=== PATIENT | female | born 1960 | race Caucasian/White ===

== ENCOUNTER → 2016-12-13 | Outpatient (CLI) | payer MEDICAID ==
--- NOTE | 2016-12-17 09:52 | MM ---
Reason for exam: screening (asymptomatic). Last mammogram was performed 3 years and 6 months ago. History: Family history of breast cancer in sister at age 50 and breast cancer in mother. Took hormonal contraceptives for 4 years beginning at age 18. Physical Findings: A clinical breast exam by your physician is recommended on an annual basis and results should be correlated with mammographic findings. MG 3D Screening Mammo W/Cad Bilateral CC and MLO view(s) were taken. Prior study comparison: June 02, 2013, bilateral digital screening mammo w/CAD. October 09, 2011, bilateral digital screening mammo w/CAD. The breast tissue is heterogeneously dense. This may lower the sensitivity of mammography. Finding: There are typically benign round calcifications. There is no discrete abnormality. No significant changes in finding since June 02, 2013 and October 09, 2011. ASSESSMENT: Benign, BI-RAD 2 RECOMMENDATION: Routine screening mammogram of both breasts in 1 year.
== END | disposition home or self-care (01) ==
LOC: RADMAMWWP 11:55
PROVIDERS: ATTEND Obstetrics & Gynecology
DX: Z12.31 Encounter for screening mammogram for malignant neoplasm of breast (principal); Z80.3 Family history of malignant neoplasm of breast
CPT/HCPCS: 77063; G0202

== ENCOUNTER → 2016-12-17 | Outpatient (CLI) | payer MEDICAID ==
[2016-12-17 10:02] LABS: Basophils % (A) 1 %; CH 29.4; CHCM 32.6; Eosinophils # (A) 0.3 k/uL (0-0.7); Eosinophils % (A) 5 %; HCT 43.3 % (34.0-46.0); HDW 2.78; HGB 13.7 gm/dL (11.4-16.0); Luc % (Auto) 1; Lymphocytes # (A) 1.4 k/uL (1.0-4.8); Lymphocytes % (A) 21 %; MCH 28.6 pg (25.0-35.0); MCHC 31.6 g/dL (31.0-37.0); MCV 90.5 fL (80.0-100.0); Mean Platelet Volume 8.3; Monocytes # (A) 0.5 k/uL (0-1.0); Monocytes % (A) 7 %; Neutrophils # (A) 4.6 k/uL (1.3-7.7); Neutrophils % (A) 66 %; RBC 4.78 m/uL (3.80-5.40); RDW 14.3 % (11.5-15.5)
[2016-12-17 10:46] LABS: ALT 51 U/L (9-52); AST 30 U/L (14-36); Alkaline Phosphatase 63 U/L (38-126); Anion Gap 12 mmol/L; Blood Urea Nitrogen 19 mg/dL (7-17); Carbon Dioxide 26 mmol/L (22-30); Chloride 106 mmol/L (98-107); Glucose 102 mg/dL (74-99); Non-African American GFR(MDRD) >60 (>60 ml/min/1.73 sqM); Sodium 144 mmol/L (137-145); Total Bilirubin 0.5 mg/dL (0.2-1.3); Total Protein 6.9 g/dL (6.3-8.2)
[2016-12-17 11:36] LABS: Vitamin B12 506 pg/mL (239-931)
[2016-12-17 16:24] LABS: Appearance,CSF Clear
[2016-12-17 16:36] LABS: Glucose,CSF 56 mg/dL (40-70)
[2016-12-18 14:18] LABS: Immunoglobulin G 608 mg/dL (700 - 1600)
[2016-12-20 17:52] LABS: Lyme Specimen Source Not Provided
== END | disposition home or self-care (01) ==
LOC: LABWHC1 09:19
PROVIDERS: ATTEND Psychiatry & Neurology Neurology
DX: R90.82 White matter disease, unspecified (principal); R41.3 Other amnesia
CPT/HCPCS: 36415; 80053; 82040; 82042; 82306; 82607; 82784; 82945; 83916; 84157; 84439; 84443; 84481; 85025; 87476; 88108; 89050

== ENCOUNTER → 2017-03-11 | Outpatient (CLI) | payer MEDICAID ==
--- NOTE | 2017-03-11 11:47 | XR ---
EXAMINATION TYPE: XR chest 2V DATE OF EXAM: 03/11/2017 11:43 AM COMPARISON: 10/02/2016 TECHNIQUE: PA and lateral views submitted. HISTORY: Cough FINDINGS: The lungs are clear and there is no pneumothorax, pleural effusion, or focal pneumonia. No overt fa ilure. LAP-BAND noted. Degenerative change of the spine seen. IMPRESSION: 1. No acute process.
== END | disposition home or self-care (01) ==
LOC: RADXRMAIN 11:28
PROVIDERS: ATTEND Family Medicine
DX: J20.9 Acute bronchitis, unspecified (principal)
CPT/HCPCS: 36415; 71020; 80048; 85025

== ENCOUNTER → 2017-03-11 | Outpatient (CLI) | payer MEDICAID ==
[2017-03-11 12:22] LABS: Basophils % (A) 1 %; CH 28.7; CHCM 32.1; Eosinophils # (A) 0.3 k/uL (0-0.7); Eosinophils % (A) 5 %; HCT 44.7 % (34.0-46.0); HDW 2.76; HGB 14.1 gm/dL (11.4-16.0); Luc # (Auto) 0.18; Luc % (Auto) 2; Lymphocytes % (A) 39 %; MCH 28.4 pg (25.0-35.0); MCHC 31.7 g/dL (31.0-37.0); MCV 89.7 fL (80.0-100.0); Mean Platelet Volume 6.6; Monocytes # (A) 0.4 k/uL (0-1.0); Monocytes % (A) 5 %; Neutrophils # (A) 3.8 k/uL (1.3-7.7); Neutrophils % (A) 49 %; RBC 4.98 m/uL (3.80-5.40); RDW 15.5 % (11.5-15.5); WBC 7.7 k/uL (3.8-10.6); WBC (Perox) 7.91
[2017-03-11 12:35] LABS: Anion Gap 13 mmol/L; Blood Urea Nitrogen 18 mg/dL (7-17); Calcium 10.5 mg/dL (8.4-10.2); Carbon Dioxide 26 mmol/L (22-30); Chloride 103 mmol/L (98-107); Glucose 101 mg/dL (74-99); Non-African American GFR(MDRD) >60 (>60 ml/min/1.73 sqM); Potassium 4.1 mmol/L (3.5-5.1); Sodium 142 mmol/L (137-145)
== END | disposition home or self-care (01) ==
LOC: LABWHC1 11:48
PROVIDERS: ATTEND Family Medicine
DX: I10 Essential (primary) hypertension (principal)
CPT/HCPCS: 36415; 80048; 85025

== ENCOUNTER 2017-05-17 15:24 | Emergency (ER) | payer MEDICAID, OTHER ==
[2017-05-17 15:30] VITALS: BP 177/84; PULSE 84; RESP 20; TEMP 98
[2017-05-17] MEDS ORDERED: RX INFO: IV CONTRAST WAS GIVEN 1 EACH MISC MISCELLANE PRN ×2 (16:09→17:43)
[2017-05-17] MEDS ORDERED: IOHEXOL 350 MG/ML 25 ML BOTTLE (ORAL USE) PO PRN ×2 (16:09→17:43)
[2017-05-17] MEDS ORDERED: SODIUM CHLORIDE 0.9% 1,000 ML IV ONE (16:10)
--- NOTE | 2017-05-17 16:12 | ED ---
Fall HPI <Eduardo Saavedra - Last Filed: 05/17/17 17:43> - General Source: patient, RN notes reviewed, old records reviewed Mode of arrival: ambulatory <Gardenia Davis - Last Filed: 05/18/17 13:34> - General Chief Complaint: Fall Stated Complaint: IHS. Back Injury Time Seen by Provider: 05/17/17 15:58 - History of Present Illness Initial Comments: This is a 56-year-old female presenting to the emergency Department chief complaint of falling and hitting her left side on a bed rail about work today. 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 Patient reports that she twisted her right knee and the same process. She states that she mainly landed on her left side. She does have history of lap band. Patient is concerned that there is something disruptive with the lap band. She states that she's had a gassy feeling and feeling that she is swelling in her abdomen. Patient states it hurts to take a deep breath. Patient states that her pain is currently 9 out of 10. She denies any chest pain. She states the pain is mainly over the left lower rib and upper quadrant area. (Gardenia Davis) - Related Data Home Medications Medication Instructions Recorded Confirmed amLODIPine BESYLATE [Norvasc] 5 mg PO HS 08/09/15 05/17/17 Cholecalciferol [Vitamin D3] 1,000 unit PO DAILY 05/17/17 05/17/17 [place]-3 Fatty Acids/Fish Oil [Fish 1 cap PO DAILY 05/17/17 05/17/17 Oil 1,000 mg Softgel] Vitamin E 1,000 unit PO DAILY 05/17/17 05/17/17 traMADol HCl [Ultram] 50 mg PO HS PRN 05/17/17 05/17/17 Previous Rx's Medication Instructions Recorded Cyclobenzaprine [Flexeril] 10 mg PO TID #15 tab 05/17/17 traMADol HCl [Ultram] 50 mg PO Q6H PRN #15 tab 05/17/17 Allergies Allergy/AdvReac Type Severity Reaction Status Date / Time No Known Allergies Allergy Verified 05/17/17 16:49 Review of Systems ROS Other: All systems not noted in ROS Statement are negative. <Eduardo Saavedra - Last Filed: 05/17/17 17:43> ROS Other: All systems not noted in ROS Statement are negative. <RyanGardenia - Last Filed: 05/18/17 13:34> ROS Statement: Those systems with pertinent positive or pertinent negative responses have been documented in the HPI. Past Medical History Past Medical History: Hypertension, Mitral Valve Prolapse (MVP), Osteoarthritis (OA), Sleep Apnea/CPAP/BIPAP Additional Past Medical History / Comment(s): "AAA, 4 cm", occ stress incont, using cpap occ. History of Any Multi-Drug Resistant Organisms: None Reported Past Surgical History: Adenoidectomy, Bariatric Surgery, Orthopedic Surgery, Tonsillectomy Additional Past Surgical History / Comment(s): lap band, rt eye sx-had a blocked blood vessel, sinus sx, L knee replacement, 10-02-16 rt knee replacment Past Anesthesia/Blood Transfusion Reactions: No Reported Reaction Past Psychological History: No Psychological Hx Reported Smoking Status: Never smoker Past Alcohol Use History: Rare Past Drug Use History: None Reported - Past Family History Sister(s) Family Medical History: Cancer Additional Family Medical History / Comment(s): BREAST CANCER, HX OF BRACHIAL BLOOD CLOTS WITH FILTERS INSERTED. Mother Family Medical History: Cancer Additional Family Medical History / Comment(s): BREAST CANCER. Father Family Medical History: Congestive Heart Failure (CHF) <Alexa Davisily - Last Filed: 05/18/17 13:34> General Exam <SaavedraEduardo - Last Filed: 05/17/17 17:43> Limitations: no limitations General appearance: alert, in no apparent distress Head exam: Present: atraumatic, normocephalic, normal inspection Eye exam: Present: normal appearance, PERRL, EOMI. Absent: scleral icterus, conjunctival injection, periorbital swelling ENT exam: Present: normal exam, mucous membranes moist Neck exam: Present: normal inspection. Absent: tenderness, meningismus, lymphadenopathy Respiratory exam: Present: normal lung sounds bilaterally, chest wall tenderness (Patient has left-sided lower chest wall tenderness. Patient reports pain with deep inspiration.), other. Absent: respiratory distress, wheezes, rales, rhonchi, stridor Cardiovascular Exam: Present: regular rate, normal rhythm, normal heart sounds. Absent: systolic murmur, diastolic murmur, rubs, gallop, clicks GI/Abdominal exam: Present: soft, tenderness (Left upper quadrant tenderness.), normal bowel sounds. Absent: distended, guarding, rebound, rigid Extremities exam: Present: normal inspection, full ROM, normal capillary refill. Absent: tenderness, pedal edema, joint swelling, calf tenderness Back exam: Present: normal inspection Neurological exam: Present: alert, oriented X3, CN II-XII intact Psychiatric exam: Present: normal affect, normal mood Skin exam: Present: warm, dry, intact, normal color. Absent: rash <Gardenia Davis - Last Filed: 05/18/17 13:34> - General Exam Comments Initial Comments: 56-year-old female. Patient is on appear to be in any acute distress. ( Gardenia Davis) Course <Eduardo Saavedra - Last Filed: 05/17/17 17:43> <Gardenia Davis - Last Filed: 05/18/17 13:34> Vital Signs 05/17/17 15:28 Temperature 98 F Pulse Rate 84 Respiratory 20 Rate Blood Pressure 177/84 O2 Sat by Pulse 98 Oximetry - Reevaluation(s) Reevaluation #1: 05/17/17 17:43 Patient reevaluated by myself, Dr. Saavedra. Patient resting comfortably in bed. Patient plays of discomfort of the left upper abdomen and left back. There is minimal tenderness to palpation. No chest discomfort. Discussed with patient regarding possible central line however patient does not feel this is necessary. Patient states she has chronic difficulty with IV placement and even now has chronic difficulty with central line placement. Patient states she has had multiple central lines previously and does not want another one. Patient is felt to have low suspicion for acute abdominal injury based on exam. Computed tomography scan will be done without IV contrast. (Eduardo Saavedra) 05/17/17 17:18 Patient was reevaluated after multiple IV attempts at this time. She was informed that her chest x-ray is normal and that her urine does show stigmata red blood cells. This will be the fourth attempt of trying to start an IV on the patient started to get a computed tomography scan. He states that she usually has had have central lines in order to have fluid started. (Gardenia Davis) Medical Decision Making - Lab Data Result diagrams: 05/17/17 16:55 <Eduardo Saavedra - Last Filed: 05/17/17 17:43> - Lab Data Result diagrams: 05/17/17 16:55 - Radiology Data Radiology results: report reviewed <Gardenia Davis - Last Filed: 05/18/17 13:34> - Medical Decision Making This is a 56-year-old female presenting to the emergency Department chief complaint of falling and hitting her left side on a bed rail about work today. 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 Patient reports that she twisted her right knee and the same process. She states that she mainly landed on her left side. She does have history of lap band. Patient is concerned that there is something disruptive with the lap band. She states that she's had a gassy feeling and feeling that she is swelling in her abdomen. Patient is tender in LUQ and left flank. Urinalysis shows 90 RBC. CXR and rib xray are negative. Multiple attempts completed to obtain IV access for CT abdomen and pelvis, however patient has difficulty. She ususlaly needs a central line. She wants to forgo using contrast, discussed with DR. Saavedra. CT abdomen pelvis with bariatric protocol was completed. CT is negative for any acute process, spleen and kidneys appear intact. Discussed she needs to follow up with PCP in regards to hematuria, however no lacerations noted. Discussed taking muscle relaxer and pain medication for the pain. Patient agrees to treatment plan and will comply. (Gardenia Davis) - Lab Data Lab Results 05/17/17 05/17/17 Range/Units 16:14 16:55 Sodium 144 (137-145) mmol/L Potassium 4.2 (3.5-5.1) mmol/L Chloride 105 (98-107) mmol/L Carbon Dioxide 25 (22-30) mmol/L Anion Gap 14 mmol/L BUN 27 H (7-17) mg/dL Creatinine 0.70 (0.52-1.04) mg/dL Est GFR (MDRD) Af Amer >60 (>60 ml/min/1.73 sqM) Est GFR (MDRD) Non-Af >60 (>60 ml/min/1.73 sqM) Glucose 83 (74-99) mg/dL Calcium 10.0 (8.4-10.2) mg/dL Urine Color Yellow Urine Appearance Cloudy H (Clear) Urine pH 5.5 (5.0-8.0) Ur Specific [place] 1.029 (1.001-1.035) Urine Protein Trace H (Negative) Urine Glucose (UA) Negative (Negative) Urine Ketones Trace H (Negative) Urine Blood Negative (Negative) Urine Nitrite Negative (Negative) Urine Bilirubin Negative (Negative) Urine Urobilinogen 2.0 (<2.0) mg/dL Ur Leukocyte Esterase Trace H (Negative) Urine RBC 90 H (0-5) /hpf Urine WBC 6 H (0-5) /hpf Ur Squamous Epith Cells 3 (0-4) /hpf Urine Bacteria Rare H (None) /hpf Urine Mucus Rare H (None) /hpf - Radiology Data CXR negative for rib fracture or acute process. Pt CT abdoment and pelvis shows proper placement of lap band, and no other significant abnormalities. (Gardenia Davis) Disposition <Eduardo Saavedra - Last Filed: 05/17/17 17:43> Time of Disposition: 18:58 <Gardenia Davis - Last Filed: 05/18/17 13:34> Clinical Impression: Fall, Contusion, flank Disposition: HOME SELF-CARE Condition: Good Instructions: Abdominal Pain (ED), Flank Pain (ED) Additional Instructions: Patient advised to follow-up with her primary care provider on Saturday. Return if there is any worsening. Patient advised to take the medication as prescribed. Rest and apply heat and ice to the area. Return to the emergency department if any alarming signs or symptoms occur. Prescriptions: Cyclobenzaprine [Flexeril] 10 mg PO TID #15 tab traMADol HCl [Ultram] 50 mg PO Q6H PRN #15 tab PRN Reason: Pain Referrals: Omer Katz DO [Primary Care Provider] - 1-2 days
--- NOTE | 2017-05-17 16:29 | XR ---
EXAMINATION TYPE: XR ribs LT w pa chest xray DATE OF EXAM: 05/17/2017 COMPARISON: Chest x-ray 03/11/2017 HISTORY: Left-sided chest pain from fall TECHNIQUE: 2 views left RIBS supplemented with a frontal chest. FINDINGS: Lap band is present. No pneumothorax is evident. Left ribs appear intact. No displaced rib fractures are identified. Heart size is normal. Pulmonary vasculature is normal. The lungs are clear. Chest is stable from 03/11 IMPRESSION: 1. Normal left ribs
[2017-05-17 16:33] LABS: Mucus,Urine Rare /hpf; Particle Count 6930; RBC,Urine 90 /hpf (0-5); Squamous Epithelial Cell,Urine 3 /hpf (0-4); WBC,Urine 6 /hpf (0-5)
[2017-05-17 16:52] LABS: Appearance,Urine Cloudy (Clear); Bacteria,Urine Rare /hpf; Bilirubin,Urine Negative (Negative); Glucose,Urine (UA) Negative (Negative); Ketones,Urine Trace (Negative); Leukocyte Esterase,Urine Trace (Negative); Nitrite,Urine Negative (Negative); PH, Urine 5.5 (5.0-8.0); Protein,Urine Trace (Negative); Specific Gravity,Urine 1.029 (1.001-1.035); UA Billing (MACRO vs. MICRO) MICRO
[2017-05-17 17:18] LABS: Anion Gap 14 mmol/L; Blood Urea Nitrogen 27 mg/dL (7-17); Carbon Dioxide 25 mmol/L (22-30); Chloride 105 mmol/L (98-107); Glucose 83 mg/dL (74-99); Non-African American GFR(MDRD) >60 (>60 ml/min/1.73 sqM); Potassium 4.2 mmol/L (3.5-5.1); Sodium 144 mmol/L (137-145)
--- NOTE | 2017-05-17 18:12 | CT ---
EXAMINATION TYPE: CT abdomen pelvis wo con DATE OF EXAM: 05/17/2017 COMPARISON: NONE HISTORY: ABDOMINAL BLOATING AND BACK PAIN. CT DLP: 1045.3 mGycm Automated exposure control for dose reduction was used. TECHNIQUE: Helical acquisition of images was performed from the lung bases through the pelvis. FINDINGS: There is mild linear density at the right lung base consistent with atelectasis. There is a sleeve at the gastroesophageal junction from bariatric surgery. Liver shows no focal defect. Bile ducts are no t dilated. Spleen appears normal. There is no pancreatic mass. Gallbladder appears normal. There is no adrenal mass. Kidneys have normal size and contour. There is no hydronephrosis. There is no retroperitoneal adenopathy. There is mild atheromatous change in the abdominal aorta. There is no ascites. Bladder distends smoothly. I see no pelvic mass. Appendix appears normal. I see no intestina l wall thickening. There are no dilated loops. Bony structures appear normal. There is a small right inguinal hernia that contains omental fat.: IMPRESSION: ATHEROSCLEROTIC VASCULAR DISEASE. NO SIGN OF ACUTE ABDOMEN AND PELVIS. SMALL RIGHT INGUINAL HERNIA CO NTAINS FAT. BARIATRIC SURGERY NOTED. NORMAL APPENDIX. MILD ATELECTASIS AT THE RIGHT LUNG BASE.
[2017-05-17] MEDS ORDERED: ORPHENADRINE 30 MG/ML 2 ML VIAL IM STA (18:16)
== END 2017-05-17 19:13 | disposition home or self-care (01) ==
LOC: EC 15:24
DX: S30.1XXA Contusion of abdominal wall, initial encounter (principal); S89.91XA Unspecified injury of right lower leg, initial encounter; R07.81 Pleurodynia; I10 Essential (primary) hypertension; Z79.899 Other long term (current) drug therapy; Z98.84 Bariatric surgery status; W01.190A Fall on same level from slipping, tripping and stumbling with subsequent striking against furniture, initial encounter; Y92.69 Other specified industrial and construction area as the place of occurrence of the external cause; Y99.0 Civilian activity done for income or pay
CPT/HCPCS: 36415; 80048; 81001; 71101; 74176; 99284; 96372; J2360

== ENCOUNTER → 2017-05-25 | Outpatient (CLI) | payer MEDICAID ==
[2017-05-25 10:01] LABS: Appearance,Urine Clear (Clear); Bilirubin,Urine Negative (Negative); Glucose,Urine (UA) Negative (Negative); Ketones,Urine Negative (Negative); Leukocyte Esterase,Urine Negative (Negative); Nitrite,Urine Negative (Negative); PH, Urine 6.5 (5.0-8.0); Protein,Urine Negative (Negative); Specific Gravity,Urine 1.021 (1.001-1.035); UA Billing (MACRO vs. MICRO) CHEM; Urobilinogen,Urine <2.0 mg/dL (<2.0)
== END | disposition home or self-care (01) ==
LOC: LABWHC1 09:19
PROVIDERS: ATTEND Family Medicine
DX: R31.21 Asymptomatic microscopic hematuria (principal); R89.9 Unspecified abnormal finding in specimens from other organs, systems and tissues
CPT/HCPCS: 36415; 81003; 82310; 87086

== ENCOUNTER → 2017-07-06 | Outpatient (CLI) | payer MEDICAID ==
[2017-07-06 09:33] LABS: Appearance,Urine Clear (Clear); Bilirubin,Urine Negative (Negative); Glucose,Urine (UA) Negative (Negative); Ketones,Urine Negative (Negative); Leukocyte Esterase,Urine Negative (Negative); Nitrite,Urine Negative (Negative); Protein,Urine Negative (Negative); Specific Gravity,Urine 1.016 (1.001-1.035); UA Billing (MACRO vs. MICRO) CHEM; Urobilinogen,Urine <2.0 mg/dL (<2.0)
[2017-07-06 09:35] LABS: Basophils % (A) 1 %; CHCM 32.5; Eosinophils # (A) 0.3 k/uL (0-0.7); Eosinophils % (A) 5 %; HCT 44.5 % (34.0-46.0); HDW 2.72; Luc # (Auto) 0.17; Luc % (Auto) 3; Lymphocytes # (A) 1.6 k/uL (1.0-4.8); Lymphocytes % (A) 24 %; MCH 29.1 pg (25.0-35.0); MCHC 31.4 g/dL (31.0-37.0); MCV 92.8 fL (80.0-100.0); Mean Platelet Volume 7.6; Monocytes # (A) 0.5 k/uL (0-1.0); Monocytes % (A) 7 %; Neutrophils % (A) 61 %; RBC 4.79 m/uL (3.80-5.40); RDW 15.5 % (11.5-15.5); WBC 6.5 k/uL (3.8-10.6); WBC (Perox) 6.87
[2017-07-06 09:47] LABS: ALT 52 U/L (9-52); AST 30 U/L (14-36); Alkaline Phosphatase 75 U/L (38-126); Anion Gap 10 mmol/L; Blood Urea Nitrogen 20 mg/dL (7-17); Calcium 9.6 mg/dL (8.4-10.2); Carbon Dioxide 23 mmol/L (22-30); Chloride 108 mmol/L (98-107); Cholesterol 179 mg/dL (<200); Glucose 103 mg/dL (74-99); HDL Cholesterol 56 mg/dL (40-60); Non-African American GFR(MDRD) >60 (>60 ml/min/1.73 sqM); Potassium 4.3 mmol/L (3.5-5.1); Sodium 141 mmol/L (137-145); Total Bilirubin 0.5 mg/dL (0.2-1.3); Total Protein 6.6 g/dL (6.3-8.2)
[2017-07-06 14:16] LABS: Hemoglobin A1C 5.9 % (4.2-6.1)
== END | disposition home or self-care (01) ==
LOC: LABWHC1 08:40
PROVIDERS: ATTEND Family Medicine
DX: I47.2 Ventricular tachycardia (principal); E78.5 Hyperlipidemia, unspecified; I10 Essential (primary) hypertension; R73.9 Hyperglycemia, unspecified; R31.21 Asymptomatic microscopic hematuria
CPT/HCPCS: 36415; 80053; 80061; 81003; 83036; 83735; 84443; 85025; 87086

== ENCOUNTER → 2018-01-18 | Outpatient (CLI) | payer MEDICAID ==
[2018-01-18 07:36] LABS: Basophils % (A) 1 %; Eosinophils # (A) 0.3 k/uL (0-0.7); Eosinophils % (A) 5 %; HGB 14.2 gm/dL (11.4-16.0); Lymphocytes # (A) 1.4 k/uL (1.0-4.8); Lymphocytes % (A) 23 %; MCH 29.3 pg (25.0-35.0); MCHC 32.2 g/dL (31.0-37.0); Mean Platelet Volume 6.9; Monocytes # (A) 0.4 k/uL (0-1.0); Monocytes % (A) 6 %; Neutrophils # (A) 3.6 k/uL (1.3-7.7); Neutrophils % (A) 62 %; Platelet Count 262 k/uL (150-450); RBC 4.83 m/uL (3.80-5.40); RDW 14.5 % (11.5-15.5); WBC 5.8 k/uL (3.8-10.6)
[2018-01-18 08:01] LABS: ALT 43 U/L (9-52); AST 30 U/L (14-36); Albumin 4.2 g/dL (3.5-5.0); Alkaline Phosphatase 78 U/L (38-126); Anion Gap 10 mmol/L; Blood Urea Nitrogen 18 mg/dL (7-17); Calcium 9.6 mg/dL (8.4-10.2); Carbon Dioxide 29 mmol/L (22-30); Chloride 105 mmol/L (98-107); Cholesterol 174 mg/dL (<200); Glucose 111 mg/dL (74-99); HDL Cholesterol 55 mg/dL (40-60); LDL Cholesterol,Calculated 96 mg/dL (0-99); Sodium 144 mmol/L (137-145); Total Bilirubin 0.3 mg/dL (0.2-1.3); Total Protein 6.5 g/dL (6.3-8.2); Triglycerides 113 mg/dL (<150)
[2018-01-18 08:18] LABS: T4, Free (Free Thyroxine) 1.22 ng/dL (0.78-2.19)
[2018-01-18 13:34] LABS: Hemoglobin A1C 5.6 % (4.0-6.0)
== END | disposition home or self-care (01) ==
LOC: LABWHC1 07:11
PROVIDERS: ATTEND Internal Medicine Cardiovascular Disease
DX: E66.9 Obesity, unspecified (principal); I10 Essential (primary) hypertension; E78.5 Hyperlipidemia, unspecified
CPT/HCPCS: 36415; 80053; 80061; 83036; 84439; 84443; 85025

== ENCOUNTER → 2018-04-01 | Outpatient (CLI) | payer MEDICAID ==
--- NOTE | 2018-04-01 13:06 | CT ---
EXAMINATION TYPE: CT abdomen pelvis w con DATE OF EXAM: 04/01/2018 COMPARISON: 10/18/2017 HISTORY: 57-year-old female Lung nodules, Rt flank pain, Rt groin pain. AAA follow up TECHNIQUE: Contiguous axial scanning of the abdomen and pelvis following administration of 100 ml Iso ramy 300 IV contrast. Delayed images through the kidneys and coronal/sagittal reconstructions perform ed. CT DLP: 2071.8 (Chest, abd and pelvis) mGycm Automated exposure control for dose reduction was used. FINDINGS: Chest reported separately. There is a small hiatal hernia. Lap band device remains in place. The liver is enlarged measuring 22.3 cm. No biliary ductal dilatation seen. Gallbladder, adrenal glands, kidneys, spleen, and pancreas appear within normal limits. No dilated small bowel, free fluid, or free air. No mesenteric or retroperitoneal lymphadenopathy. Normal appendix. Oral contrast has progressed to the mid transverse colon. There is moderate stool bu rden. Scattered left-sided colonic diverticulosis without pericolonic inflammatory change. Scattered mild atherosclerotic calcifications within the abdominal aorta without aneurysm. Celiac axis, SMA, and perez bilateral renal arteries as well as the EARNESTINE remain patent. There is m ild atherosclerotic calcification at the origin of the left renal artery. Bladder is urine distended. Uterus is visualized. Ovaries not clearly delineated. No abnormal fluid c ollection in the pelvis or pelvic lymphadenopathy seen. Subcutaneous varices are noted along the lower abdomen and inguinal regions. Bones: Degenerative changes at the hips. Facet arthropathy lower lumbar spine. No osseous destructive process. IMPRESSION: 1. CHEST REPORTED SEPARATELY. 2. NO EVIDENCE FOR AAA. 3. MODERATE STOOL BURDEN WITH OCCASIONAL LEFT-SIDED COLONIC DIVERTICULOSIS. NO EVIDENCE FOR ACUTE DIV ERTICULITIS. 4. HEPATOMEGALY (22.3 CM). 5. SMALL HIATAL HERNIA.
== END | disposition home or self-care (01) ==
LOC: RADCTMAIN 09:31
PROVIDERS: ATTEND Surgery
DX: K44.9 Diaphragmatic hernia without obstruction or gangrene (principal); R16.0 Hepatomegaly, not elsewhere classified; K57.30 Diverticulosis of large intestine without perforation or abscess without bleeding
CPT/HCPCS: 74177; Q9967

== ENCOUNTER → 2018-04-01 | Outpatient (CLI) | payer MEDICAID ==
--- NOTE | 2018-04-01 13:27 | CT ---
EXAMINATION TYPE: CT chest w con DATE OF EXAM: 04/01/2018 COMPARISON: 08/02/2016 and 04/01/2018 HISTORY: 57 year-old female multiple lung nodules, Lung nodules, Rt flank pain, Rt groin pain, AAA TECHNIQUE: Contiguous axial scanning of the chest after the administration of 100 mL of Isovue 300. Coronal/sagittal reconstructions performed. CT DLP: 2071.8 (chest, abd pelvis)mGycm. Automatic exposure control utilized for a dose reduction. FINDINGS: Heart normal size without pericardial effusion. Relatively stable borderline aneurysm of the ascending aorta at 3.9 cm, previously measured at 4.0 cm . Conventional arch vessel branching anatomy. Scattered nonenlarged mediastinal lymph nodes measuring up to 7 mm. No thoracic lymphadenopathy by CT size criteria. Small calcified granuloma anterior left apex. Tiny subtle 4 mm nodular density peripheral right upper lobe axial image 23 is less defined and has an appearance now similar to 2016. No other suspicious p ulmonary nodule or mass. Prominent dependent atelectasis and additional strandy basilar atelectasis i s noted. No consolidation or pleural effusion. Small hiatal hernia. Abdomen otherwise reported separately. IMPRESSION: 1. Relatively stable borderline aneurysm ascending aorta at 3.9 cm, previously measured at 4.0 cm. 2. A 4 mm right upper lobe pulmonary nodule is unchanged. No new or enlarging pulmonary nodules seen.
== END | disposition home or self-care (01) ==
LOC: RADCTMAIN 09:35
PROVIDERS: ATTEND Surgery
DX: R91.1 Solitary pulmonary nodule (principal); I71.2 Thoracic aortic aneurysm, without rupture
CPT/HCPCS: 71260

== ENCOUNTER → 2018-08-13 | Outpatient (CLI) | payer MEDICAID ==
--- NOTE | 2018-08-15 14:04 | MM ---
Reason for exam: screening (asymptomatic). Last mammogram was performed 1 year and 8 months ago. History: Family history of breast cancer in sister at age 50 and breast cancer in mother. Took hormonal contraceptives for 4 years beginning at age 18. Physical Findings: A clinical breast exam by your physician is recommended on an annual basis and results should be correlated with mammographic findings. MG 3D Screening Mammo W/Cad Bilateral CC and MLO view(s) were taken. Prior study comparison: December 13, 2016, bilateral MG 3d screening mammo w/cad. June 02, 2013, bilateral digital screening mammo w/CAD. Finding: There is a typically benign equal density (isodense), partially obscured oval mass located 6 cm from the nipple in the lower inner quadrant, middle position of the right breast. Enlarged from prior. ASSESSMENT: Incomplete: need additional imaging evaluation, BI-RAD 0 RECOMMENDATION: Ultrasound of the right breast. [facility] will attempt to contact patient to return for ultrasound.
== END | disposition home or self-care (01) ==
LOC: RADMAMWWP 10:38
PROVIDERS: ATTEND Obstetrics & Gynecology
DX: Z12.31 Encounter for screening mammogram for malignant neoplasm of breast (principal)
CPT/HCPCS: 77063; 77067

== ENCOUNTER → 2018-08-20 | Outpatient (CLI) | payer MEDICAID ==
--- NOTE | 2018-08-21 08:06 | USB ---
Reason for exam: additional evaluation requested from abnormal screening. History: Family history of breast cancer in sister at age 50 and breast cancer in mother. Took hormonal contraceptives for 4 years beginning at age 18. Physical Findings: Nurse did not find any significant physical abnormalities on exam. US Breast Workup Limited RT Right limited breast ultrasound including focal area of concern, retroareolar and axilla demonstrates a 0.4 x 0.3 x 0.4cm small hypoechoic to anechoic lesion at 3 o'clock at the junction of multiple fat lobules which may account for some of the shadowing for which a 6 month follow up is recommended and a0.7 x 0.6 x 0.5cm cyst cluster versus complex lesion at 5 o'clock for which a 6 month follow up is recommended. These results were verbally communicated with the patient and result sheet given to the patient on 08/20/18. ASSESSMENT: Probably benign, BI-RAD 3 RECOMMENDATION: Follow-up diagnostic mammogram and ultrasound of the right breast in 6 months.
== END | disposition home or self-care (01) ==
LOC: RADUSWWP 14:24
PROVIDERS: ATTEND Obstetrics & Gynecology
DX: R92.8 Other abnormal and inconclusive findings on diagnostic imaging of breast (principal)

== ENCOUNTER → 2018-09-04 | Outpatient (CLI) | payer MEDICAID ==
[2018-09-04 14:59] LABS: Basophils % (A) 0 %; Eosinophils # (A) 0.2 k/uL (0-0.7); Eosinophils % (A) 3 %; HCT 44.1 % (34.0-46.0); HGB 13.9 gm/dL (11.4-16.0); Lymphocytes # (A) 1.6 k/uL (1.0-4.8); Lymphocytes % (A) 21 %; MCH 28.7 pg (25.0-35.0); MCHC 31.6 g/dL (31.0-37.0); MCV 90.7 fL (80.0-100.0); Mean Platelet Volume 7.7; Monocytes # (A) 0.5 k/uL (0-1.0); Monocytes % (A) 7 %; Neutrophils # (A) 5.3 k/uL (1.3-7.7); Neutrophils % (A) 68 %; Platelet Count 275 k/uL (150-450); RBC 4.86 m/uL (3.80-5.40); RDW 14.9 % (11.5-15.5); WBC 7.8 k/uL (3.8-10.6)
[2018-09-04 15:12] LABS: ALT 40 U/L (9-52); AST 31 U/L (14-36); Anion Gap 11 mmol/L; Blood Urea Nitrogen 16 mg/dL (7-17); Calcium 10.7 mg/dL (8.4-10.2); Carbon Dioxide 25 mmol/L (22-30); Chloride 103 mmol/L (98-107); Glucose 91 mg/dL (74-99); Potassium 4.3 mmol/L (3.5-5.1); Sodium 139 mmol/L (137-145)
[2018-09-04 20:27] LABS: Hemoglobin A1C 5.8 % (4.0-6.0)
[2018-09-05 02:14] LABS: Vitamin D 25 Hydroxy 40.1 ng/mL (30.0-100.0)
[2018-09-05 03:14] LABS: Hepatitis C IgG Antibody Non-Reactive (Non-Reactive)
== END | disposition home or self-care (01) ==
LOC: LABWHC1 13:56
PROVIDERS: ATTEND Family Medicine
DX: Z00.00 Encounter for general adult medical examination without abnormal findings (principal); I10 Essential (primary) hypertension; E66.9 Obesity, unspecified
CPT/HCPCS: 36415; 80048; 82306; 83036; 84450; 84460; 85025; 86803

== ENCOUNTER 2018-12-29 11:38 | Observation (INO) | payer MEDICAID ==
[2018-12-29] MEDS ORDERED: NITROGLYCERIN OINT 1 INCH/GM PACKET TOPICAL STA (12:22)
[2018-12-29] MEDS ORDERED: ASPIRIN 81 MG PO STA (12:22)
[2018-12-29] MEDS ORDERED: ONDANSETRON 4 MG/2 ML VIAL IVP STA (12:22)
[2018-12-29] MEDS ORDERED: MAG HYDROX/AL HYDROX/SIMETH 30 ML, HYOSCYAMINE ELIXIR 10 ML, CIMETIDINE HCL 300 MG, LID... PO STA ×4 (12:23)
[2018-12-29] MEDS ORDERED: LABETALOL 5 MG/ML VIAL MDV IVP STA (12:24)
--- NOTE | 2018-12-29 13:43 | XR ---
EXAMINATION TYPE: XR chest 2V DATE OF EXAM: 12/29/2018 COMPARISON: 10/18/2017 HISTORY: Shortness of breath TECHNIQUE: Frontal and lateral views of the chest are obtained. FINDINGS: Scattered senescent parenchymal changes noted. Hyperinflation compatible with COPD. No evidence for infiltrate. No evidence for atelectasis. Heart size is stable. Mediastinal structures are stable and grossly unremarkable. No evidence for hilar prominence. Degenerative changes dorsal spine. IMPRESSION: 1. No evidence for acute pulmonary disease.
[2018-12-29] MEDS ORDERED: LABETALOL SYRINGE 5 MG/ML IVP STA (14:08)
[2018-12-29 14:22] LABS: Appearance,Urine Clear (Clear); Bilirubin,Urine Negative (Negative); Blood,Urine Negative (Negative); Color,Urine Light Yellow; Glucose,Urine (UA) Negative (Negative); Ketones,Urine Negative (Negative); Leukocyte Esterase,Urine Negative (Negative); Nitrite,Urine Negative (Negative); Protein,Urine Negative (Negative); Specific Gravity,Urine 1.009 (1.001-1.035); Urobilinogen,Urine <2.0 mg/dL (<2.0)
[2018-12-29 14:24] LABS: Basophils % (A) 1 %; Eosinophils # (A) 0.3 k/uL (0-0.7); Eosinophils % (A) 5 %; HCT 43.4 % (34.0-46.0); HGB 14.1 gm/dL (11.4-16.0); Lymphocytes # (A) 1.5 k/uL (1.0-4.8); Lymphocytes % (A) 23 %; MCH 29.4 pg (25.0-35.0); MCHC 32.5 g/dL (31.0-37.0); MCV 90.6 fL (80.0-100.0); Mean Platelet Volume 7.2; Monocytes # (A) 0.3 k/uL (0-1.0); Monocytes % (A) 5 %; Neutrophils # (A) 4.1 k/uL (1.3-7.7); Neutrophils % (A) 65 %; Platelet Count 273 k/uL (150-450); RDW 15.1 % (11.5-15.5); WBC 6.2 k/uL (3.8-10.6)
[2018-12-29 14:36] LABS: ALT 64 U/L (9-52); AST 51 U/L (14-36); Albumin 4.4 g/dL (3.5-5.0); Alkaline Phosphatase 65 U/L (38-126); Amylase 50 U/L (30-110); Anion Gap 6 mmol/L; Blood Urea Nitrogen 17 mg/dL (7-17); Calcium 9.6 mg/dL (8.4-10.2); Carbon Dioxide 28 mmol/L (22-30); Chloride 107 mmol/L (98-107); Glucose 89 mg/dL (74-99); Lipase 126 U/L (23-300); Magnesium 2.1 mg/dL (1.6-2.3); Sodium 141 mmol/L (137-145); Total Bilirubin 0.6 mg/dL (0.2-1.3); Total Protein 6.9 g/dL (6.3-8.2)
[2018-12-29 14:37] LABS: INR 0.9 (<1.2); Prothrombin Time 9.6 sec (9.0-12.0)
[2018-12-29 14:39] LABS: Potassium 4.6 mmol/L (3.5-5.1)
[2018-12-29 14:49] LABS: Creatine Kinase 59 U/L (30-135)
[2018-12-29 14:53] LABS: D-Dimer 0.92 mg/L FEU (<0.60)
[2018-12-29 15:03] LABS: Creatine Kinase MB 0.8 ng/mL (0.0-2.4); Troponin I <0.012 ng/mL (0.000-0.034)
--- NOTE | 2018-12-29 15:20 | US ---
EXAMINATION TYPE: US duplex aorta DATE OF EXAM: 12/29/2018 COMPARISON: CT 04/01/2018 CLINICAL HISTORY: Pain. RUQ chest pressure, ascending AO aneurysm per CT EXAM MEASUREMENTS: Abdominal Aorta: Proximal: 2.1 x 2.3 cm Mid: 1.9 x 2.3 cm Distal: 1.7 x 2.2 cm Bifurcation: Right- 1.2 x 1.3 cm Left- 0.9 x 1.4 cm Limited exam due to overlying bowel gas and patient body habitus. Grayscale, color Doppler, spectr al Doppler imaging performed of the abdominal aorta No AAA visualized on portions seen IMPRESSION: No evident abdominal aortic aneurysm.
--- NOTE | 2018-12-29 15:22 | US ---
EXAMINATION TYPE: US gallbladder DATE OF EXAM: 12/29/2018 COMPARISON: CT 04/01/2018 CLINICAL HISTORY: pain. Chest pressure, NPO per patient EXAM MEASUREMENTS: Liver Length: 22.0 cm Gallbladder Wall: 0.1 cm CBD: 0.4 cm CHD: 0.4 cm Right Kidney: 10.3 x 5.8 x 3.8 cm Pancreas: Appears echogenic in appearance, and there is poor penetration by the ultrasound being Liver: Appears echogenic and course in appearance. Enlarged in size. Gallbladder: wnl Evidence for sonographic Flores's sign: neg CBD: wnl CHD: wnl Right Kidney: wnl Right kidney shows normal cortical medullary differentiation. There is no ascites. IMPRESSION: Probable hepatic steatosis with hepatomegaly.
[2018-12-29] MEDS ORDERED: HEPARIN SODIUM,PORCINE 5,000 UNIT/ML 1 ML VIAL IV PRN (16:42)
[2018-12-29] MEDS ORDERED: NITROGLYCERIN SL TABS 0.4 MG TAB SUBLINGUAL PRN (16:42)
[2018-12-29] MEDS ORDERED: ACETAMINOPHEN TAB 325 MG TAB PO PRN (16:42)
[2018-12-29] MEDS ORDERED: HEPARIN SODIUM,PORCINE 5,000 UNIT/ML 1 ML VIAL IV ONE (16:42)
--- NOTE | 2018-12-29 16:42 | ED ---
Chest Pain HPI - General Chief Complaint: Chest Pain Stated Complaint: Chest Discomfort Time Seen by Provider: 12/29/18 11:51 Source: patient Mode of arrival: wheelchair Limitations: no limitations - History of Present Illness Initial Comments: This 58-year-old white female comes with a complaint of some chest pain as well as shortness breath. It is more on the right side of her chest. It seems to go into her upper abdomen as well. She does complain of some dizziness or lightheadedness at times which seems to be worse when she is walking. She complains of some nausea as well as a headache. She does relate that she's had a history of an abdominal aortic aneurysm. She denies any fevers or chills. The symptoms started shortly prior to arrival. She denies any other complaints or modifying factors. - Related Data Home Medications Medication Instructions Recorded Confirmed amLODIPine BESYLATE [Norvasc] 5 mg PO BID 08/09/15 12/29/18 Cholecalciferol [Vitamin D3] 1,000 unit PO DAILY 05/17/17 12/29/18 ALPRAZolam [Xanax] 0.25 mg PO DAILY PRN 12/29/18 12/29/18 Budesonide-Formot 160-4.5 Mcg 2 puff INHALATION RT-BID 12/29/18 12/29/18 [Symbicort 160-4.5 Mcg Inhaler] FLUoxetine HCL [PROzac] 20 mg PO HS 12/29/18 12/29/18 Loratadine [Claritin] 10 mg PO DAILY PRN 12/29/18 12/29/18 Montelukast Sodium [Singulair] 10 mg PO HS 12/29/18 12/29/18 Multivitamins, Thera [Multivitamin 1 tab PO DAILY 12/29/18 12/29/18 (formulary)] Allergies Allergy/AdvReac Type Severity Reaction Status Date / Time No Known Allergies Allergy Verified 12/29/18 12:37 Review of Systems ROS Statement: Those systems with pertinent positive or pertinent negative responses have been documented in the HPI. ROS Other: All systems not noted in ROS Statement are negative. Past Medical History Past Medical History: Hypertension, Mitral Valve Prolapse (MVP), Osteoarthritis (OA), Sleep Apnea/CPAP/BIPAP Additional Past Medical History / Comment(s): "AAA, 4 cm", occ stress incont, using cpap occ. History of Any Multi-Drug Resistant Organisms: None Reported Past Surgical History: Adenoidectomy, Bariatric Surgery, Orthopedic Surgery, Tonsillectomy Additional Past Surgical History / Comment(s): lap band, rt eye sx-had a blocked blood vessel, sinus sx, L knee replacement, 10-02-16 rt knee replacment Past Anesthesia/Blood Transfusion Reactions: No Reported Reaction Past Psychological History: No Psychological Hx Reported Smoking Status: Never smoker Past Alcohol Use History: Rare Past Drug Use History: None Reported - Past Family History Sister(s) Family Medical History: Cancer Additional Family Medical History / Comment(s): BREAST CANCER, HX OF BRACHIAL BLOOD CLOTS WITH FILTERS INSERTED. Mother Family Medical History: Cancer Additional Family Medical History / Comment(s): BREAST CANCER. Father Family Medical History: Congestive Heart Failure (CHF) General Exam - General Exam Comments Initial Comments: GENERAL: The patient is well nourished and well hydrated. VITAL SIGNS: Heart rate, blood pressure, respiratory rate reviewed as recorded in nurse's notes. EYES: Pupils are round and reactive. Extraocular movements are intact. No conjunctival / lid redness or swelling. ENT: No external evidence of injury, swelling, or ecchymosis. Airway is patent. Throat is clear. NECK: Nontender. No swelling or evidence of injury. No subcutaneous emphysema. Trachea is midline. No thyroid mass. HEART: Regular rate and rhythm. Good peripheral pulses. LUNGS/CHEST: Breath sounds clear and equal bilaterally. No rales, rhonchi, or wheezes. No ecchymosis, subcutaneous emphysema, or tenderness. ABDOMEN: There is mild tenderness into the right upper quadrant and midepigastric region. No palpable masses or organomegaly. No peritoneal signs. No abdominal wall swelling or ecchymosis. EXTREMITIES: No extremity tenderness. Normal muscle tone and function. No thoracolumbar tenderness. NEUROLOGIC: Sensation is grossly intact. Cranial nerve exam reveals face is symmetrical, tongue is midline, speech is clear. SKIN: No abrasions or ecchymosis is noted. No induration or masses noted. PSYCHIATRIC: Alert and oriented. Appropriate behavior and judgment. Limitations: no limitations Course Vital Signs 12/29/18 12/29/18 12/29/18 11:44 12:30 15:00 Temperature 97.4 F L Pulse Rate 82 81 73 Respiratory 18 Rate Blood Pressure 167/117 182/105 186/119 O2 Sat by Pulse 98 98 95 Oximetry 12/29/18 12/29/18 12/29/18 15:30 16:00 16:10 Temperature Pulse Rate 64 61 75 Respiratory 18 Rate Blood Pressure 143/82 O2 Sat by Pulse 98 96 96 Oximetry Chest Pain MDM - MDM The patient was seen and examined. All diagnostics were reviewed. The EKG shows a normal sinus rhythm at a rate of 81. There is no acute ST-T wave changes noted. The CT intervals 170, QRS duration 92, and the QTC intervals 466. She is placed on bay stocker no ectopy is identified. She also receives aspirin as well as some Nitropaste. She is feeling improved on recheck. The patient also had a gallbladder ultrasound which did not show any acute abdomen as. The patient requests and evaluation of her aorta. She had a an ultrasound to evaluate her aorta and this does show likely aorta in the abdomen measures 2.3 cm essentially normal. The old records are reviewed and appears that she does have a history of previous thoracic aortic aneurysm by CT measured at 4.1 cm. The chest pain earlier patient also had a chest x-ray which did not show any acute abnormalities. The laboratory is fairly unremarkable except for an elevation of the d-dimer. 3 different nurses were required to obtain a small IV. Is not felt as though she would be able to have a T-wave the thorax or this will IV. She may need to be admitted for a VQ scan to rule out pulmonary embolism. The case is discussed with Dr. Colvin who is familiar with the patient. He is in evaluating the patient currently. She'll be admitted to the hospital for further treatment. Disposition Clinical Impression: Chest pain, Dyspnea, Abdominal pain, Elevated d-dimer, Hypertension, Headache, Dizziness Disposition: ADMITTED IP TO THIS HOSP Condition: Fair Is patient prescribed a controlled substance at d/c from ED?: No Time of Disposition: 16:42 Decision Date: 12/29/18 Decision Time: 16:42
[2018-12-29] MEDS ORDERED: HEPARIN SOD,PORK IN 0.45% NACL 25,000 UNIT in 0.45% NACL 1 250ML.BAG IV SCH (16:45)
[2018-12-29] MEDS ORDERED: LORATADINE 10 MG TAB PO PRN (16:46)
[2018-12-29] MEDS ORDERED: ALPRAZolam 0.25 MG TAB PO PRN (16:46)
--- NOTE | 2018-12-29 18:04 | P.HPIM ---
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 Constant chest pain nonradiating. Patient had a normal EKG troponin is negative. Patient d-dimer is bit elevated because of which we're obtaining a CT angios the chest patient was also having some vague abdominal pain for last 3 days predominantly in the right upper quadrant because of his ultrasound of the abdomen was obtained which did not show any significant abnormality. Patient was complaining of some flulike symptoms has been going on for last 3 days although denied any obvious fever. Patient is being admitted to rule out acute coronary syndromes. Patient is also complaining of some nausea Review of Systems REVIEW OF SYSTEMS: CONSTITUTIONAL: No fever, no malaise, no fatigue. HEENT: No recent visual problems or hearing problems. Denied any sore throat. CARDIOVASCULAR: No orthopnea, PND, no palpitations, no syncope. PULMONARY: No shortness of breath, no cough, no hemoptysis. GASTROINTESTINAL: No diarrhea, no vomiting, NEUROLOGICAL: No headaches, no weakness, no numbness. HEMATOLOGICAL: Denies any bleeding or petechiae. GENITOURINARY: Denies any burning micturition, frequency, or urgency. MUSCULOSKELETAL/RHEUMATOLOGICAL: Denies any joint pain, swelling, or any muscle pain. ENDOCRINE: Denies any polyuria or polydipsia. The rest of the 14-point review of systems is negative. Past Medical History Past Medical History: Hypertension, Mitral Valve Prolapse (MVP), Osteoarthritis (OA), Sleep Apnea/CPAP/BIPAP Additional Past Medical History / Comment(s): "AAA, 4 cm", occ stress incont, using cpap occ. History of Any Multi-Drug Resistant Organisms: None Reported Past Surgical History: Adenoidectomy, Bariatric Surgery, Orthopedic Surgery, Tonsillectomy Additional Past Surgical History / Comment(s): lap band, rt eye sx-had a blocked blood vessel, sinus sx, L knee replacement, 10-02-16 rt knee replacment Past Anesthesia/Blood Transfusion Reactions: No Reported Reaction Past Psychological History: No Psychological Hx Reported Smoking Status: Never smoker Past Alcohol Use History: Rare Past Drug Use History: None Reported - Past Family History Sister(s) Family Medical History: Cancer Additional Family Medical History / Comment(s): BREAST CANCER, HX OF BRACHIAL BLOOD CLOTS WITH FILTERS INSERTED. Mother Family Medical History: Cancer Additional Family Medical History / Comment(s): BREAST CANCER. Father Family Medical History: Congestive Heart Failure (CHF) Medications and Allergies Home Medications Medication Instructions Recorded Confirmed Type amLODIPine BESYLATE [Norvasc] 5 mg PO BID 08/09/15 12/29/18 History Cholecalciferol [Vitamin D3] 1,000 unit PO DAILY 05/17/17 12/29/18 History ALPRAZolam [Xanax] 0.25 mg PO DAILY PRN 12/29/18 12/29/18 History Budesonide-Formot 160-4.5 Mcg 2 puff INHALATION RT-BID 12/29/18 12/29/18 History [Symbicort 160-4.5 Mcg Inhaler] FLUoxetine HCL [PROzac] 20 mg PO HS 12/29/18 12/29/18 History Loratadine [Claritin] 10 mg PO DAILY PRN 12/29/18 12/29/18 History Montelukast Sodium [Singulair] 10 mg PO HS 12/29/18 12/29/18 History Multivitamins, Thera [Multivitamin 1 tab PO DAILY 12/29/18 12/29/18 History (formulary)] Allergies Allergy/AdvReac Type Severity Reaction Status Date / Time No Known Allergies Allergy Verified 12/29/18 12:37 Physical Exam Vitals: Vital Signs Temp Pulse Resp BP Pulse Ox 12/29/18 17:11 98.1 F 68 18 141/81 97 12/29/18 16:10 75 18 143/82 96 12/29/18 16:00 61 96 12/29/18 15:30 64 98 12/29/18 15:00 73 186/119 95 12/29/18 12:30 81 182/105 98 12/29/18 11:44 97.4 F L 82 18 167/117 98 Intake and Output 12/29/18 12/29/18 12/29/18 06:59 14:59 22:59 Other: Weight 116.755 kg PHYSICAL EXAMINATION: GENERAL: The patient is alert and oriented x3, not in any acute distress. Well developed, well nourished. HEENT: Pupils are round and equally reacting to light. EOMI. No scleral icterus. No conjunctival pallor. Normocephalic, atraumatic. No pharyngeal erythema. No thyromegaly. CARDIOVASCULAR: S1 and S2 present. No murmurs, rubs, or gallops. PULMONARY: Chest is clear to auscultation, no wheezing or crackles. ABDOMEN: Soft, nontender, nondistended, normoactive bowel sounds. No palpable organomegaly. MUSCULOSKELETAL: No joint swelling or deformity. EXTREMITIES: No cyanosis, clubbing, or pedal edema. NEUROLOGICAL: Gross neurological examination did not reveal any focal deficits. SKIN: No rashes. Results CBC & Chem 7: 12/29/18 13:50 12/29/18 13:50 Labs: Abnormal Lab Results - Last 24 Hours (Table) 12/29/18 12/29/18 Range/Units 13:50 13:50 D-Dimer 0.92 H (<0.60) mg/L FEU AST 51 H (14-36) U/L ALT 64 H (9-52) U/L Assessment and Plan Plan: -Chest pain: Patient we will rule out acute coronary syndromes, as well as pulmonary embolism because of the pleuritic competent and cardiology will evaluate the patient will obtain 2 more sets of troponins -Hypertension -History of mitral valve prolapse patient does have a murmur -sleep apnea and uses CPAP machine at home which will be continued -Depression for which patient is on Prozac which will be continued For above-mentioned medical problems patient will be resumed and continued on appropriate home medications
[2018-12-29 18:17] VITALS: BMI 40.3
--- NOTE | 2018-12-29 18:51 | CT ---
EXAMINATION TYPE: CT angio chest with contrast and with 3-D reconstruction renderings DATE OF EXAM: 12/29/2018 5:37 PM COMPARISON: 04/01/2018 HISTORY: Chest pain and elevated d-dimer. CT DLP: 412.6 mGycm Automated exposure control for dose reduction was used. CONTRAST: CTA scan of the thorax is performed with IV Contrast, patient injected with 58 mL of Isovue 370, pulmonary embolism protocol. 3-D reconstructions. FINDINGS: AIRWAYS AND LUNGS AND PLEURAL SPACES: The tracheobronchial tree is patent. The lungs are grossly harley r, there is no concerning parenchymal mass or nodule identified. There is no pleural effusion or pne umothorax. MEDIASTINUM: There is satisfactory enhancement of the pulmonary artery and its branches, there is no CT evidence for pulmonary embolism. However, prominent caliber to the pulmonary artery to reveal tree is noted, which can correlate with a clinical diagnosis of pulmonary hypertension. There is no aortic dissection, or other acute aortic findings. Mild aneurysmal dilation of the ascend ing aorta is noted, measuring 4 cm diameter. On the prior study the ascending aortic caliber measured 3.9 cm diameter. There is moderate cardiomegaly with panchamber enlargement. No pericardial effusion. There are no greater than 1 cm hilar or mediastinal lymph nodes. OTHER: No additional significant abnormality is seen. IMPRESSION: 1. NO ACUTE PROCESS. 2. MODERATE CARDIOMEGALY WITH PANCHAMBER ENLARGEMENT. 3. MILD ANEURYSMAL DILATION OF THE ASCENDING AORTA NOTED.
[2018-12-29 19:33] LABS: Creatine Kinase 52 U/L (30-135)
[2018-12-29] MEDS: NITROGLYCERIN OINT 1 INCH/GM PACKET TOPICAL SCH (19:36)
[2018-12-29 19:45] LABS: Creatine Kinase MB 0.9 ng/mL (0.0-2.4); Troponin I <0.012 ng/mL (0.000-0.034)
[2018-12-29] MEDS: SYMBICORT 160-4.5 MCG INHALER INHALATION SCH (19:53)
[2018-12-29] MEDS: amLODIPine 5 MG TAB PO SCH (20:54)
[2018-12-29] MEDS ORDERED: MONTELUKAST 10 MG TAB PO SCH (21:00)
[2018-12-29] MEDS ORDERED: FLUoxetine HCL 20 MG CAP PO SCH (21:00)
[2018-12-30] MEDS: NITROGLYCERIN OINT 1 INCH/GM PACKET TOPICAL SCH ×2 (01:45→06:23)
[2018-12-30 01:46] LABS: Creatine Kinase 46 U/L (30-135)
[2018-12-30 01:59] LABS: Creatine Kinase MB 0.7 ng/mL (0.0-2.4); Troponin I <0.012 ng/mL (0.000-0.034)
[2018-12-30 04:07] LABS: Cholesterol 162 mg/dL (<200); HDL Cholesterol 53 mg/dL (40-60); LDL Cholesterol,Calculated 92 mg/dL (0-99); Triglycerides 84 mg/dL (<150)
[2018-12-30] MEDS: SYMBICORT 160-4.5 MCG INHALER INHALATION SCH (07:56)
[2018-12-30] MEDS: amLODIPine 5 MG TAB PO SCH (08:12)
[2018-12-30] MEDS ORDERED: CHOLECALCIFEROL 1,000 UNIT TAB PO SCH (09:00)
[2018-12-30] MEDS ORDERED: ASPIRIN 325 MG TAB PO SCH (09:00)
[2018-12-30] MEDS ORDERED: ONDANSETRON 4 MG/2 ML VIAL IVP PRN (09:31)
--- NOTE | 2018-12-30 10:28 | ECHOF ---
Referral Reason:cp and sob MEASUREMENTS -------- HEIGHT: 170.2 cm WEIGHT: 106.1 kg BP: 107/64 RVIDd: 3.3 cm (< 3.3) IVSd: 1.3 cm (0.6 - 1.1) LVIDd: 4.9 cm (3.9 - 5.3) LVPWd: 1.3 cm (0.6 - 1.1) IVSs: 1.7 cm LVIDs: 3.5 cm LVPWs: 1.8 cm LA Diam: 3.8 cm (2.7 - 3.8) LAESV Index (A-L): 29.58 ml/m Ao Diam: 3.2 cm (2.0 - 3.7) AV Cusp: 2.2 cm (1.5 - 2.6) MV EXCURSION: 15.618 mm (> 18.000) MV EF SLOPE: 123 mm/s (70 - 150) EPSS: 0.3 cm MV E Rajesh: 1.36 m/s MV DecT: 274 ms MV A Rajesh: 1.28 m/s MV E/A Ratio: 1.07 RAP: 15.00 mmHg RVSP: 47.00 mmHg FINDINGS -------- Sinus rhythm. This was a technically adequate study. The left ventricular size is normal. There is mild concentric left ventricular hypertrophy. Overa ll left ventricular systolic function is normal with, an EF between 60 - 65 %. The right ventricle is normal in size. LA is midly dilated 29-33ml/m2. The right atrium is normal in size. The aortic valve is trileaflet and appears structurally normal. The mitral valve leaflets are mildly thickened. Moderate mitral regurgitation is present. Mild tricuspid regurgitation present. There is moderate pulmonary hypertension. The right ventric ular systolic pressure, as measured by Doppler, is 47.00mmHg. Trace/mild (physiologic) pulmonic regurgitation. The aortic root size is normal. The inferior vena cava is dilated with no significant inspiratory collapse which is consistent estima arnav right atrial pressure of >15 mmHg. There is no pericardial effusion. CONCLUSIONS -------- 1. Sinus rhythm. 2. This was a technically adequate study. 3. The left ventricular size is normal. 4. There is mild concentric left ventricular hypertrophy. 5. Overall left ventricular systolic function is normal with, an EF between 60 - 65 %. 6. The right ventricle is normal in size. 7. LA is midly dilated 29-33ml/m2. 8. The right atrium is normal in size. 9. The aortic valve is trileaflet and appears structurally normal. 10. The mitral valve leaflets are mildly thickened. 11. Moderate mitral regurgitation is present. 12. Mild tricuspid regurgitation present. 13. There is moderate pulmonary hypertension. 14. The right ventricular systolic pressure, as measured by Doppler, is 47.00mmHg. 15. Trace/mild (physiologic) pulmonic regurgitation. 16. The aortic root size is normal. 17. The inferior vena cava is dilated with no significant inspiratory collapse which is consistent es timated right atrial pressure of >15 mmHg. 18. There is no pericardial effusion. DOOR SERVICEMAN: Fiona Shetty RDCS
[2018-12-30] MEDS ORDERED: PANTOPRAZOLE 40 MG/10 ML VIAL IVP SCH (11:30)
--- NOTE | 2018-12-30 11:41 | P.DS ---
Providers Date of admission: 12/29/18 16:47 Attending physician: Oscar Colvin Consults: 12/29/18 16:42 Consult Physician Urgent Consulting Provider: Maryam Lord Consult Reason/Comments: cp Do you want consulting provider notified?: Yes Primary care physician: 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 Constant chest pain nonradiating. Patient had a normal EKG troponin is negative. Patient d-dimer is bit elevated because of which we're obtaining a CT angios the chest patient was also having some vague abdominal pain for last 3 days predominantly in the right upper quadrant because of his ultrasound of the abdomen was obtained which did not show any significant abnormality. Patient was complaining of some flulike symptoms has been going on for last 3 days although denied any obvious fever. Patient is being admitted to rule out acute coronary syndromes. Patient is also complaining of some nausea 12/30/2018 Patient is feeling better still comparing of abdominal pain on the right side. Patient has differential edema both legs because of Val obtain and Doppler bilateral lower extremity is if that is negative patient will discharged today patient had a recent stress test that was negative patient was evaluated by cardiology the cleared for discharge. Patient abdominal pain is mild nonspecific and if she continues to have abdominal pain may benefit from a CAT scan of the abdomen. CAT scan of the of the chest did not show any pulmonary embolism her nodules which are present in the past were not seen in the present CAT scan. PHYSICAL EXAMINATION: GENERAL: The patient is alert and oriented x3, not in any acute distress. Well developed, well nourished. HEENT: Pupils are round and equally reacting to light. EOMI. No scleral icterus. No conjunctival pallor. Normocephalic, atraumatic. No pharyngeal erythema. No thyromegaly. CARDIOVASCULAR: S1 and S2 present. No murmurs, rubs, or gallops. PULMONARY: Chest is clear to auscultation, no wheezing or crackles. ABDOMEN: Soft, nontender, nondistended, normoactive bowel sounds. No palpable organomegaly. MUSCULOSKELETAL: No joint swelling or deformity. EXTREMITIES: No cyanosis, clubbing, or pedal edema. NEUROLOGICAL: Gross neurological examination did not reveal any focal deficits. SKIN: No rashes. Please refer to my HPI further details regarding her hospitalization course and other medical problems. Patient Condition at Discharge: Fair Plan - Discharge Summary Discharge Rx Participant: Yes New Discharge Prescriptions: New amLODIPine [Norvasc] 5 mg PO DAILY tab Omeprazole [PriLOSEC] 40 mg PO AC-BRKFST #14 capsule. Continue Cholecalciferol [Vitamin D3] 1,000 unit PO DAILY Budesonide-Formot 160-4.5 Mcg [Symbicort 160-4.5 Mcg Inhaler] 2 puff INHALATION RT-BID Montelukast Sodium [Singulair] 10 mg PO HS Loratadine [Claritin] 10 mg PO DAILY PRN PRN Reason: Allergy Symptoms FLUoxetine HCL [PROzac] 20 mg PO HS ALPRAZolam [Xanax] 0.25 mg PO DAILY PRN PRN Reason: Anxiety Multivitamins, Thera [Multivitamin (formulary)] 1 tab PO DAILY Discontinued amLODIPine BESYLATE [Norvasc] 5 mg PO BID Discharge Medication List Cholecalciferol [Vitamin D3] 1,000 unit PO DAILY 05/17/17 [History] ALPRAZolam [Xanax] 0.25 mg PO DAILY PRN 12/29/18 [History] Budesonide-Formot 160-4.5 Mcg [Symbicort 160-4.5 Mcg Inhaler] 2 puff INHALATION RT-BID 12/29/18 [History] FLUoxetine HCL [PROzac] 20 mg PO HS 12/29/18 [History] Loratadine [Claritin] 10 mg PO DAILY PRN 12/29/18 [History] Montelukast Sodium [Singulair] 10 mg PO HS 12/29/18 [History] Multivitamins, Thera [Multivitamin (formulary)] 1 tab PO DAILY 12/29/18 [History ] Omeprazole [PriLOSEC] 40 mg PO AC-BRKFST #14 capsule. 12/30/18 [Rx] amLODIPine [Norvasc] 5 mg PO DAILY tab 12/30/18 [Rx]
[2018-12-30] MEDS ORDERED: MULTIVITAMINS, THERA 1 EACH TAB PO SCH (12:00)
[2018-12-30 12:20] VITALS: BP 127/76; PULSE 71; RESP 18; TEMP 97.7
--- NOTE | 2018-12-30 12:57 | CONS ---
CONSULTATION Mrs. Bermudez is a 58-year-old female with a history of hypertension who presented with symptoms of abdominal and chest discomfort. The patient has been seen by Dr. Lord in the past, most recently in October 2017, underwent a stress test prior to that that showed no evidence of inducible ischemia. She is active physically. 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 On Saturday she started to complain of abdominal discomfort radiating up to the chest and she felt dizzy and had some peripheral edema in the right lower extremities. The patient was concerned about her mitral valve and she also has a history of an aneurysm followed by Dr. Gutierrez. She has no PND, orthopnea, or syncope. She has no significant arrhythmia. Her coronary risk factors are remarkable for hypertension that has reoccurred after she gained weight. She is nondiabetic, not hyperlipidemic and nonsmoker. MEDICATION: Her medications include Norvasc 5 mg twice a day, Symbicort, Xanax, vitamin D, Prozac, Claritin, Singulair, and multivitamin. REVIEW OF SYSTEMS: RESPIRATORY SYSTEM: She has no documented history of recent wheezing, but she has a history of bronchial asthma. GI SYSTEM: No recent GI bleeding. No peptic ulcer disease. She has the abdominal pain. SYSTEM: No dysuria or hematuria. NERVOUS SYSTEM: No history of stroke or seizure. PHYSICAL EXAMINATION: She is a 58-year-old female, alert, oriented, in no apparent distress. Blood pressure 126/78 with the heart rate in the 60s. HEAD: Normocephalic. EYES: Sclerae anicteric. NECK: Good upstroke, no bruit, no jugular venous distention. LUNGS: Clear to auscultation. HEART: Regular rate and rhythm. S1, S2. No S3 with systolic murmur heard at the base. No diastolic murmur. No rub. ABDOMEN: Soft, nontender, obese. Positive bowel sounds. No organomegaly. EXTREMITIES: No edema. Intact distal pulses. LAB DATA: Lab data revealed troponin less than 0.012 for 3 samples. NT proBNP of 356. AST of 51, ALT of 64. BUN and creatinine 17 and 0.57. Potassium 4.6. Hemoglobin of 14.1. Echocardiogram showed a normal left ventricular size and systolic function with moderate mitral and mild tricuspid regurgitation. She had a CT angiogram of the chest that revealed moderate cardiomegaly and mild dilatation of the ascending aorta measuring 4 cm. She had an ultrasound on the abdomen that revealed no evidence of aneurysm. IMPRESSION: 1. Abdominal and chest discomfort, atypical for ischemic heart disease. No evidence for acute coronary syndrome. 2. Moderate mitral regurgitation, stable. 3. History of hypertension. 4. Mild dilatation of the ascending aorta. RECOMMENDATION: From the cardiac standpoint, she is stable. I see no evidence of active cardiac issues. She should be able to be discharged home today and follow up in about a week with Dr. Lord. The patient has underwent a stress test slightly over a year ago and that was unremarkable. Thank you for this consult. We will follow with you. MMVALENTEL / IJN: [id number] /
--- NOTE | 2018-12-30 14:08 | US ---
EXAMINATION TYPE: US venous doppler duplex LE DATE OF EXAM: 12/30/2018 12:30 PM COMPARISON: US 2017 CLINICAL HISTORY: r/o DVT. Elevated D-Dimer SIDE PERFORMED: Bilateral TECHNIQUE: The lower extremity deep venous system is examined utilizing real time linear array sonog jignesh with graded compression, doppler sonography and color-flow sonography. VESSELS IMAGED: External Iliac Vein (EIV) Common Femoral Vein Deep Femoral Vein Greater Saphenous Vein * Femoral Vein Popliteal Vein Small Saphenous Vein * Proximal Calf Veins (* superficial vessels) There is normal flow, compressibility, vascular waveforms. Right Leg: Negative for DVT Left Leg: Negative for DVT IMPRESSION: No evident deep venous thrombosis at or above the knees. Follow-up as indicated.
== END 2018-12-30 13:00 | disposition home or self-care (01) ==
LOC: EC 11:38 → 3SCARD 16:47
PROVIDERS: ADMIT Internal Medicine; ATTEND Internal Medicine
DX: R07.89 Other chest pain (principal); R10.11 Right upper quadrant pain; R79.89 Other specified abnormal findings of blood chemistry; R07.81 Pleurodynia; R51 Headache; R60.0 Localized edema; R11.0 Nausea; R42 Dizziness and giddiness; I34.0 Nonrheumatic mitral (valve) insufficiency; F32.9 Major depressive disorder, single episode, unspecified; I10 Essential (primary) hypertension; M19.90 Unspecified osteoarthritis, unspecified site; I34.1 Nonrheumatic mitral (valve) prolapse; G47.30 Sleep apnea, unspecified; Z99.89 Dependence on other enabling machines and devices; I71.4 Abdominal aortic aneurysm, without rupture; Z98.84 Bariatric surgery status; Z80.3 Family history of malignant neoplasm of breast; Z82.49 Family history of ischemic heart disease and other diseases of the circulatory system; Z79.899 Other long term (current) drug therapy
CPT/HCPCS: 96376 ×2; 96365; 96366 ×2; 96375 ×2; 99285; 36415; 94640 ×2; 94760; 93005; 93306; 85379; 83880; 80061; 80053; 82150; 82550 ×2; 82553 ×2; 83690; 83735; 84484 ×2; 85025; 85610; 85730 ×2; 81003; 71046; 76705; 93970; 93979; 71275; G0378 ×2; J1644 ×3; J2405 ×2; C9113; Q9967

== ENCOUNTER → 2019-01-28 | Outpatient (CLI) | payer MEDICAID ==
[2019-01-28 11:55] LABS: Basophils % (A) 0 %; Eosinophils # (A) 0.2 k/uL (0-0.7); Eosinophils % (A) 3 %; HCT 43.2 % (34.0-46.0); HGB 13.8 gm/dL (11.4-16.0); Lymphocytes # (A) 1.1 k/uL (1.0-4.8); Lymphocytes % (A) 15 %; MCH 29.1 pg (25.0-35.0); MCHC 31.9 g/dL (31.0-37.0); MCV 91.1 fL (80.0-100.0); Mean Platelet Volume 6.4; Monocytes # (A) 0.3 k/uL (0-1.0); Monocytes % (A) 4 %; Neutrophils # (A) 5.6 k/uL (1.3-7.7); Neutrophils % (A) 78 %; Platelet Count 311 k/uL (150-450); RBC 4.74 m/uL (3.80-5.40); RDW 15.1 % (11.5-15.5); WBC 7.2 k/uL (3.8-10.6)
[2019-01-28 17:48] LABS: Albumin 4.7 g/dL (3.80-4.90); Albumin/Globulin Ratio 2.61 (1.60-3.17); Anion Gap 10.6 mmol/L (4.00-12.00); Calcium 9.7 mg/dL (8.7-10.3); Carbon Dioxide 23.4 mmol/L (21.6-31.8); Globulin 1.8 g/dL (1.6-3.3); Potassium 4.3 mmol/L (3.5-5.5); Total Bilirubin 0.4 mg/dL (0.3-1.2); Total Protein 6.5 g/dL (6.2-8.2)
== END | disposition home or self-care (01) ==
LOC: LABWHC1 11:30
PROVIDERS: ATTEND Nurse Practitioner Family
DX: R10.11 Right upper quadrant pain (principal)
CPT/HCPCS: 36415; 80053; 82150; 82977; 83690; 85025

== ENCOUNTER → 2019-05-27 | Outpatient (CLI) | payer MEDICAID ==
--- NOTE | 2019-05-27 15:16 | CT ---
EXAMINATION TYPE: CT chest w con DATE OF EXAM: 05/27/2019 COMPARISON: CTA chest December 29, 2018 and older CTs HISTORY: Lung nodule and aneurysm CT DLP: 944.6 mGycm. Automated Exposure Control for Dose Reduction was Utilized. TECHNIQUE: CT scan of the thorax is performed following with IV Contrast, patient injected with 100 mL of Isovue 300. FINDINGS: LUNGS: There is continued progression bilateral reticulonodular opacities involving upper and lower l ungs with areas of nodular consolidation and/or nodularity identified. No pleural effusion or pneumot horax is seen. For reference a spiculated 8 x 5 mm nodule or nodular opacity axial image 21 left midl jarvis anteriorly is noted. For reference images 13 x 6 mm pleural-based nodule or nodular consolidation right lower lobe medially image 37. Findings are significantly progressed from most recent prior CTs . MEDIASTINUM: There is enlarging suspicious thoracic adenopathy. Reference right paratracheal lymph no de now measures 1.9 x 1.9 cm image 13 increased in size from prior studies. Bilateral hilar adenopath y is present. No pericardial effusion is seen. Cardiomegaly is seen. Coronary calcification is pres ent which is noted marked underlying coronary artery disease. Main pulmonary artery measures 3.1 cm a t bifurcation image 22, CT findings consistent with underlying pulmonary artery hypertension. Adjacen t ascending aorta measures 3.9 cm in diameter. Moderate left ventricular dilatation is again seen. Mo derate left greater than right biatrial dilatation redemonstrated. OTHER: Less than device epigastric region is redemonstrated and stable in position and appearance. IMPRESSION: Worsening reticulonodular infiltrates bilaterally with developing thoracic adenopathy, di fferential includes infectious processes versus neoplasm. Bronchoscopy should be considered for furth er evaluation. Advise pulmonary referral.
== END | disposition home or self-care (01) ==
LOC: RADCTMAIN 14:24
PROVIDERS: ATTEND Family Medicine
DX: R91.8 Other nonspecific abnormal finding of lung field (principal)
CPT/HCPCS: 71260; Q9967

== ENCOUNTER → 2019-06-16 | Outpatient (CLI) | payer MEDICAID ==
[2019-06-16 20:31] LABS: African American GFR (CKD) 111.5 (60.0-200.0); Albumin 4.6 g/dL (3.80-4.90); Albumin/Globulin Ratio 2.71 (1.60-3.17); Anion Gap 17.2 mmol/L (4.00-12.00); BUN/Creat Ratio 24.29 Ratio (12.00-20.00); Calcium 9.7 mg/dL (8.7-10.3); Carbon Dioxide 18.8 mmol/L (21.6-31.8); Globulin 1.7 g/dL (1.6-3.3); Potassium 4.4 mmol/L (3.5-5.5); Total Bilirubin 0.3 mg/dL (0.2-1.2); Total Protein 6.3 g/dL (6.2-8.2)
== END | disposition home or self-care (01) ==
LOC: LABWHC1 11:58
PROVIDERS: ATTEND Internal Medicine Critical Care Medicine
DX: D86.9 Sarcoidosis, unspecified (principal); J45.909 Unspecified asthma, uncomplicated
CPT/HCPCS: 36415; 80053; 82164; 85652; 86141

== ENCOUNTER → 2019-06-23 | Outpatient (CLI) | payer MEDICAID ==
--- NOTE | 2019-06-24 09:49 | ECHOF ---
Referral Reason:I27.20 pulmonary hypertention MEASUREMENTS -------- HEIGHT: 170.2 cm WEIGHT: 106.6 kg BP: IVSd: 1.0 cm (0.6 - 1.1) LVIDd: 5.9 cm (3.9 - 5.3) LVPWd: 1.0 cm (0.6 - 1.1) IVSs: 1.1 cm LVIDs: 4.9 cm LVPWs: 1.2 cm LA Diam: 4.3 cm (2.7 - 3.8) LAESV Index (A-L): 37.63 ml/m Ao Diam: 3.1 cm (2.0 - 3.7) AV Cusp: 1.7 cm (1.5 - 2.6) LA Diam: 4.2 cm (2.7 - 3.8) EPSS: 0.5 cm MV E Rajesh: 0.86 m/s MV DecT: 141 ms MV A Rajesh: 0.74 m/s MV E/A Ratio: 1.16 RAP: 10.00 mmHg RVSP: 55.73 mmHg MV EF SLOPE: 78.99 mm/s (70 - 150) MV EXCURSION: 1.70 cm (> 18.000) FINDINGS -------- Sinus rhythm. This was a technically good study. The left ventricular size is normal. Left ventricular wall thickness is normal. Overall left vent ricular systolic function is low-normal with, an EF between 50 - 55 %. The right ventricle is normal in size. The left atrium is moderately dilated. Left atrium is moderately dilated by volume. The right atrial size is normal. The aortic valve is trileaflet, and appears structurally normal. No aortic stenosis or regurgitation. Mild mitral annular calcification present. Severe mitral regurgitation is present. Mild tricuspid regurgitation present. There is moderate pulmonary hypertension. The right ventric ular systolic pressure, as measured by Doppler, is 55.73mmHg. There is no pulmonic regurgitation present. The aortic root size is normal. Normal inferior vena cava with normal inspiratory collapse consistent with estimated right atrial pre ssure of 10 mmHg. There is no pericardial effusion. CONCLUSIONS -------- 1. Sinus rhythm. 2. This was a technically good study. 3. The left ventricular size is normal. 4. Left ventricular wall thickness is normal. 5. Overall left ventricular systolic function is low-normal with, an EF between 50 - 55 %. 6. The right ventricle is normal in size. 7. The left atrium is moderately dilated. 8. Left atrium is moderately dilated by volume. 9. The right atrial size is normal. 10. The aortic valve is trileaflet, and appears structurally normal. No aortic stenosis or regurgitat ion. 11. Mild mitral annular calcification present. 12. Severe mitral regurgitation is present. 13. Mild tricuspid regurgitation present. 14. There is moderate pulmonary hypertension. 15. The right ventricular systolic pressure, as measured by Doppler, is 55.73mmHg. 16. There is no pulmonic regurgitation present. 17. The aortic root size is normal. 18. Normal inferior vena cava with normal inspiratory collapse consistent with estimated right atrial pressure of 10 mmHg. 19. There is no pericardial effusion. DOMESTIC VIOLENCE ADVOCATE: Riya Urena RDCS
== END | disposition home or self-care (01) ==
LOC: RADECHMAIN 11:11
PROVIDERS: ATTEND Family Medicine
DX: I27.20 Pulmonary hypertension, unspecified (principal); I08.1 Rheumatic disorders of both mitral and tricuspid valves; I70.8 Atherosclerosis of other arteries
CPT/HCPCS: 93306

== ENCOUNTER 2019-06-24 10:18 | Day surgery (SDC) | payer MEDICAID ==
[2019-06-18 13:44] VITALS: BMI 36.8
[~2019-06-24 10:18] MED LIST: ALBUTEROL NEB (CONC) 2.5 MG/0.5 ML INHALATION ONE; ATROPINE SULFATE 0.4 MG/ML 1 ML VIAL IM ONE; LACTATED RINGERS 1,000 ML IV SCH; LIDOCAINE 1% 20 ML VIAL (10MG/ML) FOR IV START INTRADERMA PRN; LIDOCAINE 2% (PF) 20 MG/ML 5 ML VIAL INHALATION ONE; LIDOCAINE VISCOUS 300 MG/15 ML CUP MUCOUS MEM ONE; SODIUM CHLORIDE 0.9% 1,000 ML IV SCH
[2019-06-24 11:29] VITALS: TEMP 98.6
[2019-06-24] MEDS ORDERED: PROPOFOL 10 MG/ML 20 ML VIAL IV ONE (13:45)
[2019-06-24] MEDS ORDERED: LIDOCAINE 1% INJ 10MG/ML (20 ML MDV) ONE (13:45)
[2019-06-24] MEDS ORDERED: MIDAZOLAM 2 MG/2 ML VIAL ONE (13:45)
[2019-06-24] MEDS ORDERED: LIDOCAINE 2% INJ 20 MG/ML INTRATRACH ONE (14:11)
[2019-06-24 14:40] VITALS: RESP 18
[2019-06-24 15:10] VITALS: PULSE 103
--- NOTE | 2019-06-24 15:15 | XR ---
EXAMINATION TYPE: XR chest 1V portable DATE OF EXAM: 06/24/2019 COMPARISON: Prior chest x-ray 12/29/2018 HISTORY: Status post left transbronchial lung biopsy TECHNIQUE: Single frontal view of the chest is obtained. FINDINGS: There is no evident pneumothorax or pleural effusion. Heart remains enlarged. Interstitium is increased, there is reticular nodular pattern within the lungs. Postop changes in the upper abdom en. IMPRESSION: No evident complication status post lung biopsy
[2019-06-24 15:21] VITALS: BP 152/90
[2019-06-24] MEDS ORDERED: ACETAMINOPHEN TAB 500 MG TAB PO ONE (15:34)
--- NOTE | 2019-06-24 15:35 | FL ---
EXAMINATION TYPE: FL bronchoscopy DATE OF EXAM: 06/24/2019 COMPARISON: NONE HISTORY: Bronchoscopy left lung Fluoroscopy support supplied to the referring clinician. See dictated report from pulmonary. 12 seco nds fluoroscopy time supplied to the referring clinician, no images obtained.
[2019-06-24 17:13] LABS: Appearance,BF Bloody; Color,BF Red; Nucleated Cells, Body Fluid 5000 /uL; RBC, Body Fluid 30500 /uL
[2019-06-24 17:17] LABS: Polynuclear WBC,Body Fluid 65 %
[2019-06-24 17:18] LABS: Mononuclear WBC,Body Fluid 35 %
--- NOTE | 2019-06-25 05:25 | PCN ---
PROCEDURE NOTE PROCEDURE: Bronchoscopy, airway examination, therapeutic lavage, BAL brushes left lower lobe, BAL lingula, transbronchial biopsies left lower lobe. PREOPERATIVE DIAGNOSIS: Sarcoidosis. POSTOPERATIVE DIAGNOSIS: Sarcoidosis. There was informed consent and universal timeout. The patient's procedure was done in room 1 under fluoroscopy. OPERATORS: Dr. Rodríguez and Dr. De Jesus. INFORMATION SERVICES VICE PRESIDENT provided general anesthesia. After the patient was adequately sedated and being fully monitored, the bronchoscope was inserted through the left nostril. It passed through the left nasopharynx into the oropharynx. The hypopharynx was identified and topicalized. The hypopharyngeal structures appeared normal. Next, after topicalization, the bronchoscope was pushed through the glottic opening into the trachea. Trachea appeared normal. The right and left mainstem were topicalized. The tracheal justina was sharp. The right upper lobe and its 3 segments, right middle lobe and its 2 segments, right lower lobe and its 5 segments, left upper lobe proper and its 2 segments, the lingula and its 2 segments and the left lower lobe and its 4 segments all had similar findings of a cobblestone pattern to the endobronchial mucosa. This is sort of a typical finding that we see with sarcoidosis. Certainly not diagnostic. There was no distinct endobronchial mass or tumor. Next, under fluoroscopic guidance, brushes were done in the left lower lobe. Next, BAL took place in the left upper lobe, specifically in the lingula. Finally, multiple transbronchial biopsies were done in the left lower lobe. Unfortunately, because of the patient's instability during the procedure and the fact that we could not seem to get her settled down and properly controlled, we had to abort the procedure after about 3 or 4 biopsies. The specimen was sent to the laboratory for analysis. I will talk to the and the other family members. If I do not get a diagnosis on Yoli, I may have to bring her back to the hospital in the operating room and do this under general anesthesia where we have more control. Additional recommendations and suggestions are forthcoming. A chest x-ray will be done. No additional recommendations are made. MMODL / IJN: [id number] /
== END 2019-06-24 15:49 | disposition home or self-care (01) ==
LOC: ORWHC2ENDO 10:18
PROVIDERS: ATTEND Internal Medicine Critical Care Medicine
DX: D86.0 Sarcoidosis of lung (principal); I34.0 Nonrheumatic mitral (valve) insufficiency; J44.9 Chronic obstructive pulmonary disease, unspecified; I27.20 Pulmonary hypertension, unspecified; G47.33 Obstructive sleep apnea (adult) (pediatric); R91.8 Other nonspecific abnormal finding of lung field; I10 Essential (primary) hypertension; R59.0 Localized enlarged lymph nodes; Z79.51 Long term (current) use of inhaled steroids; Z79.899 Other long term (current) drug therapy
CPT/HCPCS: 94640; 88104; 88108; 88305; 89050; 88312; 71045; 31625; 31623; 31624; J2001 ×3; J2250; J0461; J2704

== ENCOUNTER → 2019-09-21 | Outpatient (CLI) | payer MEDICAID ==
--- NOTE | 2019-09-22 10:43 | ECHOF ---
Referral Reason:I10 htn, D86.9 Sarcodosis MEASUREMENTS -------- HEIGHT: 170.2 cm WEIGHT: 113.4 kg BP: IVSd: 0.9 cm (0.6 - 1.1) LVIDd: 5.2 cm (3.9 - 5.3) LVPWd: 1.2 cm (0.6 - 1.1) IVSs: 1.5 cm LVIDs: 3.7 cm LVPWs: 1.7 cm LAESV Index (A-L): 43.27 ml/m Ao Diam: 2.6 cm (2.0 - 3.7) AV Cusp: 1.9 cm (1.5 - 2.6) LA Diam: 3.1 cm (2.7 - 3.8) MV EXCURSION: 21.866 mm (> 18.000) MV EF SLOPE: 120 mm/s (70 - 150) EPSS: 0.9 cm MV E Rajesh: 1.51 m/s MV A Rajesh: 1.42 m/s MV E/A Ratio: 1.06 RAP: 15.00 mmHg RVSP: 55.44 mmHg TAPSE: 35.75 mm FINDINGS -------- Sinus rhythm. This was a technically good study. The left ventricular size is normal. There is mild concentric left ventricular hypertrophy. Overa ll left ventricular systolic function is normal with, an EF between 55 - 60 %. Increased LAP Grade 2 Diastolic Dysfunction. The right ventricle is normal in size. The right ventricular systolic function is normal. LA is severely dilated >40 ml/m2 The right atrial size is normal. Possible PFO. May benefit from MIRLANDE The aortic valve is trileaflet and appears structurally normal. Severe mitral regurgitation is present. Cannot exclude mitral valve prolapse , predominately a post eriorly directed jet. The tricuspid valve appears structurally normal. Mild tricuspid regurgitation present. There is m oderate pulmonary hypertension. The right ventricular systolic pressure, as measured by Doppler, is 55.44mmHg. There is no pulmonic regurgitation present. The aortic root size is normal. The inferior vena cava is mildly dilated. There is no pericardial effusion. CONCLUSIONS -------- 1. Sinus rhythm. 2. This was a technically good study. 3. The left ventricular size is normal. 4. There is mild concentric left ventricular hypertrophy. 5. Overall left ventricular systolic function is normal with, an EF between 55 - 60 %. 6. Increased LAP Grade 2 Diastolic Dysfunction. 7. The right ventricle is normal in size. 8. The right ventricular systolic function is normal. 9. LA is severely dilated >40 ml/m2 10. The right atrial size is normal. 11. Possible PFO 12. The aortic valve is trileaflet and appears structurally normal. 13. Severe mitral regurgitation is present. 14. Cannot exclude mitral valve prolapse. 15. , predominately a posteriorly directed jet. 16. The tricuspid valve appears structurally normal. 17. Mild tricuspid regurgitation present. 18. There is moderate pulmonary hypertension. 19. The right ventricular systolic pressure, as measured by Doppler, is 55.44mmHg. 20. There is no pulmonic regurgitation present. 21. The aortic root size is normal. 22. The inferior vena cava is mildly dilated. 23. There is no pericardial effusion. FABRIC SEPARATOR OPERATOR: Jade North RDCS
== END | disposition home or self-care (01) ==
LOC: RADECHMAIN 13:32
PROVIDERS: ATTEND Internal Medicine Cardiovascular Disease
DX: I08.1 Rheumatic disorders of both mitral and tricuspid valves (principal); I11.9 Hypertensive heart disease without heart failure; I27.20 Pulmonary hypertension, unspecified; D86.9 Sarcoidosis, unspecified
CPT/HCPCS: 93306

== ENCOUNTER → 2019-09-21 | Outpatient (CLI) | payer MEDICAID ==
--- NOTE | 2019-09-21 13:01 | US ---
EXAMINATION TYPE: US venous doppler duplex LE RT DATE OF EXAM: 09/21/2019 12:46 PM COMPARISON: CLINICAL HISTORY: I82.409 DVT. Baby aspirin x 3 days a week. No hx DVT. Leg swelling. SIDE PERFORMED: Right TECHNIQUE: The lower extremity deep venous system is examined utilizing real time linear array sonog jignesh with graded compression, doppler sonography and color-flow sonography. VESSELS IMAGED: External Iliac Vein (EIV) Common Femoral Vein Deep Femoral Vein Greater Saphenous Vein * Femoral Vein Popliteal Vein Small Saphenous Vein * Proximal Calf Veins (* superficial vessels) Grayscale, color doppler, spectral doppler imaging performed of the deep veins of the right lower ext remity. There is normal flow, compressibility, vascular waveforms. Right Leg: Negative for DVT IMPRESSION: No sonographic evidence of deep venous thrombosis within the right lower extremity.
== END | disposition home or self-care (01) ==
LOC: RADUSWWP 12:11
PROVIDERS: ATTEND Internal Medicine Critical Care Medicine
DX: I82.401 Acute embolism and thrombosis of unspecified deep veins of right lower extremity (principal)

== ENCOUNTER → 2019-10-19 | Outpatient (CLI) | payer MEDICAID ==
--- NOTE | 2019-10-19 11:55 | MM ---
Reason for exam: additional evaluation requested from prior study. Last mammogram was performed 1 year and 2 months ago. History: Patient is postmenopausal. Family history of breast cancer in sister at age 50 and breast cancer in mother. Took hormonal contraceptives for 4 years beginning at age 18. Physical Findings: Nurse did not find any significant physical abnormalities on exam. MG 3D Diag Mammo W/Cad ALTA Bilateral CC and MLO view(s) were taken. Prior study comparison: August 13, 2018, bilateral MG 3d screening mammo w/cad. December 13, 2016, bilateral MG 3d screening mammo w/cad. The breast tissue is heterogeneously dense. This may lower the sensitivity of mammography. There are benign appearing round calcifications bilaterally. There is no discrete abnormality. These results were verbally communicated with the patient and result sheet given to the patient on 10/19/19. ASSESSMENT: Benign, BI-RAD 2 RECOMMENDATION: Routine screening mammogram of both breasts in 1 year.
--- NOTE | 2019-10-19 11:56 | USB ---
Reason for exam: additional evaluation requested from prior study. History: Patient is postmenopausal. Family history of breast cancer in sister at age 50 and breast cancer in mother. Took hormonal contraceptives for 4 years beginning at age 18. US Breast Limited RT Right limited breast ultrasound including focal area of concern, retroareolar and axilla demonstrates no cystic or solid lesion seen. Benign lymph node right axilla. These results were verbally communicated with the patient and result sheet given to the patient on 10/19/19. ASSESSMENT: Negative, BI-RAD 1 RECOMMENDATION: Routine screening mammogram of both breasts in 1 year.
== END | disposition home or self-care (01) ==
LOC: RADMAMWWP 09:24
PROVIDERS: ATTEND Obstetrics & Gynecology
DX: R92.8 Other abnormal and inconclusive findings on diagnostic imaging of breast (principal)
CPT/HCPCS: 77062; 77066

== ENCOUNTER → 2019-10-20 | Outpatient (CLI) | payer MEDICAID ==
[2019-10-20 14:40] LABS: Appearance,Urine Clear (Clear); Bilirubin,Urine Negative (Negative); Blood,Urine Negative (Negative); Color,Urine Light Yellow; Glucose,Urine (UA) Negative (Negative); Ketones,Urine Negative (Negative); Leukocyte Esterase,Urine Negative (Negative); Nitrite,Urine Negative (Negative); Protein,Urine Negative (Negative); Specific Gravity,Urine 1.012 (1.001-1.035); Urobilinogen,Urine <2.0 mg/dL (<2.0)
[2019-10-20 21:55] LABS: Albumin 4.8 g/dL (3.80-4.90); Calcium 9.5 mg/dL (8.7-10.3); Chol/HDL Ratio 2.83; LDL Cholesterol,Calculated 100.2 mg/dL (0.0-131.0); Total Bilirubin 0.4 mg/dL (0.2-1.2); Total Protein 6.6 g/dL (6.2-8.2); VLDL Calculation 14.8 mg/dL (5.00-40.00)
[2019-10-20 23:01] LABS: Hemoglobin A1C 5.6 % (4.0-6.0)
== END ==
LOC: LABWHC1 12:40
PROVIDERS: ATTEND Family Medicine
DX: Z00.00 Encounter for general adult medical examination without abnormal findings (principal); E66.01 Morbid (severe) obesity due to excess calories
CPT/HCPCS: 36415; 80061; 81003; 82040; 82247; 82310; 82947; 83036; 84075; 84155; 84439; 84443; 84450; 84460

== ENCOUNTER → 2019-10-20 | Outpatient (CLI) | payer MEDICAID ==
[2019-10-20 13:27] LABS: Basophils % (A) 1 %; Eosinophils # (A) 0.3 k/uL (0-0.7); Eosinophils % (A) 5 %; HCT 43.8 % (34.0-46.0); HGB 13.9 gm/dL (11.4-16.0); Lymphocytes % (A) 27 %; MCH 29.2 pg (25.0-35.0); MCHC 31.8 g/dL (31.0-37.0); MCV 91.7 fL (80.0-100.0); Monocytes # (A) 0.4 k/uL (0-1.0); Monocytes % (A) 5 %; Neutrophils # (A) 4.5 k/uL (1.3-7.7); Neutrophils % (A) 61 %; Platelet Count 290 k/uL (150-450); RBC 4.77 m/uL (3.80-5.40); RDW 15.2 % (11.5-15.5); WBC 7.3 k/uL (3.8-10.6)
[2019-10-20 13:41] LABS: African American GFR (CKD) >90 (>60 ml/min/1.73 sqM); Anion Gap 8 mmol/L; Blood Urea Nitrogen 23 mg/dL (7-17); Carbon Dioxide 29 mmol/L (22-30); Chloride 105 mmol/L (98-107); Non-African American GFR(CKD) >90 (>60 ml/min/1.73 sqM); Potassium 4.2 mmol/L (3.5-5.1); Sodium 142 mmol/L (137-145)
== END | disposition home or self-care (01) ==
LOC: LABPAT 12:43
PROVIDERS: ATTEND Internal Medicine Cardiovascular Disease
DX: Z01.812 Encounter for preprocedural laboratory examination (principal); I34.0 Nonrheumatic mitral (valve) insufficiency
CPT/HCPCS: 80051; 82565; 84520; 85025

== ENCOUNTER 2019-10-29 07:10 | Day surgery (SDC) | payer MEDICAID ==
[2019-10-27 11:29] VITALS: BMI 37.5
[2019-10-29] MEDS ORDERED: SODIUM CHLORIDE 0.9% 500 ML 500 ML IV ONE (07:45)
[2019-10-29 07:49] VITALS: RESP 16; TEMP 97.6
[2019-10-29] MEDS: BENZOCAINE SPRAY 1 CAN MUCOUS MEM ONE ×2 (08:57→09:13)
[2019-10-29] MEDS ORDERED: PROPOFOL 10 MG/ML 20 ML VIAL IV ONE (08:58)
[2019-10-29] MEDS ORDERED: MIDAZOLAM 2 MG/2 ML VIAL ONE (08:58)
[2019-10-29] MEDS ORDERED: LIDOCAINE 1% INJ 10MG/ML (20 ML MDV) ONE (08:58)
[2019-10-29] MEDS ORDERED: KETAMINE 10 MG/ML 20 ML VIAL ONE (08:58)
[2019-10-29] MEDS ORDERED: LABETALOL 5 MG/ML VIAL MDV ONE (08:58)
[2019-10-29] MEDS ORDERED: SODIUM CHLORIDE 0.9% 1,000 ML IV SCH (09:30)
[2019-10-29 10:40] VITALS: BP 142/67; PULSE 76
--- NOTE | 2019-10-29 11:03 | P.TEE ---
Indications for Procedure(s): Assessment the mitral regurgitation and symptoms of shortness of breath Date of Procedure: 10/29/19 Preoperative Diagnosis: Severe mitral regurgitation, rule out mitral valve prolapse Postoperative Diagnosis: Severe eccentric mitral regurgitation. No evidence of mitral valve prolapse Description of Procedure(s): INDICATION: This is a 58-year-old female with history of sarcoidosis who has been experiencing exertional shortness of breath. Her transthoracic echo Card[place] showed severe mitral regurgitation which appeared to be eccentric. There is questionable mitral valve prolapse. Patient was advised to have MIRLANDE examination for further evaluation CONSENT:. Verbal consent was obtained from the patient PROCEDURE: Patient was brought to the lab in a fasting state. Patient was prepped and draped in the usual fashion. Department of anesthesia give IV performed for sedation. The throat was sprayed with Cetacaine prior to the anesthesia. A lubricated Omni probe was introduced in the oropharynx and was advanced into the esophagus. Patient tolerated the procedure well. Multiple views were obtained. Saline contrast bubble injection along with color, pulsed and continuous wave Doppler studies were performed. No immediate complications FINDINGS:. The mitral valve appeared structurally normal. The posterior wall appeared to be stiff. There is centrilobular was noted mitral regurgitation which is directed laterally and posteriorly. There is reversal of flow in the left upper pulmonary vein. The PISA was calculated is 0.8 to 0.9. The left ventricular function appeared normal. The aortic valve appeared to be normal without any stenosis or regurgitation. The pulmonic and tricuspid valve appeared to be normal. The interatrial septum is intact without any shunt. The saline bubble injection was negative. There was no clot in the left atrial appendage. IMPRESSION: #1 .3-4+ mitral regurgitation which is eccentric. There appears to be stiff posterior leaflet and regurgitation could be ischemic. #2. Normal aortic valve function. #3. No PFO #4. No clot in left atrial appendage were 5. Left atrial enlargement . #6. Left ventricular function is preserved PLAN: Maximum medical therapy. Proceed with cardiac catheterization to rule out underlying ischemic heart disease. Patient may need mitral valve repair or replacement
== END 2019-10-29 10:42 | disposition home or self-care (01) ==
LOC: CATHCVL 07:10
PROVIDERS: ATTEND Internal Medicine Cardiovascular Disease
DX: I34.0 Nonrheumatic mitral (valve) insufficiency (principal); I11.9 Hypertensive heart disease without heart failure; I71.9 Aortic aneurysm of unspecified site, without rupture; D86.0 Sarcoidosis of lung; I27.20 Pulmonary hypertension, unspecified; K08.409 Partial loss of teeth, unspecified cause, unspecified class; Z79.82 Long term (current) use of aspirin; Z79.899 Other long term (current) drug therapy; Z79.52 Long term (current) use of systemic steroids; Z79.51 Long term (current) use of inhaled steroids; Z98.890 Other specified postprocedural states; Z98.84 Bariatric surgery status; Z91.89 Other specified personal risk factors, not elsewhere classified; Z82.49 Family history of ischemic heart disease and other diseases of the circulatory system
CPT/HCPCS: 93312; 93320; 93325; J2250; J2001; J2704

== ENCOUNTER 2019-11-26 06:10 | Day surgery (SDC) | payer MEDICAID ==
[2019-11-24 17:23] VITALS: BMI 39.1
[~2019-11-26 06:10] MED LIST changes: -ALBUTEROL NEB (CONC) 2.5 MG/0.5 ML INHALATION ONE; +ALPRAZolam 0.25 MG TAB PO PRN; +ALPRAZolam 0.5 MG TAB PO PRN; -ATROPINE SULFATE 0.4 MG/ML 1 ML VIAL IM ONE; -LACTATED RINGERS 1,000 ML IV SCH; -LIDOCAINE 1% 20 ML VIAL (10MG/ML) FOR IV START INTRADERMA PRN; -LIDOCAINE 2% (PF) 20 MG/ML 5 ML VIAL INHALATION ONE; -LIDOCAINE VISCOUS 300 MG/15 ML CUP MUCOUS MEM ONE; +NITROGLYCERIN SL TABS 0.4 MG TAB SUBLINGUAL PRN; -SODIUM CHLORIDE 0.9% 1,000 ML IV SCH; +SODIUM CHLORIDE 0.9% 1,000 ML in EMPTY BAG 1 BAG IV ONE
[2019-11-26 06:52] VITALS: RESP 16; TEMP 98.2
[2019-11-26] MEDS ORDERED: ATORVASTATIN 80 MG TAB PO ONE (07:00)
[2019-11-26] MEDS ORDERED: ASPIRIN 325 MG TAB PO ONE (07:00)
[2019-11-26] MEDS ORDERED: HEPARIN SODIUM 1,000 UN/ML (10ML VL) ONE (07:16)
[2019-11-26] MEDS ORDERED: fentaNYL (PF) 50 MCG/ML 2 ML AMP ONE (07:16)
[2019-11-26] MEDS ORDERED: LIDOCAINE 1% INJ 10MG/ML (20 ML MDV) ONE (07:16)
[2019-11-26] MEDS ORDERED: VERAPAMIL 2.5 MG/ML 2 ML AMP ONE (07:16)
[2019-11-26 07:34] LABS: Basophils # (A) 0.1 k/uL (0-0.2); Basophils % (A) 1 %; Eosinophils # (A) 0.3 k/uL (0-0.7); Eosinophils % (A) 4 %; HCT 40.7 % (34.0-46.0); HGB 13.6 gm/dL (11.4-16.0); Lymphocytes # (A) 1.4 k/uL (1.0-4.8); Lymphocytes % (A) 20 %; MCH 30.4 pg (25.0-35.0); MCHC 33.5 g/dL (31.0-37.0); MCV 90.6 fL (80.0-100.0); Mean Platelet Volume 7.4; Monocytes # (A) 0.4 k/uL (0-1.0); Monocytes % (A) 6 %; Neutrophils # (A) 4.7 k/uL (1.3-7.7); Neutrophils % (A) 67 %; Platelet Count 291 k/uL (150-450); RBC 4.49 m/uL (3.80-5.40); RDW 14.6 % (11.5-15.5)
[2019-11-26] MEDS ORDERED: fentaNYL (PF) 50 MCG/ML 2 ML AMP IV ONE (07:45)
[2019-11-26] MEDS ORDERED: MIDAZOLAM 2 MG/2 ML VIAL IVP ONE (07:45)
[2019-11-26] MEDS ORDERED: LIDOCAINE 1% INJ 10MG/ML (20 ML MDV) SQ ONE (07:48)
[2019-11-26 07:50] LABS: Calcium 9.2 mg/dL (8.4-10.2)
[2019-11-26] MEDS ORDERED: HEPARIN SODIUM 1,000 UN/ML (10ML VL) IV ONE (07:51)
[2019-11-26] MEDS: VERAPAMIL SYRINGE (5 MG/10 ML) INTRAARTER ONE ×2 (07:51→08:06)
[2019-11-26] MEDS ORDERED: IOPAMIDOL-370 125ML BTL INJ ONE (08:05)
[2019-11-26] MEDS ORDERED: RX INFO: IV CONTRAST WAS GIVEN 1 EACH MISC MISCELLANE PRN (08:15)
[2019-11-26] MEDS ORDERED: SODIUM CHLORIDE 0.9% 1,000 ML IV SCH (08:15)
--- NOTE | 2019-11-26 08:56 | P.CARDCATH ---
Date of Procedure: 11/26/19 Preoperative Diagnosis: Severe mitral regurgitation Postoperative Diagnosis: The same Procedure(s) Performed: Left heart catheterization with left ventriculography Description of Procedure: HISTORY: This is a 59-year-old female with history of sarcoidosis and evidence of moderate to severe mitral regurgitation. He examination confirmed evidence of mitral regurgitation without any clear-cut etiology. The posterior mitral leaflet appeared to be thickened fixed. Patient is advised to have a cardiac catheterization to rule out underlying ischemic heart disease. CONSENT:I have discussed the risks, benefits and alternative therapies for the above-mentioned procedure and for both sedation/analgesia as well as necessary blood product administration, if indicated, as they pertain to this patient. The patient has indicated understanding and acceptance of the risks and procedures discussed. PROCEDURE: Patient was brought to the lab in a fasting state. Patient was given IV sedation. The right wrist is infiltrated with lidocaine and right radial artery was entered using Seldinger technique. A 6-Iraqi catheter was left in place and selective coronary arteriography and left ventriculography was performed. Patient tolerated the procedure well. TR band was applied for hemostasis. No immediate complications were noted and patient was transferred to [facility] in a stable condition Conscious Sedation: Versed 2mg Fentanyl 50 g Duration 22minutes HEMODYNAMICS: The aortic pressure is about 160/70. The left ventricle end- diastolic pressure is about 15-20. There was no gradient across the aortic valve SELECTIVE CORONARY ARTERIOGRAPHY: LEFT MAIN: Short and free of any significant occlusive disease THE LEFT ANTERIOR DESCENDING CORONARY ARTERY:. Good caliber vessel wrapping around the apex. Gives a several septal and diagonal branches. The LAD and branches are free of occlusive disease THE LEFT CIRCUMFLEX AND IS CORONARY ARTERY:. This is a good caliber vessel giving rise good-sized OM branch. Circumflex and branches are free of occlusive disease THE RIGHT CORONARY ARTERY:. Relatively small caliber vessel. Free of occlusive disease LEFT VENTRICULOGRAPHY:. This revealed mildly enlarged left ventricle with preserved LV function. There appeared to be 3-4+ mitral regurgitation FINAL IMPRESSION: Severe mitral regurgitation. Normal LV function PLAN:. Continuation medical therapy. Add small dose of diuretic with potassium. May get a cardiac MRI to rule out any silent cardiac involvement of the LV PROGNOSIS: Guarded
[2019-11-26] MEDS ORDERED: amLODIPine 5 MG TAB ONE (09:15)
[2019-11-26 10:40] VITALS: BP 127/62
[2019-11-26 11:39] VITALS: PULSE 76
== END 2019-11-26 11:43 | disposition home or self-care (01) ==
LOC: CATHCVL 06:10
PROVIDERS: ATTEND Internal Medicine Cardiovascular Disease
DX: I34.0 Nonrheumatic mitral (valve) insufficiency (principal); I71.9 Aortic aneurysm of unspecified site, without rupture; D86.0 Sarcoidosis of lung; I10 Essential (primary) hypertension; E66.9 Obesity, unspecified; Z79.82 Long term (current) use of aspirin; Z79.52 Long term (current) use of systemic steroids; Z79.899 Other long term (current) drug therapy; Z68.41 Body mass index [BMI] 40.0-44.9, adult; Z82.49 Family history of ischemic heart disease and other diseases of the circulatory system
CPT/HCPCS: 93458; 80048; 85025; J2250; J2001; J3010; J1644; Q9967

== ENCOUNTER → 2019-12-18 | Outpatient (CLI) | payer MEDICAID ==
--- NOTE | 2020-01-20 10:06 | EM ---
EVENT MONITOR This is a 30-day event monitor. INDICATION: Atrial fibrillation. Underlying rhythm is sinus. There was a short self-limited run of atrial tachycardia noted. There were occasional PVCs and PACs noted. Patient had multiple symptoms of dizziness, palpitations tired and weakness, which did not correlate with significant Holter abnormalities. CONCLUSIONS: This event monitor shows sinus rhythm with PACs, PVCs, and a short self-limited run of paroxysmal atrial tachycardia. We did not see any atrial fibrillation on this study. MMODL / IJN: [id number] /
== END | disposition home or self-care (01) ==
LOC: RADECHMAIN 12:18
PROVIDERS: ATTEND Thoracic Surgery (Cardiothoracic Vascular Surgery)
DX: I47.1 Supraventricular tachycardia (principal)
CPT/HCPCS: 93270

== ENCOUNTER → 2020-01-14 | Outpatient (CLI) | payer MEDICAID ==
[2020-01-14 10:17] LABS: HCT 44.2 % (34.0-46.0); HGB 13.9 gm/dL (11.4-16.0); MCH 28.9 pg (25.0-35.0); MCHC 31.5 g/dL (31.0-37.0); MCV 91.6 fL (80.0-100.0); Mean Platelet Volume 7.8; Platelet Count 254 k/uL (150-450); RBC 4.82 m/uL (3.80-5.40); RDW 14.7 % (11.5-15.5); WBC 5.6 k/uL (3.8-10.6)
[2020-01-14 10:36] LABS: ALT 26 U/L (4-34); AST 32 U/L (14-36); African American GFR (CKD) >90 (>60 ml/min/1.73 sqM); Albumin 4.2 g/dL (3.5-5.0); Alkaline Phosphatase 65 U/L (38-126); Anion Gap 7 mmol/L; Blood Urea Nitrogen 25 mg/dL (7-17); Calcium 9.4 mg/dL (8.4-10.2); Carbon Dioxide 27 mmol/L (22-30); Chloride 105 mmol/L (98-107); Cholesterol 173 mg/dL (<200); Glucose 88 mg/dL (74-99); HDL Cholesterol 53 mg/dL (40-60); LDL Cholesterol,Calculated 104 mg/dL (0-99); Magnesium 2.2 mg/dL (1.6-2.3); Non-African American GFR(CKD) >90 (>60 ml/min/1.73 sqM); Potassium 4.3 mmol/L (3.5-5.1); Sodium 139 mmol/L (137-145); Total Bilirubin 0.3 mg/dL (0.2-1.3); Total Protein 6.8 g/dL (6.3-8.2); Triglycerides 80 mg/dL (<150)
[2020-01-14 10:39] LABS: INR 0.9 (<1.2); Prothrombin Time 9.4 sec (9.0-12.0)
--- NOTE | 2020-01-14 10:43 | US ---
EXAMINATION TYPE: US carotid duplex BILAT DATE OF EXAM: 01/14/2020 COMPARISON: NONE CLINICAL HISTORY: Open Heart. EXAM MEASUREMENTS: RIGHT: Peak Systolic Velocity (PSV) cm/sec ----- Right CCA: 60.5 ----- Right ICA: 95.3 ----- Right ECA: 57.5 ICA/CCA ratio: 1.6 RIGHT: End Diastole cm/sec ----- Right CCA: 14.0 ----- Right ICA: 32.8 ----- Right ECA: 5.2 LEFT: Peak Systolic Velocity (PSV) cm/sec ----- Left CCA: 56.8 ----- Left ICA: 74.4 ----- Left ECA: 52.4 ICA/CCA ratio: 1.3 LEFT: End Diastole cm/sec ----- Left CCA: 13.9 ----- Left ICA: 28.2 ----- Left ECA: 8.4 VERTEBRALS (direction of flow): Right Vertebral: Antegrade Left Vertebral: Antegrade Rhythm: Normal Moderate amount of plaque visualized bilateral bulbs and proximal ICAs. No elevated velocities, no si gnificant stenosis IMPRESSION: 1. Atheromatous plaquing without significant flow-limiting stenosis. Criteria for Assigning % of Stenosis / Diameter reduction (Estimation based on the indirect measurements of the internal carotid artery velocities (ICA PSV). 1. Normal (no stenosis)=ICA PSV < 125 cm/s: ratio < 2.0: ICA EDV<40 cm/s. 2. Less than 50% stenosis=ICA PSV < 125 cm/s: ratio < 2.0: ICA EDV<40 cm/s. 3. 50 to 69% stenosis=ICA PSV of 125 to 230 cm/s: ration 2.0 ? 4.0: ICA EDV 40-100 cm/s. 4. Greater than 70% stenosis to near occlusion= ICA PSV > 230 cm/s: ratio > 4.0: ICA EDV > 100 cm/s. 5. Near occlusion= ICA PSV velocities may be low or undetectable: variable ratio and ICA EDV. 6. Total occlusion=unable to detect flow.
[2020-01-14 12:33] LABS: Appearance,Urine Cloudy (Clear); Bilirubin,Urine Negative (Negative); Blood,Urine Negative (Negative); Color,Urine Yellow; Glucose,Urine (UA) Negative (Negative); Ketones,Urine Negative (Negative); Leukocyte Esterase,Urine Large (Negative); Mucus,Urine Rare /hpf; Nitrite,Urine Negative (Negative); PH, Urine 5.5 (5.0-8.0); Protein,Urine Negative (Negative); RBC,Urine 1 /hpf (0-5); Specific Gravity,Urine 1.023 (1.001-1.035); Squamous Epithelial Cell,Urine 3 /hpf (0-4); Urobilinogen,Urine <2.0 mg/dL (<2.0); WBC,Urine 19 /hpf (0-5)
--- NOTE | 2020-01-14 12:36 | XR ---
EXAMINATION TYPE: XR chest 2V DATE OF EXAM: 01/14/2020 COMPARISON: Prior chest x-ray 06/24/2019 CT 05/27/2019 HISTORY: Preop open heart surgery TECHNIQUE: Frontal and lateral views of the chest are obtained. FINDINGS: Heart is enlarged. No pneumothorax or pleural effusion. Central vascularity is increased. Interstitium is improved compared to prior exam. Patient's lap band shows a somewhat transverse orien tation as on prior exam. Aorta is aneurysmal. IMPRESSION: Cardiomegaly. Improvement in interstitium. Correlate for pulmonary artery hypertension, aortic aneurysm. Stopped changes.
[2020-01-14 16:37] LABS: Hepatitis A Antibody IgM Non-Reactive (Non-Reactive); Hepatitis B Core IgM Non-Reactive (Non-Reactive); Hepatitis B Surface Antigen Non-Reactive (Non-Reactive); Hepatitis C IgG Antibody Non-Reactive (Non-Reactive)
[2020-01-14 17:08] LABS: Hemoglobin A1C 5.6 % (4.0-6.0)
== END | disposition home or self-care (01) ==
LOC: LABPAT 08:15
PROVIDERS: ATTEND Thoracic Surgery (Cardiothoracic Vascular Surgery)
DX: Z01.818 Encounter for other preprocedural examination (principal); I34.1 Nonrheumatic mitral (valve) prolapse
CPT/HCPCS: 71046; 80053; 80061; 80074; 81001; 83036; 83735; 84443; 85027; 85610; 85730; 87070; 87086; 93005; 93880

== ENCOUNTER 2020-01-19 01:41 | Emergency (ER) | payer MEDICAID ==
[2020-01-19 01:48] VITALS: RESP 20
--- NOTE | 2020-01-19 01:58 | ED ---
Chest Pain HPI - General Chief Complaint: Chest Pain Stated Complaint: Chest Pressure Time Seen by Provider: 01/19/20 01:52 Source: patient Mode of arrival: ambulatory Limitations: no limitations - History of Present Illness Initial Comments: Yoli is a 59-year-old female with extensive past medical history most significant for sarcoidosis. Patient also has mitral valve which was due to be replaced at the end of the week. Due to this she was taken off of her steroids, immunosuppressants, NSAIDs, calcium channel blockers and aileen inhibitors. Yanique nt reports that for the past couple days she's felt like she has a cold, she has nasal congestion and cough bodyaches, but also has been feeling like her lungs are filling up with fluid which prompted her to come to the ER today. Patient denies any exertional chest pain palpitations. She reports she feels like she has a cough and can't quite catch her breath. Patient reports subjective fevers, chills, rigors and body aches. Patient states she believes she has the flu. Patient did receive her flu vaccine this year. He has had no known contacts with anybody with influenza. She's had no foreign travel. - Related Data Home Medications Medication Instructions Recorded Confirmed ALPRAZolam [Xanax] 0.25 mg PO DAILY PRN 12/29/18 01/14/20 Budesonide-Formot 160-4.5 Mcg 2 puff INHALATION RT-BID 12/29/18 01/14/20 [Symbicort 160-4.5 Mcg Inhaler] FLUoxetine HCL [PROzac] 20 mg PO HS 12/29/18 01/14/20 Loratadine [Claritin] 10 mg PO DAILY PRN 12/29/18 01/14/20 Montelukast Sodium [Singulair] 10 mg PO HS 12/29/18 01/14/20 Multivitamins, Thera [Multivitamin 1 tab PO DAILY 12/29/18 01/14/20 (formulary)] amLODIPine [Norvasc] 5 mg PO HS 06/18/19 01/14/20 Lisinopril [Zestril] 5 mg PO DAILY 10/27/19 01/14/20 predniSONE 5 mg PO DAILY 10/29/19 01/14/20 Hydroxychloroquine Sulfate 200 mg PO BID 11/24/19 01/14/20 [Plaquenil] amLODIPine [Norvasc] 5 mg PO DAILY PRN 11/26/19 01/14/20 Metoprolol Tartrate [Lopressor] 25 mg PO DAILY 01/14/20 01/14/20 Previous Rx's Medication Instructions Recorded Omeprazole [PriLOSEC] 40 mg PO [facility] #14 capsule. 12/30/18 Furosemide [Lasix] 20 mg PO DAILY #30 tab 11/26/19 Potassium Chloride ER [K-Dur 10] 10 meq PO DAILY #30 tab 11/26/19 Allergies Allergy/AdvReac Type Severity Reaction Status Date / Time No Known Allergies Allergy Verified 01/14/20 10:41 Review of Systems ROS Statement: Those systems with pertinent positive or pertinent negative responses have been documented in the HPI. ROS Other: All systems not noted in ROS Statement are negative. EKG Findings - EKG Comments: EKG Findings:: EKG was obtained due to complaint of chest pressure, EKG obtained at 1:55 AM rate is 94 with sinus there is normal axis, there are normal intervals MA 156 QRS 86 QTC [address] elevations or depressions there is no evidence of acute ischemia or infarction. Past Medical History Past Medical History: Asthma, Hypertension, Mitral Valve Prolapse (MVP), Osteoarthritis (OA), Sleep Apnea/CPAP/BIPAP Additional Past Medical History / Comment(s): "AAA, 4 cm", bronchitis, no cpap used, "something autoimmune",recent dx. sarcoidosis, mitral valve "severe leak" per pt., nodules/inflammation in lung in CT History of Any Multi-Drug Resistant Organisms: None Reported Past Surgical History: Adenoidectomy, Bariatric Surgery, Orthopedic Surgery, Tonsillectomy Additional Past Surgical History / Comment(s): lap band, rt eye sx-had a blocked blood vessel, sinus sx, hallie knee replacement, recent lung biopsy, MIRLANDE Past Anesthesia/Blood Transfusion Reactions: No Reported Reaction Additional Past Anesthesia/Blood Transfusion Reaction / Comment(s): Diff IV starts Past Psychological History: No Psychological Hx Reported Smoking Status: Never smoker Past Alcohol Use History: None Reported Past Drug Use History: None Reported - Past Family History Sister(s) Family Medical History: Cancer Additional Family Medical History / Comment(s): BREAST CANCER, HX OF BRACHIAL BLOOD CLOTS WITH FILTERS INSERTED. Mother Family Medical History: Cancer Additional Family Medical History / Comment(s): BREAST CANCER. Father Family Medical History: Congestive Heart Failure (CHF), Myocardial Infarction ([place]) Additional Family Medical History / Comment(s): [place] Brother(s) Family Medical History: Coronary Artery Disease (CAD) Additional Family Medical History / Comment(s): General Exam - General Exam Comments Initial Comments: Physical Exam GENERAL: Patient appears as though she is not feeling well but is nontoxic HENT: Normocephalic, Atraumatic. EYES: PERRL, EOMI PULMONARY: Unlabored respirations. No audible rales rhonchi or wheezing was noted. CARDIOVASCULAR: There is a regular rate and rhythm ABDOMEN: Soft and nontender with normal bowel sounds. SKIN: Skin is clear with no lesions or rashes and otherwise unremarkable. : Deferred NEUROLOGIC: Patient is alert and oriented x3. Moving all extremities spontaneously MUSCULOSKELETAL: Normal extremities with adequate strength and full range of motion. No lower extremity swelling or edema. No calf tenderness. PSYCHIATRIC: Normal psychiatric evaluation. Limitations: no limitations Course Vital Signs 01/19/20 01/19/20 01/19/20 01:43 02:07 03:42 Temperature 99.5 F 98.3 F Pulse Rate 98 87 Respiratory 20 20 20 Rate Blood Pressure 157/100 172/87 O2 Sat by Pulse 98 95 Oximetry Chest Pain MDM - MDM The patient was seen and evaluated history is obtained from the patient 59-year-old female appears to be suffering from a flulike illness however she is also noted to be hypertensive she does have a history of sarcoidosis and has been taken off her medications since Saturday of last week Patient's been compliant with first draining from all of her medications States that today she was contacted by her surgeon who had to emergently cancel her surgery due to him no longer being available. Therefore patient will resume her medications EKG was nonischemic Chest x-ray with no signs of pneumonia or other acute findings Labs were relatively unremarkable, no significant acute abnormalities Results were discussed with the patient received IV steroids here, a dose of Ultram which is her home medication. Patient will resume her home medications and await rescheduling of her planned mitral valve repair. Disposition Clinical Impression: Flu-like symptoms Disposition: HOME SELF-CARE Condition: Stable Instructions (If sedation given, give patient instructions): Viral Syndrome (ED) Is patient prescribed a controlled substance at d/c from ED?: No Referrals: Omer Katz DO [Primary Care Provider] - 1-2 days
[2020-01-19 02:27] LABS: Basophils % (A) 0 %; Eosinophils # (A) 0.2 k/uL (0-0.7); Eosinophils % (A) 4 %; HGB 13.9 gm/dL (11.4-16.0); Lymphocytes # (A) 0.7 k/uL (1.0-4.8); Lymphocytes % (A) 11 %; MCH 29.6 pg (25.0-35.0); MCHC 33.2 g/dL (31.0-37.0); MCV 89.2 fL (80.0-100.0); Mean Platelet Volume 7.5; Monocytes # (A) 0.4 k/uL (0-1.0); Monocytes % (A) 7 %; Neutrophils # (A) 4.6 k/uL (1.3-7.7); Neutrophils % (A) 76 %; Platelet Count 230 k/uL (150-450); RBC 4.71 m/uL (3.80-5.40); RDW 14.6 % (11.5-15.5); WBC 6.1 k/uL (3.8-10.6)
[2020-01-19 02:31] LABS: INR 0.9 (<1.2); Partial Thromboplastin Time 22.7 sec (22.0-30.0); Prothrombin Time 9.5 sec (9.0-12.0)
--- NOTE | 2020-01-19 02:31 | XR ---
EXAMINATION TYPE: XR chest 2V DATE OF EXAM: 01/19/2020 COMPARISON: 06/24/2019 HISTORY: Chest pain TECHNIQUE: 2 views FINDINGS: Heart and mediastinum are normal. Lungs are clear. Diaphragm is normal. Bony thorax appears normal. IMPRESSION: Normal chest. There is clearing of the mild pulmonary interstitial edema compared to old exam.
[2020-01-19 02:46] LABS: ALT 28 U/L (4-34); AST 40 U/L (14-36); African American GFR (CKD) >90 (>60 ml/min/1.73 sqM); Albumin 4.4 g/dL (3.5-5.0); Alkaline Phosphatase 66 U/L (38-126); Anion Gap 8 mmol/L; Blood Urea Nitrogen 17 mg/dL (7-17); Calcium 9.7 mg/dL (8.4-10.2); Carbon Dioxide 28 mmol/L (22-30); Chloride 101 mmol/L (98-107); Glucose 98 mg/dL (74-99); Magnesium 2.1 mg/dL (1.6-2.3); Non-African American GFR(CKD) >90 (>60 ml/min/1.73 sqM); Potassium 4.3 mmol/L (3.5-5.1); Sodium 137 mmol/L (137-145); Total Bilirubin 0.3 mg/dL (0.2-1.3); Total Protein 6.9 g/dL (6.3-8.2)
[2020-01-19] MEDS ORDERED: methylPREDNISolone SOD SUCCI 125 MG/2 ML VIAL IV STA (03:21)
[2020-01-19] MEDS ORDERED: traMADol 50 MG TAB PO STA (03:27)
[2020-01-19 03:45] VITALS: BP 172/87; PULSE 87; TEMP 98.3
== END 2020-01-19 03:50 | disposition home or self-care (01) ==
LOC: EC 01:41
DX: R07.89 Other chest pain (principal); R09.81 Nasal congestion; R05 Cough; R50.9 Fever, unspecified; R68.89 Other general symptoms and signs; I10 Essential (primary) hypertension; D86.9 Sarcoidosis, unspecified; I34.1 Nonrheumatic mitral (valve) prolapse; I71.4 Abdominal aortic aneurysm, without rupture; Z79.52 Long term (current) use of systemic steroids; Z79.899 Other long term (current) drug therapy; Z96.653 Presence of artificial knee joint, bilateral; Z82.49 Family history of ischemic heart disease and other diseases of the circulatory system
CPT/HCPCS: 36415; 93005; 83880; 80053; 83735; 84484; 85025; 85610; 85730; 87502; 71046; 96374; 99285; J2930

== ENCOUNTER 2020-04-10 03:45 | Emergency (ER) | payer MEDICAID ==
[2020-04-10 03:57] VITALS: RESP 18; TEMP 98.1
[2020-04-10] MEDS ORDERED: SODIUM CHLORIDE 0.9% 1,000 ML IV STA (04:01)
[2020-04-10] MEDS ORDERED: ONDANSETRON 4 MG/2 ML VIAL IVP STA (04:01)
--- NOTE | 2020-04-10 04:02 | ED ---
Nausea/Vomiting/Diarrhea HPI - General Chief complaint: Nausea/Vomiting/Diarrhea Stated complaint: Nausea,Vomiting,Chest Discomfort Time Seen by Provider: 04/10/20 04:00 Source: patient, RN notes reviewed, old records reviewed Mode of arrival: ambulatory Limitations: no limitations - History of Present Illness MD complaint: nausea, vomiting, diarrhea, other (diaphoresis, near syncope) -: minutes(s) Description of Vomiting: other (just Nausea) Description of Diarrhea: other (none) Associated Abdominal Pain: No (no pain) Radiation: none Severity: moderate Severity scale (1-10): 4 Quality: aching Consistency: constant Improves with: none Worsens with: none Context: other (awoke with) Associated Symptoms: nausea/vomiting, shortness of breath, syncope, weakness - Related Data Home Medications Medication Instructions Recorded Confirmed ALPRAZolam [Xanax] 0.25 mg PO DAILY PRN 12/29/18 01/14/20 Budesonide-Formot 160-4.5 Mcg 2 puff INHALATION RT-BID 12/29/18 01/14/20 [Symbicort 160-4.5 Mcg Inhaler] FLUoxetine HCL [PROzac] 20 mg PO HS 12/29/18 01/14/20 Loratadine [Claritin] 10 mg PO DAILY PRN 12/29/18 01/14/20 Montelukast Sodium [Singulair] 10 mg PO HS 12/29/18 01/14/20 Multivitamins, Thera [Multivitamin 1 tab PO DAILY 12/29/18 01/14/20 (formulary)] amLODIPine [Norvasc] 5 mg PO HS 06/18/19 01/14/20 Lisinopril [Zestril] 5 mg PO DAILY 10/27/19 01/14/20 predniSONE 5 mg PO DAILY 10/29/19 01/14/20 Hydroxychloroquine Sulfate 200 mg PO BID 11/24/19 01/14/20 [Plaquenil] amLODIPine [Norvasc] 5 mg PO DAILY PRN 11/26/19 01/14/20 Metoprolol Tartrate [Lopressor] 25 mg PO DAILY 01/14/20 01/14/20 Previous Rx's Medication Instructions Recorded Omeprazole [PriLOSEC] 40 [facility] PO [facility] capsule. 12/30/18 Furosemide [Lasix] 20 mg PO DAILY #30 tab 11/26/19 Potassium Chloride ER [K-Dur 10] 10 meq PO DAILY #30 tab 11/26/19 Allergies Allergy/AdvReac Type Severity Reaction Status Date / Time No Known Allergies Allergy Verified 04/10/20 03:57 Review of Systems ROS Statement: Those systems with pertinent positive or pertinent negative responses have been documented in the HPI. ROS Other: All systems not noted in ROS Statement are negative. Past Medical History Past Medical History: Asthma, Hypertension, Mitral Valve Prolapse (MVP), Osteoarthritis (OA), Sleep Apnea/CPAP/BIPAP Additional Past Medical History / Comment(s): "AAA, 4 cm", bronchitis, no cpap used, "something autoimmune",recent dx. sarcoidosis, mitral valve "severe leak" per pt., nodules/inflammation in lung in CT History of Any Multi-Drug Resistant Organisms: None Reported Past Surgical History: Adenoidectomy, Bariatric Surgery, Orthopedic Surgery, Tonsillectomy Additional Past Surgical History / Comment(s): lap band, rt eye sx-had a blocked blood vessel, sinus sx, hallie knee replacement, recent lung biopsy, MIRLANDE Past Anesthesia/Blood Transfusion Reactions: No Reported Reaction Additional Past Anesthesia/Blood Transfusion Reaction / Comment(s): Diff IV starts Past Psychological History: No Psychological Hx Reported Smoking Status: Never smoker Past Alcohol Use History: None Reported Past Drug Use History: None Reported - Past Family History Sister(s) Family Medical History: Cancer Additional Family Medical History / Comment(s): BREAST CANCER, HX OF BRACHIAL B LOOD CLOTS WITH FILTERS INSERTED. Mother Family Medical History: Cancer Additional Family Medical History / Comment(s): BREAST CANCER. Father Family Medical History: Congestive Heart Failure (CHF), Myocardial Infarction ([place]) Additional Family Medical History / Comment(s): [place] Brother(s) Family Medical History: Coronary Artery Disease (CAD) Additional Family Medical History / Comment(s): General Exam Limitations: no limitations General appearance: alert, in no apparent distress, anxious Head exam: Present: atraumatic, normocephalic, normal inspection Eye exam: Present: normal appearance, PERRL, EOMI. Absent: scleral icterus, conjunctival injection, periorbital swelling ENT exam: Present: normal exam, mucous membranes moist Neck exam: Present: normal inspection. Absent: tenderness, meningismus, lymphadenopathy Respiratory exam: Present: normal lung sounds bilaterally. Absent: respiratory distress, wheezes, rales, rhonchi, stridor Cardiovascular Exam: Present: regular rate, normal rhythm, normal heart sounds. Absent: systolic murmur, diastolic murmur, rubs, gallop, clicks GI/Abdominal exam: Present: soft, normal bowel sounds. Absent: distended, tenderness, guarding, rebound, rigid Extremities exam: Present: normal inspection, full ROM, normal capillary refill. Absent: tenderness, pedal edema, joint swelling, calf tenderness Back exam: Present: normal inspection Neurological exam: Present: alert, oriented X3, CN II-XII intact Psychiatric exam: Present: normal affect, normal mood Skin exam: Present: warm, dry, intact, normal color. Absent: rash Course Vital Signs 04/10/20 04/10/20 03:52 06:25 Temperature 98.1 F Pulse Rate 69 64 Respiratory 18 18 Rate Blood Pressure 176/98 160/94 O2 Sat by Pulse 100 95 Oximetry Medical Decision Making - Lab Data Result diagrams: 04/10/20 04:39 04/10/20 04:39 Lab Results 04/10/20 04/10/20 04/10/20 Range/Units 04:39 04:39 04:39 WBC 6.7 (3.8-10.6) k/uL RBC 4.64 (3.80-5.40) m/uL Hgb 14.2 (11.4-16.0) gm/dL Hct 42.8 (34.0-46.0) % MCV 92.3 (80.0-100.0) fL MCH 30.7 (25.0-35.0) pg MCHC 33.2 (31.0-37.0) g/dL RDW 14.4 (11.5-15.5) % Plt Count 204 (150-450) k/uL Neutrophils % 65 % Lymphocytes % 22 % Monocytes % 7 % Eosinophils % 4 % Basophils % 1 % Neutrophils # 4.3 (1.3-7.7) k/uL Lymphocytes # 1.5 (1.0-4.8) k/uL Monocytes # 0.4 (0-1.0) k/uL Eosinophils # 0.3 (0-0.7) k/uL Basophils # 0.0 (0-0.2) k/uL PT (9.0-12.0) sec INR (<1.2) APTT (22.0-30.0) sec Sodium 138 (137-145) mmol/L Potassium 4.2 (3.5-5.1) mmol/L Chloride 103 (98-107) mmol/L Carbon Dioxide 26 (22-30) mmol/L Anion Gap 9 mmol/L BUN 24 H (7-17) mg/dL Creatinine 0.58 (0.52-1.04) mg/dL Est GFR (CKD-EPI)AfAm >90 (>60 ml/min/1.73 sqM) Est GFR (CKD-EPI)NonAf >90 (>60 ml/min/1.73 sqM) Glucose 104 H (74-99) mg/dL Plasma Lactic Acid Justin (0.7-2.0) mmol/L Calcium 9.3 (8.4-10.2) mg/dL Phosphorus 4.1 (2.5-4.5) mg/dL Magnesium 2.1 (1.6-2.3) mg/dL Total Bilirubin 0.5 (0.2-1.3) mg/dL AST 40 H (14-36) U/L ALT 27 (4-34) U/L Alkaline Phosphatase 62 (38-126) U/L Troponin I (0.000-0.034) ng/mL NT-Pro-B Natriuret Pep pg/mL Total Protein 7.2 (6.3-8.2) g/dL Albumin 4.5 (3.5-5.0) g/dL Urine Color Colorless Urine Appearance Clear (Clear) Urine pH 7.0 (5.0-8.0) Ur Specific Antlers 1.006 (1.001-1.035) Urine Protein Negative (Negative) Urine Glucose (UA) Negative (Negative) Urine Ketones Negative (Negative) Urine Blood Negative (Negative) Urine Nitrite Negative (Negative) Urine Bilirubin Negative (Negative) Urine Urobilinogen <2.0 (<2.0) mg/dL Ur Leukocyte Esterase Negative (Negative) 04/10/20 04/10/20 04/10/20 Range/Units 04:39 04:39 04:39 WBC (3.8-10.6) k/uL RBC (3.80-5.40) m/uL Hgb (11.4-16.0) gm/dL Hct (34.0-46.0) % MCV (80.0-100.0) fL MCH (25.0-35.0) pg MCHC (31.0-37.0) g/dL RDW (11.5-15.5) % Plt Count (150-450) k/uL Neutrophils % % Lymphocytes % % Monocytes % % Eosinophils % % Basophils % % Neutrophils # (1.3-7.7) k/uL Lymphocytes # (1.0-4.8) k/uL Monocytes # (0-1.0) k/uL Eosinophils # (0-0.7) k/uL Basophils # (0-0.2) k/uL PT (9.0-12.0) sec INR (<1.2) APTT (22.0-30.0) sec Sodium (137-145) mmol/L Potassium (3.5-5.1) mmol/L Chloride (98-107) mmol/L Carbon Dioxide (22-30) mmol/L Anion Gap mmol/L BUN (7-17) mg/dL Creatinine (0.52-1.04) mg/dL Est GFR (CKD-EPI)AfAm (>60 ml/min/1.73 sqM) Est GFR (CKD-EPI)NonAf (>60 ml/min/1.73 sqM) Glucose (74-99) mg/dL Plasma Lactic Acid Justin 0.8 (0.7-2.0) mmol/L Calcium (8.4-10.2) mg/dL Phosphorus (2.5-4.5) mg/dL Magnesium (1.6-2.3) mg/dL Total Bilirubin (0.2-1.3) mg/dL AST (14-36) U/L ALT (4-34) U/L Alkaline Phosphatase (38-126) U/L Troponin I <0.012 (0.000-0.034) ng/mL NT-Pro-B Natriuret Pep 354 pg/mL Total Protein (6.3-8.2) g/dL Albumin (3.5-5.0) g/dL Urine Color Urine Appearance (Clear) Urine pH (5.0-8.0) Ur Specific Antlers (1.001-1.035) Urine Protein (Negative) Urine Glucose (UA) (Negative) Urine Ketones (Negative) Urine Blood (Negative) Urine Nitrite (Negative) Urine Bilirubin (Negative) Urine Urobilinogen (<2.0) mg/dL Ur Leukocyte Esterase (Negative) 04/10/20 Range/Units 05:30 WBC (3.8-10.6) k/uL RBC (3.80-5.40) m/uL Hgb (11.4-16.0) gm/dL Hct (34.0-46.0) % MCV (80.0-100.0) fL MCH (25.0-35.0) pg MCHC (31.0-37.0) g/dL RDW (11.5-15.5) % Plt Count (150-450) k/uL Neutrophils % % Lymphocytes % % Monocytes % % Eosinophils % % Basophils % % Neutrophils # (1.3-7.7) k/uL Lymphocytes # (1.0-4.8) k/uL Monocytes # (0-1.0) k/uL Eosinophils # (0-0.7) k/uL Basophils # (0-0.2) k/uL PT 9.5 (9.0-12.0) sec INR 0.9 (<1.2) APTT 22.8 (22.0-30.0) sec Sodium (137-145) mmol/L Potassium (3.5-5.1) mmol/L Chloride (98-107) mmol/L Carbon Dioxide (22-30) mmol/L Anion Gap mmol/L BUN (7-17) mg/dL Creatinine (0.52-1.04) mg/dL Est GFR (CKD-EPI)AfAm (>60 ml/min/1.73 sqM) Est GFR (CKD-EPI)NonAf (>60 ml/min/1.73 sqM) Glucose (74-99) mg/dL Plasma Lactic Acid Justin (0.7-2.0) mmol/L Calcium (8.4-10.2) mg/dL Phosphorus (2.5-4.5) mg/dL Magnesium (1.6-2.3) mg/dL Total Bilirubin (0.2-1.3) mg/dL AST (14-36) U/L ALT (4-34) U/L Alkaline Phosphatase (38-126) U/L Troponin I (0.000-0.034) ng/mL NT-Pro-B Natriuret Pep pg/mL Total Protein (6.3-8.2) g/dL Albumin (3.5-5.0) g/dL Urine Color Urine Appearance (Clear) Urine pH (5.0-8.0) Ur Specific Antlers (1.001-1.035) Urine Protein (Negative) Urine Glucose (UA) (Negative) Urine Ketones (Negative) Urine Blood (Negative) Urine Nitrite (Negative) Urine Bilirubin (Negative) Urine Urobilinogen (<2.0) mg/dL Ur Leukocyte Esterase (Negative) - EKG Data -: EKG Interpreted by Me (EKG shows sinus rhythm rate of 71, WI 182, QRS 94, QTc 467) Disposition Clinical Impression: Dizziness, Near syncope Disposition: HOME SELF-CARE Condition: Good Instructions (If sedation given, give patient instructions): Near Syncope (ED) Is patient prescribed a controlled substance at d/c from ED?: No Referrals: Danyel Valdes MD [Primary Care Provider] - 1-2 days
[2020-04-10 04:51] LABS: Basophils % (A) 1 %; Eosinophils # (A) 0.3 k/uL (0-0.7); Eosinophils % (A) 4 %; HCT 42.8 % (34.0-46.0); HGB 14.2 gm/dL (11.4-16.0); Lymphocytes # (A) 1.5 k/uL (1.0-4.8); Lymphocytes % (A) 22 %; MCH 30.7 pg (25.0-35.0); MCHC 33.2 g/dL (31.0-37.0); MCV 92.3 fL (80.0-100.0); Mean Platelet Volume 8.1; Monocytes # (A) 0.4 k/uL (0-1.0); Monocytes % (A) 7 %; Neutrophils # (A) 4.3 k/uL (1.3-7.7); Neutrophils % (A) 65 %; Platelet Count 204 k/uL (150-450); RBC 4.64 m/uL (3.80-5.40); RDW 14.4 % (11.5-15.5); WBC 6.7 k/uL (3.8-10.6)
[2020-04-10 04:52] LABS: Appearance,Urine Clear (Clear); Bilirubin,Urine Negative (Negative); Blood,Urine Negative (Negative); Color,Urine Colorless; Glucose,Urine (UA) Negative (Negative); Ketones,Urine Negative (Negative); Leukocyte Esterase,Urine Negative (Negative); Nitrite,Urine Negative (Negative); Protein,Urine Negative (Negative); Specific Gravity,Urine 1.006 (1.001-1.035); Urobilinogen,Urine <2.0 mg/dL (<2.0)
[2020-04-10 05:01] LABS: ALT 27 U/L (4-34); AST 40 U/L (14-36); African American GFR (CKD) >90 (>60 ml/min/1.73 sqM); Albumin 4.5 g/dL (3.5-5.0); Alkaline Phosphatase 62 U/L (38-126); Anion Gap 9 mmol/L; Blood Urea Nitrogen 24 mg/dL (7-17); Calcium 9.3 mg/dL (8.4-10.2); Carbon Dioxide 26 mmol/L (22-30); Chloride 103 mmol/L (98-107); Glucose 104 mg/dL (74-99); Magnesium 2.1 mg/dL (1.6-2.3); Non-African American GFR(CKD) >90 (>60 ml/min/1.73 sqM); Phosphorus 4.1 mg/dL (2.5-4.5); Potassium 4.2 mmol/L (3.5-5.1); Sodium 138 mmol/L (137-145); Total Bilirubin 0.5 mg/dL (0.2-1.3); Total Protein 7.2 g/dL (6.3-8.2)
--- NOTE | 2020-04-10 05:36 | CT ---
EXAMINATION TYPE: CT brain wo con DATE OF EXAM: 04/10/2020 COMPARISON: 10/18/2017 HISTORY: Dizziness CT DLP: 1115.40 mGycm Automated exposure control for dose reduction was used. Ventricles and sulci appear normal. There is no mass effect nor midline shift. There is no sign of in tracranial hemorrhage. The calvarium appears normal. Skull base appears normal. There is no evidence of cerebral edema. Impression negative unenhanced head CT scan. No change.
--- NOTE | 2020-04-10 05:38 | XR ---
EXAMINATION TYPE: XR chest 2V DATE OF EXAM: 04/10/2020 COMPARISON: 01/19/2020 HISTORY: Chest pain TECHNIQUE: 2 views FINDINGS: Heart appears borderline enlarged. There is no heart failure. Lungs are clear of infiltrate . There is no pleural effusion. Bony thorax is intact. IMPRESSION: No active cardiopulmonary disease. No change.
[2020-04-10 05:47] LABS: INR 0.9 (<1.2); Partial Thromboplastin Time 22.8 sec (22.0-30.0); Prothrombin Time 9.5 sec (9.0-12.0)
[2020-04-10] MEDS ORDERED: ALPRAZolam 0.25 MG TAB PO STA (05:53)
[2020-04-10 06:27] VITALS: BP 160/94; PULSE 64
== END 2020-04-10 06:36 | disposition home or self-care (01) ==
LOC: EC 03:45
DX: R55 Syncope and collapse (principal); R42 Dizziness and giddiness; R11.2 Nausea with vomiting, unspecified; R07.89 Other chest pain; R06.02 Shortness of breath; R53.1 Weakness; Z20.828 Contact with and (suspected) exposure to other viral communicable diseases
CPT/HCPCS: 36415; 93005; 83880; 80053; 83605; 83735; 84100; 84484; 85025; 85610; 85730; 81003; 87635; 71046; 70450; 99285; 96374; 96361; J2405

== ENCOUNTER → 2020-05-27 | Outpatient (CLI) | payer MEDICAID ==
--- NOTE | 2020-05-27 12:04 | CT ---
EXAMINATION TYPE: CT abdomen pelvis w con DATE OF EXAM: 05/27/2020 COMPARISON: HISTORY: Right lower quadrant pain CT DLP: 2662.49 mGycm Automated exposure control for dose reduction was used. CONTRAST: CT scan of the abdomen pelvis is performed with IV Contrast, patient injected with 100 mL of Isovue 3 00. FINDINGS- LUNG BASES- No significant abnormality is appreciated. LIVER/GB- No gross abnormality is appreciated. PANCREAS- No gross abnormality is seen. SPLEEN- No gross abnormality is seen. ADRENALS- No gross abnormality is seen. KIDNEYS/BLADDER- no hydronephrosis nephrolithiasis or renal mass. BOWEL-post lap band surgery noted. No abnormal attenuation surrounding the catheter or port. No infla mmatory changes around the band. Could not exclude a small hiatal hernia. Diverticulosis without CT e vidence of diverticulitis. Appendix normal. LYMPH NODES- No greater than 1cm abdominal or pelvic lymph nodes are appreciated. Shotty adenopathy in the right lower quadrant with no pathologic lymph nodes. OSSEOUS STRUCTURES- No significant abnormality is seen. OTHER- aorta of normal caliber. Bilateral fat-containing inguinal hernias. Tiny fat-containing periu mbilical hernia. Subcutaneous varicosities noted in the pelvis. IMPRESSION- 1. No acute process. 2. Postoperative change. No abnormal attenuation surrounding the LAP-BAND, catheter or port. 3. Diverticulosis with no CT evidence of diverticulitis.
== END | disposition home or self-care (01) ==
LOC: RADCTMAIN 09:26
PROVIDERS: ATTEND Surgery
DX: K57.90 Diverticulosis of intestine, part unspecified, without perforation or abscess without bleeding (principal); Z98.890 Other specified postprocedural states
CPT/HCPCS: 74177; Q9967

== ENCOUNTER → 2020-05-27 | Outpatient (CLI) | payer MEDICAID ==
--- NOTE | 2020-05-27 12:03 | CT ---
EXAMINATION TYPE: CT angio chest DATE OF EXAM: 05/27/2020 COMPARISON: 05/27/2019 HISTORY: Ascending thoracic aortic aneurysm CT DLP: 442.88 mGycm CONTRAST: CTA thoracic aorta with 3-D reconstruction is performed and with IV Contrast, patient injected with 1 00 mL of Isovue 370. Contrast CTA of the thoracic aorta was performed from the lung apex through the upper abdomen. 3D re construction imaging obtained at a separate workstation. CT Chest: THORACIC AORTA: Borderline aneurysmal dilatation of the ascending thoracic aorta at 4 cm AP dimension versus 3.9 cm previously. Remainder of the thoracic aorta is of normal caliber. Mild atheromatous ch anges seen. There is no evidence for dissection or periaortic collection. LUNGS: The lungs are clear and free of infiltrate or atelectasis. No pulmonary nodule or mass is det ected. No pleural effusion or CT evidence of interstitial lung disease. MEDIASTINUM: No evidence for mediastinal hematoma. The heart is not enlarged. No evidence for med iastinal mass or adenopathy. HILAR STRUCTURES: No evidence for mass. No hilar adenopathy is appreciated. OTHER: No significant abnormality. IMPRESSION- Borderline aneurysmal dilatation of the ascending thoracic aorta at 4 cm AP dimension versus 3.9 cm p reviously.
== END | disposition home or self-care (01) ==
LOC: RADCTMAIN 09:30
PROVIDERS: ATTEND Thoracic Surgery (Cardiothoracic Vascular Surgery)
DX: I71.2 Thoracic aortic aneurysm, without rupture (principal)
CPT/HCPCS: 71275; Q9967

== ENCOUNTER → 2020-06-09 | Outpatient (CLI) | payer MEDICAID ==
[2020-06-09 14:36] LABS: HCT 41.4 % (34.0-46.0); HGB 13.5 gm/dL (11.4-16.0); MCH 29.7 pg (25.0-35.0); MCHC 32.5 g/dL (31.0-37.0); MCV 91.4 fL (80.0-100.0); Mean Platelet Volume 7.4; Platelet Count 272 k/uL (150-450); RBC 4.53 m/uL (3.80-5.40); WBC 7.4 k/uL (3.8-10.6)
[2020-06-09 14:49] LABS: INR 0.9 (<1.2); Partial Thromboplastin Time 22.8 sec (22.0-30.0); Prothrombin Time 9.7 sec (9.0-12.0)
[2020-06-09 14:55] LABS: ALT 26 U/L (4-34); AST 31 U/L (14-36); African American GFR (CKD) >90 (>60 ml/min/1.73 sqM); Albumin 4.4 g/dL (3.5-5.0); Alkaline Phosphatase 74 U/L (38-126); Anion Gap 9 mmol/L; Blood Urea Nitrogen 18 mg/dL (7-17); Calcium 9.6 mg/dL (8.4-10.2); Carbon Dioxide 23 mmol/L (22-30); Chloride 105 mmol/L (98-107); Glucose 88 mg/dL (74-99); Non-African American GFR(CKD) >90 (>60 ml/min/1.73 sqM); Sodium 137 mmol/L (137-145); Total Bilirubin 0.5 mg/dL (0.2-1.3); Total Protein 6.7 g/dL (6.3-8.2)
[2020-06-09 16:17] LABS: Cholesterol 185 mg/dL (<200); HDL Cholesterol 55 mg/dL (40-60); LDL Cholesterol,Calculated 104 mg/dL (0-99); Triglycerides 129 mg/dL (<150)
[2020-06-09 16:29] LABS: Appearance,Urine Clear (Clear); Bilirubin,Urine Negative (Negative); Blood,Urine Negative (Negative); Color,Urine Yellow; Glucose,Urine (UA) Negative (Negative); Ketones,Urine Trace (Negative); Leukocyte Esterase,Urine Small (Negative); Nitrite,Urine Negative (Negative); PH, Urine 5.5 (5.0-8.0); Protein,Urine Negative (Negative); RBC,Urine 1 /hpf (0-5); Specific Gravity,Urine 1.018 (1.001-1.035); Squamous Epithelial Cell,Urine 1 /hpf (0-4); Urobilinogen,Urine <2.0 mg/dL (<2.0); WBC,Urine 4 /hpf (0-5)
[2020-06-09 21:29] LABS: Hepatitis A Antibody IgM Non-Reactive (Non-Reactive); Hepatitis B Core IgM Non-Reactive (Non-Reactive); Hepatitis B Surface Antigen Non-Reactive (Non-Reactive); Hepatitis C IgG Antibody Non-Reactive (Non-Reactive)
[2020-06-09 23:31] LABS: Hemoglobin A1C 5.7 % (4.0-6.0)
== END | disposition home or self-care (01) ==
LOC: LABPAT 13:53
PROVIDERS: ATTEND Thoracic Surgery (Cardiothoracic Vascular Surgery)
DX: Z01.812 Encounter for preprocedural laboratory examination (principal)
CPT/HCPCS: 80061; 80053; 80074; 84443; 83735; 85027; 85610; 85730; 81001; 87070; 87086; 83036; 36415; U0003; C9803

== ENCOUNTER 2020-06-13 05:37 | Inpatient (IN) | payer MEDICAID ==
[~2020-06-13 05:37] MED LIST changes: +ALBUMIN HUMAN 25% 50 ML IV ONE; +ALBUMIN HUMAN 5% 500 ML IVPB ONE; -ALPRAZolam 0.25 MG TAB PO PRN; -ALPRAZolam 0.5 MG TAB PO PRN; +ASPIRIN 325 MG TAB PO ONE; +ATORVASTATIN 10 MG TAB PO ONE; +CALCIUM CHLORIDE 100 MG/ML 10 ML SYRINGE IV ONE; +CHLORHEXIDINE GLUCONATE 15 ML CUP MUCOUS MEM ONE; +CLEVIDIPINE BUTYRATE 25 MG in EMPTY BAG 1 BAG IV ONE; +DEXTROSE 5% IN WATER 1,000 ML with POTASSIUM CHLORIDE 110 MEQ, MAGNESIUM SULFATE 16 MEQ... IV ONE; +DEXTROSE 5% IN WATER 1,000 ML with POTASSIUM CHLORIDE 25 MEQ, SODIUM CHLORIDE 2.5MEQ/ML... IRRIGATION ONE; +HEPARIN SODIUM 1,000 UN/ML (10ML VL) IV ONE; +HEPARIN SODIUM,PORCINE 5,000 UNIT in SODIUM CHLORIDE 0.9% 500 ML 500 ML IV ONE; +INSULIN REGULAR 100 UNIT in SODIUM CHLORIDE 0.9% 100 ML IV ONE; +LACTATED RINGERS 1,000 ML IV ONE; +MAGNESIUM SULFATE MG 500 MG/ML IV ONE; +MANNITOL 25% 12.5 GM/50 ML VIAL IV ONE; +METOPROLOL TARTRATE 12.5 MG TAB PO ONE; -NITROGLYCERIN SL TABS 0.4 MG TAB SUBLINGUAL PRN; +NITROGLYCERIN-D5W PMX 25 MG/250 ML BTL IV ONE; +NOREPINEPHRINE 4 MG in SODIUM CHLORIDE 0.9% 250 ML IV ONE; +PHENYLEPHRINE 10 MG/ML VIAL IV ONE; +PHENYLEPHRINE 40 MG in SODIUM CHLORIDE 0.9% 250 ML IV ONE; +PROTAMINE SULFATE 10 MG/ML 25 ML VIAL IV ONE; +PROTAMINE SULFATE 250 MG in EMPTY BAG 1 BAG IV ONE; +SODIUM BICARB 8.4% 50 ML SYR (1 MEQ/ML) IV ONE; +SODIUM CHLORIDE 0.9% 1,000 ML IV ONE; -SODIUM CHLORIDE 0.9% 1,000 ML in EMPTY BAG 1 BAG IV ONE; +TRANEXAMIC ACID 2,000 MG in SODIUM CHLORIDE 0.9% 80 ML IV ONE; +ceFAZolin 2,000 MG in SODIUM CHLORIDE 0.9% 30 ML IVPB ONE; +propofoL 1,000 MG/100 ML VIAL IV ONE
[2020-06-13] MEDS ORDERED: TRANEXAMIC ACID 2,000 MG in SODIUM CHLORIDE 0.9% 80 ML IV ONE (06:00)
[2020-06-13] MEDS ORDERED: HYDROCORTISONE SUCCINATE 100 MG/2 ML VIAL IV STA ×2 (06:17→12:40)
[2020-06-13] MEDS ORDERED: LIDOCAINE 2% SYG (PF) 100 MG/5 ML ONE (07:37)
[2020-06-13] MEDS ORDERED: MIDAZOLAM 2 MG/2 ML VIAL ONE (07:37)
[2020-06-13] MEDS ORDERED: SODIUM CHLORIDE 0.9% 250 ML BAG ONE (07:37)
[2020-06-13] MEDS ORDERED: PROTAMINE SULFATE 10 MG/ML 25 ML VIAL IV ONE (07:37)
[2020-06-13] MEDS ORDERED: VECURONIUM 10 MG VIAL IV ONE (07:37)
[2020-06-13] MEDS ORDERED: SODIUM CHLORIDE 0.9% IRRIG 1,000 ML BTL IRRIGATION ONE (07:37)
[2020-06-13] MEDS ORDERED: ELECTROLYTE-R (PH 7.4) 1,000 ML IV.SOLN IV ONE (07:37)
[2020-06-13] MEDS ORDERED: HEPARIN SODIUM,PORCINE 10,000 UNIT/ML 1 ML VIAL ONE (07:37)
[2020-06-13] MEDS ORDERED: MAGNESIUM SULFATE 4 MEQ/ML 10ML VIAL ONE (07:37)
[2020-06-13] MEDS ORDERED: INSULIN REGULAR 100 UNIT/ML VIAL ONE (07:37)
[2020-06-13] MEDS ORDERED: TRANEXAMIC ACID 1,000 MG/10 ML VIAL ONE (07:37)
[2020-06-13] MEDS ORDERED: methylPREDNISolone SOD SUCCI 125 MG/2 ML VIAL ONE (07:37)
[2020-06-13] MEDS ORDERED: fentaNYL (PF) 50 MCG/ML 2 ML AMP ONE (07:37)
[2020-06-13] MEDS ORDERED: fentaNYL (PF) 50 MCG/ML 50 ML VIAL ONE (07:37)
[2020-06-13] MEDS ORDERED: PROPOFOL 10 MG/ML 20 ML VIAL IV ONE (07:37)
--- NOTE | 2020-06-13 07:44 | P.PN ---
Progress Note - Text Progress Note Date: 06/09/20 Five meter walk test completed with the patient, time 1: 2.48 seconds, time 2: 2.18 seconds, time 3: 2.50 seconds. STS risk score discussed with the patient.
[2020-06-13 08:35] LABS: ABG Base Excess -1.2 mmol/L; ABG Glucose Whole Blood 140 mg/dL (75-99); ABG HCO3 24 mmol/L (21-25); ABG Hematocrit 40 % (34.0-46.0); ABG Ionized Calcium 4.8 mg/dL (4.5-5.3); ABG Oxygen Saturation 99.9 % (94-97); ABG PCO2 42 mmHg (35-45); ABG PH 7.37 (7.35-7.45); ABG PO2 266 mmHg (83-108); ABG Potassium Whole Blood 3.8 mmol/L (3.4-4.5); ABG Sodium Whole Blood 141 mmol/L (135-146); ABG TCO2 25 mmol/L (19-24)
--- NOTE | 2020-06-13 09:11 | P.ANPRN ---
Procedure Note - Anesthesia - Invasive Line Left Arterial Line Time Out Performed: Yes Date of Procedure: 06/13/20 Time of Procedure: 07:45 Location of Patient: Phase I Preparation: Sterile Prep, Sterile Dressing Arterial Line Location: Radial Ultrasound Used: No Needle Guage: 20 Narrative: Left radial arterial line placed by COFFEE WEIGHER under sterile conditions Right Central Line Date of Procedure: 06/13/20 Time of Procedure: 07:45 Location of Patient: Phase II Preparation: Sterile Prep, Sterile Dressing Ultrasound Used: Yes Purpose - Visualization and Identification of Vasculature: Yes Needle Guage: 18 Image Stored and Saved: Yes Narrative: Central line placement per sterile protocol utilized. 5 ml 1% lidocaine for local. 18 G needle under u/s guidance. Venous blood obtained. Wire placed and noted to be in [facility] on u/s. Small randal in skin and 9F cordis advanced over guide wire. Sutured in place. Right Trent Lillie Date of Procedure: 06/13/20 Time of Procedure: 07:52 Location of Patient: Phase II Preparation: Sterile Prep, Sterile Dressing Ultrasound Used: No Narrative: RIJ Trent. Balloon tested and all ports flushed. Advanced to 20 cm. Balloon inflated. Catheter advanced until RV and then PA waveforms obtained. Balloon deflated and catheter secured at 43 cm. Main PA location confirmed on MIRLANDE subsequently.
[2020-06-13 09:23] LABS: ABG Base Excess -1.2 mmol/L; ABG Glucose Whole Blood 164 mg/dL (75-99); ABG HCO3 25 mmol/L (21-25); ABG Hematocrit 38 % (34.0-46.0); ABG Ionized Calcium 4.7 mg/dL (4.5-5.3); ABG Lactic Acid Whole Blood 0.7 mmol/L (0.5-1.6); ABG Oxygen Saturation 95.8 % (94-97); ABG PCO2 48 mmHg (35-45); ABG PH 7.33 (7.35-7.45); ABG PO2 83 mmHg (83-108); ABG Potassium Whole Blood 3.8 mmol/L (3.4-4.5); ABG Sodium Whole Blood 141 mmol/L (135-146); ABG TCO2 27 mmol/L (19-24)
[2020-06-13 09:55] LABS: ABG Base Excess -2.3 mmol/L; ABG Glucose Whole Blood 237 mg/dL (75-99); ABG HCO3 24 mmol/L (21-25); ABG Hematocrit 29 % (34.0-46.0); ABG Ionized Calcium 4.3 mg/dL (4.5-5.3); ABG Lactic Acid Whole Blood 0.7 mmol/L (0.5-1.6); ABG PCO2 46 mmHg (35-45); ABG PH 7.33 (7.35-7.45); ABG PO2 378 mmHg (83-108); ABG Potassium Whole Blood 4.5 mmol/L (3.4-4.5); ABG Sodium Whole Blood 135 mmol/L (135-146); ABG TCO2 25 mmol/L (19-24)
[2020-06-13] MEDS ORDERED: HYDROCORTISONE SUCCINATE 100 MG/2 ML VIAL IV ONE (10:00)
[2020-06-13 10:01] LABS: ABG Glucose Whole Blood 228 mg/dL (75-99); ABG HCO3 22 mmol/L (21-25); ABG Hematocrit 28 % (34.0-46.0); ABG Ionized Calcium 4.2 mg/dL (4.5-5.3); ABG PCO2 40 mmHg (35-45); ABG PH 7.36 (7.35-7.45); ABG PO2 318 mmHg (83-108); ABG Potassium Whole Blood 4.8 mmol/L (3.4-4.5); ABG Sodium Whole Blood 137 mmol/L (135-146); ABG TCO2 23 mmol/L (19-24)
[2020-06-13 10:36] LABS: ABG Base Excess -4.5 mmol/L; ABG Glucose Whole Blood 201 mg/dL (75-99); ABG HCO3 20 mmol/L (21-25); ABG Hematocrit 25 % (34.0-46.0); ABG Ionized Calcium 3.9 mg/dL (4.5-5.3); ABG PCO2 35 mmHg (35-45); ABG PH 7.37 (7.35-7.45); ABG PO2 365 mmHg (83-108); ABG Potassium Whole Blood 4.3 mmol/L (3.4-4.5); ABG Sodium Whole Blood 137 mmol/L (135-146); ABG TCO2 21 mmol/L (19-24)
[2020-06-13 11:23] LABS: ABG Base Excess -2.1 mmol/L; ABG Glucose Whole Blood 145 mg/dL (75-99); ABG HCO3 25 mmol/L (21-25); ABG Hematocrit 32 % (34.0-46.0); ABG Ionized Calcium 4.3 mg/dL (4.5-5.3); ABG Lactic Acid Whole Blood 1.2 mmol/L (0.5-1.6); ABG PCO2 51 mmHg (35-45); ABG Sodium Whole Blood 140 mmol/L (135-146); ABG TCO2 26 mmol/L (19-24)
[2020-06-13 12:17] LABS: ABG PO2 >420 mmHg (83-108)
--- NOTE | 2020-06-13 12:31 | P.ANPRN ---
Procedure Note - Anesthesia - MIRLANDE Intraop Pre Bypass MIRLANDE Intraop - Anesthesia Indication: Mitral regurgitation Date of Procedure: 06/13/20 Pre-operative Diagnosis: Mitral regurgitation Post-operative Diagnosis: same Surgeon: Joon Kirby Left Ventricle: LVH, EF 45% Regional Wall Motion Abnormalities: None Left Ventricle Hypertrophy: Yes R. Ventricle Function: Normal Anatomy: Trileaflet Aortic Stenosis: None Aortic Regurgitation: None Mitral Stenosis: None Mitral Regurgitation: Severe Tricuspid Stenosis: None Tricuspid Regurgitation: Moderate Pulmonic Stenosis: None Pulmonic Regurgitation: None R. Atrial Dilation: No R. Atrial PFO: No L. Atrial Dilation: Yes Aortic Dissection: No Aortic Calcification: Moderate Plural Effusion: None - MIRLANDE Intraop Post Bypass MIRLANDE Intraop Post Bypass Procedure Performed: Removal mitral leaflet plaque & mitral annuloplasty w/ 30 m m ring Left Ventricle: EF 50%, LVH Ejection Fraction: Normal Regional Wall Motion Abnormalities: None R. Ventricle Function: Normal Aortic Valve: Unchanged Mitral Valve: Trace MR, Moderate mitral stenosis gradient peak 10 mmHg, mean 6 mmHg, 360 deg annuloplasty Tricuspid: mild TR Pulmonic: Unchanged Aortic Dissection: No
[2020-06-13 12:39] LABS: Glucose,Whole Blood 140 mg/dL (75-99)
[2020-06-13] MEDS ORDERED: DEXTROSE 5% IN WATER 100 ML with AMIODARONE 150 MG IV PRN (12:40)
[2020-06-13] MEDS ORDERED: Magnesium Replacement Protocol 1 EACH MISC MISCELLANE PRN (12:40)
[2020-06-13] MEDS ORDERED: AMIODARONE 360 MG in DEXTROSE 5% IN WATER 200 ML IV PRN ×2 (12:40)
[2020-06-13] MEDS ORDERED: LACTATED RINGERS 1,000 ML IV SCH (12:40)
[2020-06-13] MEDS ORDERED: hydrALAZINE HCL 20 MG/ML 1 ML VIAL IVP PRN (12:40)
[2020-06-13] MEDS ORDERED: BENZOCAINE/MENTHOL LOZENG 1 EACH LOZENGE MUCOUS MEM PRN (12:40)
[2020-06-13] MEDS ORDERED: Potassium Replacement Protocol 1 EACH MISC MISCELLANE PRN (12:40)
[2020-06-13] MEDS ORDERED: Phosphorus Replacement Protoco 1 EACH MISC MISCELLANE PRN (12:40)
[2020-06-13] MEDS ORDERED: IPRATROPIUM-ALBUTEROL 3 ML NEB INHALATION PRN (12:40)
[2020-06-13] MEDS ORDERED: METOCLOPRAMIDE 5 MG/ML 2 ML VIAL IVP PRN (12:40)
[2020-06-13 12:50] LABS: ABG Base Excess -0.4 mmol/L; ABG HCO3 26 mmol/L (21-25); ABG Oxygen Saturation 99.8 % (94-97); ABG PCO2 49 mmHg (35-45); ABG PH 7.33 (7.35-7.45); ABG PO2 330 mmHg (83-108); ABG TCO2 27 mmol/L (19-24); Allen Test Performed? Yes
[2020-06-13 12:53] LABS: Basophils % (A) 0 %; Eosinophils # (A) 0.1 k/uL (0-0.7); Eosinophils % (A) 0 %; HCT 34.9 % (34.0-46.0); HGB 11.5 gm/dL (11.4-16.0); Lymphocytes # (A) 0.9 k/uL (1.0-4.8); Lymphocytes % (A) 7 %; MCH 30.5 pg (25.0-35.0); MCHC 33.1 g/dL (31.0-37.0); MCV 92.2 fL (80.0-100.0); Mean Platelet Volume 7.4; Monocytes # (A) 0.6 k/uL (0-1.0); Monocytes % (A) 4 %; Neutrophils # (A) 12.4 k/uL (1.3-7.7); Neutrophils % (A) 88 %; Platelet Count 231 k/uL (150-450); RBC 3.78 m/uL (3.80-5.40); RDW 14.2 % (11.5-15.5); WBC 14.1 k/uL (3.8-10.6)
[2020-06-13 12:54] LABS: Ionized Calcium 4.8 mg/dL (4.5-5.3)
--- NOTE | 2020-06-13 12:55 | XR ---
EXAMINATION TYPE: XR chest 1V portable DATE OF EXAM: 06/13/2020 COMPARISON: 04/10/2020 HISTORY: Postop TECHNIQUE: Single frontal view of the chest is obtained. FINDINGS: Kirksey-Lillie catheter seen with the tip overlying the proximal outflow tract. ET tube is seen with the tip 2.9 cm above the justina. NG tube is seen to level the GE junction. Chest tube and media stinal drain noted. Heart is prominent. Subsegmental changes involving the lung bases. Calcified gran uloma left upper lobe. Less than 5% left apical pneumothorax with subcutaneous emphysema suspected. N o right-sided pneumothorax. IMPRESSION: 1. Postoperative change with a less than 5% left apical pneumothorax.
[2020-06-13] MEDS ORDERED: INSULIN REGULAR 100 UNIT in SODIUM CHLORIDE 0.9% 100 ML IV SCH (13:00)
[2020-06-13] MEDS ORDERED: DEXMEDETOMIDINE/0.9% NACL(PMX) 400 MCG in EMPTY BAG 1 BAG IV SCH (13:00)
[2020-06-13] MEDS: CLEVIDIPINE BUTYRATE 25 MG in EMPTY BAG 1 BAG IV SCH (13:10)
[2020-06-13 13:12] LABS: ALT 23 U/L (4-34); AST 53 U/L (14-36); African American GFR (CKD) >90 (>60 ml/min/1.73 sqM); Albumin 2.9 g/dL (3.5-5.0); Alkaline Phosphatase 42 U/L (38-126); Anion Gap 4 mmol/L; Blood Urea Nitrogen 13 mg/dL (7-17); Calcium 7.9 mg/dL (8.4-10.2); Carbon Dioxide 25 mmol/L (22-30); Chloride 107 mmol/L (98-107); Glucose 136 mg/dL (74-99); Magnesium 2.7 mg/dL (1.6-2.3); Non-African American GFR(CKD) >90 (>60 ml/min/1.73 sqM); Potassium 4.1 mmol/L (3.5-5.1); Sodium 136 mmol/L (137-145); Total Bilirubin 0.5 mg/dL (0.2-1.3); Total Protein 4.6 g/dL (6.3-8.2)
[2020-06-13 13:15] LABS: Partial Thromboplastin Time 25.8 sec (22.0-30.0); Prothrombin Time 10.8 sec (9.0-12.0)
[2020-06-13] MEDS: MILRINONE-D5W PMX 20 MG in DEXTROSE/WATER 1 100ML.BAG IV SCH (13:38)
[2020-06-13 13:51] LABS: Glucose,Whole Blood 127 mg/dL (75-99)
--- NOTE | 2020-06-13 13:53 | P.CNPUL ---
History of Present Illness Consult date: 06/13/20 Requesting physician: Joon Kirby Chief complaint: Mitral valve prolapse status post mitral valve repair History of present illness: 59-year-old white female patient with multiple medical problems including chronic bronchial asthma, mild intermittent, pulmonary hypertension, obstructive sleep apnea, active sarcoidosis, history of severe mitral valve prolapse with regurgitation, aortic aneurysm, hypertension. Patient is under the care of Dr. Rodríguez in the pulmonary clinic for her history of sarcoidosis. Patient is a lifetime nonsmoker. She is on on a combination of hydroxychloroquine and prednisone 2.5 mg daily. Her last PFT in the office was on 12/22/2019 and showed FEV1 of 63% of predicted, and FVC of 59% of predicted with FEV1 to FVC ratio of 106, total lung capacity of 81%, diffusion capacity of 70%, consistent with moderate restriction and mild diffusion defect. On June 13, 2020 patient presented to the hospital for elective mitral valve repair with removal of mitral leaflet plaque and mitral annuloplasty with 30 mm ring. Patient is seen in the postoperative period in the intensive care unit, she is sedated and intubated, currently on SIMV mode of ventilation with a rate of 14, tidal volume is 450, FiO2 is 50% and PEEP of 10. Her blood gas showed pO2 of 3:30, pCO2 49, and pH of 7.33. Patient is sedated on 20 mcg/kg/m of propofol infusion, milrinone was started at 0.3 mics per kilo per minute, Cleviprex is at 2 mg per hour, and lactated Ringer's at a rate of 50 ML per hour, patient is in sinus mechanism with a rate of 84, AV wires connected to the external pacemaker with VVI backup rate of 50 BPM, PA pressures of 35/25, CVP is 13, cardiac output is 4.0 and cardiac index is 1.7-1.9, and milrinone was started for low cardiac index. Postop blood work shows a white blood cell count of 14.1, hemoglobin of 11.5, platelet count is 231, INR is 1.0, sodium is 136, and the rest of elec trolytes are within normal limits, renal profile was within normal limits, calcium 7.9, 1 mediastinal and right pleural chest tubes are connected to the same Pleur-evac, to the wall suction, no evidence of air leak, small amount of serous sinus output in the Pleur-evac. Review of Systems All systems: negative Constitutional: Denies chills, Denies fever Eyes: denies blurred vision, denies pain Ears, nose, mouth and throat: Denies headache, Denies sore throat Cardiovascular: Reports leg edema, Reports shortness of breath, Denies chest pain Respiratory: Reports dyspnea, Denies cough Gastrointestinal: Denies abdominal pain, Denies diarrhea, Denies nausea, Denies vomiting Genitourinary: Denies dysuria, Denies hematuria Musculoskeletal: Denies myalgias Integumentary: Denies pruritus, Denies rash Neurological: Denies numbness, Denies weakness Psychiatric: Denies anxiety, Denies depression Endocrine: Denies fatigue, Denies weight change Past Medical History Past Medical History: Asthma, Hypertension, Mitral Valve Prolapse (MVP), Osteoarthritis (OA), Sleep Apnea/CPAP/BIPAP Additional Past Medical History / Comment(s): "AAA, 4 cm", bronchitis, no cpap used, "something autoimmune",recent dx. sarcoidosis, mitral valve "severe leak" per pt., nodules/inflammation in lung in CT History of Any Multi-Drug Resistant Organisms: None Reported Past Surgical History: Adenoidectomy, Bariatric Surgery, Orthopedic Surgery, Tonsillectomy Additional Past Surgical History / Comment(s): lap band, rt eye sx-had a blocked blood vessel, sinus sx, hallie knee replacement, recent lung biopsy, MIRLANDE Past Anesthesia/Blood Transfusion Reactions: No Reported Reaction Additional Past Anesthesia/Blood Transfusion Reaction / Comment(s): Diff IV starts Smoking Status: Never smoker - Past Family History Sister(s) Family Medical History: Cancer Additional Family Medical History / Comment(s): BREAST CANCER, HX OF BRACHIAL BLOOD CLOTS WITH FILTERS INSERTED. Mother Family Medical History: Cancer Additional Family Medical History / Comment(s): BREAST CANCER. Father Family Medical History: Congestive Heart Failure (CHF), Myocardial Infarction ([place]) Additional Family Medical History / Comment(s): [place] Brother(s) Family Medical History: Coronary Artery Disease (CAD) Additional Family Medical History / Comment(s): Medications and Allergies Home Medications Medication Instructions Recorded Confirmed Type ALPRAZolam [Xanax] 0.25 mg PO DAILY PRN 12/29/18 06/06/20 History Budesonide-Formot 160-4.5 Mcg 2 puff INHALATION RT-BID 12/29/18 06/06/20 History [Symbicort 160-4.5 Mcg Inhaler] FLUoxetine HCL [PROzac] 20 mg PO HS 12/29/18 06/06/20 History Loratadine [Claritin] 10 mg PO DAILY PRN 12/29/18 06/06/20 History Montelukast Sodium [Singulair] 10 mg PO HS 12/29/18 06/06/20 History Multivitamins, Thera [Multivitamin 1 tab PO DAILY 12/29/18 06/06/20 History (formulary)] Omeprazole [PriLOSEC] 40 mg PO -BRKFST #14 capsule. 12/30/18 06/06/20 Rx amLODIPine [Norvasc] 5 mg PO HS 06/18/19 06/06/20 History lisinopriL [Zestril] 5 mg PO DAILY 10/27/19 06/06/20 History predniSONE 5 mg PO DAILY 10/29/19 06/06/20 History Metoprolol Tartrate [Lopressor] 25 mg PO DAILY 01/14/20 06/06/20 History Furosemide [Lasix] 20 mg PO MOWEFR 06/06/20 06/06/20 History Potassium Chloride ER [K-Dur 10] 10 meq PO MOWEFR 06/06/20 06/06/20 History Allergies Allergy/AdvReac Type Severity Reaction Status Date / Time No Known Allergies Allergy Verified 06/13/20 05:55 Physical Exam Vitals: Vital Signs Temp Pulse Pulse Resp BP BP Pulse Ox 06/13/20 13:15 80 14 100 06/13/20 13:00 77 14 100 06/13/20 12:45 74 14 100 06/13/20 12:30 75 0 L 99 06/13/20 12:20 35.4 F L 71 12 99 06/13/20 12:18 71 11 L 100 06/13/20 06:15 97.6 F 64 16 144/74 160/78 96 Intake and Output 06/12/20 06/13/20 06/13/20 22:59 06:59 14:59 Intake Total 300 60 Output Total 2240 Balance 300 -2180 Intake: IV 300 60 Output: Chest Tube Drainage 5 Chest Tube Right Pleural/ 5 Mediastinal Urine 735 Estimated Blood Loss 1500 Other: Weight 118.3 kg ABP, PAP, CO, CI - Last 8 Hours Arterial Blood Pressure 129/92 Arterial Blood Pressure 126/90 Arterial Blood Pressure 115/82 Arterial Blood Pressure 116/73 Arterial Blood Pressure 153/83 Pulmonary Artery Pressure 34/24 Pulmonary Artery Pressure 34/25 Pulmonary Artery Pressure 32/23 Pulmonary Artery Pressure 30/24 Pulmonary Artery Pressure 41/18 Cardiac Output 3.8 Cardiac Output 4.3 Cardiac Index 1.7 Cardiac Index 1.9 GENERAL EXAM: Sedated, intubated, 59-year-old white female, on SIMV mode of bette tilation with a rate of 14, tetanus 450, FiO2 is 50% and PEEP of 10 comfortable in no apparent distress. HEAD: Normocephalic/atraumatic. EYES: Normal reaction of pupils, equal size. Conjunctiva pink, sclera white. NOSE: Clear with pink turbinates. THROAT: No erythema or exudates. NECK: No masses, no JVD, no thyroid enlargement, no adenopathy. CHEST: No chest wall deformity. Symmetrical expansion. Midsternal incision is clean dry and intact covered with surgical dressing, AV wires to external pacemaker with VVI backup at 50 BPM, right pleural and mediastinal chest tubes connected to the same Pleur-evac, with small amount of serosanguineous output in the Pleur-evac, no air leak LUNGS: Equal air entry with no crackles, wheeze, rhonchi or dullness. CVS: Regular rate and rhythm, normal S1 and S2, no gallops, no murmurs, no rubs ABDOMEN: Soft, nontender. No hepatosplenomegaly, normal bowel sounds, no guarding or rigidity. EXTREMITIES: No clubbing, no edema, no cyanosis, 2+ pulses and upper and lower extremities. MUSCULOSKELETAL: Muscle strength and tone normal. SPINE: No scoliosis or deformity SKIN: No rashes CENTRAL NERVOUS SYSTEM: Sedated, intubated No focal deficits, tone is normal in all 4 extremities. Results - Laboratory Findings CBC and BMP: 06/13/20 12:34 06/13/20 12:34 ABG ABG pH 7.33 (7.35-7.45) L 06/13/20 12:45 ABG pCO2 49 mmHg (35-45) H 06/13/20 12:45 ABG pO2 330 mmHg (83-108) H 06/13/20 12:45 ABG O2 Saturation 99.8 % (94-97) H 06/13/20 12:45 PT/INR, D-dimer PT 10.8 sec (9.0-12.0) 06/13/20 12:34 INR 1.0 (<1.2) 06/13/20 12:34 Abnormal lab findings: Abnormal Labs 06/09/20 06/13/20 06/13/20 14:00 08:38 09:26 WBC RBC Neutrophils # Lymphocytes # ABG pH 7.33 L ABG pCO2 46 H ABG pO2 266 H 378 H ABG HCO3 ABG Total CO2 25 H 25 H ABG O2 Saturation 99.9 H 100.0 H ABG Hematocrit 29 L ABG Potassium ABG Ionized Calcium 4.3 L ABG Glucose 140 H 237 H Hemoglobin 9.5 L Sodium Glucose POC Glucose (mg/dL) Calcium Magnesium AST Total Protein Albumin Arterial Blood Potassium Arterial Blood Glucose 140 H 237 H Crossmatch See Detail 06/13/20 06/13/20 06/13/20 09:59 10:05 10:30 WBC RBC Neutrophils # Lymphocytes # ABG pH 7.33 L ABG pCO2 48 H ABG pO2 318 H 365 H ABG HCO3 20 L ABG Total CO2 27 H ABG O2 Saturation 100.0 H 100.0 H ABG Hematocrit 28 L 25 L ABG Potassium 4.8 H ABG Ionized Calcium 4.2 L 3.9 L ABG Glucose 164 H 228 H 201 H Hemoglobin 9.1 L 8.2 L Sodium Glucose POC Glucose (mg/dL) Calcium Magnesium AST Total Protein Albumin Arterial Blood Potassium 4.8 H Arterial Blood Glucose 164 H 228 H 201 H Crossmatch 06/13/20 06/13/20 06/13/20 11:26 12:34 12:34 WBC 14.1 H RBC 3.78 L Neutrophils # 12.4 H Lymphocytes # 0.9 L ABG pH 7.30 L ABG pCO2 51 H ABG pO2 >420 H ABG HCO3 ABG Total CO2 26 H ABG O2 Saturation 100.0 H ABG Hematocrit 32 L ABG Potassium ABG Ionized Calcium 4.3 L ABG Glucose 145 H Hemoglobin 10.3 L Sodium 136 L Glucose 136 H POC Glucose (mg/dL) Calcium 7.9 L Magnesium 2.7 H AST 53 H Total Protein 4.6 L Albumin 2.9 L Arterial Blood Potassium Arterial Blood Glucose 145 H Crossmatch 06/13/20 06/13/20 12:37 12:45 WBC RBC Neutrophils # Lymphocytes # ABG pH 7.33 L ABG pCO2 49 H ABG pO2 330 H ABG HCO3 26 H ABG Total CO2 27 H ABG O2 Saturation 99.8 H ABG Hematocrit ABG Potassium ABG Ionized Calcium ABG Glucose Hemoglobin Sodium Glucose POC Glucose (mg/dL) 140 H Calcium Magnesium AST Total Protein Albumin Arterial Blood Potassium Arterial Blood Glucose Crossmatch - Diagnostic Findings Chest x-ray: report reviewed, image reviewed Assessment and Plan Plan: Assessment: #1. Mitral valve prolapse with regurgitation, status post mitral valve repair with removal of mitral leaflet plaque and mitral annuloplasty with 30 mm ring, and intraoperative transesophageal echocardiogram, postoperative day 0 #2. Routine ventilator management, patient is intubated on a day of surgery on 06/13/2020 and is currently on SIMV mode of ventilation, will be weaned per protocol #3. Mild intermittent bronchial asthma #4. Pulmonary sarcoidosis, active, and patient is on combination of hydroxychloroquine and prednisone 2.5 mg on a daily basis, patient was given stress doses of hydrocortisone 100 mg IV push before surgery, Intra-Op and in recovery #5. Pulmonary hypertension #6. Hypertension #7. GERD/reflux #8. Osteoarthritis #9. Obstructive sleep apnea on CPAP #10. 4 mm aortic aneurysm #11. Obesity, status post lap band surgery #12. Lifetime nonsmoker Plan: Continue current SIMV mode of ventilation, hemodynamically patient is stable, no significant bleeding out of the chest tubes, wean sedatives, and once the patient is awake and following commands proceed with weaning protocol and extubation. His and spirometry to the bedside after extubation, continue close hemodynamic monitoring. Patient has been given stress doses of IV hydrocortisone before surgery, Intra-Op and in recovery, will start her on oral prednisone 20 mg after extubation. Blood gases and postoperative labs have been noted. Patient will be closely monitored in the intensive care unit along with cardiothoracic surgery. Follow-up chest x-ray and lab work in the morning. GI and DVT prophylaxis per CT surgery. Monitor for signs of bleeding and arrhythmias. We'll continue to closely follow I performed a history & physical examination of the patient and discussed their management with my nurse practitioner, Nicole Gary. I reviewed the nurse practitioner's note and agree with the documented findings and plan of care. Lung sounds are positive for diffuse wheezes throughout the lung santos. The findings and the impression was discussed with the patient. I attest to the documentation by the nurse practitioner. Time with Patient: Greater than 30
[2020-06-13] MEDS ORDERED: CALCIUM GLUCONATE 2 GM in SODIUM CHLORIDE 0.9% 100 ML IVPB PRN (14:00)
[2020-06-13] MEDS: ACETAMINOPHEN IV (For NPO) 1,000 MG in EMPTY BAG 1 BAG IVPB SCH ×2 (14:12→20:04)
[2020-06-13 15:10] LABS: Glucose,Whole Blood 188 mg/dL (75-99)
[2020-06-13] MEDS: ALBUMIN HUMAN 5% 250 ML in EMPTY BAG 1 BAG IVPB PRN ×2 (15:17→15:20)
[2020-06-13] MEDS: IPRATROPIUM-ALBUTEROL 3 ML NEB INHALATION SCH ×4 (15:37→20:30)
--- NOTE | 2020-06-13 15:52 | XR ---
EXAMINATION TYPE: XR chest 1V portable DATE OF EXAM: 06/13/2020 COMPARISON: 06/13/2020 HISTORY: A pulmonary arterial catheter TECHNIQUE: Single frontal view of the chest is obtained. FINDINGS: Pulmonary arterial Lashmeet-Lillie catheter seen with the tip overlying the proximal pulmonary o utflow tract. ET tube, NG tube, mediastinal drain, chest tube, stable. Heart size stable. Subsegmental changes at the lung bases likely the basis of atelectasis. Near compl ete resolution of a tiny left apical pneumothorax. No sizable pneumothorax on the right. IMPRESSION: 1. Lashmeet-Lillie catheter seen overlying the proximal pulmonary outflow tract. 2. Postsurgical changes
[2020-06-13 15:54] LABS: Glucose,Whole Blood 173 mg/dL (75-99)
[2020-06-13] MEDS ORDERED: MUPIROCIN 2% OINT 22 GM TUBE NASAL ONE (16:00)
[2020-06-13] MEDS: ALBUMIN HUMAN 5% 250 ML in EMPTY BAG 1 BAG IVPB SCH ×2 (16:12→18:43)
[2020-06-13 16:15] LABS: ABG Base Excess -4.6 mmol/L; ABG HCO3 22 mmol/L (21-25); ABG Oxygen Saturation 98.7 % (94-97); ABG PCO2 42 mmHg (35-45); ABG PH 7.32 (7.35-7.45); ABG PO2 127 mmHg (83-108); ABG TCO2 23 mmol/L (19-24)
[2020-06-13 16:17] LABS: Allen Test Performed? no
[2020-06-13 16:56] LABS: Glucose,Whole Blood 204 mg/dL (75-99)
[2020-06-13 17:22] LABS: Basophils % (A) 0 %; Eosinophils % (A) 0 %; HCT 30.2 % (34.0-46.0); HGB 10.1 gm/dL (11.4-16.0); Lymphocytes # (A) 0.8 k/uL (1.0-4.8); Lymphocytes % (A) 6 %; MCH 31.1 pg (25.0-35.0); MCHC 33.2 g/dL (31.0-37.0); MCV 93.5 fL (80.0-100.0); Mean Platelet Volume 8.2; Monocytes # (A) 0.6 k/uL (0-1.0); Monocytes % (A) 4 %; Neutrophils # (A) 11.9 k/uL (1.3-7.7); Neutrophils % (A) 89 %; Platelet Count 215 k/uL (150-450); RBC 3.24 m/uL (3.80-5.40); RDW 14.2 % (11.5-15.5); WBC 13.3 k/uL (3.8-10.6)
[2020-06-13] MEDS: KETOROLAC 30 MG/ML 1 ML VIAL IVP SCH ×2 (18:01→23:35)
[2020-06-13] MEDS: HYDROcodone/APAP 5-325MG 1 EACH TAB PO PRN ×2 (18:02→21:40)
[2020-06-13 18:20] LABS: Glucose,Whole Blood 175 mg/dL (75-99)
[2020-06-13] MEDS: ONDANSETRON 4 MG/2 ML VIAL IVP PRN (18:52)
[2020-06-13 19:11] LABS: Glucose,Whole Blood 175 mg/dL (75-99)
[2020-06-13 20:12] LABS: Glucose,Whole Blood 164 mg/dL (75-99)
[2020-06-13] MEDS: MONTELUKAST 10 MG TAB PO SCH (20:20)
[2020-06-13] MEDS: FLUoxetine HCL 20 MG CAP PO SCH (20:20)
[2020-06-13] MEDS: METOPROLOL TARTRATE 25 MG TAB PO SCH (20:20)
[2020-06-13] MEDS: HEPARIN SODIUM,PORCINE 5,000 UNIT/ML 1 ML VIAL SQ SCH (20:21)
[2020-06-13] MEDS: MUPIROCIN 2% OINT 22 GM TUBE NASAL SCH (20:49)
[2020-06-13 20:56] LABS: Glucose,Whole Blood 152 mg/dL (75-99)
[2020-06-13 22:01] LABS: Glucose,Whole Blood 131 mg/dL (75-99)
[2020-06-13 22:31] LABS: HCT 30.6 % (34.0-46.0); HGB 9.9 gm/dL (11.4-16.0); MCHC 32.5 g/dL (31.0-37.0); MCV 92.2 fL (80.0-100.0); Mean Platelet Volume 8.6; Platelet Count 202 k/uL (150-450); RBC 3.32 m/uL (3.80-5.40); RDW 14.2 % (11.5-15.5); WBC 11.1 k/uL (3.8-10.6)
[2020-06-13 22:39] LABS: African American GFR (CKD) >90 (>60 ml/min/1.73 sqM); Anion Gap 6 mmol/L; Blood Urea Nitrogen 13 mg/dL (7-17); Calcium 7.9 mg/dL (8.4-10.2); Carbon Dioxide 24 mmol/L (22-30); Chloride 106 mmol/L (98-107); Glucose 126 mg/dL (74-99); Magnesium 2.3 mg/dL (1.6-2.3); Non-African American GFR(CKD) >90 (>60 ml/min/1.73 sqM); Potassium 3.9 mmol/L (3.5-5.1); Sodium 136 mmol/L (137-145)
[2020-06-13 23:07] LABS: Glucose,Whole Blood 126 mg/dL (75-99)
--- NOTE | 2020-06-13 23:18 | OP ---
OPERATIVE REPORT DATE OF OPERATION: 06/13/2020 ATTENDING SURGEON: Dr. Joon Kirby. ASSISTANTS: 1. KENYA Morrow. 2. KENYA Dolan. PREOPERATIVE DIAGNOSIS: Severe mitral regurgitation. POSTOPERATIVE DIAGNOSIS: Severe mitral regurgitation. PROCEDURES: 1. Complex mitral valve repair with ring annuloplasty using a #30 mm Carbomedics AnnuloFlex band. 2. Removal of masses/deposits on anterior and posterior mitral leaflets. 3. Clip ligation of the left atrial appendage with a 35 mm AtriClip. 4. Intraoperative transesophageal echocardiogram. ANESTHESIA: General. BLOOD LOSS: 500 mL. SUMMARY: Patient was brought to the operating room and placed in supine position. Following administration of a general endotracheal anesthetic, placement of a Carroll-Lillie catheter, arterial line, adequate IV access and a Olson catheter, the patient was carefully prepped and draped in normal sterile fashion using chlorhexidine paint and sterile towels. A midline incision in the chest was made, sternum divided. Pericardium was opened. Heart size was mildly enlarged. Aorta was soft. The patient was heparinized to an ACT of greater than 40. The aorta and 2 single-stage venous cannulas were placed. Antegrade and retrograde cardioplegic catheters were positioned in the ascending aorta and the coronary sinus. The patient was placed on bypass, cross-clamp placed, heart arrested with 1 L of antegrade followed by 500 mL retrograde cardioplegia. Retrograde cardioplegia was delivered, 3 to 500 mL, at the end of each 20-minute interval. First the base of the left atrial appendage was measured and a 35 mm AtriClip was secured at the base, officially obliterating the left atrial appendage. Next the left atrium was entered at the junction of the right superior pulmonary vein. A handheld retractor was placed. The subvalvular apparatus of the mitral valve appeared to be within normal limits. There were thickened deposits in the area of P2 P3 in the area of A2 on the anterior leaflet. These deposits or subtle masses were all shaved off both the posterior and anterior leaflets, and these were sent to Pathology for culture as well as full pathological studies. At this point, there were no other abnormalities and there was definitely a dilated anulus. Tycron 2-0 non-pledgeted sutures were placed from trigone to trigone along the posterior anulus. These were then passed through the band 30 mm Carbomedics annular flex band, which was brought into the field. All sutures once passed through, the ring was seated, all sutures secured, tied and cut using the Cor knot ligature system device. It was then tested with a handheld test. There was no evidence of any further regurgitation. At this point the atrium was closed in a double-layered pledgeted 4-0 Prolene vertical mattress followed by an over-and- over stitch from both sides. At this point, the patient was placed head down. Complete de-airing maneuvers were performed 3 times. One liter of warm blood retrograde cardioplegia was run. Cross-clamp was removed. Once confirmation that the patient was completely de-aired was confirmed, the patient was ventilated and brought off bypass. She came off bypass uneventfully with good hemodynamics. Protamine was delivered, patient decannulated. Ventricular pacing wires were placed. Mediastinal right pleural chest tubes were placed. Postoperative MIRLANDE showed excellent left ventricular function, good mitral valve function, no residual mitral valve regurgitation. At this point, the sternum was closed with four #6 sternal wires and 2 [id number] [place] sternal cable closure devices. Skin, subcutaneous tissue and fascia were closed in 3 layers. No complications. Patient tolerated the procedure well and was taken to the ICU in critical but stable condition. MMVALENTEL / IJN: [id number] /
--- NOTE | 2020-06-13 23:58 | P.CONS ---
History of Present Illness - Reason for Consult Consult date: 06/13/20 Medical management - Chief Complaint Status post mitral valve repair - History of Present Illness Patient is a 59-year-old female with a long history of hypertension, asthma, obstructive sleep apnea not on CPAP, abdominal aortic aneurysm 4 cm, recently diagnosed sarcoidosis, mitral valve prolapse with severe regurgitation, morbid obesity with BMI 40.8 and never smoker was admitted to hospital for mitral valve repair due to severe prolapse with regurgitation. Patient underwent elective mitral valve repair with removal of mitral leaflet plate and mitral annuloplasty with 30 mm ring. Perioperatively patient is intubated but currently extubated around 5:15 PM today. Patient still drowsy but awake alert and oriented. Patient is currently maintaining sinus rhythm. Not on pressor support. Laboratory data showed WBC 13.3, hemoglobin 10.1 and platelets 215 Sodium 136, potassium 4.1, chloride 107, bicarb is 25, BUN 713 and creatinine 0.57 Blood sugar is 140 Albumin 2.9 AST 53 ALT 23 and alk phos 42 Chest x-ray showed postoperative change with less than 5% left apical pneumothorax. Review of Systems Complete review of systems could not be obtained from the patient at this time. Past Medical History Past Medical History: Asthma, Hypertension, Mitral Valve Prolapse (MVP), Osteoarthritis (OA), Sleep Apnea/CPAP/BIPAP Additional Past Medical History / Comment(s): "AAA, 4 cm", bronchitis, no cpap used, "something autoimmune",recent dx. sarcoidosis, mitral valve "severe leak" per pt., nodules/inflammation in lung in CT History of Any Multi-Drug Resistant Organisms: None Reported Past Surgical History: Adenoidectomy, Bariatric Surgery, Orthopedic Surgery, Tonsillectomy Additional Past Surgical History / Comment(s): lap band, rt eye sx-had a blocked blood vessel, sinus sx, hallie knee replacement, recent lung biopsy, MIRLANDE Past Anesthesia/Blood Transfusion Reactions: No Reported Reaction Additional Past Anesthesia/Blood Transfusion Reaction / Comm: Diff IV starts Smoking Status: Never smoker - Past Family History Sister(s) Family Medical History: Cancer Additional Family Medical History / Comment(s): BREAST CANCER, HX OF BRACHIAL BLOOD CLOTS WITH FILTERS INSERTED. Mother Family Medical History: Cancer Additional Family Medical History / Comment(s): BREAST CANCER. Father Family Medical History: Congestive Heart Failure (CHF), Myocardial Infarction ([place]) Additional Family Medical History / Comment(s): [place] Brother(s) Family Medical History: Coronary Artery Disease (CAD) Additional Family Medical History / Comment(s): Medications and Allergies Home Medications Medication Instructions Recorded Confirmed Type ALPRAZolam [Xanax] 0.25 mg PO DAILY PRN 12/29/18 06/06/20 History Budesonide-Formot 160-4.5 Mcg 2 puff INHALATION RT-BID 12/29/18 06/06/20 History [Symbicort 160-4.5 Mcg Inhaler] FLUoxetine HCL [PROzac] 20 mg PO HS 12/29/18 06/06/20 History Loratadine [Claritin] 10 mg PO DAILY PRN 12/29/18 06/06/20 History Montelukast Sodium [Singulair] 10 mg PO HS 12/29/18 06/06/20 History Multivitamins, Thera [Multivitamin 1 tab PO DAILY 12/29/18 06/06/20 History (formulary)] Omeprazole [PriLOSEC] 40 mg PO -BRKFST #14 capsule. 12/30/18 06/06/20 Rx amLODIPine [Norvasc] 5 mg PO HS 06/18/19 06/06/20 History lisinopriL [Zestril] 5 mg PO DAILY 10/27/19 06/06/20 History predniSONE 5 mg PO DAILY 10/29/19 06/06/20 History Metoprolol Tartrate [Lopressor] 25 mg PO DAILY 01/14/20 06/06/20 History Furosemide [Lasix] 20 mg PO MOWEFR 06/06/20 06/06/20 History Potassium Chloride ER [K-Dur 10] 10 meq PO MOWEFR 06/06/20 06/06/20 History Allergies Allergy/AdvReac Type Severity Reaction Status Date / Time No Known Allergies Allergy Verified 06/13/20 05:55 Physical Exam Vitals: Vital Signs Temp Pulse Pulse Resp BP BP BP 06/13/20 16:00 90 92/58 06/13/20 15:54 93 06/13/20 15:45 90 103/65 06/13/20 15:42 89 06/13/20 15:30 90 103/65 06/13/20 15:15 95 103/65 06/13/20 15:00 88 103/65 06/13/20 14:45 89 103/65 06/13/20 14:30 92 89/56 06/13/20 14:15 89/56 06/13/20 14:00 86 134/91 06/13/20 13:45 88 134/91 06/13/20 13:30 85 15 06/13/20 13:15 80 14 06/13/20 13:00 77 14 06/13/20 12:45 74 14 06/13/20 12:30 75 0 L 06/13/20 12:20 35.4 F L 71 12 06/13/20 12:18 71 11 L 06/13/20 06:15 97.6 F 64 16 144/74 160/78 Pulse Ox 06/13/20 16:00 100 06/13/20 15:54 06/13/20 15:45 100 06/13/20 15:42 06/13/20 15:30 100 06/13/20 15:15 99 06/13/20 15:00 100 06/13/20 14:45 100 06/13/20 14:30 100 06/13/20 14:15 98 06/13/20 14:00 06/13/20 13:45 100 06/13/20 13:30 100 06/13/20 13:15 100 06/13/20 13:00 100 06/13/20 12:45 100 06/13/20 12:30 99 06/13/20 12:20 99 06/13/20 12:18 100 06/13/20 06:15 96 Intake and Output 06/13/20 06/13/20 06/13/20 06:59 14:59 22:59 Intake Total 300 270 461.577 Output Total 2240 113 Balance 300 -1970 348.577 Intake: IV 300 120 136 CO CI 60 30 CVP/Jesse 6 Lactated Ringers 1,000 ml 100 @ 50 mls/hr IV .Q20H [facility] Rx#:[id number] Intake, IV Titration 150 325.577 Amount ACETAMINOPHEN IV (For NPO 100 ) 1,000 mg In Empty Bag 1 bag @ 400 mls/hr IVPB Q6H [facility] Rx#:[id number] Albumin Human 5% 250 ml 250 In Empty Bag 1 bag @ 250 mls/hr IVPB Q1H [facility] Rx#: [id number] Insulin Regular 100 unit 3.396 In Sodium Chloride 0.9% 100 ml @ Per Protocol IV .Q0M [facility] Rx#:[id number] Lactated Ringers 1,000 ml 50 @ 50 mls/hr IV .Q20H [facility] Rx#:[id number] Milrinone-D5w Pmx 20 mg 22.181 In Dextrose/Water 1 100ml .bag @ 0.2 MCG/KG/MIN 7. 098 mls/hr IV .Q14H6M [facility] Rx#:[id number] ceFAZolin 2 gm In Sodium 50 Chloride 0.9% 50 ml @ 100 mls/hr IVPB Q8HR [facility] Rx# :[id number] Output: Chest Tube Drainage 5 17 Chest Tube Right Pleural/ 5 17 Mediastinal Urine 735 96 Estimated Blood Loss 1500 Other: Voiding Method Indwelling Catheter Weight 118.3 kg ABP, PAP, CO, CI - Last 8 Hours Arterial Blood Pressure 100/49 Arterial Blood Pressure 88/47 Arterial Blood Pressure 109/54 Arterial Blood Pressure 83/50 Arterial Blood Pressure 108/56 Arterial Blood Pressure 112/58 Arterial Blood Pressure 106/61 Arterial Blood Pressure 87/51 Arterial Blood Pressure 81/48 Arterial Blood Pressure 121/67 Arterial Blood Pressure 131/93 Arterial Blood Pressure 129/92 Arterial Blood Pressure 126/90 Arterial Blood Pressure 115/82 Arterial Blood Pressure 116/73 Arterial Blood Pressure 153/83 Pulmonary Artery Pressure 24/16 Pulmonary Artery Pressure 25/20 Pulmonary Artery Pressure 27/19 Pulmonary Artery Pressure 32/23 Pulmonary Artery Pressure 29/19 Pulmonary Artery Pressure 32/23 Pulmonary Artery Pressure 32/24 Pulmonary Artery Pressure 30/23 Pulmonary Artery Pressure 28/22 Pulmonary Artery Pressure 31/25 Pulmonary Artery Pressure 34/24 Pulmonary Artery Pressure 34/24 Pulmonary Artery Pressure 34/25 Pulmonary Artery Pressure 32/23 Pulmonary Artery Pressure 30/24 Pulmonary Artery Pressure 41/18 Cardiac Output 6.2 Cardiac Output 6.2 Cardiac Output 5.2 Cardiac Output 5.2 Cardiac Output 4.4 Cardiac Output 3.8 Cardiac Output 3.8 Cardiac Output 4.3 Cardiac Index 2.8 Cardiac Index 2.8 Cardiac Index 2.3 Cardiac Index 2.3 Cardiac Index 2.0 Cardiac Index 1.7 Cardiac Index 1.7 Cardiac Index 1.9 PHYSICAL EXAMINATION: Patient is lying in the bed comfortably, no acute distress, awake alert and oriented.Drowsy and lethargic. HEENT: Normocephalic. Neck is supple. Pupils reactive. Nostrils clear. Oral cavity is moist. Ears reveal no drainage. Neck reveals no JVD, carotid bruits, or thyromegaly. CHEST EXAMINATION: Trachea is central. Symmetrical expansion. Midline surgical site is bandaged. Bibasilar diminished sounds. No wheezing. Lung santos clear to auscultation and percussion. CARDIAC: Normal S1, S2 with no gallops. No murmurs ABDOMEN: Soft. Bowel sounds normal. No organomegaly. No abdominal bruits. Extremities: reveal no edema. No clubbing or cyanosis Neurologically awake, alert, oriented x3 with well-coordinated movements. No focal deficits noted Skin: No rash or skin lesions. Psychiatric: Could not be assessed at this time. Musculoskeletal: No joint swelling or deformity. Normal range of motion. Results CBC & Chem 7: 06/13/20 22:15 06/13/20 22:15 Labs: Abnormal Lab Results - Last 24 Hours (Table) 06/09/20 06/13/20 06/13/20 Range/Units 14:00 08:38 09:26 WBC (3.8-10.6) k/uL RBC (3.80-5.40) m/uL Neutrophils # (1.3-7.7) k/uL Lymphocytes # (1.0-4.8) k/uL ABG pH 7.33 L (7.35-7.45) ABG pCO2 46 H (35-45) mmHg ABG pO2 266 H 378 H (83-108) mmHg ABG HCO3 (21-25) mmol/L ABG Total CO2 25 H 25 H (19-24) mmol/L ABG O2 Saturation 99.9 H 100.0 H (94-97) % ABG Hematocrit 29 L (34.0-46.0) % ABG Potassium (3.4-4.5) mmol/L ABG Ionized Calcium 4.3 L (4.5-5.3) mg/dL ABG Glucose 140 H 237 H (75-99) mg/dL Hemoglobin 9.5 L (11.4-16.0) gm/dL Sodium (137-145) mmol/L Glucose (74-99) mg/dL POC Glucose (mg/dL) (75-99) mg/dL Calcium (8.4-10.2) mg/dL Magnesium (1.6-2.3) mg/dL AST (14-36) U/L Total Protein (6.3-8.2) g/dL Albumin (3.5-5.0) g/dL Arterial Blood Potassium (3.4-4.5) mmol/L Arterial Blood Glucose 140 H 237 H (75-99) mg/dL Crossmatch See Detail 06/13/20 06/13/20 06/13/20 Range/Units 09:59 10:05 10:30 WBC (3.8-10.6) k/uL RBC (3.80-5.40) m/uL Neutrophils # (1.3-7.7) k/uL Lymphocytes # (1.0-4.8) k/uL ABG pH 7.33 L (7.35-7.45) ABG pCO2 48 H (35-45) mmHg ABG pO2 318 H 365 H (83-108) mmHg ABG HCO3 20 L (21-25) mmol/L ABG Total CO2 27 H (19-24) mmol/L ABG O2 Saturation 100.0 H 100.0 H (94-97) % ABG Hematocrit 28 L 25 L (34.0-46.0) % ABG Potassium 4.8 H (3.4-4.5) mmol/L ABG Ionized Calcium 4.2 L 3.9 L (4.5-5.3) mg/dL ABG Glucose 164 H 228 H 201 H (75-99) mg/dL Hemoglobin 9.1 L 8.2 L (11.4-16.0) gm/dL Sodium (137-145) mmol/L Glucose (74-99) mg/dL POC Glucose (mg/dL) (75-99) mg/dL Calcium (8.4-10.2) mg/dL Magnesium (1.6-2.3) mg/dL AST (14-36) U/L Total Protein (6.3-8.2) g/dL Albumin (3.5-5.0) g/dL Arterial Blood Potassium 4.8 H (3.4-4.5) mmol/L Arterial Blood Glucose 164 H 228 H 201 H (75-99) mg/dL Crossmatch 06/13/20 06/13/20 06/13/20 Range/Units 11:26 12:34 12:34 WBC 14.1 H (3.8-10.6) k/uL RBC 3.78 L (3.80-5.40) m/uL Neutrophils # 12.4 H (1.3-7.7) k/uL Lymphocytes # 0.9 L (1.0-4.8) k/uL ABG pH 7.30 L (7.35-7.45) ABG pCO2 51 H (35-45) mmHg ABG pO2 >420 H (83-108) mmHg ABG HCO3 (21-25) mmol/L ABG Total CO2 26 H (19-24) mmol/L ABG O2 Saturation 100.0 H (94-97) % ABG Hematocrit 32 L (34.0-46.0) % ABG Potassium (3.4-4.5) mmol/L ABG Ionized Calcium 4.3 L (4.5-5.3) mg/dL ABG Glucose 145 H (75-99) mg/dL Hemoglobin 10.3 L (11.4-16.0) gm/dL Sodium 136 L (137-145) mmol/L Glucose 136 H (74-99) mg/dL POC Glucose (mg/dL) (75-99) mg/dL Calcium 7.9 L (8.4-10.2) mg/dL Magnesium 2.7 H (1.6-2.3) mg/dL AST 53 H (14-36) U/L Total Protein 4.6 L (6.3-8.2) g/dL Albumin 2.9 L (3.5-5.0) g/dL Arterial Blood Potassium (3.4-4.5) mmol/L Arterial Blood Glucose 145 H (75-99) mg/dL Crossmatch 06/13/20 06/13/20 06/13/20 Range/Units 12:37 12:45 13:49 WBC (3.8-10.6) k/uL RBC (3.80-5.40) m/uL Neutrophils # (1.3-7.7) k/uL Lymphocytes # (1.0-4.8) k/uL ABG pH 7.33 L (7.35-7.45) ABG pCO2 49 H (35-45) mmHg ABG pO2 330 H (83-108) mmHg ABG HCO3 26 H (21-25) mmol/L ABG Total CO2 27 H (19-24) mmol/L ABG O2 Saturation 99.8 H (94-97) % ABG Hematocrit (34.0-46.0) % ABG Potassium (3.4-4.5) mmol/L ABG Ionized Calcium (4.5-5.3) mg/dL ABG Glucose (75-99) mg/dL Hemoglobin (11.4-16.0) gm/dL Sodium (137-145) mmol/L Glucose (74-99) mg/dL POC Glucose (mg/dL) 140 H 127 H (75-99) mg/dL Calcium (8.4-10.2) mg/dL Magnesium (1.6-2.3) mg/dL AST (14-36) U/L Total Protein (6.3-8.2) g/dL Albumin (3.5-5.0) g/dL Arterial Blood Potassium (3.4-4.5) mmol/L Arterial Blood Glucose (75-99) mg/dL Crossmatch 06/13/20 06/13/20 06/13/20 Range/Units 15:08 15:52 16:10 WBC (3.8-10.6) k/uL RBC (3.80-5.40) m/uL Neutrophils # (1.3-7.7) k/uL Lymphocytes # (1.0-4.8) k/uL ABG pH 7.32 L (7.35-7.45) ABG pCO2 (35-45) mmHg ABG pO2 127 H (83-108) mmHg ABG HCO3 (21-25) mmol/L ABG Total CO2 (19-24) mmol/L ABG O2 Saturation 98.7 H (94-97) % ABG Hematocrit (34.0-46.0) % ABG Potassium (3.4-4.5) mmol/L ABG Ionized Calcium (4.5-5.3) mg/dL ABG Glucose (75-99) mg/dL Hemoglobin (11.4-16.0) gm/dL Sodium (137-145) mmol/L Glucose (74-99) mg/dL POC Glucose (mg/dL) 188 H 173 H (75-99) mg/dL Calcium (8.4-10.2) mg/dL Magnesium (1.6-2.3) mg/dL AST (14-36) U/L Total Protein (6.3-8.2) g/dL Albumin (3.5-5.0) g/dL Arterial Blood Potassium (3.4-4.5) mmol/L Arterial Blood Glucose (75-99) mg/dL Crossmatch Assessment and Plan Assessment: Status post mitral valve repair with annuloplasty and removal of mitral leaflet plaque. Postoperative day 0 Severe mitral regurgitation with mitral valve prolapse Perioperative mechanical ventilation currently extubated. Pulmonary sarcoidosis. Currently on hydroxychloroquine and prednisone at home No prior history of smoking. Hypertension GERD Osteoarthritis Obstructive sleep apnea not on CPAP at home Abdominal aortic aneurysm 4 mm in size Morbid obesity with BMI 40.8. History of lap band surgery DVT prophylaxis Plan: Patient is currently being managed in the MICU. Currently extubated. Patient was given stress dose steroids with IV hydrocortisone before surgery. Chest x- ray showed 5% apical pneumothorax. Follow-up repeat chest x-ray tomorrow. Pulmonary is on board. Continue with insulin drip for better blood sugar control. Continue on home blood pressure medications and follow-up closely. Continue with aspirin, Plavix statins, Norvasc. Patient is also on amiodarone drip. CT surgery is following. Further recommendations based on the clinical course. We will continue to fol low with you. Thank you for your consult. Time with Patient: Greater than 30
[2020-06-14] MEDS ORDERED: POTASSIUM CHLORIDE ER 20 MEQ TAB.ER PO SCH
[2020-06-14 00:19] LABS: Glucose,Whole Blood 123 mg/dL (75-99)
[2020-06-14 01:01] LABS: Glucose,Whole Blood 130 mg/dL (75-99)
[2020-06-14] MEDS: HYDROcodone/APAP 5-325MG 1 EACH TAB PO PRN ×4 (02:06→21:42)
[2020-06-14] MEDS: ONDANSETRON 4 MG/2 ML VIAL IVP PRN ×2 (02:06→08:50)
[2020-06-14 02:14] LABS: Glucose,Whole Blood 130 mg/dL (75-99)
[2020-06-14] MEDS: amLODIPine 5 MG TAB PO SCH ×2 (02:22→09:56)
[2020-06-14] MEDS: MILRINONE-D5W PMX 20 MG in DEXTROSE/WATER 1 100ML.BAG IV SCH (02:37)
[2020-06-14] MEDS: CLEVIDIPINE BUTYRATE 25 MG in EMPTY BAG 1 BAG IV SCH (03:22)
[2020-06-14] MEDS: MORPHINE SULFATE 2 MG/ML SYRINGE IVP PRN ×2 (03:59→08:39)
[2020-06-14 04:10] LABS: Glucose,Whole Blood 136 mg/dL (75-99)
[2020-06-14 04:28] LABS: Basophils % (A) 0 %; Eosinophils % (A) 0 %; HCT 30.4 % (34.0-46.0); HGB 9.9 gm/dL (11.4-16.0); Lymphocytes # (A) 1.1 k/uL (1.0-4.8); Lymphocytes % (A) 11 %; MCH 29.9 pg (25.0-35.0); MCHC 32.4 g/dL (31.0-37.0); MCV 92.4 fL (80.0-100.0); Mean Platelet Volume 8.7; Monocytes # (A) 0.9 k/uL (0-1.0); Monocytes % (A) 9 %; Neutrophils # (A) 8.2 k/uL (1.3-7.7); Neutrophils % (A) 79 %; Platelet Count 196 k/uL (150-450); RBC 3.29 m/uL (3.80-5.40); RDW 14.4 % (11.5-15.5); WBC 10.4 k/uL (3.8-10.6)
[2020-06-14 04:54] LABS: Ionized Calcium 4.9 mg/dL (4.5-5.3)
[2020-06-14 05:22] LABS: ALT 19 U/L (4-34); AST 54 U/L (14-36); African American GFR (CKD) >90 (>60 ml/min/1.73 sqM); Albumin 3.4 g/dL (3.5-5.0); Alkaline Phosphatase 40 U/L (38-126); Anion Gap 5 mmol/L; Blood Urea Nitrogen 15 mg/dL (7-17); Calcium 8.2 mg/dL (8.4-10.2); Carbon Dioxide 24 mmol/L (22-30); Chloride 105 mmol/L (98-107); Glucose 124 mg/dL (74-99); Magnesium 2.4 mg/dL (1.6-2.3); Non-African American GFR(CKD) >90 (>60 ml/min/1.73 sqM); Potassium 4.3 mmol/L (3.5-5.1); Sodium 134 mmol/L (137-145); Total Bilirubin 0.3 mg/dL (0.2-1.3); Total Protein 5.1 g/dL (6.3-8.2)
[2020-06-14] MEDS: HEPARIN SODIUM,PORCINE 5,000 UNIT/ML 1 ML VIAL SQ SCH ×3 (06:16→20:57)
[2020-06-14] MEDS: KETOROLAC 30 MG/ML 1 ML VIAL IVP SCH ×3 (06:16→18:35)
--- NOTE | 2020-06-14 06:42 | PN ---
PROGRESS NOTE PULMONARY/CRITICAL CARE PROGRESS NOTE: DATE OF SERVICE: June 14, 2020 This is a 59-year-old female patient with history of multiple medical problems including asthma, pulmonary hypertension, sleep apnea, obesity, sarcoidosis, and mitral valve prolapse or regurgitation. She also has a history of aortic aneurysm and hypertension. She had been treated for active pulmonary sarcoidosis for some period of time, she was on a combination of both hydroxychloroquine/Plaquenil at 200 mg twice a day and prednisone initially at a higher dose but tapered down to 2.5 mg daily. I actually had stop the hydroxychloroquine and weaned her prednisone dose down. Anyway, the patient is status post mitral valve repair. She is postop day #1. She is doing very well. She was extubated quickly. She is on O2 at 3 L. She is getting lactated Ringer's at 50 mL an hour. She is getting insulin drip at 1 unit an hour. Today I will start her on prednisone 10 mg a day. Yesterday she was on a number of different drips including Cleviprex and Milrinone. Currently on nothing extra. She is awake and alert. Feeling well. Pain at the surgical site and also the chest tube site. PHYSICAL EXAMINATION: VITAL SIGNS: Current vital signs are reviewed. Temperature is 98.4, heart rate 80, respiratory rate 15, blood pressure 137/75, saturations are 94% on 3 L. GENERAL: She appears in no acute distress. HEENT: Examination is grossly unremarkable. Nasal O2 in place. NECK: Supple. Full range of motion. No adenopathy. Neck veins are flat. CARDIOVASCULAR: Examination reveals regular rhythm and rate. S1, S2 normal. No S3, S4, or murmur. LUNGS: Reveal mostly clear breath sounds. A few scattered rhonchi. No wheezes or crackles. ABDOMEN: Soft. Bowel sounds are heard. EXTREMITIES: Are intact. There is no cyanosis, clubbing, or edema. SKIN: Without rash. NEUROLOGIC: Examination is brief but nonfocal. LABS: Labs are reviewed. White count 10.4, hemoglobin 9.9, hematocrit 30.4, platelet count 196,000. Sodium 134, potassium 4.3 chloride 105, CO2 of 24. Anion gap is 5. BUN and creatinine were 15 and 0.59. The rest of the labs are reviewed. Microbiology is currently negative. Chest x-ray has not yet been done. MEDICATIONS: Medications are reviewed. Prednisone 10 mg was added daily. ASSESSMENT: 1. Postoperative day #1 status post mitral valve repair secondary to mitral valve prolapse and regurgitation. 2. Routine postoperative ventilator management with extubation on June 13. 3. Mild intermittent bronchial asthma. 4. Active pulmonary sarcoidosis, previously on hydroxychloroquine/prednisone. 5. Pulmonary hypertension. 6. Essential hypertension. 7. Gastroesophageal reflux disease. 8. High osteoarthritis. 9. Sleep apnea. 10.A 4 mm aortic aneurysm. 11.Obesity. 12.Lifetime nonsmoker. PLAN: Overall the patient is doing well. She was extubated quickly. The patient is not having any respiratory issues at this time. Most of her issues relate pain. We encourage deep breathing, coughing, clearing of secretions and hourly use of the incentive spirometer along with bronchodilators. Today I added prednisone 10 mg a day. Additional recommendations and suggestions are forthcoming. She remains on LR at 50 mL an hour, insulin drip at 1 unit an hour. We will continue to follow. Prognosis is guarded. MMODL / IJN: [id number] /
[2020-06-14 06:45] LABS: Glucose,Whole Blood 129 mg/dL (75-99)
--- NOTE | 2020-06-14 06:50 | PN ---
PROGRESS NOTE ADDENDUM: CRITICAL CARE TIME: 32 minutes. TOM / CORALN: [id number] /
[2020-06-14] MEDS: IPRATROPIUM-ALBUTEROL 3 ML NEB INHALATION SCH ×4 (07:40→18:29)
[2020-06-14 08:08] LABS: Glucose,Whole Blood 134 mg/dL (75-99)
[2020-06-14] MEDS ORDERED: FUROSEMIDE 10 MG/ML 2 ML VIAL IV STA (08:09)
--- NOTE | 2020-06-14 08:34 | XR ---
EXAMINATION TYPE: XR chest 1V portable DATE OF EXAM: 06/14/2020 CLINICAL HISTORY: Postoperative cardiac surgery TECHNIQUE: Upright portable frontal view of the chest obtained COMPARISON: Chest radiograph 06/13/2020 FINDINGS: Sternotomy wires, left atrial appendage clip, right sided [place] catheter, right-sided chest tube, and mediastinal drain unchanged. Interval removal of endotracheal tube and enteric tube. Cardiomediastinal silhouette unchanged. Mildly decreased pulmonary vascular congestion postoperativel y. Resolution of previously described tiny left apical pneumothorax. No right-sided pneumothorax. IMPRESSION: 1. Interval removal of endotracheal and enteric tubes. Additional tubes and drains unchanged. 2. Mildly decreased pulmonary vascular congestion postoperatively. 3. No residual pneumothorax appreciated.
[2020-06-14] MEDS: ATORVASTATIN 40 MG TAB PO SCH (08:44)
[2020-06-14] MEDS: METOPROLOL TARTRATE 25 MG TAB PO SCH ×2 (08:44→20:58)
[2020-06-14] MEDS: predniSONE 10 MG TAB PO SCH (08:44)
[2020-06-14] MEDS: CLOPIDOGREL 75 MG TAB PO SCH (08:44)
[2020-06-14] MEDS: MULTIVITAMINS, THERA 1 EACH TAB PO SCH (08:44)
[2020-06-14] MEDS ORDERED: METOPROLOL TARTRATE 12.5 MG TAB PO SCH (09:00)
[2020-06-14] MEDS ORDERED: PANTOPRAZOLE 40 MG/10 ML VIAL IVP SCH (09:00)
[2020-06-14] MEDS ORDERED: MAGNESIUM HYDROXIDE 2,400 MG/10 ML CUP PO PRN (09:00)
[2020-06-14] MEDS ORDERED: bisacodyL 10 MG SUPP RECTAL PRN (09:00)
[2020-06-14 09:17] LABS: Glucose,Whole Blood 130 mg/dL (75-99)
[2020-06-14] MEDS: ASPIRIN 325 MG TAB PO SCH (09:56)
[2020-06-14] MEDS: MUPIROCIN 2% OINT 22 GM TUBE NASAL SCH ×2 (09:57→20:58)
[2020-06-14 10:19] LABS: Glucose,Whole Blood 139 mg/dL (75-99)
[2020-06-14 12:24] LABS: Glucose,Whole Blood 146 mg/dL (75-99)
--- NOTE | 2020-06-14 12:25 | P.PN ---
Subjective Progress Note Date: 06/14/20 Principal diagnosis: Severe mitral valve regurgitation past medical history significant for hypertension, pulmonary hypertension, bronchial asthma, obstructive sleep apnea without home CPAP use, sarcoidosis, morbid obesity with a MS of 44.2 kg/m, osteoarthritis and history of abdominal aortic aneurysm measuring 4 cm. POD #1 complex mitral valve repair with ring annuloplasty using a #30 mm CarboMedics AnnuloFlex band, removal of masses/deposits on anterior and posterior mitral leaflets, clip ligation of the left atrial appendage with a 35 mm Atriclip and intraoperative transesophageal echocardiogram. Postoperative acute blood loss anemia, an expected outcome due to card iopulmonary bypass and hemodilution. The patient and sees in follow-up today at her bedside in the intensive care unit on 06/14/2020. Currently she is sitting up to the bedside chair, is awake, alert and oriented 3 and is in no acute distress. She remained hemodynamically stable and is on no inotropic or pressor support. Right IJ Cordis with [place]- Lillie catheter in place with current cardiac output 5.3, cardiac index 2.4, PA pressures 21/6 and CVP of 10. Denies any complaints of shortness of breath although is complaining of some surgical type pain to her chest tube insertion sites. She was successfully extubated last evening at 5:15 PM, oxygen saturations are currently 96% on 3 L nasal cannula and she is achieving 1000 mL on her incentive spirometry. Mediastinal and right pleural chest tubes remain in place to low continuous wall suction -20 cm H2O. No air leak is present. Draining thin serosanguineous drainage with 150 mL output the last 8 hours and 300 mL output since surgery. Ventricular epicardial pacemaker wires in place and connected to backup bedside pacemaker generator on a VVI of 50. Bedside telemetry showing normal sinus rhythm heart rate 78 BPM. Objective - Vital Signs Vital signs: Vital Signs Temp 98.1 F 06/14/20 08:00 Pulse 109 H 06/14/20 11:00 Resp 22 06/14/20 11:00 BP 100/70 06/14/20 08:00 Pulse Ox 96 06/14/20 11:00 Intake & Output 06/13/20 06/14/20 06/14/20 18:59 06:59 18:59 Intake Total 5536.658 4951.391 279 Output Total 2496 640 245 Balance -1283.385 460.391 34 Weight 128.1 kg Intake: IV 404 848 279 CO CI 120 140 10 CVP/Jesse 24 108 39 Lactated Ringers 1,000 ml 200 600 230 @ 50 mls/hr IV .Q20H [facility]BO Rx#:[id number] Intake, IV Titration 808.615 252.391 Amount ACETAMINOPHEN IV (For NPO 100 100 ) 1,000 mg In Empty Bag 1 bag @ 400 mls/hr IVPB Q6H RAMBO Rx#:[id number] Albumin Human 5% 250 ml 500 In Empty Bag 1 bag @ 250 mls/hr IVPB Q1H RAMBO Rx#: [id number] Clevidipine Butyrate 25 11.133 17.249 mg In Empty Bag 1 bag @ 1 MG/HR 2 mls/hr IV .Q24H [facility]BO Rx#:[id number] Dexmedetomidine/0.9% NaCl 8.971 (Pmx) 400 mcg In Empty Bag 1 bag @ Titrate IV . Q0M [facility]BO Rx#:[id number] Insulin Regular 100 unit 6.174 26.210 In Sodium Chloride 0.9% 100 ml @ Per Protocol IV .Q0M [facility]BO Rx#:[id number] Lactated Ringers 1,000 ml 50 @ 50 mls/hr IV .Q20H [facility]BO Rx#:[id number] Milrinone-D5w Pmx 20 mg 41.819 8.932 In Dextrose/Water 1 100ml .bag @ 0.2 MCG/KG/MIN 7. 098 mls/hr IV .Q14H6M [facility] Rx#:[id number] ceFAZolin 2 gm In Sodium 50 100 Chloride 0.9% 50 ml @ 100 mls/hr IVPB Q8HR [facility] Rx# :[id number] propofoL 1,000 mg In 40.518 Empty Bag 1 bag @ Titrate IV .Q0M RAMBO Rx#: [id number] Output: Chest Tube Drainage 59 202 70 Chest Tube Right Pleural/ 59 202 50 Mediastinal Mediastinal 20 Urine 937 438 175 Estimated Blood Loss 1500 Other: Voiding Method Indwelling Catheter Indwelling Catheter ABP, PAP, CO, CI - Last Documented Arterial Blood Pressure 140/85 Pulmonary Artery Pressure 28/6 Cardiac Output 5.3 Cardiac Index 2.4 - Constitutional General appearance: Present: cooperative, morbidly obese, no acute distress - EENT Eyes: Present: PERRLA, normal appearance. Absent: scleral icterus ENT: Present: hearing grossly normal - Neck Details: Neck is supple, no JVD. Right IJ Cordis with [place]Lillie catheter in place. - Respiratory Details: Lung sounds diminished to her bilateral lobes, essentially clear to her bilateral upper lobes. No wheezes, rhonchi or crackles. Respirations are symmetrical and nonlabored. Oxygen saturation are 96% on 3 L nasal cannula. Achieving 1000 mL on her incentive spirometry. Mediastinal and right pleural chest tubes remain in place to low continuous wall suction -20 cm H2O. No air leak is present. Draining thin serosanguineous drainage with 150 mL output in 8 hours, 300 mL output since surgery. - Cardiovascular Details: Regular rhythm and rate. S1 and S2 present, negative for S3, gallop or murmur. Sternum is stable. Heart hugger is in place and she is demonstrating appropriate use. Ventricular epicardial pacemaker wires in place and connected to back up bedside pacemaker generator on a VVI 50. +1 edema to her bilateral lower extremities. Knee-high GARTH hose and sequential compression devices in place to her bilateral lower extremities. Right IJ Cordis with [place]Lillie cathet er in place with current cardiac output 5.3, cardiac index 2.4, PA pressures 21/6, CVP 10 mmHg. - Gastrointestinal Gastrointestinal Comment(s): Abdomen soft, nontender and nondistended. Hypoactive bowel sounds present in all 4 abdominal quadrants. No guarding or rigidity. Passing flatus. Tolerating oral intake. - Genitourinary Genitourinary Comment(s): Olson catheter for accurate I&O. Draining clear julian urine with 220 mL output in the last 8 hours. - Integumentary Integumentary Comment(s): Skin is warm and dry. No clubbing or cyanosis is present. Midline sternal incision is clean, dry and approximated. No drainage or redness is present. - Neurologic Neurologic: Present: CNII-XII intact - Musculoskeletal Musculoskeletal: Present: gait normal, generalized weakness, strength equal bilaterally - Psychiatric Psychiatric: Present: A&O x's 3, appropriate affect, intact judgment & insight - Allied health notes Allied health notes reviewed: nursing - Labs CBC & Chem 7: 06/14/20 04:05 06/14/20 04:05 Labs: Abnormal Lab Results - Last 24 Hours (Table) 06/09/20 06/13/20 06/13/20 Range/Units 14:00 08:38 09:26 WBC (3.8-10.6) k/uL RBC (3.80-5.40) m/uL Hgb (11.4-16.0) gm/dL Hct (34.0-46.0) % Neutrophils # (1.3-7.7) k/uL Lymphocytes # (1.0-4.8) k/uL ABG pH 7.33 L (7.35-7.45) ABG pCO2 46 H (35-45) mmHg ABG pO2 266 H 378 H (83-108) mmHg ABG HCO3 (21-25) mmol/L ABG Total CO2 25 H 25 H (19-24) mmol/L ABG O2 Saturation 99.9 H 100.0 H (94-97) % ABG Hematocrit 29 L (34.0-46.0) % ABG Potassium (3.4-4.5) mmol/L ABG Ionized Calcium 4.3 L (4.5-5.3) mg/dL ABG Glucose 140 H 237 H (75-99) mg/dL Hemoglobin 9.5 L (11.4-16.0) gm/dL Sodium (137-145) mmol/L Creatinine (0.52-1.04) mg/dL Glucose (74-99) mg/dL POC Glucose (mg/dL) (75-99) mg/dL Calcium (8.4-10.2) mg/dL Magnesium (1.6-2.3) mg/dL AST (14-36) U/L Total Protein (6.3-8.2) g/dL Albumin (3.5-5.0) g/dL Arterial Blood Potassium (3.4-4.5) mmol/L Arterial Blood Glucose 140 H 237 H (75-99) mg/dL Crossmatch See Detail 06/13/20 06/13/20 06/13/20 Range/Units 09:59 10:05 10:30 WBC (3.8-10.6) k/uL RBC (3.80-5.40) m/uL Hgb (11.4-16.0) gm/dL Hct (34.0-46.0) % Neutrophils # (1.3-7.7) k/uL Lymphocytes # (1.0-4.8) k/uL ABG pH 7.33 L (7.35-7.45) ABG pCO2 48 H (35-45) mmHg ABG pO2 318 H 365 H (83-108) mmHg ABG HCO3 20 L (21-25) mmol/L ABG Total CO2 27 H (19-24) mmol/L ABG O2 Saturation 100.0 H 100.0 H (94-97) % ABG Hematocrit 28 L 25 L (34.0-46.0) % ABG Potassium 4.8 H (3.4-4.5) mmol/L ABG Ionized Calcium 4.2 L 3.9 L (4.5-5.3) mg/dL ABG Glucose 164 H 228 H 201 H (75-99) mg/dL Hemoglobin 9.1 L 8.2 L (11.4-16.0) gm/dL Sodium (137-145) mmol/L Creatinine (0.52-1.04) mg/dL Glucose (74-99) mg/dL POC Glucose (mg/dL) (75-99) mg/dL Calcium (8.4-10.2) mg/dL Magnesium (1.6-2.3) mg/dL AST (14-36) U/L Total Protein (6.3-8.2) g/dL Albumin (3.5-5.0) g/dL Arterial Blood Potassium 4.8 H (3.4-4.5) mmol/L Arterial Blood Glucose 164 H 228 H 201 H (75-99) mg/dL Crossmatch 06/13/20 06/13/20 06/13/20 Range/Units 11:26 12:34 12:34 WBC 14.1 H (3.8-10.6) k/uL RBC 3.78 L (3.80-5.40) m/uL Hgb (11.4-16.0) gm/dL Hct (34.0-46.0) % Neutrophils # 12.4 H (1.3-7.7) k/uL Lymphocytes # 0.9 L (1.0-4.8) k/uL ABG pH 7.30 L (7.35-7.45) ABG pCO2 51 H (35-45) mmHg ABG pO2 >420 H (83-108) mmHg ABG HCO3 (21-25) mmol/L ABG Total CO2 26 H (19-24) mmol/L ABG O2 Saturation 100.0 H (94-97) % ABG Hematocrit 32 L (34.0-46.0) % ABG Potassium (3.4-4.5) mmol/L ABG Ionized Calcium 4.3 L (4.5-5.3) mg/dL ABG Glucose 145 H (75-99) mg/dL Hemoglobin 10.3 L (11.4-16.0) gm/dL Sodium 136 L (137-145) mmol/L Creatinine (0.52-1.04) mg/dL Glucose 136 H (74-99) mg/dL POC Glucose (mg/dL) (75-99) mg/dL Calcium 7.9 L (8.4-10.2) mg/dL Magnesium 2.7 H (1.6-2.3) mg/dL AST 53 H (14-36) U/L Total Protein 4.6 L (6.3-8.2) g/dL Albumin 2.9 L (3.5-5.0) g/dL Arterial Blood Potassium (3.4-4.5) mmol/L Arterial Blood Glucose 145 H (75-99) mg/dL Crossmatch 06/13/20 06/13/20 06/13/20 Range/Units 12:37 12:45 13:49 WBC (3.8-10.6) k/uL RBC (3.80-5.40) m/uL Hgb (11.4-16.0) gm/dL Hct (34.0-46.0) % Neutrophils # (1.3-7.7) k/uL Lymphocytes # (1.0-4.8) k/uL ABG pH 7.33 L (7.35-7.45) ABG pCO2 49 H (35-45) mmHg ABG pO2 330 H (83-108) mmHg ABG HCO3 26 H (21-25) mmol/L ABG Total CO2 27 H (19-24) mmol/L ABG O2 Saturation 99.8 H (94-97) % ABG Hematocrit (34.0-46.0) % ABG Potassium (3.4-4.5) mmol/L ABG Ionized Calcium (4.5-5.3) mg/dL ABG Glucose (75-99) mg/dL Hemoglobin (11.4-16.0) gm/dL Sodium (137-145) mmol/L Creatinine (0.52-1.04) mg/dL Glucose (74-99) mg/dL POC Glucose (mg/dL) 140 H 127 H (75-99) mg/dL Calcium (8.4-10.2) mg/dL Magnesium (1.6-2.3) mg/dL AST (14-36) U/L Total Protein (6.3-8.2) g/dL Albumin (3.5-5.0) g/dL Arterial Blood Potassium (3.4-4.5) mmol/L Arterial Blood Glucose (75-99) mg/dL Crossmatch 06/13/20 06/13/20 06/13/20 Range/Units 15:08 15:52 16:10 WBC (3.8-10.6) k/uL RBC (3.80-5.40) m/uL Hgb (11.4-16.0) gm/dL Hct (34.0-46.0) % Neutrophils # (1.3-7.7) k/uL Lymphocytes # (1.0-4.8) k/uL ABG pH 7.32 L (7.35-7.45) ABG pCO2 (35-45) mmHg ABG pO2 127 H (83-108) mmHg ABG HCO3 (21-25) mmol/L ABG Total CO2 (19-24) mmol/L ABG O2 Saturation 98.7 H (94-97) % ABG Hematocrit (34.0-46.0) % ABG Potassium (3.4-4.5) mmol/L ABG Ionized Calcium (4.5-5.3) mg/dL ABG Glucose (75-99) mg/dL Hemoglobin (11.4-16.0) gm/dL Sodium (137-145) mmol/L Creatinine (0.52-1.04) mg/dL Glucose (74-99) mg/dL POC Glucose (mg/dL) 188 H 173 H (75-99) mg/dL Calcium (8.4-10.2) mg/dL Magnesium (1.6-2.3) mg/dL AST (14-36) U/L Total Protein (6.3-8.2) g/dL Albumin (3.5-5.0) g/dL Arterial Blood Potassium (3.4-4.5) mmol/L Arterial Blood Glucose (75-99) mg/dL Crossmatch 06/13/20 06/13/20 06/13/20 Range/Units 16:55 16:55 18:19 WBC 13.3 H (3.8-10.6) k/uL RBC 3.24 L (3.80-5.40) m/uL Hgb 10.1 L (11.4-16.0) gm/dL Hct 30.2 L (34.0-46.0) % Neutrophils # 11.9 H (1.3-7.7) k/uL Lymphocytes # 0.8 L (1.0-4.8) k/uL ABG pH (7.35-7.45) ABG pCO2 (35-45) mmHg ABG pO2 (83-108) mmHg ABG HCO3 (21-25) mmol/L ABG Total CO2 (19-24) mmol/L ABG O2 Saturation (94-97) % ABG Hematocrit (34.0-46.0) % ABG Potassium (3.4-4.5) mmol/L ABG Ionized Calcium (4.5-5.3) mg/dL ABG Glucose (75-99) mg/dL Hemoglobin (11.4-16.0) gm/dL Sodium (137-145) mmol/L Creatinine (0.52-1.04) mg/dL Glucose (74-99) mg/dL POC Glucose (mg/dL) 204 H 175 H (75-99) mg/dL Calcium (8.4-10.2) mg/dL Magnesium (1.6-2.3) mg/dL AST (14-36) U/L Total Protein (6.3-8.2) g/dL Albumin (3.5-5.0) g/dL Arterial Blood Potassium (3.4-4.5) mmol/L Arterial Blood Glucose (75-99) mg/dL Crossmatch 06/13/20 06/13/20 06/13/20 Range/Units 19:09 20:11 20:55 WBC (3.8-10.6) k/uL RBC (3.80-5.40) m/uL Hgb (11.4-16.0) gm/dL Hct (34.0-46.0) % Neutrophils # (1.3-7.7) k/uL Lymphocytes # (1.0-4.8) k/uL ABG pH (7.35-7.45) ABG pCO2 (35-45) mmHg ABG pO2 (83-108) mmHg ABG HCO3 (21-25) mmol/L ABG Total CO2 (19-24) mmol/L ABG O2 Saturation (94-97) % ABG Hematocrit (34.0-46.0) % ABG Potassium (3.4-4.5) mmol/L ABG Ionized Calcium (4.5-5.3) mg/dL ABG Glucose (75-99) mg/dL Hemoglobin (11.4-16.0) gm/dL Sodium (137-145) mmol/L Creatinine (0.52-1.04) mg/dL Glucose (74-99) mg/dL POC Glucose (mg/dL) 175 H 164 H 152 H (75-99) mg/dL Calcium (8.4-10.2) mg/dL Magnesium (1.6-2.3) mg/dL AST (14-36) U/L Total Protein (6.3-8.2) g/dL Albumin (3.5-5.0) g/dL Arterial Blood Potassium (3.4-4.5) mmol/L Arterial Blood Glucose (75-99) mg/dL Crossmatch 06/13/20 06/13/20 06/13/20 Range/Units 22:00 22:15 22:15 WBC 11.1 H (3.8-10.6) k/uL RBC 3.32 L (3.80-5.40) m/uL Hgb 9.9 L (11.4-16.0) gm/dL Hct 30.6 L (34.0-46.0) % Neutrophils # (1.3-7.7) k/uL Lymphocytes # (1.0-4.8) k/uL ABG pH (7.35-7.45) ABG pCO2 (35-45) mmHg ABG pO2 (83-108) mmHg ABG HCO3 (21-25) mmol/L ABG Total CO2 (19-24) mmol/L ABG O2 Saturation (94-97) % ABG Hematocrit (34.0-46.0) % ABG Potassium (3.4-4.5) mmol/L ABG Ionized Calcium (4.5-5.3) mg/dL ABG Glucose (75-99) mg/dL Hemoglobin (11.4-16.0) gm/dL Sodium 136 L (137-145) mmol/L Creatinine 0.48 L (0.52-1.04) mg/dL Glucose 126 H (74-99) mg/dL POC Glucose (mg/dL) 131 H (75-99) mg/dL Calcium 7.9 L (8.4-10.2) mg/dL Magnesium (1.6-2.3) mg/dL AST (14-36) U/L Total Protein (6.3-8.2) g/dL Albumin (3.5-5.0) g/dL Arterial Blood Potassium (3.4-4.5) mmol/L Arterial Blood Glucose (75-99) mg/dL Crossmatch 06/13/20 06/14/20 06/14/20 Range/Units 23:05 00:18 00:59 WBC (3.8-10.6) k/uL RBC (3.80-5.40) m/uL Hgb (11.4-16.0) gm/dL Hct (34.0-46.0) % Neutrophils # (1.3-7.7) k/uL Lymphocytes # (1.0-4.8) k/uL ABG pH (7.35-7.45) ABG pCO2 (35-45) mmHg ABG pO2 (83-108) mmHg ABG HCO3 (21-25) mmol/L ABG Total CO2 (19-24) mmol/L ABG O2 Saturation (94-97) % ABG Hematocrit (34.0-46.0) % ABG Potassium (3.4-4.5) mmol/L ABG Ionized Calcium (4.5-5.3) mg/dL ABG Glucose (75-99) mg/dL Hemoglobin (11.4-16.0) gm/dL Sodium (137-145) mmol/L Creatinine (0.52-1.04) mg/dL Glucose (74-99) mg/dL POC Glucose (mg/dL) 126 H 123 H 130 H (75-99) mg/dL Calcium (8.4-10.2) mg/dL Magnesium (1.6-2.3) mg/dL AST (14-36) U/L Total Protein (6.3-8.2) g/dL Albumin (3.5-5.0) g/dL Arterial Blood Potassium (3.4-4.5) mmol/L Arterial Blood Glucose (75-99) mg/dL Crossmatch 06/14/20 06/14/20 06/14/20 Range/Units 02:12 04:05 04:05 WBC (3.8-10.6) k/uL RBC 3.29 L (3.80-5.40) m/uL Hgb 9.9 L (11.4-16.0) gm/dL Hct 30.4 L (34.0-46.0) % Neutrophils # 8.2 H (1.3-7.7) k/uL Lymphocytes # (1.0-4.8) k/uL ABG pH (7.35-7.45) ABG pCO2 (35-45) mmHg ABG pO2 (83-108) mmHg ABG HCO3 (21-25) mmol/L ABG Total CO2 (19-24) mmol/L ABG O2 Saturation (94-97) % ABG Hematocrit (34.0-46.0) % ABG Potassium (3.4-4.5) mmol/L ABG Ionized Calcium (4.5-5.3) mg/dL ABG Glucose (75-99) mg/dL Hemoglobin (11.4-16.0) gm/dL Sodium 134 L (137-145) mmol/L Creatinine (0.52-1.04) mg/dL Glucose 124 H (74-99) mg/dL POC Glucose (mg/dL) 130 H (75-99) mg/dL Calcium 8.2 L (8.4-10.2) mg/dL Magnesium 2.4 H (1.6-2.3) mg/dL AST 54 H (14-36) U/L Total Protein 5.1 L (6.3-8.2) g/dL Albumin 3.4 L (3.5-5.0) g/dL Arterial Blood Potassium (3.4-4.5) mmol/L Arterial Blood Glucose (75-99) mg/dL Crossmatch 06/14/20 06/14/20 06/14/20 Range/Units 04:09 06:44 08:06 WBC (3.8-10.6) k/uL RBC (3.80-5.40) m/uL Hgb (11.4-16.0) gm/dL Hct (34.0-46.0) % Neutrophils # (1.3-7.7) k/uL Lymphocytes # (1.0-4.8) k/uL ABG pH (7.35-7.45) ABG pCO2 (35-45) mmHg ABG pO2 (83-108) mmHg ABG HCO3 (21-25) mmol/L ABG Total CO2 (19-24) mmol/L ABG O2 Saturation (94-97) % ABG Hematocrit (34.0-46.0) % ABG Potassium (3.4-4.5) mmol/L ABG Ionized Calcium (4.5-5.3) mg/dL ABG Glucose (75-99) mg/dL Hemoglobin (11.4-16.0) gm/dL Sodium (137-145) mmol/L Creatinine (0.52-1.04) mg/dL Glucose (74-99) mg/dL POC Glucose (mg/dL) 136 H 129 H 134 H (75-99) mg/dL Calcium (8.4-10.2) mg/dL Magnesium (1.6-2.3) mg/dL AST (14-36) U/L Total Protein (6.3-8.2) g/dL Albumin (3.5-5.0) g/dL Arterial Blood Potassium (3.4-4.5) mmol/L Arterial Blood Glucose (75-99) mg/dL Crossmatch 06/14/20 06/14/20 Range/Units 09:16 10:17 WBC (3.8-10.6) k/uL RBC (3.80-5.40) m/uL Hgb (11.4-16.0) gm/dL Hct (34.0-46.0) % Neutrophils # (1.3-7.7) k/uL Lymphocytes # (1.0-4.8) k/uL ABG pH (7.35-7.45) ABG pCO2 (35-45) mmHg ABG pO2 (83-108) mmHg ABG HCO3 (21-25) mmol/L ABG Total CO2 (19-24) mmol/L ABG O2 Saturation (94-97) % ABG Hematocrit (34.0-46.0) % ABG Potassium (3.4-4.5) mmol/L ABG Ionized Calcium (4.5-5.3) mg/dL ABG Glucose (75-99) mg/dL Hemoglobin (11.4-16.0) gm/dL Sodium (137-145) mmol/L Creatinine (0.52-1.04) mg/dL Glucose (74-99) mg/dL POC Glucose (mg/dL) 130 H 139 H (75-99) mg/dL Calcium (8.4-10.2) mg/dL Magnesium (1.6-2.3) mg/dL AST (14-36) U/L Total Protein (6.3-8.2) g/dL Albumin (3.5-5.0) g/dL Arterial Blood Potassium (3.4-4.5) mmol/L Arterial Blood Glucose (75-99) mg/dL Crossmatch - Imaging and Cardiology Chest x-ray: report reviewed, image reviewed Assessment and Plan Assessment: 1. Severe mitral valve regurgitation, status post mitral valve annuloplasty using a #30 mm CarboMedics AnnuloFlex band 2. History of bronchial asthma 3. History of hypertension 4. History of pulmonary hypertension 5. Obstructive sleep apnea without home CPAP use 6. Morbid obesity with history of lap band surgery 7. Abdominal aortic aneurysm measuring 4 cm 8. Lifetime nonsmoker 9. Postoperative acute blood loss anemia Plan: 1. Continue aspirin, statin, Plavix and beta wojciech. Will increase metoprolol tartrate as tolerated. 2. Discontinue lactated Ringer's, start 0.9% normal saline at KVO. 3. Wean O2 as tolerated. Encourage incentive spirometry use 10 times every hour while awake. Bronchodilators per pulmonology management. 4. Right pleural chest tube removed without incident. Keep mediastinal chest tube in place to low continuous wall suction -20 cm H2O. Continue to record accurate I's and O's. 5. Increase activity as tolerated. Up in chair for all meals, ambulate when able. PT/OT/cardiac rehab consulted. 6. Will monitor daily labs and chest x-rays. Electrolyte replacement per protocol. 7. Pain control with current medication regimen. Toradol has been added. 8. GI/DVT prophylaxis. 9. Insulin management per primary care service. 10. Will keep Olson catheter and epicardial pacemaker wires in place today. Remove [place] catheter and place a right IJ Cordis to continue CVP monitoring. 11. Lasix 20 mg IV 1 now. 12. Home dose of Norvasc and Prozac restarted. 13. More recommendations to follow based on patient's clinical course. Time with Patient: Greater than 30
[2020-06-14 12:26] VITALS: BMI 44.2
[2020-06-14] MEDS: INSULIN ASPART (NovoLOG) 100 UNIT/ML VIAL SQ SCH ×3 (12:37→20:59)
[2020-06-14] MEDS: SODIUM CHLORIDE 0.9% 1,000 ML IV SCH (14:32)
--- NOTE | 2020-06-14 16:23 | CONS ---
CONSULTATION Yoli is a 59-year-old lady who was admitted to hospital with severe mitral regurgitation and underwent complex mitral valve repair with ring annuloplasty. The patient had ligation of the left atrial appendage. Today is postoperative day number 1. She is already extubated, remains in sinus rhythm and hemodynamically stable. PAST MEDICAL HISTORY: Her past medical history is significant for mitral regurgitation and hypertension. MEDICATIONS: Medications at home included Xanax, Symbicort, Prozac, Norvasc Claritin, Lopressor, Singulair, Prilosec, Zestril, Lasix, K-Dur, prednisone. ALLERGIES: There are NO KNOWN DRUG ALLERGIES. FAMILY HISTORY: Negative for premature coronary artery disease. SOCIAL HISTORY: Negative for smoking, EtOH abuse or drug abuse. REVIEW OF SYSTEMS: HEENT is unremarkable. CARDIAC: As described above. RESPIRATORY: As described above. GI: Negative. GENITOURINARY: Negative. ALLERGY: Negative. IMMUNOLOGY: Negative. SKIN: Negative. MUSCULOSKELETAL: Significant for arthritis. PSYCHOSOCIAL: Negative. DERMATOLOGY: Negative. CONSTITUTIONAL: Negative. ONCOLOGICAL: Negative. COUPON CLERK: Negative. PHYSICAL EXAMINATION: Patient is comfortable at rest. Heart rate is 77 beats per minute. Blood pressure is 140/85, respiratory rate is 18. There is no jugular venous distention. Carotid upstroke is diminished. There is no bruit. Chest exam reveals good air entry bilaterally. Heart exam reveals first and second heart sounds. No gallop. Abdomen is soft. Examination of extremities did not reveal any edema. Peripheral pulses are felt. ASSESSMENT: Severe mitral regurgitation, status post mitral valve repair. PLAN: Patient is doing well. Remains in sinus rhythm, hemodynamically stable. She has done very well. She will continue with incentive spirometry. MMODL / IJN: [id number] /
[2020-06-14 16:56] LABS: Glucose,Whole Blood 136 mg/dL (75-99)
[2020-06-14] MEDS ORDERED: ALBUMIN HUMAN 5% 250 ML in EMPTY BAG 1 BAG IVPB ONE (19:30)
[2020-06-14] MEDS ORDERED: FUROSEMIDE 10 MG/ML 4 ML VIAL IV ONE (20:15)
[2020-06-14 20:26] LABS: Glucose,Whole Blood 127 mg/dL (75-99)
[2020-06-14] MEDS: FLUoxetine HCL 20 MG CAP PO SCH (20:57)
[2020-06-14] MEDS: SENNOSIDES-DOCUSATE SODIUM 1 EACH TAB PO SCH (20:57)
[2020-06-14] MEDS: MONTELUKAST 10 MG TAB PO SCH (21:00)
[2020-06-15] MEDS: KETOROLAC 30 MG/ML 1 ML VIAL IVP SCH ×4 (00:13→21:06)
[2020-06-15 04:53] LABS: Glucose,Whole Blood 142 mg/dL (75-99)
[2020-06-15 05:06] LABS: Basophils % (A) 0 %; Eosinophils # (A) 0.2 k/uL (0-0.7); Eosinophils % (A) 1 %; HGB 8.7 gm/dL (11.4-16.0); Lymphocytes # (A) 1.5 k/uL (1.0-4.8); Lymphocytes % (A) 13 %; MCH 30.1 pg (25.0-35.0); MCHC 32.3 g/dL (31.0-37.0); MCV 93.4 fL (80.0-100.0); Mean Platelet Volume 8.7; Monocytes % (A) 8 %; Neutrophils % (A) 76 %; Platelet Count 182 k/uL (150-450); RBC 2.89 m/uL (3.80-5.40); RDW 14.5 % (11.5-15.5); WBC 11.9 k/uL (3.8-10.6)
[2020-06-15 05:10] LABS: Ionized Calcium 4.9 mg/dL (4.5-5.3)
[2020-06-15 05:17] LABS: ALT 14 U/L (4-34); AST 39 U/L (14-36); African American GFR (CKD) >90 (>60 ml/min/1.73 sqM); Albumin 3.3 g/dL (3.5-5.0); Alkaline Phosphatase 39 U/L (38-126); Anion Gap 4 mmol/L; Blood Urea Nitrogen 21 mg/dL (7-17); Calcium 8.4 mg/dL (8.4-10.2); Carbon Dioxide 25 mmol/L (22-30); Chloride 105 mmol/L (98-107); Glucose 123 mg/dL (74-99); Non-African American GFR(CKD) 78 (>60 ml/min/1.73 sqM); Potassium 4.1 mmol/L (3.5-5.1); Sodium 134 mmol/L (137-145); Total Bilirubin 0.4 mg/dL (0.2-1.3)
[2020-06-15] MEDS: HEPARIN SODIUM,PORCINE 5,000 UNIT/ML 1 ML VIAL SQ SCH ×3 (05:20→21:14)
[2020-06-15] MEDS: HYDROcodone/APAP 5-325MG 1 EACH TAB PO PRN ×3 (05:29→17:56)
[2020-06-15 06:47] LABS: Glucose,Whole Blood 144 mg/dL (75-99)
[2020-06-15] MEDS: INSULIN ASPART (NovoLOG) 100 UNIT/ML VIAL SQ SCH ×4 (06:51→21:32)
[2020-06-15] MEDS: PANTOPRAZOLE 40 MG TABLET PO SCH (06:51)
[2020-06-15] MEDS ORDERED: MAGNESIUM SULFATE-D5W PMX 1 GM in DEXTROSE/WATER 1 100ML.BAG IVPB SCH (07:45)
[2020-06-15] MEDS ORDERED: ALBUMIN HUMAN 5% 250 ML in EMPTY BAG 1 BAG IVPB ONE (08:08)
--- NOTE | 2020-06-15 08:45 | XR ---
EXAMINATION TYPE: XR chest 1V portable DATE OF EXAM: 06/15/2020 COMPARISON: Prior chest x-ray 06/14/2020 HISTORY: Postop cardiac surgery TECHNIQUE: Single frontal view of the chest is obtained. FINDINGS: Patient is post median sternotomy and left atrial appendage clipping placement. The patien t's right jugular central venous catheter has been removed, sheath remains in place. Right-sided ches t tube is removed, median sternal drain remains in place. Patient is post lap band. Question epicardi al leads over the lower left chest. No evident pneumothorax. Retrocardiac density suspected, lung vol umes are somewhat low. Heart size is stable. There are overlying artifacts. IMPRESSION: No evident complication status post chest tube removal. Probable left lower lobe atelect asis.
[2020-06-15] MEDS: ASPIRIN 325 MG TAB PO SCH (08:59)
[2020-06-15] MEDS: CLOPIDOGREL 75 MG TAB PO SCH (08:59)
[2020-06-15] MEDS: MULTIVITAMINS, THERA 1 EACH TAB PO SCH (08:59)
[2020-06-15] MEDS: METOPROLOL TARTRATE 25 MG TAB PO SCH ×2 (08:59→21:16)
[2020-06-15] MEDS: predniSONE 10 MG TAB PO SCH (08:59)
[2020-06-15] MEDS: ATORVASTATIN 40 MG TAB PO SCH (08:59)
[2020-06-15] MEDS: MUPIROCIN 2% OINT 22 GM TUBE NASAL SCH ×2 (09:00→21:17)
[2020-06-15] MEDS: IPRATROPIUM-ALBUTEROL 3 ML NEB INHALATION SCH ×4 (09:14→20:38)
--- NOTE | 2020-06-15 10:59 | PN ---
PROGRESS NOTE PULMONARY/CRITICAL CARE PROGRESS NOTE: DATE OF SERVICE: 06/15/2020 This is a 59-year-old female patient with history of multiple medical problems including asthma, pulmonary hypertension, sleep apnea, obesity, sarcoidosis, and mitral valve prolapse with regurgitation. The patient also has a history of aortic aneurysm and hypertension. The patient is currently postop day #2, status post mitral valve repair secondary to mitral valve prolapse and regurgitation. 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 She is also status post routine postoperative ventilator management with extubation on June 13. Currently, she is doing well. She is on saline at 30 mL an hour on O2 at 2 L. She is getting about a 1000 mL on her incentive spirometer. Other than pain at the surgical site that at the chest tube site, she has no major complaints. She is not coughing or wheezing. She is not coughing up any phlegm. She is not having any chest pain. No fever or chills. No nausea, vomiting or diarrhea. Vital signs are reviewed. temperature is 98.4, heart rate 79, respiratory rate 15, blood pressure 102/52, 2 L saturation 97%. Appears in no acute distress. HEENT: Examination is grossly unremarkable. NECK: Supple. Full range of motion. No adenopathy. Neck veins are flat. CARDIOVASCULAR: Examination reveals a regular rhythm and rate. RESPIRATORY: Lungs reveal clear breath sounds bilaterally. No wheezes, rhonchi, or crackles. ABDOMEN: Soft, bowel sounds are heard. EXTREMITIES: Intact. No cyanosis, clubbing, or edema. SKIN: Without rash. NEUROLOGIC: Examination is brief but nonfocal. White count 11.9, hemoglobin 8.7, hematocrit 27.0, platelet count 182,000. Sodium 134, potassium 4.1, chloride is 105, CO2 is 25, anion gap is 4. BUN and creatinine were 21 and 0.83. Albumin 3.3. Microbiology is negative. A chest x-ray from today shows a left lower lobe atelectasis. Medications are reviewed. ASSESSMENT: 1. 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 2. Routine postoperative ventilator management with extubation on 04/13. 3. Mild intermittent bronchial asthma. 4. Active pulmonary sarcoidosis, previously on hydroxychloroquine/prednisone. 5. Pulmonary hypertension. 6. Essential hypertension. 7. Gastroesophageal reflux disease. 8. Osteoarthritis. 9. Sleep apnea syndrome. 10.Aortic aneurysm. 11.Obesity. 12.Lifetime nonsmoker. PLAN: The patient is doing well. The patient was extubated in quick fashion. She is doing reasonably well on her incentive spirometer getting up 1000 mL. Currently, she is on saline at 30 mL an hour and nasal O2 with 2 L. We encourage deep breathing, coughing, clearing of secretions. We also encourage the use of the incentive spirometer q.1 hour. Will await for pathology from the valve. Additional recommendations and suggestions are forthcoming. MMODL / IJN: [id number] /
[2020-06-15 12:48] LABS: Glucose,Whole Blood 127 mg/dL (75-99)
[2020-06-15] MEDS: SODIUM CHLORIDE 0.9% 1,000 ML IV SCH (14:01)
--- NOTE | 2020-06-15 14:06 | P.PN ---
Subjective Progress Note Date: 06/15/20 Principal diagnosis: Severe mitral valve regurgitation past medical history significant for hypertension, pulmonary hypertension, bronchial asthma, obstructive sleep apnea without home CPAP use, sarcoidosis, morbid obesity with a IN of 44.2 kg/m, osteoarthritis and history of abdominal aortic aneurysm measuring 4 cm. POD #2 complex mitral valve repair with ring annuloplasty using a #30 mm [employer] AnnuloFlex band, removal of masses/deposits on anterior and posterior mitral leaflets, clip ligation of the left atrial appendage with a 35 mm Atriclip and intraoperative transesophageal echocardiogram. Postoperative acute blood loss anemia, an expected outcome due to card iopulmonary bypass and hemodilution. The patient and sees in follow-up today at her bedside in the intensive care unit on 06/14/2020. Currently she is sitting up to the bedside chair, is awake, alert and oriented 3 and is in no acute distress. She remained hemodynamically stable and is on no inotropic or pressor support. Right IJ Cordis . Denies any complaints of shortness of breath although is complaining of some surgical type pain to her chest tube insertion sites. She was successfully extubated day of surgery at 5:15 PM, oxygen saturations are currently 96% on 2 L nasal cannula and she is achieving 1000 mL on her incentive spirometry. Mediastinal chest tube remains in place to low continuous wall suction -20 cm H2O. No air leak is present. Draining thin serosanguineous drainage with 80 mL output the last 8 hours and 280 since yesterday. Ventricular epicardial pacemaker wires in place and connected to backup bedside pacemaker generator on a VVI of 50. Bedside telemetry showing normal sinus rhythm heart rate 78 BPM. Objective - Vital Signs Vital signs: Vital Signs Temp 98.4 F 06/15/20 04:00 Pulse 78 06/15/20 12:35 Resp 15 06/15/20 12:00 BP 110/74 06/15/20 12:00 Pulse Ox 96 06/15/20 12:00 Intake & Output 06/14/20 06/15/20 06/15/20 18:59 06:59 18:59 Intake Total 811 542 360 Output Total 473 828 130 Balance 338 -286 230 Weight 128.1 kg 128.6 kg Intake: IV 321 72 30 CO CI 10 CVP/Jesse 81 72 30 Lactated Ringers 1,000 ml 230 @ 50 mls/hr IV .Q20H [facility] Rx#:[id number] Intake, IV Titration 140 470 330 Amount Albumin Human 5% 250 ml 250 In Empty Bag 1 bag @ 250 mls/hr IVPB ONCE ONE Rx#: [id number] Albumin Human 5% 250 ml 250 In Empty Bag 1 bag @ 250 mls/hr IVPB Q1HR PRN Rx#: [id number] Sodium Chloride 0.9% 1, 140 220 80 000 ml @ 20 mls/hr IV . Q24H [facility] Rx#:[id number] Oral 350 Output: Chest Tube Drainage 110 120 Chest Tube Right Pleural/ 50 Mediastinal Mediastinal 60 120 Urine 363 708 130 Other: Voiding Method Indwelling Catheter Indwelling Catheter ABP, PAP, CO, CI - Last Documented Arterial Blood Pressure 104/57 Pulmonary Artery Pressure 28/6 Cardiac Output 5.3 Cardiac Index 2.4 - Constitutional General appearance: Present: cooperative, morbidly obese, no acute distress - EENT Eyes: Present: PERRLA, normal appearance. Absent: scleral icterus ENT: Present: hearing grossly normal - Neck Details: Neck is supple, no JVD. Right IJ Cordis in place. - Respiratory Details: Lung sounds diminished to her bilateral lobes, essentially clear to her bilateral upper lobes. No wheezes, rhonchi or crackles. Respirations are symmetrical and nonlabored. Oxygen saturation are 96% on 2 L nasal cannula. Achieving 1000 mL on her incentive spirometry. Mediastinal chest tube remains in place to low continuous wall suction -20 cm H2O. No air leak is present. Draining thin serosanguineous drainage with 80 mL output in 8 hours, 250 since yesterday. - Cardiovascular Details: Regular rhythm and rate. S1 and S2 present, negative for S3, gallop or murmur. Sternum is stable. Heart hugger is in place and she is demonstrating appropriate use. Ventricular epicardial pacemaker wires in place and connected to back up bedside pacemaker generator on a VVI 50. +1 edema to her bilateral lower extremities. Knee-high GARTH hose and sequential compression devices in place to her bilateral lower extremities. Right IJ Cordis in place, CVP 14. - Gastrointestinal Gastrointestinal Comment(s): Abdomen soft, nontender and nondistended. Hypoactive bowel sounds present in all 4 abdominal quadrants. No guarding or rigidity. Passing flatus. Tolerating oral intake. - Genitourinary Genitourinary Comment(s): Srivastava catheter for accurate I&O. Draining clear julian urine with 477 mL output in the last 8 hours. - Integumentary Integumentary Comment(s): kin is warm and dry. No clubbing or cyanosis is present. Midline sternal incision is clean, dry and approximated. No drainage or redness is present. - Neurologic Neurologic: Present: CNII-XII intact - Musculoskeletal Musculoskeletal: Present: gait normal, generalized weakness, strength equal bilaterally - Psychiatric Psychiatric: Present: A&O x's 3, appropriate affect, intact judgment & insight - Allied health notes Allied health notes reviewed: nursing - Labs CBC & Chem 7: 06/15/20 04:45 06/15/20 04:45 Labs: Abnormal Lab Results - Last 24 Hours (Table) 06/14/20 06/14/20 06/15/20 Range/Units 16:55 20:24 04:45 WBC 11.9 H (3.8-10.6) k/uL RBC 2.89 L (3.80-5.40) m/uL Hgb 8.7 L (11.4-16.0) gm/dL Hct 27.0 L (34.0-46.0) % Neutrophils # 9.0 H (1.3-7.7) k/uL Sodium (137-145) mmol/L BUN (7-17) mg/dL Glucose (74-99) mg/dL POC Glucose (mg/dL) 136 H 127 H (75-99) mg/dL AST (14-36) U/L Total Protein (6.3-8.2) g/dL Albumin (3.5-5.0) g/dL 06/15/20 06/15/20 06/15/20 Range/Units 04:45 04:52 06:46 WBC (3.8-10.6) k/uL RBC (3.80-5.40) m/uL Hgb (11.4-16.0) gm/dL Hct (34.0-46.0) % Neutrophils # (1.3-7.7) k/uL Sodium 134 L (137-145) mmol/L BUN 21 H (7-17) mg/dL Glucose 123 H (74-99) mg/dL POC Glucose (mg/dL) 142 H 144 H (75-99) mg/dL AST 39 H (14-36) U/L Total Protein 5.0 L (6.3-8.2) g/dL Albumin 3.3 L (3.5-5.0) g/dL 06/15/20 Range/Units 12:43 WBC (3.8-10.6) k/uL RBC (3.80-5.40) m/uL Hgb (11.4-16.0) gm/dL Hct (34.0-46.0) % Neutrophils # (1.3-7.7) k/uL Sodium (137-145) mmol/L BUN (7-17) mg/dL Glucose (74-99) mg/dL POC Glucose (mg/dL) 127 H (75-99) mg/dL AST (14-36) U/L Total Protein (6.3-8.2) g/dL Albumin (3.5-5.0) g/dL Microbiology - Last 24 Hours (Table) 06/14/20 11:45 Gram Stain - Preliminary Other - Other Tissue Culture - Preliminary 06/14/20 11:45 Anaerobic Culture - Preliminary Other - Other - Imaging and Cardiology Chest x-ray: report reviewed, image reviewed Assessment and Plan Assessment: 1. Severe mitral valve regurgitation, status post mitral valve annuloplasty using a #30 mm [employer] AnnuloFlex band 2. History of bronchial asthma 3. History of hypertension 4. History of pulmonary hypertension 5. Obstructive sleep apnea without home CPAP use 6. Morbid obesity with history of lap band surgery 7. Abdominal aortic aneurysm measuring 4 cm 8. Lifetime nonsmoker 9. Postoperative acute blood loss anemia Plan: 1. Continue aspirin, statin, Plavix and beta wojciech. Will increase metoprolol tartrate as tolerated. 2. Wean O2 as tolerated. Encourage incentive spirometry use 10 times every hour while awake. Bronchodilators per pulmonology management. 3. Medistianal chest tube removed without incident. 4. Increase activity as tolerated. Up in chair for all meals, ambulate when able. PT/OT/cardiac rehab consulted. 5. Will monitor daily labs and chest x-rays. Electrolyte replacement per protocol. 6. Pain control with current medication regimen. Toradol has been added. 7. GI/DVT prophylaxis. 8. Insulin management per primary care service. 09. Discontinue cordis and srivastava, continue to monitor I&Os. Continue to monitor daily weights. 10. Ventricular epicardial pacing wires removed without incident. Bed rest for 1 hour post pacemaker wire removal. 11. Albumin 5% 250 ml given x1 now for marginal urine output. 12. Home dose of Norvasc and Prozac restarted. 13. Will transfer to cardiac stepdown today once bed available. 14. More recommendations to follow based on patient's clinical course. Time with Patient: Greater than 30
--- NOTE | 2020-06-15 15:40 | PN ---
PROGRESS NOTE Yoli is a 59-year-old lady who comes in with severe mitral regurgitation, underwent mitral valve repair. Today is postop day #2. She is doing well and is free of symptoms. Pacer wires were removed. Chest tubes will be taken out soon. PHYSICAL EXAM: Heart rate is 80 beats per minute, blood pressure is 104/57, respiratory rate is 18. Chest exam reveals good air entry bilaterally. Heart exam reveals first and second heart sounds. No gallop. Exam of extremities did not reveal any edema. LABS: Show a hemoglobin of 8.7, potassium is 4.1, creatinine is 0.8. Patient is currently on aspirin, Lipitor, Plavix and Lopressor. ASSESSMENT: Mitral regurgitation status post mitral valve repair. The patient is doing well. Hopefully home on Saturday. Follow up with Dr. Lord in the office. MMODL / IJN: [id number] /
[2020-06-15 16:50] LABS: Glucose,Whole Blood 136 mg/dL (75-99)
[2020-06-15] MEDS ORDERED: ACETAMINOPHEN TAB 500 MG TAB PO PRN (18:07)
[2020-06-15] MEDS: SENNOSIDES-DOCUSATE SODIUM 1 EACH TAB PO SCH (21:14)
[2020-06-15] MEDS: MONTELUKAST 10 MG TAB PO SCH (21:14)
[2020-06-15] MEDS: FLUoxetine HCL 20 MG CAP PO SCH (21:15)
[2020-06-15] MEDS: traMADol 50 MG TAB PO SCH (21:15)
[2020-06-15 21:31] LABS: Glucose,Whole Blood 122 mg/dL (75-99)
--- NOTE | 2020-06-15 23:19 | P.PN ---
Subjective Progress Note Date: 06/14/20 Principal diagnosis: Status post mitral valve repair with annuloplasty and removal of mitral leaflet plaque. Postoperative day 1 Patient is a 59-year-old female with a long history of hypertension, asthma, obstructive sleep apnea not on CPAP, abdominal aortic aneurysm 4 cm, recently diagnosed sarcoidosis, mitral valve prolapse with severe regurgitation, morbid obesity with BMI 40.8 and never smoker was admitted to hospital for mitral valve repair due to severe prolapse with regurgitation. Patient underwent elective mitral valve repair with removal of mitral leaflet plate and mitral annuloplasty with 30 mm ring. Perioperatively patient is intubated but currently extubated around 5:15 PM today. Patient still drowsy but awake alert and oriented. Patient is currently maintaining sinus rhythm. Not on pressor support. Laboratory data showed WBC 13.3, hemoglobin 10.1 and platelets 215 Sodium 136, potassium 4.1, chloride 107, bicarb is 25, BUN 713 and creatinine 0.57 Blood sugar is 140 Albumin 2.9 AST 53 ALT 23 and alk phos 42 Chest x-ray showed postoperative change with less than 5% left apical pneumothorax. 06/14/2020 Patient is currently sitting in the chair comfortably. Denies any complaints of chest pain or worsening shortness of her. Patient was given a dose of IV Lasix this morning. Currently saturating well on oxygen via nasal cannula. No fever no chills. Laboratory data showed hemoglobin 9.9, BUN 15 and creatinine 0.59 Sodium 134 Patient is being continued on Lopressor and aspirin, statins and Plavix. Continue breathing treatments. Pulmonary and CT surgery is following. Chest x-ray showed interval removal of endotracheal and enteric tubes. Enteric tubes and drains unchanged. Mildly decreased pulmonary vascular congestion postoperatively. No residual pneumothorax appreciated. Current medications reviewed. Objective - Vital Signs Vital signs: Vital Signs Temp 98.1 F 06/14/20 08:00 Pulse 80 06/14/20 09:00 Resp 14 06/14/20 09:00 BP 100/70 06/14/20 08:00 Pulse Ox 98 06/14/20 09:00 Intake & Output 06/13/20 06/14/20 06/14/20 18:59 06:59 18:59 Intake Total 4581.069 5619.391 187 Output Total 2496 640 125 Balance -1283.385 460.391 62 Weight 128.1 kg Intake: IV 404 848 187 CO CI 120 140 10 CVP/Jesse 24 108 27 Lactated Ringers 1,000 ml 200 600 150 @ 50 mls/hr IV .Q20H [facility] Rx#:[id number] Intake, IV Titration 808.615 252.391 Amount ACETAMINOPHEN IV (For NPO 100 100 ) 1,000 mg In Empty Bag 1 bag @ 400 mls/hr IVPB Q6H [facility] Rx#:[id number] Albumin Human 5% 250 ml 500 In Empty Bag 1 bag @ 250 mls/hr IVPB Q1H [facility] Rx#: [id number] Clevidipine Butyrate 25 11.133 17.249 mg In Empty Bag 1 bag @ 1 MG/HR 2 mls/hr IV .Q24H [facility] Rx#:[id number] Dexmedetomidine/0.9% NaCl 8.971 (Pmx) 400 mcg In Empty Bag 1 bag @ Titrate IV . Q0M [facility] Rx#:[id number] Insulin Regular 100 unit 6.174 26.210 In Sodium Chloride 0.9% 100 ml @ Per Protocol IV .Q0M [facility] Rx#:[id number] Lactated Ringers 1,000 ml 50 @ 50 mls/hr IV .Q20H [facility] Rx#:[id number] Milrinone-D5w Pmx 20 mg 41.819 8.932 In Dextrose/Water 1 100ml .bag @ 0.2 MCG/KG/MIN 7. 098 mls/hr IV .Q14H6M [facility] Rx#:[id number] ceFAZolin 2 gm In Sodium 50 100 Chloride 0.9% 50 ml @ 100 mls/hr IVPB Q8HR [facility] Rx# :[id number] propofoL 1,000 mg In 40.518 Empty Bag 1 bag @ Titrate IV .Q0M [facility] Rx#: [id number] Output: Chest Tube Drainage 59 202 50 Chest Tube Right Pleural/ 59 202 50 Mediastinal Urine 937 438 75 Estimated Blood Loss 1500 Other: Voiding Method Indwelling Catheter Indwelling Catheter ABP, PAP, CO, CI - Last Documented Arterial Blood Pressure 118/65 Pulmonary Artery Pressure 30/12 Cardiac Output 4.0 Cardiac Index 2.2 - Exam PHYSICAL EXAMINATION: Patient is lying in the bed comfortably, no acute distress, awake alert and oriented. HEENT: Normocephalic. Neck is supple. Pupils reactive. Nostrils clear. Oral cavity is moist. Ears reveal no drainage. Neck reveals no JVD, carotid bruits, or thyromegaly. CHEST EXAMINATION: Trachea is central. Symmetrical expansion. Midline surgical site is bandaged. Bibasilar diminished sounds. No wheezing. Lung santos clear to auscultation and percussion. CARDIAC: Normal S1, S2 with no gallops. No murmurs ABDOMEN: Soft. Bowel sounds normal. No organomegaly. No abdominal bruits. Extremities: trace edema. No clubbing or cyanosis Neurologically awake, alert, oriented x3 with well-coordinated movements. No focal deficits noted Skin: No rash or skin lesions. Psychiatric: Could not be assessed at this time. Musculoskeletal: No joint swelling or deformity. Normal range of motion. - Labs CBC & Chem 7: 06/15/20 04:45 06/15/20 04:45 Labs: Abnormal Lab Results - Last 24 Hours (Table) 06/09/20 06/13/20 06/13/20 Range/Units 14:00 08:38 09:26 WBC (3.8-10.6) k/uL RBC (3.80-5.40) m/uL Hgb (11.4-16.0) gm/dL Hct (34.0-46.0) % Neutrophils # (1.3-7.7) k/uL Lymphocytes # (1.0-4.8) k/uL ABG pH 7.33 L (7.35-7.45) ABG pCO2 46 H (35-45) mmHg ABG pO2 266 H 378 H (83-108) mmHg ABG HCO3 (21-25) mmol/L ABG Total CO2 25 H 25 H (19-24) mmol/L ABG O2 Saturation 99.9 H 100.0 H (94-97) % ABG Hematocrit 29 L (34.0-46.0) % ABG Potassium (3.4-4.5) mmol/L ABG Ionized Calcium 4.3 L (4.5-5.3) mg/dL ABG Glucose 140 H 237 H (75-99) mg/dL Hemoglobin 9.5 L (11.4-16.0) gm/dL Sodium (137-145) mmol/L Creatinine (0.52-1.04) mg/dL Glucose (74-99) mg/dL POC Glucose (mg/dL) (75-99) mg/dL Calcium (8.4-10.2) mg/dL Magnesium (1.6-2.3) mg/dL AST (14-36) U/L Total Protein (6.3-8.2) g/dL Albumin (3.5-5.0) g/dL Arterial Blood Potassium (3.4-4.5) mmol/L Arterial Blood Glucose 140 H 237 H (75-99) mg/dL Crossmatch See Detail 06/13/20 06/13/20 06/13/20 Range/Units 09:59 10:05 10:30 WBC (3.8-10.6) k/uL RBC (3.80-5.40) m/uL Hgb (11.4-16.0) gm/dL Hct (34.0-46.0) % Neutrophils # (1.3-7.7) k/uL Lymphocytes # (1.0-4.8) k/uL ABG pH 7.33 L (7.35-7.45) ABG pCO2 48 H (35-45) mmHg ABG pO2 318 H 365 H (83-108) mmHg ABG HCO3 20 L (21-25) mmol/L ABG Total CO2 27 H (19-24) mmol/L ABG O2 Saturation 100.0 H 100.0 H (94-97) % ABG Hematocrit 28 L 25 L (34.0-46.0) % ABG Potassium 4.8 H (3.4-4.5) mmol/L ABG Ionized Calcium 4.2 L 3.9 L (4.5-5.3) mg/dL ABG Glucose 164 H 228 H 201 H (75-99) mg/dL Hemoglobin 9.1 L 8.2 L (11.4-16.0) gm/dL Sodium (137-145) mmol/L Creatinine (0.52-1.04) mg/dL Glucose (74-99) mg/dL POC Glucose (mg/dL) (75-99) mg/dL Calcium (8.4-10.2) mg/dL Magnesium (1.6-2.3) mg/dL AST (14-36) U/L Total Protein (6.3-8.2) g/dL Albumin (3.5-5.0) g/dL Arterial Blood Potassium 4.8 H (3.4-4.5) mmol/L Arterial Blood Glucose 164 H 228 H 201 H (75-99) mg/dL Crossmatch 06/13/20 06/13/20 06/13/20 Range/Units 11:26 12:34 12:34 WBC 14.1 H (3.8-10.6) k/uL RBC 3.78 L (3.80-5.40) m/uL Hgb (11.4-16.0) gm/dL Hct (34.0-46.0) % Neutrophils # 12.4 H (1.3-7.7) k/uL Lymphocytes # 0.9 L (1.0-4.8) k/uL ABG pH 7.30 L (7.35-7.45) ABG pCO2 51 H (35-45) mmHg ABG pO2 >420 H (83-108) mmHg ABG HCO3 (21-25) mmol/L ABG Total CO2 26 H (19-24) mmol/L ABG O2 Saturation 100.0 H (94-97) % ABG Hematocrit 32 L (34.0-46.0) % ABG Potassium (3.4-4.5) mmol/L ABG Ionized Calcium 4.3 L (4.5-5.3) mg/dL ABG Glucose 145 H (75-99) mg/dL Hemoglobin 10.3 L (11.4-16.0) gm/dL Sodium 136 L (137-145) mmol/L Creatinine (0.52-1.04) mg/dL Glucose 136 H (74-99) mg/dL POC Glucose (mg/dL) (75-99) mg/dL Calcium 7.9 L (8.4-10.2) mg/dL Magnesium 2.7 H (1.6-2.3) mg/dL AST 53 H (14-36) U/L Total Protein 4.6 L (6.3-8.2) g/dL Albumin 2.9 L (3.5-5.0) g/dL Arterial Blood Potassium (3.4-4.5) mmol/L Arterial Blood Glucose 145 H (75-99) mg/dL Crossmatch 06/13/20 06/13/20 06/13/20 Range/Units 12:37 12:45 13:49 WBC (3.8-10.6) k/uL RBC (3.80-5.40) m/uL Hgb (11.4-16.0) gm/dL Hct (34.0-46.0) % Neutrophils # (1.3-7.7) k/uL Lymphocytes # (1.0-4.8) k/uL ABG pH 7.33 L (7.35-7.45) ABG pCO2 49 H (35-45) mmHg ABG pO2 330 H (83-108) mmHg ABG HCO3 26 H (21-25) mmol/L ABG Total CO2 27 H (19-24) mmol/L ABG O2 Saturation 99.8 H (94-97) % ABG Hematocrit (34.0-46.0) % ABG Potassium (3.4-4.5) mmol/L ABG Ionized Calcium (4.5-5.3) mg/dL ABG Glucose (75-99) mg/dL Hemoglobin (11.4-16.0) gm/dL Sodium (137-145) mmol/L Creatinine (0.52-1.04) mg/dL Glucose (74-99) mg/dL POC Glucose (mg/dL) 140 H 127 H (75-99) mg/dL Calcium (8.4-10.2) mg/dL Magnesium (1.6-2.3) mg/dL AST (14-36) U/L Total Protein (6.3-8.2) g/dL Albumin (3.5-5.0) g/dL Arterial Blood Potassium (3.4-4.5) mmol/L Arterial Blood Glucose (75-99) mg/dL Crossmatch 06/13/20 06/13/20 06/13/20 Range/Units 15:08 15:52 16:10 WBC (3.8-10.6) k/uL RBC (3.80-5.40) m/uL Hgb (11.4-16.0) gm/dL Hct (34.0-46.0) % Neutrophils # (1.3-7.7) k/uL Lymphocytes # (1.0-4.8) k/uL ABG pH 7.32 L (7.35-7.45) ABG pCO2 (35-45) mmHg ABG pO2 127 H (83-108) mmHg ABG HCO3 (21-25) mmol/L ABG Total CO2 (19-24) mmol/L ABG O2 Saturation 98.7 H (94-97) % ABG Hematocrit (34.0-46.0) % ABG Potassium (3.4-4.5) mmol/L ABG Ionized Calcium (4.5-5.3) mg/dL ABG Glucose (75-99) mg/dL Hemoglobin (11.4-16.0) gm/dL Sodium (137-145) mmol/L Creatinine (0.52-1.04) mg/dL Glucose (74-99) mg/dL POC Glucose (mg/dL) 188 H 173 H (75-99) mg/dL Calcium (8.4-10.2) mg/dL Magnesium (1.6-2.3) mg/dL AST (14-36) U/L Total Protein (6.3-8.2) g/dL Albumin (3.5-5.0) g/dL Arterial Blood Potassium (3.4-4.5) mmol/L Arterial Blood Glucose (75-99) mg/dL Crossmatch 06/13/20 06/13/20 06/13/20 Range/Units 16:55 16:55 18:19 WBC 13.3 H (3.8-10.6) k/uL RBC 3.24 L (3.80-5.40) m/uL Hgb 10.1 L (11.4-16.0) gm/dL Hct 30.2 L (34.0-46.0) % Neutrophils # 11.9 H (1.3-7.7) k/uL Lymphocytes # 0.8 L (1.0-4.8) k/uL ABG pH (7.35-7.45) ABG pCO2 (35-45) mmHg ABG pO2 (83-108) mmHg ABG HCO3 (21-25) mmol/L ABG Total CO2 (19-24) mmol/L ABG O2 Saturation (94-97) % ABG Hematocrit (34.0-46.0) % ABG Potassium (3.4-4.5) mmol/L ABG Ionized Calcium (4.5-5.3) mg/dL ABG Glucose (75-99) mg/dL Hemoglobin (11.4-16.0) gm/dL Sodium (137-145) mmol/L Creatinine (0.52-1.04) mg/dL Glucose (74-99) mg/dL POC Glucose (mg/dL) 204 H 175 H (75-99) mg/dL Calcium (8.4-10.2) mg/dL Magnesium (1.6-2.3) mg/dL AST (14-36) U/L Total Protein (6.3-8.2) g/dL Albumin (3.5-5.0) g/dL Arterial Blood Potassium (3.4-4.5) mmol/L Arterial Blood Glucose (75-99) mg/dL Crossmatch 06/13/20 06/13/20 06/13/20 Range/Units 19:09 20:11 20:55 WBC (3.8-10.6) k/uL RBC (3.80-5.40) m/uL Hgb (11.4-16.0) gm/dL Hct (34.0-46.0) % Neutrophils # (1.3-7.7) k/uL Lymphocytes # (1.0-4.8) k/uL ABG pH (7.35-7.45) ABG pCO2 (35-45) mmHg ABG pO2 (83-108) mmHg ABG HCO3 (21-25) mmol/L ABG Total CO2 (19-24) mmol/L ABG O2 Saturation (94-97) % ABG Hematocrit (34.0-46.0) % ABG Potassium (3.4-4.5) mmol/L ABG Ionized Calcium (4.5-5.3) mg/dL ABG Glucose (75-99) mg/dL Hemoglobin (11.4-16.0) gm/dL Sodium (137-145) mmol/L Creatinine (0.52-1.04) mg/dL Glucose (74-99) mg/dL POC Glucose (mg/dL) 175 H 164 H 152 H (75-99) mg/dL Calcium (8.4-10.2) mg/dL Magnesium (1.6-2.3) mg/dL AST (14-36) U/L Total Protein (6.3-8.2) g/dL Albumin (3.5-5.0) g/dL Arterial Blood Potassium (3.4-4.5) mmol/L Arterial Blood Glucose (75-99) mg/dL Crossmatch 06/13/20 06/13/20 06/13/20 Range/Units 22:00 22:15 22:15 WBC 11.1 H (3.8-10.6) k/uL RBC 3.32 L (3.80-5.40) m/uL Hgb 9.9 L (11.4-16.0) gm/dL Hct 30.6 L (34.0-46.0) % Neutrophils # (1.3-7.7) k/uL Lymphocytes # (1.0-4.8) k/uL ABG pH (7.35-7.45) ABG pCO2 (35-45) mmHg ABG pO2 (83-108) mmHg ABG HCO3 (21-25) mmol/L ABG Total CO2 (19-24) mmol/L ABG O2 Saturation (94-97) % ABG Hematocrit (34.0-46.0) % ABG Potassium (3.4-4.5) mmol/L ABG Ionized Calcium (4.5-5.3) mg/dL ABG Glucose (75-99) mg/dL Hemoglobin (11.4-16.0) gm/dL Sodium 136 L (137-145) mmol/L Creatinine 0.48 L (0.52-1.04) mg/dL Glucose 126 H (74-99) mg/dL POC Glucose (mg/dL) 131 H (75-99) mg/dL Calcium 7.9 L (8.4-10.2) mg/dL Magnesium (1.6-2.3) mg/dL AST (14-36) U/L Total Protein (6.3-8.2) g/dL Albumin (3.5-5.0) g/dL Arterial Blood Potassium (3.4-4.5) mmol/L Arterial Blood Glucose (75-99) mg/dL Crossmatch 06/13/20 06/14/20 06/14/20 Range/Units 23:05 00:18 00:59 WBC (3.8-10.6) k/uL RBC (3.80-5.40) m/uL Hgb (11.4-16.0) gm/dL Hct (34.0-46.0) % Neutrophils # (1.3-7.7) k/uL Lymphocytes # (1.0-4.8) k/uL ABG pH (7.35-7.45) ABG pCO2 (35-45) mmHg ABG pO2 (83-108) mmHg ABG HCO3 (21-25) mmol/L ABG Total CO2 (19-24) mmol/L ABG O2 Saturation (94-97) % ABG Hematocrit (34.0-46.0) % ABG Potassium (3.4-4.5) mmol/L ABG Ionized Calcium (4.5-5.3) mg/dL ABG Glucose (75-99) mg/dL Hemoglobin (11.4-16.0) gm/dL Sodium (137-145) mmol/L Creatinine (0.52-1.04) mg/dL Glucose (74-99) mg/dL POC Glucose (mg/dL) 126 H 123 H 130 H (75-99) mg/dL Calcium (8.4-10.2) mg/dL Magnesium (1.6-2.3) mg/dL AST (14-36) U/L Total Protein (6.3-8.2) g/dL Albumin (3.5-5.0) g/dL Arterial Blood Potassium (3.4-4.5) mmol/L Arterial Blood Glucose (75-99) mg/dL Crossmatch 06/14/20 06/14/20 06/14/20 Range/Units 02:12 04:05 04:05 WBC (3.8-10.6) k/uL RBC 3.29 L (3.80-5.40) m/uL Hgb 9.9 L (11.4-16.0) gm/dL Hct 30.4 L (34.0-46.0) % Neutrophils # 8.2 H (1.3-7.7) k/uL Lymphocytes # (1.0-4.8) k/uL ABG pH (7.35-7.45) ABG pCO2 (35-45) mmHg ABG pO2 (83-108) mmHg ABG HCO3 (21-25) mmol/L ABG Total CO2 (19-24) mmol/L ABG O2 Saturation (94-97) % ABG Hematocrit (34.0-46.0) % ABG Potassium (3.4-4.5) mmol/L ABG Ionized Calcium (4.5-5.3) mg/dL ABG Glucose (75-99) mg/dL Hemoglobin (11.4-16.0) gm/dL Sodium 134 L (137-145) mmol/L Creatinine (0.52-1.04) mg/dL Glucose 124 H (74-99) mg/dL POC Glucose (mg/dL) 130 H (75-99) mg/dL Calcium 8.2 L (8.4-10.2) mg/dL Magnesium 2.4 H (1.6-2.3) mg/dL AST 54 H (14-36) U/L Total Protein 5.1 L (6.3-8.2) g/dL Albumin 3.4 L (3.5-5.0) g/dL Arterial Blood Potassium (3.4-4.5) mmol/L Arterial Blood Glucose (75-99) mg/dL Crossmatch 06/14/20 06/14/20 06/14/20 Range/Units 04:09 06:44 08:06 WBC (3.8-10.6) k/uL RBC (3.80-5.40) m/uL Hgb (11.4-16.0) gm/dL Hct (34.0-46.0) % Neutrophils # (1.3-7.7) k/uL Lymphocytes # (1.0-4.8) k/uL ABG pH (7.35-7.45) ABG pCO2 (35-45) mmHg ABG pO2 (83-108) mmHg ABG HCO3 (21-25) mmol/L ABG Total CO2 (19-24) mmol/L ABG O2 Saturation (94-97) % ABG Hematocrit (34.0-46.0) % ABG Potassium (3.4-4.5) mmol/L ABG Ionized Calcium (4.5-5.3) mg/dL ABG Glucose (75-99) mg/dL Hemoglobin (11.4-16.0) gm/dL Sodium (137-145) mmol/L Creatinine (0.52-1.04) mg/dL Glucose (74-99) mg/dL POC Glucose (mg/dL) 136 H 129 H 134 H (75-99) mg/dL Calcium (8.4-10.2) mg/dL Magnesium (1.6-2.3) mg/dL AST (14-36) U/L Total Protein (6.3-8.2) g/dL Albumin (3.5-5.0) g/dL Arterial Blood Potassium (3.4-4.5) mmol/L Arterial Blood Glucose (75-99) mg/dL Crossmatch 06/14/20 Range/Units 09:16 WBC (3.8-10.6) k/uL RBC (3.80-5.40) m/uL Hgb (11.4-16.0) gm/dL Hct (34.0-46.0) % Neutrophils # (1.3-7.7) k/uL Lymphocytes # (1.0-4.8) k/uL ABG pH (7.35-7.45) ABG pCO2 (35-45) mmHg ABG pO2 (83-108) mmHg ABG HCO3 (21-25) mmol/L ABG Total CO2 (19-24) mmol/L ABG O2 Saturation (94-97) % ABG Hematocrit (34.0-46.0) % ABG Potassium (3.4-4.5) mmol/L ABG Ionized Calcium (4.5-5.3) mg/dL ABG Glucose (75-99) mg/dL Hemoglobin (11.4-16.0) gm/dL Sodium (137-145) mmol/L Creatinine (0.52-1.04) mg/dL Glucose (74-99) mg/dL POC Glucose (mg/dL) 130 H (75-99) mg/dL Calcium (8.4-10.2) mg/dL Magnesium (1.6-2.3) mg/dL AST (14-36) U/L Total Protein (6.3-8.2) g/dL Albumin (3.5-5.0) g/dL Arterial Blood Potassium (3.4-4.5) mmol/L Arterial Blood Glucose (75-99) mg/dL Crossmatch Assessment and Plan Assessment: Status post mitral valve repair with annuloplasty and removal of mitral leaflet plaque. Postoperative day 1 Severe mitral regurgitation with mitral valve prolapse Perioperative mechanical ventilation currently extubated. Pulmonary sarcoidosis. Currently on hydroxychloroquine and prednisone at home No prior history of smoking. Hypertension GERD Osteoarthritis Obstructive sleep apnea not on CPAP at home Abdominal aortic aneurysm 4 mm in size Morbid obesity with BMI 40.8. History of lap band surgery DVT prophylaxis Plan: Patient is currently being managed in the MICU. Currently extubated. Patient was given stress dose steroids with IV hydrocortisone before surgery. Chest x- ray showed 5% apical pneumothorax. Follow-up repeat chest x-ray No residual pneumothorax appreciated.. Pulmonary is on board. Continued with insulin drip for better blood sugar control. changed to SSI- Continue on home blood pressure medications and follow-up closely. Continue with aspirin, Plavix statins, Norvasc. Dced amiodarone drip. CT surgery is following. Further recommendations based on the clinical course. We will continue to follow with you.
--- NOTE | 2020-06-15 23:21 | P.PN ---
Subjective Progress Note Date: 06/15/20 Principal diagnosis: Status post mitral valve repair with annuloplasty and removal of mitral leaflet plaque. Postoperative day 1 Patient is a 59-year-old female with a long history of hypertension, asthma, obstructive sleep apnea not on CPAP, abdominal aortic aneurysm 4 cm, recently diagnosed sarcoidosis, mitral valve prolapse with severe regurgitation, morbid obesity with BMI 40.8 and never smoker was admitted to hospital for mitral valve repair due to severe prolapse with regurgitation. Patient underwent elective mitral valve repair with removal of mitral leaflet plate and mitral annuloplasty with 30 mm ring. Perioperatively patient is intubated but currently extubated around 5:15 PM today. Patient still drowsy but awake alert and oriented. Patient is currently maintaining sinus rhythm. Not on pressor support. Laboratory data showed WBC 13.3, hemoglobin 10.1 and platelets 215 Sodium 136, potassium 4.1, chloride 107, bicarb is 25, BUN 713 and creatinine 0.57 Blood sugar is 140 Albumin 2.9 AST 53 ALT 23 and alk phos 42 Chest x-ray showed postoperative change with less than 5% left apical pneumothorax. 06/14/2020 Patient is currently sitting in the chair comfortably. Denies any complaints of chest pain or worsening shortness of her. Patient was given a dose of IV Lasix this morning. Currently saturating well on oxygen via nasal cannula. No fever no chills. Laboratory data showed hemoglobin 9.9, BUN 15 and creatinine 0.59 Sodium 134 Patient is being continued on Lopressor and aspirin, statins and Plavix. Continue breathing treatments. Pulmonary and CT surgery is following. Chest x-ray showed interval removal of endotracheal and enteric tubes. Enteric tubes and drains unchanged. Mildly decreased pulmonary vascular congestion postoperatively. No residual pneumothorax appreciated. 06/15/2020 Patient is currently sitting in the chair comfortably. No complaints of chest pain or worsening shortness of breath. No leg swelling noted. Patient is being titrated down to room air currently. Laboratory showed hemoglobin 8.7 BUN 21 creatinine 0.83 AST 39 and ALT 14 alk phos 39 blood sugar is controlled with insulin sliding scale. Chest x-ray showed no acute complication status post chest tube removal. Probably left lower lobe atelectasis. Encouraged with incentive spirometry. Current medications reviewed. Objective - Vital Signs Vital signs: Vital Signs Temp 98.1 F 06/15/20 16:02 Pulse 96 06/15/20 20:45 Resp 17 06/15/20 18:00 BP 100/69 06/15/20 17:00 Pulse Ox 96 06/15/20 18:00 Intake & Output 06/15/20 06/15/20 06/16/20 06:59 18:59 06:59 Intake Total 542 610 240 Output Total 828 330 200 Balance -286 280 40 Weight 128.6 kg Intake: IV 72 30 CVP/Jesse 72 30 Intake, IV Titration 470 330 Amount Albumin Human 5% 250 ml 250 In Empty Bag 1 bag @ 250 mls/hr IVPB ONCE ONE Rx#: [id number] Albumin Human 5% 250 ml 250 In Empty Bag 1 bag @ 250 mls/hr IVPB Q1HR PRN Rx#: [id number] Sodium Chloride 0.9% 1, 220 80 000 ml @ 20 mls/hr IV . Q24H [facility] Rx#:[id number] Oral 250 240 Output: Chest Tube Drainage 120 Mediastinal 120 Urine 708 330 200 Other: Voiding Method Indwelling Catheter Indwelling Catheter Indwelling Catheter ABP, PAP, CO, CI - Last Documented Arterial Blood Pressure 104/57 Pulmonary Artery Pressure 28/6 Cardiac Output 5.3 Cardiac Index 2.4 - Exam PHYSICAL EXAMINATION: Patient is lying in the bed comfortably, no acute distress, awake alert and oriented. HEENT: Normocephalic. Neck is supple. Pupils reactive. Nostrils clear. Oral cavity is moist. Ears reveal no drainage. Neck reveals no JVD, carotid bruits, or thyromegaly. CHEST EXAMINATION: Trachea is central. Symmetrical expansion. Midline surgical site is bandaged. Bibasilar diminished sounds. No wheezing. Lung santos clear to auscultation and percussion. CARDIAC: Normal S1, S2 with no gallops. No murmurs ABDOMEN: Soft. Bowel sounds normal. No organomegaly. No abdominal bruits. Extremities: trace edema. No clubbing or cyanosis Neurologically awake, alert, oriented x3 with well-coordinated movements. No focal deficits noted Skin: No rash or skin lesions. Psychiatric: Could not be assessed at this time. Musculoskeletal: No joint swelling or deformity. Normal range of motion. - Labs CBC & Chem 7: 06/15/20 04:45 06/15/20 04:45 Labs: Abnormal Lab Results - Last 24 Hours (Table) 06/15/20 06/15/20 06/15/20 Range/Units 04:45 04:45 04:52 WBC 11.9 H (3.8-10.6) k/uL RBC 2.89 L (3.80-5.40) m/uL Hgb 8.7 L (11.4-16.0) gm/dL Hct 27.0 L (34.0-46.0) % Neutrophils # 9.0 H (1.3-7.7) k/uL Sodium 134 L (137-145) mmol/L BUN 21 H (7-17) mg/dL Glucose 123 H (74-99) mg/dL POC Glucose (mg/dL) 142 H (75-99) mg/dL AST 39 H (14-36) U/L Total Protein 5.0 L (6.3-8.2) g/dL Albumin 3.3 L (3.5-5.0) g/dL 06/15/20 06/15/20 06/15/20 Range/Units 06:46 12:43 16:49 WBC (3.8-10.6) k/uL RBC (3.80-5.40) m/uL Hgb (11.4-16.0) gm/dL Hct (34.0-46.0) % Neutrophils # (1.3-7.7) k/uL Sodium (137-145) mmol/L BUN (7-17) mg/dL Glucose (74-99) mg/dL POC Glucose (mg/dL) 144 H 127 H 136 H (75-99) mg/dL AST (14-36) U/L Total Protein (6.3-8.2) g/dL Albumin (3.5-5.0) g/dL 06/15/20 Range/Units 21:29 WBC (3.8-10.6) k/uL RBC (3.80-5.40) m/uL Hgb (11.4-16.0) gm/dL Hct (34.0-46.0) % Neutrophils # (1.3-7.7) k/uL Sodium (137-145) mmol/L BUN (7-17) mg/dL Glucose (74-99) mg/dL POC Glucose (mg/dL) 122 H (75-99) mg/dL AST (14-36) U/L Total Protein (6.3-8.2) g/dL Albumin (3.5-5.0) g/dL Microbiology - Last 24 Hours (Table) 06/14/20 11:45 Gram Stain - Preliminary Other - Other Tissue Culture - Preliminary 06/14/20 11:45 Anaerobic Culture - Preliminary Other - Other Assessment and Plan Assessment: Status post mitral valve repair with annuloplasty and removal of mitral leaflet plaque. Postoperative day 2 Mild acute blood loss anemia expected from surgery Severe mitral regurgitation with mitral valve prolapse Perioperative mechanical ventilation currently extubated. Pulmonary sarcoidosis. Currently on hydroxychloroquine and prednisone at home No prior history of smoking. Hypertension GERD Osteoarthritis Obstructive sleep apnea not on CPAP at home Abdominal aortic aneurysm 4 mm in size Morbid obesity with BMI 40.8. History of lap band surgery DVT prophylaxis Plan: Patient is currently being managed in the MICU. Currently extubated. Patient was given stress dose steroids with IV hydrocortisone before surgery. Chest x- ray showed 5% apical pneumothorax. Follow-up repeat chest x-ray No residual pneumothorax appreciated.. Pulmonary is on board. Continued with insulin drip for better blood sugar control. changed to SSI- Continue on home blood pressure medications and follow-up closely. Continue with aspirin, Plavix statins, Norvasc. Dced amiodarone drip. CT surgery is following. Further recommendations based on the clinical course. We will continue to follow with you.
[2020-06-16] MEDS: KETOROLAC 30 MG/ML 1 ML VIAL IVP SCH ×5 (02:01→22:59)
[2020-06-16] MEDS: ONDANSETRON 4 MG/2 ML VIAL IVP PRN (02:05)
[2020-06-16 03:12] LABS: Basophils % (A) 0 %; Eosinophils # (A) 0.5 k/uL (0-0.7); Eosinophils % (A) 4 %; HCT 26.9 % (34.0-46.0); HGB 8.8 gm/dL (11.4-16.0); Lymphocytes # (A) 1.5 k/uL (1.0-4.8); Lymphocytes % (A) 12 %; MCH 30.8 pg (25.0-35.0); MCHC 32.5 g/dL (31.0-37.0); MCV 94.7 fL (80.0-100.0); Mean Platelet Volume 7.5; Monocytes # (A) 0.8 k/uL (0-1.0); Monocytes % (A) 7 %; Neutrophils # (A) 9.3 k/uL (1.3-7.7); Neutrophils % (A) 76 %; Platelet Count 191 k/uL (150-450); RBC 2.84 m/uL (3.80-5.40); RDW 14.9 % (11.5-15.5); WBC 12.3 k/uL (3.8-10.6)
[2020-06-16 03:48] LABS: ALT 14 U/L (4-34); AST 31 U/L (14-36); African American GFR (CKD) >90 (>60 ml/min/1.73 sqM); Albumin 3.4 g/dL (3.5-5.0); Alkaline Phosphatase 44 U/L (38-126); Anion Gap 7 mmol/L; Blood Urea Nitrogen 25 mg/dL (7-17); Calcium 8.5 mg/dL (8.4-10.2); Carbon Dioxide 22 mmol/L (22-30); Chloride 104 mmol/L (98-107); Glucose 136 mg/dL (74-99); Non-African American GFR(CKD) 82 (>60 ml/min/1.73 sqM); Potassium 4.2 mmol/L (3.5-5.1); Sodium 133 mmol/L (137-145); Total Bilirubin 0.4 mg/dL (0.2-1.3); Total Protein 5.2 g/dL (6.3-8.2)
[2020-06-16] MEDS: PANTOPRAZOLE 40 MG TABLET PO SCH (06:49)
[2020-06-16] MEDS: HEPARIN SODIUM,PORCINE 5,000 UNIT/ML 1 ML VIAL SQ SCH ×3 (06:49→20:37)
[2020-06-16] MEDS: INSULIN ASPART (NovoLOG) 100 UNIT/ML VIAL SQ SCH ×4 (07:01→20:37)
[2020-06-16 07:02] LABS: Glucose,Whole Blood 138 mg/dL (75-99)
[2020-06-16] MEDS: IPRATROPIUM-ALBUTEROL 3 ML NEB INHALATION SCH ×4 (07:08→20:11)
--- NOTE | 2020-06-16 07:26 | XR ---
EXAMINATION TYPE: XR chest 2V DATE OF EXAM: 06/16/2020 COMPARISON: Prior chest x-ray 06/15/2020 HISTORY: Status post mitral valve replacement TECHNIQUE: Frontal and lateral views of the chest are obtained. FINDINGS: Patient is post median sternotomy and left atrial appendage clipping placement, heart adina ins enlarged. Patchy and like area of increased attenuation present in the right midlung, subsegmenta l basilar atelectatic changes are present. Central vascularity appears mildly prominent. Median guerin al drain has been removed. IMPRESSION: Cardiomegaly, atelectasis. No evident complication status post chest tube removal.
--- NOTE | 2020-06-16 08:55 | P.PN ---
Subjective Progress Note Date: 06/16/20 Principal diagnosis: Severe mitral valve regurgitation. Previous medical history of hypertension, pulmonary hypertension, bronchial asthma, obstructive sleep apnea without home CPAP use, sarcoidosis, morbid obesity with a KS of 44.2 kg/m, osteoarthritis and history of abdominal aortic aneurysm measuring 4 cm. POD #3 complex mitral valve repair with ring annuloplasty using a #30 mm [employer] AnnuloFlex band, removal of masses/deposits on anterior and posterior mitral leaflets, clip ligation of the left atrial appendage with a 35 mm Atriclip and intraoperative transesophageal echocardiogram. Postoperative acute blood loss anemia, an expected outcome due to cardiopulmo nary bypass and hemodilution. Postoperative atrial fibrillation with rapid ventricular response, unexpected the potential outcome of heart surgery The patient is currently sitting up in a recliner in the intensive care unit in no acute distress eating breakfast. She states pain is well controlled on current medication regimen, denies shortness of breath. She has been up and ambulatory in the hallway multiple times with minimal assistance. All lines and tubes were removed yesterday. She did have an episode of atrial fibrillation last night and was started on amiodarone protocol, currently in normal sinus rhythm and hemodynamically stable. No new concerns. Objective - Vital Signs Vital signs: Vital Signs Temp 98.4 F 06/16/20 04:00 Pulse 76 06/16/20 07:21 Resp 16 06/16/20 04:00 BP 101/69 06/16/20 04:00 Pulse Ox 95 06/16/20 04:00 Intake & Output 06/15/20 06/16/20 06/16/20 18:59 06:59 18:59 Intake Total 610 240 Output Total 330 300 Balance 280 -60 Intake: IV 30 CVP/Jesse 30 Intake, IV Titration 330 Amount Albumin Human 5% 250 ml 250 In Empty Bag 1 bag @ 250 mls/hr IVPB ONCE ONE Rx#: [id number] Sodium Chloride 0.9% 1, 80 000 ml @ 20 mls/hr IV . Q24H [facility] Rx#:[id number] Oral 250 240 Output: Urine 330 300 Other: Voiding Method Indwelling Catheter Indwelling Catheter ABP, PAP, CO, CI - Last Documented Arterial Blood Pressure 104/57 Pulmonary Artery Pressure 28/6 Cardiac Output 5.3 Cardiac Index 2.4 - Constitutional General appearance: Present: cooperative, no acute distress, obese - Respiratory Details: Lungs sounds diminished bilaterally with coarse sounds in the base. Respirations even, nonlabored. Oxygen saturation 93% on room air. Able to achieve 750 mL on incentive spirometry. Strong, dry cough. - Cardiovascular Details: S1, S2 present. Regular rate and rhythm, sinus rhythm on telemetry. Sternum stable. Palpable peripheral pulses bilaterally. Trace bilateral lower extremity edema present. No calf pain or tenderness noted. Heart hugger in place with patient demonstrating appropriate use. Antiembolism stockings, SCDs present. - Gastrointestinal Gastrointestinal Comment(s): Abdomen soft, nontender, nondistended. Active bowel sounds present 4 quadrants. Tolerating diet. Positive flatus, negative bowel movement - Genitourinary Genitourinary Comment(s): Olson discontinued yesterday. Continues to void clear, yellow urine - Integumentary Integumentary Comment(s): Skin is warm and dry with evidence of good perfusion. Anterior chest incision well approximated and covered with dry intact dressing. - Neurologic Neurologic: Present: CNII-XII intact - Musculoskeletal Musculoskeletal: Present: gait normal, strength equal bilaterally - Psychiatric Psychiatric: Present: A&O x's 3, appropriate affect, intact judgment & insight - Allied health notes Allied health notes reviewed: nursing - Labs CBC & Chem 7: 06/16/20 02:59 06/16/20 02:59 Labs: Abnormal Lab Results - Last 24 Hours (Table) 06/15/20 06/15/20 06/15/20 Range/Units 12:43 16:49 21:29 WBC (3.8-10.6) k/uL RBC (3.80-5.40) m/uL Hgb (11.4-16.0) gm/dL Hct (34.0-46.0) % Neutrophils # (1.3-7.7) k/uL Sodium (137-145) mmol/L BUN (7-17) mg/dL Glucose (74-99) mg/dL POC Glucose (mg/dL) 127 H 136 H 122 H (75-99) mg/dL Magnesium (1.6-2.3) mg/dL Total Protein (6.3-8.2) g/dL Albumin (3.5-5.0) g/dL 06/16/20 06/16/20 06/16/20 Range/Units 02:59 02:59 02:59 WBC 12.3 H (3.8-10.6) k/uL RBC 2.84 L (3.80-5.40) m/uL Hgb 8.8 L (11.4-16.0) gm/dL Hct 26.9 L (34.0-46.0) % Neutrophils # 9.3 H (1.3-7.7) k/uL Sodium 133 L (137-145) mmol/L BUN 25 H (7-17) mg/dL Glucose 136 H (74-99) mg/dL POC Glucose (mg/dL) (75-99) mg/dL Magnesium 2.5 H (1.6-2.3) mg/dL Total Protein 5.2 L (6.3-8.2) g/dL Albumin 3.4 L (3.5-5.0) g/dL 06/16/20 Range/Units 07:00 WBC (3.8-10.6) k/uL RBC (3.80-5.40) m/uL Hgb (11.4-16.0) gm/dL Hct (34.0-46.0) % Neutrophils # (1.3-7.7) k/uL Sodium (137-145) mmol/L BUN (7-17) mg/dL Glucose (74-99) mg/dL POC Glucose (mg/dL) 138 H (75-99) mg/dL Magnesium (1.6-2.3) mg/dL Total Protein (6.3-8.2) g/dL Albumin (3.5-5.0) g/dL Microbiology - Last 24 Hours (Table) 06/14/20 11:45 Gram Stain - Preliminary Other - Other Tissue Culture - Preliminary - Imaging and Cardiology Chest x-ray: report reviewed, image reviewed Assessment and Plan Assessment: 1. Severe mitral valve regurgitation, status post mitral valve annuloplasty using a #30 mm [employer] AnnuloFlex band 2. History of bronchial asthma 3. History of hypertension 4. History of pulmonary hypertension 5. Obstructive sleep apnea without home CPAP use 6. Morbid obesity with history of lap band surgery 7. Abdominal aortic aneurysm measuring 4 cm 8. Lifetime nonsmoker 9. Postoperative acute blood loss anemia 10. Postoperative atrial fibrillation, status post clip ligation of the left atrial appendage Plan: 1. Continue aspirin, statin, Plavix and beta wojciech. Will increase metoprolol tartrate as tolerated. 2. Continue amiodarone. Will transition to oral amiodarone. No anticoagulation unless atrial fibrillation greater than 24 hours 3. Encourage incentive spirometry use 10 times every hour while awake. Bronchodilators, steroids per pulmonology management. 4. Increase activity as tolerated. Up in chair for all meals, ambulate when able. PT/OT/cardiac rehab consulted. 5. Will monitor daily labs and chest x-rays. Electrolyte replacement per protocol. 6. Pain control with current medication regimen. 7. GI/DVT prophylaxis. 8. Insulin management per primary care service. 9. Continue to monitor I&Os. Continue to monitor daily weights. 10. Transfer orders placed yesterday for cardiac stepdown unit, may transfer when bed available 11. Discharge planning in progress. Anticipate discharge to home with home care in the next 24 hours 12. More recommendations to follow Time with Patient: Greater than 30
[2020-06-16] MEDS: ATORVASTATIN 40 MG TAB PO SCH (09:23)
[2020-06-16] MEDS: MULTIVITAMINS, THERA 1 EACH TAB PO SCH (09:23)
[2020-06-16] MEDS: predniSONE 10 MG TAB PO SCH (09:23)
[2020-06-16] MEDS: ASPIRIN 325 MG TAB PO SCH (09:23)
[2020-06-16] MEDS: CLOPIDOGREL 75 MG TAB PO SCH (09:23)
[2020-06-16] MEDS: AMIODARONE 200 MG TAB PO SCH ×2 (09:24→20:36)
[2020-06-16] MEDS: MUPIROCIN 2% OINT 22 GM TUBE NASAL SCH (09:24)
[2020-06-16] MEDS: METOPROLOL TARTRATE 25 MG TAB PO SCH ×2 (09:24→20:37)
[2020-06-16] MEDS: traMADol 50 MG TAB PO SCH ×3 (09:24→20:44)
--- NOTE | 2020-06-16 09:27 | CONS ---
ANGELY Kent is a 59-year-old lady who is admitted to hospital with severe mitral regurgitation for mitral valve repair. The patient is doing well this morning but had an episode of atrial fibrillation, required intravenous amiodarone following which she converted to sinus rhythm. PHYSICAL EXAM: Today heart rate is 76 beats per minute. Blood pressure is 101/60, respiratory rate 18. There is no jugular venous distention. Carotid upstroke is normal. Chest exam reveals good air entry bilaterally. Heart exam reveals first and second heart sounds. No gallop. No murmur. Abdomen is soft. Exam of the extremities did not reveal any edema. Peripheral pulses are felt. LABS: Show a hemoglobin of 8.8, platelet count is 190, potassium is 4.2, creatinine is 0.8. Chest x-ray shows mild cardiomegaly with atelectasis. ASSESSMENT: 1. Mitral regurgitation status post mitral valve repair. 2. Postoperative atrial fibrillation. PLAN: Patient is doing well. Remains in sinus rhythm this morning. Advised to do incentive spirometry. Hopefully home tomorrow. MMODL / IJN: [id number] /
[2020-06-16] MEDS: AMIODARONE 300 MG in DEXTROSE 5% IN WATER 250 ML IV PRN ×4 (09:48→20:26)
[2020-06-16 11:41] LABS: Glucose,Whole Blood 120 mg/dL (75-99)
--- NOTE | 2020-06-16 12:18 | PN ---
PROGRESS NOTE PULMONARY/CRITICAL CARE PROGRESS NOTE: DATE OF SERVICE: 06/16/2020 This is a 59-year-old female with a history of multiple medical problems including asthma, pulmonary hypertension, sleep apnea, obesity, and inactive sarcoidosis to name a few. In addition, she has a history of mitral valve prolapse with regurgitation. She is postop day #3, status post mitral valve repair secondary to the mitral valve prolapse and regurgitation. Dr. Kirby did the surgery. She was weaned and extubated quickly after the operation. Currently, she is doing very well. She is not receiving any IV fluids. She is getting no supplemental oxygen. The patient is getting amiodarone at 1 mg/minute. That will be turned off shortly. Chest x-ray shows left basilar atelectasis. Chest tubes are out. Olson catheter is out. She has no major complaints today and is doing very well. The plan is to have maybe get her discharged tomorrow. Current vital signs are reviewed, temperature is 97.8, heart rate 78, respiratory rate 20, blood pressure 94/63 mean 73, room air saturation 95%. Appears in no acute distress. HEENT: Examination is grossly unremarkable. Mucous membranes are moist. NECK: Supple. Full range of motion. No adenopathy. Neck veins are flat. CARDIOVASCULAR: Examination reveals regular rhythm and rate. Heart rate is 70. S1, S2 normal. LUNGS: Reveal clear breath sounds. No wheezes, rhonchi, or crackles. ABDOMEN: Soft, but obese. Bowel sounds are heard. EXTREMITIES; Intact. No cyanosis, clubbing, or edema. SKIN: Without rash. NEUROLOGIC: Examination is nonfocal. Chest x-ray shows some left basilar atelectasis. LABS: Reviewed. White count 12.3, hemoglobin 8.8, hematocrit 26.9, platelet count 191.000. Sodium 133, potassium 4.2, chloride 104, CO2 is 22, anion gap is 7. BUN and creatinine were 25 and 0.8. Rest of the labs look okay. Microbiology is currently negative. Medications are reviewed. ASSESSMENT: 1. 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 2. Routine postoperative ventilator management with extubation on June 13. 3. Mild intermittent bronchial asthma. 4. Inactive pulmonary sarcoidosis, previous on hydroxychloroquine/prednisone. 5. Pulmonary hypertension. 6. Essential hypertension. 7. Gastroesophageal reflux disease. 8. Osteoarthritis. 9. Sleep apnea syndrome. 10.Aortic aneurysm. 11.Obesity. 12.Lifetime nonsmoker. PLAN: Overall, the patient is doing well. She did have an episode of atrial fibrillation. She was started on amiodarone at 1 mg/minute. That is currently now off. She is not receiving any supplemental oxygen. Chest tube is out. Olson catheter has been discontinued. She may be discharged home tomorrow. No additional recommendations are made. Prognosis is guarded. MMODL / IJN: [id number] /
[2020-06-16 16:26] LABS: Glucose,Whole Blood 132 mg/dL (75-99)
[2020-06-16 20:26] LABS: Glucose,Whole Blood 134 mg/dL (75-99)
[2020-06-16] MEDS: SENNOSIDES-DOCUSATE SODIUM 1 EACH TAB PO SCH (20:36)
[2020-06-16] MEDS: FLUoxetine HCL 20 MG CAP PO SCH (20:37)
[2020-06-16] MEDS: MONTELUKAST 10 MG TAB PO SCH (20:37)
--- NOTE | 2020-06-16 23:00 | P.PN ---
Subjective Progress Note Date: 06/16/20 Principal diagnosis: Status post mitral valve repair with annuloplasty and removal of mitral leaflet plaque. Postoperative day 1 Patient is a 59-year-old female with a long history of hypertension, asthma, obstructive sleep apnea not on CPAP, abdominal aortic aneurysm 4 cm, recently diagnosed sarcoidosis, mitral valve prolapse with severe regurgitation, morbid obesity with BMI 40.8 and never smoker was admitted to hospital for mitral valve repair due to severe prolapse with regurgitation. Patient underwent elective mitral valve repair with removal of mitral leaflet plate and mitral annuloplasty with 30 mm ring. Perioperatively patient is intubated but currently extubated around 5:15 PM today. Patient still drowsy but awake alert and oriented. Patient is currently maintaining sinus rhythm. Not on pressor support. Laboratory data showed WBC 13.3, hemoglobin 10.1 and platelets 215 Sodium 136, potassium 4.1, chloride 107, bicarb is 25, BUN 713 and creatinine 0.57 Blood sugar is 140 Albumin 2.9 AST 53 ALT 23 and alk phos 42 Chest x-ray showed postoperative change with less than 5% left apical pneumothorax. 06/14/2020 Patient is currently sitting in the chair comfortably. Denies any complaints of chest pain or worsening shortness of her. Patient was given a dose of IV Lasix this morning. Currently saturating well on oxygen via nasal cannula. No fever no chills. Laboratory data showed hemoglobin 9.9, BUN 15 and creatinine 0.59 Sodium 134 Patient is being continued on Lopressor and aspirin, statins and Plavix. Continue breathing treatments. Pulmonary and CT surgery is following. Chest x-ray showed interval removal of endotracheal and enteric tubes. Enteric tubes and drains unchanged. Mildly decreased pulmonary vascular congestion postoperatively. No residual pneumothorax appreciated. 06/15/2020 Patient is currently sitting in the chair comfortably. No complaints of chest pain or worsening shortness of breath. No leg swelling noted. Patient is being titrated down to room air currently. Laboratory showed hemoglobin 8.7 BUN 21 creatinine 0.83 AST 39 and ALT 14 alk phos 39 blood sugar is controlled with insulin sliding scale. Chest x-ray showed no acute complication status post chest tube removal. Probably left lower lobe atelectasis. Encouraged with incentive spirometry. 06/16/2020 Patient is currently participating in physical therapy. Denied any complaints of chest pain or dizziness. Patient went into atrial fibrillation this morning. Patient was started on amiodarone drip. Currently converted to normal sinus rhythm. Patient was seen by cardiology No complaints of nausea vomiting or abdominal pain or diarrhea. Laboratory data showed WBC 12.3, hemoglobin 8.8 and platelets 191 Sodium 133, potassium 4.2 chloride 104, BUN 25 and creatinine 0.8 Chest x-ray showed cardiomegaly, atelectasis. No evident complication status post chest tube removal. Current medications reviewed. Objective - Vital Signs Vital signs: Vital Signs Temp 98.4 F 06/16/20 20:00 Pulse 78 06/16/20 20:18 Resp 24 06/16/20 20:00 BP 138/85 06/16/20 20:00 Pulse Ox 93 L 06/16/20 20:00 Intake & Output 06/16/20 06/16/20 06/17/20 06:59 18:59 06:59 Intake Total 240 250 Output Total 300 500 Balance -60 -500 250 Weight 122.8 kg Intake: Intake, IV Titration 250 Amount Amiodarone 300 mg In 250 Dextrose 5% in Water 250 ml @ 0.5 MG/MIN 25 mls/hr IV .Q10H PRN Rx#: [id number] Oral 240 Output: Urine 300 500 Other: Voiding Method Indwelling Catheter Toilet ABP, PAP, CO, CI - Last Documented Arterial Blood Pressure 104/57 Pulmonary Artery Pressure 28/6 Cardiac Output 5.3 Cardiac Index 2.4 - Exam PHYSICAL EXAMINATION: Patient is lying in the bed comfortably, no acute distress, awake alert and oriented. HEENT: Normocephalic. Neck is supple. Pupils reactive. Nostrils clear. Oral cavity is moist. Ears reveal no drainage. Neck reveals no JVD, carotid bruits, or thyromegaly. CHEST EXAMINATION: Trachea is central. Symmetrical expansion. Midline surgical s ite is bandaged. Bibasilar diminished sounds. No wheezing. Lung santos clear to auscultation and percussion. CARDIAC: Normal S1, S2 with no gallops. No murmurs ABDOMEN: Soft. Bowel sounds normal. No organomegaly. No abdominal bruits. Extremities: trace edema. No clubbing or cyanosis Neurologically awake, alert, oriented x3 with well-coordinated movements. No focal deficits noted Skin: No rash or skin lesions. Psychiatric: Could not be assessed at this time. Musculoskeletal: No joint swelling or deformity. Normal range of motion. - Labs CBC & Chem 7: 06/16/20 02:59 06/16/20 02:59 Labs: Abnormal Lab Results - Last 24 Hours (Table) 06/16/20 06/16/20 06/16/20 Range/Units 02:59 02:59 02:59 WBC 12.3 H (3.8-10.6) k/uL RBC 2.84 L (3.80-5.40) m/uL Hgb 8.8 L (11.4-16.0) gm/dL Hct 26.9 L (34.0-46.0) % Neutrophils # 9.3 H (1.3-7.7) k/uL Sodium 133 L (137-145) mmol/L BUN 25 H (7-17) mg/dL Glucose 136 H (74-99) mg/dL POC Glucose (mg/dL) (75-99) mg/dL Magnesium 2.5 H (1.6-2.3) mg/dL Total Protein 5.2 L (6.3-8.2) g/dL Albumin 3.4 L (3.5-5.0) g/dL 06/16/20 06/16/20 06/16/20 Range/Units 07:00 11:39 16:24 WBC (3.8-10.6) k/uL RBC (3.80-5.40) m/uL Hgb (11.4-16.0) gm/dL Hct (34.0-46.0) % Neutrophils # (1.3-7.7) k/uL Sodium (137-145) mmol/L BUN (7-17) mg/dL Glucose (74-99) mg/dL POC Glucose (mg/dL) 138 H 120 H 132 H (75-99) mg/dL Magnesium (1.6-2.3) mg/dL Total Protein (6.3-8.2) g/dL Albumin (3.5-5.0) g/dL 06/16/20 Range/Units 20:25 WBC (3.8-10.6) k/uL RBC (3.80-5.40) m/uL Hgb (11.4-16.0) gm/dL Hct (34.0-46.0) % Neutrophils # (1.3-7.7) k/uL Sodium (137-145) mmol/L BUN (7-17) mg/dL Glucose (74-99) mg/dL POC Glucose (mg/dL) 134 H (75-99) mg/dL Magnesium (1.6-2.3) mg/dL Total Protein (6.3-8.2) g/dL Albumin (3.5-5.0) g/dL Microbiology - Last 24 Hours (Table) 06/14/20 11:45 Gram Stain - Preliminary Other - Other Tissue Culture - Preliminary Assessment and Plan Assessment: Status post mitral valve repair with annuloplasty and removal of mitral leaflet plaque. Postoperative day 3 New onset atrial fibrillation. Postsurgical. Converted to sinus rhythm now. Mild acute blood loss anemia expected from surgery Severe mitral regurgitation with mitral valve prolapse Perioperative mechanical ventilation currently extubated. Pulmonary sarcoidosis. Currently on hydroxychloroquine and prednisone at home No prior history of smoking. Hypertension GERD Osteoarthritis Obstructive sleep apnea not on CPAP at home Abdominal aortic aneurysm 4 mm in size Morbid obesity with BMI 40.8. History of lap band surgery DVT prophylaxis Plan: Patient is currently being managed in the MICU. Currently extubated. Patient was given stress dose steroids with IV hydrocortisone before surgery. Chest x- ray showed 5% apical pneumothorax. Follow-up repeat chest x-ray No residual pneumothorax appreciated.. Pulmonary is on board. Continued with insulin drip for better blood sugar control. changed to SSI- Continue on home blood pressure medications and follow-up closely. Continue with aspirin, Plavix statins, Norvasc. CT surgery is following. Further recommendations based on the clinical course. We will continue to follow with you. Time with Patient: Greater than 30
[2020-06-17] MEDS: HEPARIN SODIUM,PORCINE 5,000 UNIT/ML 1 ML VIAL SQ SCH (05:25)
[2020-06-17] MEDS: KETOROLAC 30 MG/ML 1 ML VIAL IVP SCH (05:25)
[2020-06-17 05:26] LABS: Basophils % (A) 0 %; Eosinophils # (A) 0.7 k/uL (0-0.7); Eosinophils % (A) 6 %; HCT 25.9 % (34.0-46.0); HGB 8.4 gm/dL (11.4-16.0); Lymphocytes % (A) 18 %; MCHC 32.2 g/dL (31.0-37.0); MCV 93.3 fL (80.0-100.0); Mean Platelet Volume 7.6; Monocytes # (A) 0.7 k/uL (0-1.0); Monocytes % (A) 6 %; Neutrophils # (A) 7.5 k/uL (1.3-7.7); Neutrophils % (A) 67 %; Platelet Count 240 k/uL (150-450); RBC 2.78 m/uL (3.80-5.40); RDW 14.7 % (11.5-15.5); WBC 11.1 k/uL (3.8-10.6)
[2020-06-17 05:34] LABS: African American GFR (CKD) >90 (>60 ml/min/1.73 sqM); Anion Gap 7 mmol/L; Blood Urea Nitrogen 29 mg/dL (7-17); Calcium 8.5 mg/dL (8.4-10.2); Carbon Dioxide 22 mmol/L (22-30); Chloride 104 mmol/L (98-107); Glucose 119 mg/dL (74-99); Non-African American GFR(CKD) >90 (>60 ml/min/1.73 sqM); Potassium 4.2 mmol/L (3.5-5.1); Sodium 133 mmol/L (137-145)
[2020-06-17] MEDS: MUPIROCIN 2% OINT 22 GM TUBE NASAL SCH (05:39)
[2020-06-17 06:43] LABS: Glucose,Whole Blood 120 mg/dL (75-99)
[2020-06-17] MEDS: PANTOPRAZOLE 40 MG TABLET PO SCH (06:54)
[2020-06-17] MEDS ORDERED: FUROSEMIDE 20 MG TAB PO SCH (08:00)
[2020-06-17] MEDS: IPRATROPIUM-ALBUTEROL 3 ML NEB INHALATION SCH ×2 (08:11→11:25)
[2020-06-17] MEDS: INSULIN ASPART (NovoLOG) 100 UNIT/ML VIAL SQ SCH (08:12)
[2020-06-17] MEDS: ATORVASTATIN 40 MG TAB PO SCH (08:19)
[2020-06-17] MEDS: ASPIRIN 325 MG TAB PO SCH (08:19)
[2020-06-17] MEDS: METOPROLOL TARTRATE 25 MG TAB PO SCH (08:19)
[2020-06-17] MEDS: AMIODARONE 200 MG TAB PO SCH (08:19)
[2020-06-17] MEDS: CLOPIDOGREL 75 MG TAB PO SCH (08:19)
[2020-06-17] MEDS: MULTIVITAMINS, THERA 1 EACH TAB PO SCH (08:19)
[2020-06-17] MEDS: predniSONE 10 MG TAB PO SCH (08:20)
--- NOTE | 2020-06-17 08:48 | XR ---
EXAMINATION TYPE: XR chest 1V portable DATE OF EXAM: 06/17/2020 CLINICAL HISTORY: Status post open heart surgery TECHNIQUE: Portable frontal view of the chest obtained COMPARISON: Chest regressed 06/16/2020 FINDINGS: Sternotomy wires. Left atrial appendage clip. Cardiomegaly unchanged. Abnormal. Decreased pulmonary vascular congestion and decreased small left pleural effusion. No pneum othorax. IMPRESSION: Interval decrease of pulmonary vascular congestion and small left pleural effusion versus 06/16/2020 comparison.
--- NOTE | 2020-06-17 09:15 | P.PN ---
Subjective Progress Note Date: 06/17/20 Principal diagnosis: Severe mitral valve regurgitation. Previous medical history of hypertension, pulmonary hypertension, bronchial asthma, obstructive sleep apnea without home CPAP use, sarcoidosis, morbid obesity with a DC of 44.2 kg/m, osteoarthritis and history of abdominal aortic aneurysm measuring 4 cm. POD #4 complex mitral valve repair with ring annuloplasty using a #30 mm [employer] AnnuloFlex band, removal of masses/deposits on anterior and posterior mitral leaflets, clip ligation of the left atrial appendage with a 35 mm Atriclip and intraoperative transesophageal echocardiogram. Postoperative acute blood loss anemia, an expected outcome due to cardiopulmo nary bypass and hemodilution. Postoperative atrial fibrillation with rapid ventricular response, unexpected the potential outcome of heart surgery The patient is currently sitting up in a recliner in the intensive care unit in no acute distress. She states pain is well controlled on current medication regimen, denies shortness of breath. She has been up and ambulatory in the hallway multiple times with minimal assistance. She has yet to have a bowel movement but is passing gas, will take stool softners at home. She states she is ready to go home. Objective - Vital Signs Vital signs: Vital Signs Temp 97.5 F L 06/17/20 04:00 Pulse 69 06/17/20 04:00 Resp 18 06/17/20 05:00 BP 111/73 06/17/20 05:00 Pulse Ox 96 06/17/20 04:00 Intake & Output 06/16/20 06/17/20 06/17/20 18:59 06:59 18:59 Intake Total 250 Output Total 500 700 Balance -500 -450 Weight 129.1 kg Intake: Intake, IV Titration 250 Amount Amiodarone 300 mg In 250 Dextrose 5% in Water 250 ml @ 0.5 MG/MIN 25 mls/hr IV .Q10H PRN Rx#: [id number] Output: Urine 500 700 Other: Voiding Method Toilet Toilet ABP, PAP, CO, CI - Last Documented Arterial Blood Pressure 104/57 Pulmonary Artery Pressure 28/6 Cardiac Output 5.3 Cardiac Index 2.4 - Constitutional General appearance: Present: cooperative, no acute distress, obese - Respiratory Details: Lungs sounds diminished bilaterally with coarse sounds in the base. Respirations even, nonlabored. Oxygen saturation 96% on room air. Able to achieve 1000 mL on incentive spirometry. Strong, dry cough. - Cardiovascular Details: S1, S2 present. Regular rate and rhythm, sinus rhythm on telemetry. Sternum stable. Palpable peripheral pulses bilaterally. Trace bilateral lower extremity edema present. No calf pain or tenderness noted. Heart hugger in place with patient demonstrating appropriate use. Antiembolism stockings, SCDs present. - Gastrointestinal Gastrointestinal Comment(s): Abdomen soft, nontender, nondistended. Active bowel sounds present 4 quadrants. Tolerating diet. Positive flatus, negative bowel movement. - Genitourinary Genitourinary Comment(s): Voiding clear, yellow urine without issues - Integumentary Integumentary Comment(s): Skin is warm and dry with evidence of good perfusion. Anterior chest incision well approximated and covered with dry intact dressing. - Neurologic Neurologic: Present: CNII-XII intact - Psychiatric Psychiatric: Present: A&O x's 3, appropriate affect, intact judgment & insight - Allied health notes Allied health notes reviewed: nursing - Labs CBC & Chem 7: 06/17/20 05:14 06/17/20 05:14 Labs: Abnormal Lab Results - Last 24 Hours (Table) 06/16/20 06/16/20 06/16/20 Range/Units 11:39 16:24 20:25 WBC (3.8-10.6) k/uL RBC (3.80-5.40) m/uL Hgb (11.4-16.0) gm/dL Hct (34.0-46.0) % Sodium (137-145) mmol/L BUN (7-17) mg/dL Glucose (74-99) mg/dL POC Glucose (mg/dL) 120 H 132 H 134 H (75-99) mg/dL 06/17/20 06/17/20 06/17/20 Range/Units 05:14 05:14 06:41 WBC 11.1 H (3.8-10.6) k/uL RBC 2.78 L (3.80-5.40) m/uL Hgb 8.4 L (11.4-16.0) gm/dL Hct 25.9 L (34.0-46.0) % Sodium 133 L (137-145) mmol/L BUN 29 H (7-17) mg/dL Glucose 119 H (74-99) mg/dL POC Glucose (mg/dL) 120 H (75-99) mg/dL Microbiology - Last 24 Hours (Table) 06/14/20 11:45 Anaerobic Culture - Preliminary Other - Other 06/14/20 11:45 Gram Stain - Preliminary Other - Other Tissue Culture - Preliminary - Imaging and Cardiology Chest x-ray: report reviewed, image reviewed Assessment and Plan Assessment: 1. Severe mitral valve regurgitation, status post mitral valve annuloplasty using a #30 mm [employer] AnnuloFlex band 2. History of bronchial asthma 3. History of hypertension 4. History of pulmonary hypertension 5. Obstructive sleep apnea without home CPAP use 6. Morbid obesity with history of lap band surgery 7. Abdominal aortic aneurysm measuring 4 cm 8. Lifetime nonsmoker 9. Postoperative acute blood loss anemia 10. Postoperative atrial fibrillation, status post clip ligation of the left atrial appendage Plan: 1. Continue aspirin, statin, Plavix and beta wojciech. 2. Continue amiodorone 3. Will restart preoperative scheduled Lasix 20 mg MWF. 3. Encourage incentive spirometry use 10 times every hour while awake. 4. Increase activity as tolerated. 5. Discharge home today. Plan to follow up with [employer] in office in 1 week. Time with Patient: Greater than 30
--- NOTE | 2020-06-17 09:54 | P.PN ---
Subjective Progress Note Date: 06/17/20 Principal diagnosis: Mitral valve prolapse status post mitral valve repair 59-year-old white female patient with multiple medical problems including chronic bronchial asthma, mild intermittent, pulmonary hypertension, obstructive sleep apnea, active sarcoidosis, history of severe mitral valve prolapse with regurgitation, aortic aneurysm, hypertension. Patient is under the care of Dr. Rodríguez in the pulmonary clinic for her history of sarcoidosis. Patient is a lifetime nonsmoker. She is on on a combination of hydroxychloroquine and prednisone 2.5 mg daily. Her last PFT in the office was on 12/22/2019 and showed FEV1 of 63% of predicted, and FVC of 59% of predicted with FEV1 to FVC ratio of 106, total lung capacity of 81%, diffusion capacity of 70%, consistent with moderate restriction and mild diffusion defect. On June 13, 2020 patient presented to the hospital for elective mitral valve repair with removal of mitral leaflet plaque and mitral annuloplasty with 30 mm ring. Patient is seen in the postoperative period in the intensive care unit, she is sedated and intubated, currently on SIMV mode of ventilation with a rate of 14, tidal volume is 450, FiO2 is 50% and PEEP of 10. Her blood gas showed pO2 of 3:30, pCO2 49, and pH of 7.33. Patient is sedated on 20 mcg/kg/m of propofol infusion, milrinone was started at 0.3 mics per kilo per minute, Cleviprex is at 2 mg per hour, and lactated Ringer's at a rate of 50 ML per hour, patient is in sinus mechanism with a rate of 84, AV wires connected to the external pacemaker with VVI backup rate of 50 BPM, PA pressures of 35/25, CVP is 13, cardiac output is 4.0 and cardiac index is 1.7-1.9, and milrinone was started for low cardiac index. Postop blood work shows a white blood cell count of 14.1, hemoglobin of 11.5, platelet count is 231, INR is 1.0, sodium is 136, and the rest of electrolytes are within normal limits, renal profile was within normal limits, calcium 7.9, 1 mediastinal and right pleural chest tubes are connected to the same Pleur-evac, to the wall suction, no evidence of air leak, small amount of serous sinus output in the Pleur-evac. On 06/17/2020 patient seen in follow-up in intensive care unit, today is postoperative day day 4 status post mitral valve repair would removal of mitral leaflet plaque and mitral annuloplasty with 30 mm ring and intraoperative transesophageal echocardiogram. Patient is doing very well, she is on room air, her IV fluids have been hep-locked, she is sitting up in the recliner, in no acute distress, she is working on it since spirometer, she is achieving 1000 and melena today, lung sounds are clear to auscultation, breathing is comfortable, p atient has been tolerating ambulation. Her pain is under good control, although her chest tubes and wires have been removed, Olson catheter discontinued, patient is anticipated to be discharged home today, she did have a run of A. fib the night before yesterday she was placed on amiodarone drip which has since been discontinued, she had converted yesterday, and she remains in sinus mechanism with a controlled rate today. She has been transitioned to oral amiodarone currently at 400 twice daily. Chest x-ray today has been reviewed showing interval decrease of pulmonary vessel congestion and small left pleural effusion she was started on her home dose of Lasix 20 mg every other day. Labs have been reviewed showing white blood cell count of 11.1, hemoglobin of 8.4, platelet count is 240, sodium is 133, the rest of the left lites were within normal limits, BUN is 29 creatinine 0.7. 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 Objective - Vital Signs Vital signs: Vital Signs Temp 97.8 F 06/17/20 08:00 Pulse 76 06/17/20 08:29 Resp 16 06/17/20 08:00 BP 116/80 06/17/20 08:00 Pulse Ox 95 06/17/20 08:00 Intake & Output 06/16/20 06/17/20 06/17/20 18:59 06:59 18:59 Intake Total 250 Output Total 500 700 Balance -500 -450 Weight 129.1 kg Intake: Intake, IV Titration 250 Amount Amiodarone 300 mg In 250 Dextrose 5% in Water 250 ml @ 0.5 MG/MIN 25 mls/hr IV .Q10H PRN Rx#: [id number] Output: Urine 500 700 Other: Voiding Method Toilet Toilet ABP, PAP, CO, CI - Last Documented Arterial Blood Pressure 104/57 Pulmonary Artery Pressure 28/6 Cardiac Output 5.3 Cardiac Index 2.4 - Exam GENERAL EXAM: Alert, very pleasant, 53-year-old white female, on room air, with pulse ox of 95%, comfortable in no apparent distress. HEAD: Normocephalic/atraumatic. EYES: Normal reaction of pupils, equal size. Conjunctiva pink, sclera white. NOSE: Clear with pink turbinates. THROAT: No erythema or exudates. NECK: No masses, no JVD, no thyroid enlargement, no adenopathy. CHEST: No chest wall deformity. Symmetrical expansion. Sternal incision is clean dry and intact, chest tube sites are clean dry and intact, LUNGS: Equal air entry with no crackles, wheeze, rhonchi or dullness. CVS: Regular rate and rhythm, normal S1 and S2, no gallops, no murmurs, no rubs ABDOMEN: Soft, nontender. No hepatosplenomegaly, normal bowel sounds, no guarding or rigidity. EXTREMITIES: No clubbing, no edema, no cyanosis, 2+ pulses and upper and lower extremities. MUSCULOSKELETAL: Muscle strength and tone normal. SPINE: No scoliosis or deformity SKIN: No rashes CENTRAL NERVOUS SYSTEM: Alert and oriented -3. No focal deficits, tone is normal in all 4 extremities. PSYCHIATRIC: Alert and oriented -3. Appropriate affect. Intact judgment and insight. - Labs CBC & Chem 7: 06/17/20 05:14 06/17/20 05:14 Labs: Abnormal Lab Results - Last 24 Hours (Table) 06/16/20 06/16/20 06/16/20 Range/Units 11:39 16:24 20:25 WBC (3.8-10.6) k/uL RBC (3.80-5.40) m/uL Hgb (11.4-16.0) gm/dL Hct (34.0-46.0) % Sodium (137-145) mmol/L BUN (7-17) mg/dL Glucose (74-99) mg/dL POC Glucose (mg/dL) 120 H 132 H 134 H (75-99) mg/dL 06/17/20 06/17/20 06/17/20 Range/Units 05:14 05:14 06:41 WBC 11.1 H (3.8-10.6) k/uL RBC 2.78 L (3.80-5.40) m/uL Hgb 8.4 L (11.4-16.0) gm/dL Hct 25.9 L (34.0-46.0) % Sodium 133 L (137-145) mmol/L BUN 29 H (7-17) mg/dL Glucose 119 H (74-99) mg/dL POC Glucose (mg/dL) 120 H (75-99) mg/dL Microbiology - Last 24 Hours (Table) 06/14/20 11:45 Anaerobic Culture - Preliminary Other - Other 06/14/20 11:45 Gram Stain - Preliminary Other - Other Tissue Culture - Preliminary Assessment and Plan Plan: Assessment: #1. Mitral valve prolapse with regurgitation, status post mitral valve repair with removal of mitral leaflet plaque and mitral annuloplasty with 30 mm ring, and intraoperative transesophageal echocardiogram, postoperative day 4 #2. Routine ventilator management, patient is intubated on a day of surgery on 06/13/2020 and is currently on SIMV mode of ventilation, was successfully extubated on postop day 0 #3. Mild intermittent bronchial asthma, stable at this time #4. Pulmonary sarcoidosis, active, and patient is on combination of hydroxychloroquine and prednisone 2.5 mg on a daily basis, patient was given stress doses of hydrocortisone 100 mg IV push before surgery, Intra-Op and in recovery. Was placed on the prednisone 10 mg on postop day #1 #5. Pulmonary hypertension #6. Hypertension #7. GERD/reflux #8. Osteoarthritis #9. Obstructive sleep apnea on CPAP #10. 4 mm aortic aneurysm #11. Obesity, status post lap band surgery #12. Lifetime nonsmoker #13. Postoperative atrial fibrillation and postoperative day #2, was placed on amiodarone, had since converted to sinus rhythm and remains in sinus mechanism Plan: Patient is doing well, hemodynamically stable, remains in sinus mechanism with controlled rate, her amiodarone drip has been transitioned to oral amiodarone, IV fluids have been hep-locked, she is tolerating ablation, she is maintaining stable oxygenation on room air, we restarted her home dose of oral Lasix 20 mg every other day, no acute events overnight, her pain is reasonably controlled, she is working on incentive spirometer, anticipate discharge home today and follow up with Dr. Heredia in the office in 7-10 days. Patient can continue on prednisone 10 mg daily for the next several days till Saturday, then she can contact the prednisone to 5 mg daily for 5-6 days and then she can go back to her maintenance dose of 2.5 mg of prednisone on a daily basis. I performed a history & physical examination of the patient and discussed their management with my nurse practitioner, Nicole Gary. I reviewed the nurse practitioner's note and agree with the documented findings and plan of care. Lung sounds are positive for diffuse wheezes throughout the lung santos. The findings and the impression was discussed with the patient. I attest to the documentation by the nurse practitioner. Time with Patient: Less than 30
--- NOTE | 2020-06-17 12:24 | P.DS ---
Providers Date of admission: 06/13/20 05:37 Expected date of discharge: 06/17/20 Attending physician: Joon Kirby Consults: 06/13/20 12:40 Consult Physician Routine Consulting Provider: Crow Rodríguez Consult Reason/Comments: [employer]pper [employer] Taper Consult: post cardiac surgery Do you want consulting provider notified?: Yes Consult Physician Routine Consulting Provider: Randolph Bhardwaj Consult Reason/Comments: med mgt; PATIENT REQUEST FOR [employer] Do you want consulting provider notified?: Yes Consult Physician Routine Consulting Provider: Harjeet Mota Consult Reason/Comments: Food Inspector Consult: post cardiac surgery Do you want consulting provider notified?: Yes Primary care physician: [facility] Course: FINAL DIAGNOSIS: 1. Severe mitral valve regurgitation 2. History of hypertension 3. History of pulmonary hypertension 4. Bronchial asthma 5. Obstructive sleep apnea without home CPAP use 6. Sarcoidosis 7. Morbid obesity 8. Osteoarthritis 9. History of abdominal aortic aneurysm measuring 4 cm 10. Postoperative acute blood loss anemia 11. Postoperative atrial fibrillation PRINCIPAL PROCEDURE: 1. Complex mitral valve repair with ring annuloplasty using a #30 mm [employer] AnnuloFlex band 2. Removal of masses/deposits on anterior and posterior mitral leaflets 3. Clip ligation of the left atrial appendage with a 35 mm AtriClip 4. Intraoperative transesophageal echocardiogram HISTORY OF PRESENT ILLNESS: This is a 59-year-old active female who follows on an outpatient basis with Dr. Katz, Dr. Rodríguez, and Dr. Lord. She has been followed for quite some time for shortness of breath and was diagnosed with bronchial asthma. In addition she was diagnosed with sarcoidosis and has been on steroids and Plaquenil. In the last year she has had multiple CT scans and hospitalizations with treatment for shortness of breath. She did have a known history of mitral valve regurgitation. In October 2019 she underwent transesophageal echocardiogram demonstrating severe eccentric mitral valve regurgitation. For further evaluation she underwent heart catheterization in November 2019 which demonstrated no significant obstructive coronary artery disease, however severe mitral regurgitation was seen on the left ventriculogram. The patient was referred to Dr. Kirby from cardiothoracic surgery. She was recommended to undergo mitral valve repair. The usual perioperative course was discussed in detail with the patient and her family, all risks and benefits were explained, all questions were answered, and consent was obtained to proceed with surgery. The patient was scheduled for surgery at the earliest possible date after obtaining dental clearance, however her date had to be pushed back due to Covid. HOSPITAL COURSE: The patient was brought to the hospital on 06/13/20, taken to the preoperative area, prepared in the usual fashion, and subsequently taken to the operating room where Dr. Kirby performed a complex mitral valve repair. Upon completion of surgery the patient was transferred to the cardiovascular intensive care unit where she was recovered, monitored hemodynamically, and where she progressed to cardiac rehabilitation phase 1. She was extubated, all lines, tubes, and drips were discontinued when appropriate, and transfer orders were placed for 3 S. cardiac stepdown unit, however there was no bed availability and the patient remained on ICU as a stepdown patient until discharge. She did experience acute blood loss anemia is expected after open heart surgery and required no transfusion. In addition she experienced brief atrial fibrillation which was treated appropriately with amiodarone. Her oxygen was titrated down, she continued to work with physical and occupational therapy, she was tolerating oral diet, her pain was controlled, and she was ready to be discharged to home with [facility] on postoperative day #4. She received written and verbal instruction regarding her medications, activity restrictions, signs and symptoms requiring physician notification, and follow-up appointments. COMPLICATIONS: The patient experienced postoperative acute blood loss anemia and atrial fibrillation which were treated accordingly. Patient Condition at Discharge: Stable Plan - Discharge Summary Discharge Rx Participant: Yes New Discharge Prescriptions: New Aspirin 81 mg PO DAILY #30 tab Amiodarone [Cordarone] 400 mg PO BID #44 tab Atorvastatin [Lipitor] 40 mg PO DAILY #30 tab Metoprolol Tartrate [Lopressor] 25 mg PO BID #60 tab Clopidogrel [Plavix] 75 mg PO DAILY #30 tab predniSONE 10 mg PO DAILY tab Pantoprazole [Protonix] 40 mg PO AC-BRKFST #30 tablet. Sennosides-Docusate Sodium [Senokot-S] 2 each PO HS tab Acetaminophen Tab [Tylenol] 1,000 mg PO Q6HR PRN tab PRN Reason: Fever and/ or Mild Pain Continue Budesonide-Formot 160-4.5 Mcg [Symbicort 160-4.5 Mcg Inhaler] 2 puff INHALATION RT-BID Montelukast Sodium [Singulair] 10 mg PO HS Loratadine [Claritin] 10 mg PO DAILY PRN PRN Reason: Allergy Symptoms FLUoxetine HCL [PROzac] 20 mg PO HS ALPRAZolam [Xanax] 0.25 mg PO DAILY PRN PRN Reason: Anxiety Multivitamins, Thera [Multivitamin (formulary)] 1 tab PO DAILY Potassium Chloride ER [K-Dur 10] 10 meq PO MOWEFR Furosemide [Lasix] 20 mg PO MOWEFR Discontinued Omeprazole [PriLOSEC] 40 mg PO [facility] #14 capsule. amLODIPine [Norvasc] 5 mg PO HS lisinopriL [Zestril] 5 mg PO DAILY predniSONE 5 mg PO DAILY Metoprolol Tartrate [Lopressor] 25 mg PO DAILY Discharge Medication List ALPRAZolam [Xanax] 0.25 mg PO DAILY PRN 12/29/18 [History] Budesonide-Formot 160-4.5 Mcg [Symbicort 160-4.5 Mcg Inhaler] 2 puff INHALATION RT-BID 12/29/18 [History] FLUoxetine HCL [PROzac] 20 mg PO HS 12/29/18 [History] Loratadine [Claritin] 10 mg PO DAILY PRN 12/29/18 [History] Montelukast Sodium [Singulair] 10 mg PO HS 12/29/18 [History] Multivitamins, Thera [Multivitamin (formulary)] 1 tab PO DAILY 12/29/18 [History] Furosemide [Lasix] 20 mg PO MOWEFR 06/06/20 [History] Potassium Chloride ER [K-Dur 10] 10 meq PO MOWEFR 06/06/20 [History] Acetaminophen Tab [Tylenol] 1,000 mg PO Q6HR PRN tab 06/17/20 [Rx] Amiodarone [Cordarone] 400 mg PO BID #44 tab 06/17/20 [Rx] Aspirin 81 mg PO DAILY #30 tab 06/17/20 [Rx] Atorvastatin [Lipitor] 40 mg PO DAILY #30 tab 06/17/20 [Rx] Clopidogrel [Plavix] 75 mg PO DAILY #30 tab 06/17/20 [Rx] Metoprolol Tartrate [Lopressor] 25 mg PO BID #60 tab 06/17/20 [Rx] Pantoprazole [Protonix] 40 mg [facility] tablet. 06/17/20 [Rx] Sennosides-Docusate Sodium [Senokot-S] 2 each PO HS tab 06/17/20 [Rx] predniSONE 10 mg PO DAILY tab 06/17/20 [Rx] Follow up Appointment(s)/Referral(s): Jade Adhikari NPC [Nurse Practitioner] - 06/21/20 2:00 pm Rehab [facility],Cardiac [NON-STAFF] - 4 Weeks (You will receive a call in 4-6 weeks for evaluation for cardiac rehab) Omer Katz DO [Primary Care Provider] - 06/28/20 9:20 am Crow Rodríguez DO [Doctor of Osteopathic Medicine] - 07/18/20 2:00 pm [facility], [NON-STAFF] - 1-2 Days Joon Kirby MD [STAFF PHYSICIAN] - 07/13/20 2:30 pm () Maryam Lord MD [STAFF PHYSICIAN] - 06/30/20 2:30 pm Patient Instructions/Handouts: Cardiac Rehabilitation (DC) Activity/Diet/Wound Care/Special Instructions: DISCHARGE INSTRUCTIONS: 1. No driving for 4 weeks, or until physician gives their ok. 2. The patient should sleep in their own bed, no medical bed needed. 3. Stairs are not an issue. If the bedroom is upstairs, it is advised that the patient go up at night and down in the morning for the first week. Go slowly, using handrail and take 1 step at a time. 4. GARTH hose are to be worn for 30 days or until physician discontinues. 5. Heart hugger is to be worn 100% of the time until physician discontinues.(except when showering) 6. No lifting, pushing, or pulling more than 10 pounds for 12 weeks. The physician will advise of any restriction changes. 7. The patient is expected to continue the prescribed walking program. 8. Continue pain control per as needed orders. 9. Continue with incentive spirometry and splinting/heart hugger until otherwise directed by the physician. 10. Must shower daily using liquid antibacterial soap and a separate white washcloth for each individual incision. 11. Routine sternal incision care. No powders, lotions, ointments on incisions. No dressings are necessary on incisions unless they are draining. Dermabond tape is to remain on sternal incision until surgeon follow-up. 12. Please call surgeon/FOOD SAFETY SCIENTIST for temp greater than 101 F or purulent drainage from incisions. 13. All prescriptions given by surgeon for 30 days. Refills need to be filled through animal cruelty investigator/primary care physician. 14. A Red armband has been placed on the patient. It should be worn for 30 days post surgery and will be removed by the cardiac surgeons. If an ER visit is necessary, please make sure the number on the Red armband is called. 15. You have been referred to and are expected to begin Cardiac Rehab in approximately 4-6 weeks. HOME HEALTH SERVICES TO PROVIDE: RN SKILLED HOME CARE SERVICES FOR POST-OP SURGICAL PATIENTS WITH THE FOLLOWING: Coronary Artery Bypass Surgery (CABG), Mitral Valve Replacement/Repair ( MVR), Aortic Valve Replacement/Repair (AVR) RN TO CONTINUE EDUCATION FROM ``ROAD TO A HEALTH HEART PATIENT EDUCATION MANUAL (GIVEN TO PATIENT IN THE HOSPITAL) MEDICATION RECONCILIATION WITH EDUCATION NEEDED ON FIRST HOME VISIT EMPHASIZE IMPORTANCE OF WEARING BREAST SUPPORT/HEART HUGGER ENCOURAGE USE OF INCENTIVE SPIROMETER 10 X EVERY HOUR WHILE AWAKE ENCOURAGE UTILIZATION OF LOWER EXTREMITY COMPRESSION STOCKINGS/GARTH HOSE and ELEVATE LEGS ABOVE LEVEL OF HEART WHILE AT REST. ENCOURAGE AMBULATION 3-5x/day INCREASING TOLERATES, WHILE AVOIDING EXTREMES IN TEMPERATURE FREQUENCY: RN TO OPEN THE PATIENT WITHIN 24 HOURS OF DISCHARGE FROM THE HOSPITAL WITH [place]HEALTH [place] [facility] [place]IT 2-3 X A WEEK FOR 4 WEEKS ESTABLISHED BY PATIENT NEEDS. LABORATORY: CBC, CMP TO BE DRAWN ON THE THIRD DAY HOME, (RAN STAT) FAX RESULTS TO [phone]. TELEHEALTH PARAMETERS: WEIGHT: NOTIFY MD OF WEIGHT GAIN OF 2 LBS IN 24 HOURS OR 5 LBS IN ONE WEEK HR: NOTIFY MD OF HR <55 BPM OR HR>100 BPM BP: NOTIFY MD IF BP <90/55 OR BP>140/100 O2 SAT: NOTIFY MD IF PO2<93% ON ROOM AIR SEND TELEHEALTH REPORT TO FLIGHT CONTROLS ENGINEER AND CARDIOVASCULAR SURGEON THE FIRST WEEK OF CARE AND THEN BI-WEEKLY. PLEASE ADDITIONALLY COMMUNICATE ANY ABNORMALS AND NEW FINDINGS TO THE SURGEONS OFFICE. For any questions or concerns please call medical records coder Jade @ or Jarret @ Discharge Disposition: HOME WITH HOME HEALTH SERVICES
[2020-06-17 13:06] VITALS: BP 131/87; PULSE 69; RESP 14; TEMP 98.4
--- NOTE | 2020-06-17 15:39 | PN ---
PROGRESS NOTE FOLLOW-UP NOTE: Yoli is a 59-year-old lady who is admitted to hospital for mitral valve repair. She is doing well, had postoperative atrial fibrillation but remains in sinus rhythm. On exam, patient is comfortable at rest. Vital signs are stable. Chest exam reveals good air entry bilaterally. Heart exam reveals first and second heart sounds. No gallop. Examination of extremities did not reveal edema. Peripheral pulses are felt. Patient is currently on Cordarone, Lipitor, Plavix, Lasix, Lopressor. ASSESSMENT: 1. Mitral regurgitation, status post mitral valve repair. 2. Postoperative atrial fibrillation. PLAN: Patient will be discharged home on amiodarone 200 b.i.d. and follow up with Dr. Lord in the office. MMODL / IJN: [id number] /
[2020-06-17] MEDS ORDERED: AMIODARONE 200 MG TAB PO SCH (21:00)
== END 2020-06-17 13:40 | disposition home health service (06) | DRG 220 ==
LOC: 2ORMAIN 05:37 → 2SICU 12:15
PROVIDERS: ADMIT Thoracic Surgery (Cardiothoracic Vascular Surgery); ATTEND Thoracic Surgery (Cardiothoracic Vascular Surgery)
PROC: 02BG0ZZ Excision of Mitral Valve, Open Approach (ICD-10-PCS; 2020-06-13)
PROC: 5A1221Z Performance of Cardiac Output, Continuous (ICD-10-PCS; 2020-06-13)
PROC: 02L70CK Occlusion of Left Atrial Appendage with Extraluminal Device, Open Approach (ICD-10-PCS; 2020-06-13)
PROC: 02UG0JZ Supplement Mitral Valve with Synthetic Substitute, Open Approach (ICD-10-PCS; principal; 2020-06-13 08:00)
DX: I34.0 Nonrheumatic mitral (valve) insufficiency (principal); Z68.41 Body mass index [BMI] 40.0-44.9, adult; J93.83 Other pneumothorax; D62 Acute posthemorrhagic anemia; J98.11 Atelectasis; I27.20 Pulmonary hypertension, unspecified; E66.01 Morbid (severe) obesity due to excess calories; I11.9 Hypertensive heart disease without heart failure; D86.0 Sarcoidosis of lung; J45.20 Mild intermittent asthma, uncomplicated; I48.91 Unspecified atrial fibrillation; I71.4 Abdominal aortic aneurysm, without rupture; I34.1 Nonrheumatic mitral (valve) prolapse; G47.33 Obstructive sleep apnea (adult) (pediatric); K21.9 Gastro-esophageal reflux disease without esophagitis; M19.90 Unspecified osteoarthritis, unspecified site; Z98.890 Other specified postprocedural states; Z96.653 Presence of artificial knee joint, bilateral; Z98.84 Bariatric surgery status; Z80.3 Family history of malignant neoplasm of breast; Z82.49 Family history of ischemic heart disease and other diseases of the circulatory system; Z79.899 Other long term (current) drug therapy; Z79.51 Long term (current) use of inhaled steroids; Z79.52 Long term (current) use of systemic steroids
CPT/HCPCS: 71045; 71046; 80048; 80053; 82330; 82805; 83735; 85025; 85027; 85520; 85610; 85730; 86850; 86870; 86880; 86891; 86900; 86901; 86920; 87070; 87075; 87205; 88305; 94002; 94640

== ENCOUNTER → 2020-07-18 | Outpatient (CLI) | payer MEDICAID ==
[2020-07-18 15:41] LABS: HCT 32.2 % (34.0-46.0); HGB 9.8 gm/dL (11.4-16.0); Hypochromasia Marked; MCHC 30.3 g/dL (31.0-37.0); MCV 89.1 fL (80.0-100.0); Mean Platelet Volume 7.2; Platelet Count 383 k/uL (150-450); Poikilocytosis Slight; RBC 3.62 m/uL (3.80-5.40); RDW 15.8 % (11.5-15.5)
[2020-07-19 02:06] LABS: Erythrocyte Sedimentation Rate 16 mm/Hr (0-30)
[2020-07-19 02:53] LABS: % Iron Saturation 4.13 (12.00-45.00); African American GFR (CKD) 81.7 (60.0-200.0); Albumin 4.3 g/dL (3.80-4.90); Albumin/Globulin Ratio 2.53 (1.60-3.17); Anion Gap 9.7 mmol/L (4.00-12.00); BUN/Creat Ratio 23.33 Ratio (12.00-20.00); C Reactive Protein, High Sens 5.5 mg/L (0.000-3.000); Calcium 9.5 mg/dL (8.7-10.3); Carbon Dioxide 26.3 mmol/L (21.6-31.8); Ferritin 21.6 ng/mL (10.0-291.0); Globulin 1.7 g/dL (1.6-3.3); Non-African American GFR(CKD) 70.5 (60.0-200.0); Total Bilirubin 0.4 mg/dL (0.3-1.2)
== END | disposition home or self-care (01) ==
LOC: LABWHC1 14:58
PROVIDERS: ATTEND Internal Medicine Critical Care Medicine
DX: D50.0 Iron deficiency anemia secondary to blood loss (chronic) (principal); I10 Essential (primary) hypertension; D86.9 Sarcoidosis, unspecified
CPT/HCPCS: 36415; 80053; 82164; 82728; 83540; 83550; 85027; 85652; 86141

== ENCOUNTER → 2020-09-01 | Outpatient (CLI) | payer MEDICAID ==
--- NOTE | 2020-09-01 12:42 | ECHOF ---
Referral Reason:I34.0 Nonrheumatic mitral (valve) insufficiency MEASUREMENTS -------- HEIGHT: 170.2 cm WEIGHT: 117.9 kg BP: 186/91 RVIDd: 3.6 cm (< 3.3) IVSd: 1.5 cm (0.6 - 1.1) LVIDd: 4.4 cm (3.9 - 5.3) LVPWd: 1.4 cm (0.6 - 1.1) IVSs: 2.1 cm LVIDs: 2.7 cm LVPWs: 2.0 cm LA Diam: 3.9 cm (2.7 - 3.8) LAESV Index (A-L): 38.12 ml/m Ao Diam: 3.3 cm (2.0 - 3.7) AV Cusp: 1.8 cm (1.5 - 2.6) MV EXCURSION: 12.842 mm (> 18.000) MV EF SLOPE: 24 mm/s (70 - 150) EPSS: 0.8 cm MV E Rajesh: 1.67 m/s MV DecT: 418 ms MV A Rajesh: 1.31 m/s MV E/A Ratio: 1.28 RAP: 15.00 mmHg RVSP: 45.45 mmHg FINDINGS -------- Sinus rhythm. This was a technically adequate study. The left ventricular size is normal. There is moderate concentric left ventricular hypertrophy. O verall left ventricular systolic function is mildly impaired with, an EF between 45 - 50 %. Mid ant eroseptal LV wall motion is hypokinetic. Apical lateral LV wall motion is hypokinetic. Apical s eptum LV wall motion is hypokinetic. The right ventricle is mildly enlarged. LA is moderately dilated 34-39 ml/m2 The right atrial size is normal. Interatrial and interventricular septum intact. The aortic valve is trileaflet and appears structurally normal. Mild mitral regurgitation is present. The peak and mean MV gradients are 15.75mmHg 6.20mmHg as neeraj sured by doppler. Agik-yv-sfuvyokk mitral stenosis. MV Repair. Mild tricuspid regurgitation present. There is mild pulmonary hypertension. The right ventricular systolic pressure, as measured by Doppler, is 45.45mmHg. The pulmonic valve was not well visualized. There is no pulmonic regurgitation present. The aortic root size is normal. The inferior vena cava is dilated with poor inspiratory collapse which is consistent with estimated r ight atrial pressure of 15 mmHg. There is no pericardial effusion. CONCLUSIONS -------- 1. There is moderate concentric left ventricular hypertrophy. 2. Overall left ventricular systolic function is mildly impaired with, an EF between 45 - 50 %. 3. Mid anteroseptal LV wall motion is hypokinetic. 4. Apical lateral LV wall motion is hypokinetic. 5. Apical septum LV wall motion is hypokinetic. 6. The right ventricle is mildly enlarged. 7. LA is moderately dilated 34-39 ml/m2 8. Mild mitral regurgitation is present. 9. The peak and mean MV gradients are 15.75mmHg 6.20mmHg as measured by doppler. 10. Qdkc-jk-xlyjstdl mitral stenosis. 11. MV Repair. 12. Mild tricuspid regurgitation present. 13. There is mild pulmonary hypertension. 14. The inferior vena cava is dilated with poor inspiratory collapse which is consistent with estimat ed right atrial pressure of 15 mmHg. 15. There is no pericardial effusion. PASTRY ASSISTANT: Fiona Shetty RDCS
== END | disposition home or self-care (01) ==
LOC: RADECHMAIN 10:46
PROVIDERS: ATTEND Internal Medicine Cardiovascular Disease
DX: I08.1 Rheumatic disorders of both mitral and tricuspid valves (principal); I27.20 Pulmonary hypertension, unspecified
CPT/HCPCS: 93306

== ENCOUNTER → 2021-03-27 | Outpatient (CLI) | payer MEDICAID ==
[2021-03-27 09:06] LABS: Amorphous Sediment,Urine Moderate /hpf; Appearance,Urine Cloudy (Clear); Bacteria,Urine Rare /hpf; Bilirubin,Urine Negative (Negative); Blood,Urine Negative (Negative); Color,Urine Yellow; Glucose,Urine (UA) Negative (Negative); Ketones,Urine Negative (Negative); Leukocyte Esterase,Urine Small (Negative); Nitrite,Urine Negative (Negative); Protein,Urine Trace (Negative); Specific Gravity,Urine 1.028 (1.001-1.035); Squamous Epithelial Cell,Urine 1 /hpf (0-4); Urobilinogen,Urine <2.0 mg/dL (<2.0); WBC,Urine 2 /hpf (0-5)
[2021-03-27 15:04] LABS: HCT 39.1 % (37.2-46.3); HGB 12.1 g/dL (12.0-15.0); MCH 27.1 pg (27.0-32.0); MCHC 30.9 g/dL (32.0-37.0); MCV 87.5 fL (80.0-97.0); Mean Platelet Volume 10.4 fL (9.5-12.2); Platelet Count 300 X 10*3/uL (140-440); RBC 4.47 X 10*6/uL (4.10-5.20); RDW 17.2 % (11.5-14.5); WBC 9.58 X 10*3/uL (4.50-10.00)
[2021-03-27 17:01] LABS: % Iron Saturation 6.53 (12.00-45.00); African American GFR (CKD) 109.9 (60.0-200.0); Albumin 4.5 g/dL (3.80-4.90); Albumin/Globulin Ratio 2.81 (1.60-3.17); Anion Gap 11.2 mmol/L (4.00-12.00); BUN/Creat Ratio 47.14 Ratio (12.00-20.00); Calcium 9.1 mg/dL (8.7-10.3); Carbon Dioxide 23.8 mmol/L (21.6-31.8); Chol/HDL Ratio 3.28; Globulin 1.6 g/dL (1.6-3.3); LDL Cholesterol,Calculated 89.4 mg/dL (0.0-131.0); Non-African American GFR(CKD) 94.8 (60.0-200.0); Potassium 4.5 mmol/L (3.5-5.5); Total Bilirubin 0.3 mg/dL (0.2-1.2); Total Protein 6.1 g/dL (6.2-8.2); VLDL Calculation 17.6 mg/dL (5.00-40.00)
[2021-03-27 17:05] LABS: Ferritin 7.7 ng/mL (10.0-291.0); T4, Free (Free Thyroxine) 1.2 ng/dL (0.80-1.80)
[2021-03-27 17:16] LABS: Hemoglobin A1C 6.4 % (4.0-6.0)
== END | disposition home or self-care (01) ==
LOC: LABWHC1 07:57
PROVIDERS: ATTEND Internal Medicine Critical Care Medicine
DX: Z00.00 Encounter for general adult medical examination without abnormal findings (principal); E66.01 Morbid (severe) obesity due to excess calories; D86.9 Sarcoidosis, unspecified
CPT/HCPCS: 36415; 80053; 80061; 81001; 82164; 82306; 82728; 83036; 83540; 83550; 84439; 84443; 85027

== ENCOUNTER → 2022-01-03 | Outpatient (CLI) | payer MEDICAID ==
--- NOTE | 2022-01-03 11:36 | MM ---
Reason for exam: clinical finding. Last mammogram was performed 2 years and 2 months ago. History: Patient is postmenopausal. Family history of breast cancer in sister at age 50 and breast cancer in mother at age 75. Took hormonal contraceptives for 4 years beginning at age 18. Physical Findings: Nurse Summary: 3cm circular area of redness and pain left upper outer quadrant (nurse mj). MG 3D Diag Mammo W/Cad ALTA Bilateral CC and MLO view(s) were taken. Prior study comparison: October 19, 2019, bilateral MG 3d diag mammo w/cad ALTA. August 13, 2018, bilateral MG 3d screening mammo w/cad. The breast tissue is heterogeneously dense. This may lower the sensitivity of mammography. Stable benign calcifications. There is no discrete abnormality including area of concern. No significant new findings when compared with previous films. These results were verbally communicated with the patient and result sheet given to the patient on 01/03/22. ASSESSMENT: Benign, BI-RAD 2 RECOMMENDATION: Routine screening mammogram of both breasts in 1 year. Manage patient on a clinical basis.
== END | disposition home or self-care (01) ==
LOC: RADMAMWWP 10:11
PROVIDERS: ATTEND Obstetrics & Gynecology
DX: N63.0 Unspecified lump in unspecified breast (principal); Z78.0 Asymptomatic menopausal state; Z80.3 Family history of malignant neoplasm of breast
CPT/HCPCS: 77062; 77066

== ENCOUNTER 2022-01-12 12:58 | Inpatient (IN) | payer MEDICAID ==
[2022-01-12] MEDS ORDERED: NITROGLYCERIN OINT 1 INCH/GM PACKET TOPICAL STA (13:32)
[2022-01-12] MEDS ORDERED: ASPIRIN 81 MG PO STA (13:32)
[2022-01-12] MEDS ORDERED: NITROGLYCERIN SL TABS 0.4 MG TAB SUBLINGUAL STA (13:33)
--- NOTE | 2022-01-12 13:35 | ED ---
SOB HPI - General Chief Complaint: Shortness of Breath Stated Complaint: chest pressure, SOB Time Seen by Provider: 01/12/22 13:16 Source: patient, RN notes reviewed Mode of arrival: ambulatory Limitations: no limitations - History of Present Illness Initial Comments: Pipe Supervisor is Dr. Rodríguez, food assembler kitchen Dr. Lord This is a pleasant 61-year-old female with a history of hypertension and cardiac disease with previous mitral valve prolapse and mitral valve repair. She presents emergently with 3 or 4 days of worsening shortness of breath. She states that seems to be much worse with exertion. She is getting some chest pressure but denies any overt pain. No fever or chills. No nausea or vomiting. No diaphoresis. No abdominal pain. Mild peripheral edema. Patient states she takes a water pill about once a week if she is more "puffy." No headache, no fever or chills, no changes in vision or hearing, no sore throat or difficulty with speech, no neck pain, no abdominal pain, no nausea or vomiting, no changes in urination or bowel movements, no numbness or tingling, no extremity pain, no skin rashes or lesions. MD Complaint: shortness of breath - Related Data Home Medications Medication Instructions Recorded Confirmed ALPRAZolam [Xanax] 0.25 mg PO DAILY PRN 12/29/18 01/12/22 Budesonide-Formot 160-4.5 Mcg 2 puff INHALATION RT-BID 12/29/18 01/12/22 [Symbicort 160-4.5 Mcg Inhaler] FLUoxetine HCL [PROzac] 20 mg PO DAILY 12/29/18 01/12/22 Montelukast Sodium [Singulair] 10 mg PO HS 12/29/18 01/12/22 Furosemide [Lasix] 20 mg PO MOWEFR PRN 06/06/20 01/12/22 Acetaminophen-Codeine 300-30mg 1 tab PO DAILY PRN 01/12/22 01/12/22 [Tylenol w/codeine #3] Albuterol Sulfate [Proventil Hfa] 2 puff INHALATION RT-Q6H PRN 01/12/22 01/12/22 Aspirin 325 mg PO DAILY 01/12/22 01/12/22 Metoprolol Tartrate [Lopressor] 50 mg PO BID 01/12/22 01/12/22 Pantoprazole [Protonix] 40 mg PO DAILY 01/12/22 01/12/22 amLODIPine [Norvasc] 5 mg PO DAILY PRN 01/12/22 01/12/22 lisinopriL 10 mg PO BID 01/12/22 01/12/22 Allergies Allergy/AdvReac Type Severity Reaction Status Date / Time No Known Allergies Allergy Verified 01/12/22 16:22 Review of Systems ROS Statement: Those systems with pertinent positive or pertinent negative responses have been documented in the HPI. ROS Other: All systems not noted in ROS Statement are negative. Past Medical History Past Medical History: Asthma, Hypertension, Mitral Valve Prolapse (MVP), Osteoarthritis (OA), Sleep Apnea/CPAP/BIPAP Additional Past Medical History / Comment(s): "AAA, 4 cm", bronchitis, no cpap used, "something autoimmune",recent dx. sarcoidosis, mitral valve "severe leak" per pt., nodules/inflammation in lung in CT History of Any Multi-Drug Resistant Organisms: None Reported Past Surgical History: Adenoidectomy, Bariatric Surgery, Orthopedic Surgery, Tonsillectomy Additional Past Surgical History / Comment(s): lap band, rt eye sx-had a blocked blood vessel, sinus sx, hallie knee replacement, recent lung biopsy, MIRLANDE Past Anesthesia/Blood Transfusion Reactions: No Reported Reaction Additional Past Anesthesia/Blood Transfusion Reaction / Comment(s): Diff IV starts Past Psychological History: No Psychological Hx Reported Smoking Status: Never smoker Past Alcohol Use History: None Reported Past Drug Use History: None Reported - Past Family History Sister(s) Family Medical History: Cancer Additional Family Medical History / Comment(s): BREAST CANCER, HX OF BRACHIAL BLOOD CLOTS WITH FILTERS INSERTED. Mother Family Medical History: Cancer Additional Family Medical History / Comment(s): BREAST CANCER. Father Family Medical History: Congestive Heart Failure (CHF), Myocardial Infarction (MA) Additional Family Medical History / Comment(s): MA Brother(s) Family Medical History: Coronary Artery Disease (CAD) Additional Family Medical History / Comment(s): General Exam - General Exam Comments Initial Comments: Patient found be hypertensive in triage. Remainder of vital signs are now stable. Patient was initially tachycardic as well. Does not appear to be ill or toxic. Limitations: no limitations General appearance: alert, in no apparent distress, obese Head exam: Present: atraumatic, normocephalic, normal inspection Eye exam: Present: normal appearance, PERRL, EOMI. Absent: scleral icterus, conjunctival injection, periorbital swelling ENT exam: Present: normal exam, normal oropharynx, mucous membranes moist, TM's normal bilaterally, normal external ear exam. Absent: mucous membranes dry Neck exam: Present: normal inspection. Absent: tenderness, meningismus, lymphadenopathy Respiratory exam: Present: normal lung sounds bilaterally. Absent: respiratory distress, wheezes, rales, rhonchi, stridor Cardiovascular Exam: Present: regular rate, normal rhythm, normal heart sounds. Absent: systolic murmur, diastolic murmur, rubs, gallop, clicks GI/Abdominal exam: Present: soft, normal bowel sounds. Absent: distended, tenderness, guarding, rebound, rigid Extremities exam: Present: normal inspection, full ROM, normal capillary refill, pedal edema (Bilateral 1+ pitting edema both ankle and pretibial). Absent: tenderness, joint swelling, calf tenderness Back exam: Present: normal inspection Neurological exam: Present: alert, oriented X3, CN II-XII intact Psychiatric exam: Present: normal affect, normal mood Skin exam: Present: warm, dry, intact, normal color. Absent: rash Course Vital Signs 01/12/22 01/12/22 01/12/22 13:00 13:45 16:48 Temperature 98.2 F Pulse Rate 68 63 Respiratory 18 18 16 Rate Blood Pressure 211/112 173/96 O2 Sat by Pulse 98 97 Oximetry - Reevaluation(s) Reevaluation #1: 01/12/22 15:46 Medical record is reviewed Symptoms are improved here in the emergency department Patient is informed of results and questions answered Patient in no distress Reevaluation #2: 01/12/22 16:02 Medical record is reviewed Symptoms are improved here in the emergency department Patient is informed of results and questions answered Patient in no distress Medical Decision Making - Medical Decision Making Blood pressure 211/112 Given the patient's presenting symptomology, congestive heart failure is within the differential. Also cardiac ischemia. Patient does have some nonspecific EKG changes when compared to the previous study. Patient has T-wave inversions and nonspecific ST depression. Patient still has a right bundle branch block. Infectious etiology less likely. Pulmonary embolism less likely however the patient was tachycardic in triage. A d-dimer was initially ordered. Patient will likely need to be admitted Note that the patient has sarcoidosis and states that she started on a prednisone taper on her own Echocardiogram from October 2019 reveals mitral regurgitation, stiffed posterior leaflet and regurgitation could be ischemic. Normal aortic valve function, no PFO, no clot, left atrial enlargement, left ventricular function preserved Cardiac catheter from November 2019 reveals severe mitral regurgitation with normal left ventricular function. Case discussed in detail with Dr. vogt, patient will be admitted to [facility] - Lab Data Result diagrams: 01/12/22 13:37 01/12/22 13:37 Lab Results 01/12/22 01/12/22 01/12/22 Range/Units 13:37 13:37 13:37 WBC 7.9 (3.8-10.6) k/uL RBC 4.73 (3.80-5.40) m/uL Hgb 14.3 (11.4-16.0) gm/dL Hct 44.3 (34.0-46.0) % MCV 93.8 (80.0-100.0) fL MCH 30.3 (25.0-35.0) pg MCHC 32.3 (31.0-37.0) g/dL RDW 14.6 (11.5-15.5) % Plt Count 285 (150-450) k/uL MPV 7.7 Neutrophils % 64 % Lymphocytes % 24 % Monocytes % 6 % Eosinophils % 4 % Basophils % 0 % Neutrophils # 5.1 (1.3-7.7) k/uL Lymphocytes # 1.9 (1.0-4.8) k/uL Monocytes # 0.5 (0-1.0) k/uL Eosinophils # 0.3 (0-0.7) k/uL Basophils # 0.0 (0-0.2) k/uL PT 10.1 (9.0-12.0) sec INR 0.9 (<1.2) APTT 22.5 (22.0-30.0) sec D-Dimer 0.36 (<0.60) mg/L FEU Sodium 138 (137-145) mmol/L Potassium 4.2 (3.5-5.1) mmol/L Chloride 107 (98-107) mmol/L Carbon Dioxide 25 (22-30) mmol/L Anion Gap 6 mmol/L BUN 20 H (7-17) mg/dL Creatinine 0.66 (0.52-1.04) mg/dL Est GFR (CKD-EPI)AfAm >90 (>60 ml/min/1.73 sqM) Est GFR (CKD-EPI)NonAf >90 (>60 ml/min/1.73 sqM) Glucose 104 H (74-99) mg/dL Calcium 9.9 (8.4-10.2) mg/dL Magnesium 2.1 (1.6-2.3) mg/dL Total Bilirubin 0.7 (0.2-1.3) mg/dL AST 36 (14-36) U/L ALT 37 H (4-34) U/L Alkaline Phosphatase 67 (38-126) U/L Troponin I (0.000-0.034) ng/mL NT-Pro-B Natriuret Pep pg/mL Total Protein 7.0 (6.3-8.2) g/dL Albumin 4.3 (3.5-5.0) g/dL Coronavirus (PCR) (Not Detectd) 01/12/22 01/12/22 01/12/22 Range/Units 13:37 13:37 13:37 WBC (3.8-10.6) k/uL RBC (3.80-5.40) m/uL Hgb (11.4-16.0) gm/dL Hct (34.0-46.0) % MCV (80.0-100.0) fL MCH (25.0-35.0) pg MCHC (31.0-37.0) g/dL RDW (11.5-15.5) % Plt Count (150-450) k/uL MPV Neutrophils % % Lymphocytes % % Monocytes % % Eosinophils % % Basophils % % Neutrophils # (1.3-7.7) k/uL Lymphocytes # (1.0-4.8) k/uL Monocytes # (0-1.0) k/uL Eosinophils # (0-0.7) k/uL Basophils # (0-0.2) k/uL PT (9.0-12.0) sec INR (<1.2) APTT (22.0-30.0) sec D-Dimer (<0.60) mg/L FEU Sodium (137-145) mmol/L Potassium (3.5-5.1) mmol/L Chloride (98-107) mmol/L Carbon Dioxide (22-30) mmol/L Anion Gap mmol/L BUN (7-17) mg/dL Creatinine (0.52-1.04) mg/dL Est GFR (CKD-EPI)AfAm (>60 ml/min/1.73 sqM) Est GFR (CKD-EPI)NonAf (>60 ml/min/1.73 sqM) Glucose (74-99) mg/dL Calcium (8.4-10.2) mg/dL Magnesium (1.6-2.3) mg/dL Total Bilirubin (0.2-1.3) mg/dL AST (14-36) U/L ALT (4-34) U/L Alkaline Phosphatase (38-126) U/L Troponin I <0.012 (0.000-0.034) ng/mL NT-Pro-B Natriuret Pep 1520 pg/mL Total Protein (6.3-8.2) g/dL Albumin (3.5-5.0) g/dL Coronavirus (PCR) Not Detected (Not Detectd) - EKG Data EKG Comments: This is EKG read by the ED attending physician reveals sinus rhythm with a rate of 67, a branch block, patient does have T-wave changes in the precordial leads which are different from the previous study in May 2020. MN interval is 179 ms, QRS duration 149 ms, QTC 458 ms. [place] is normal Disposition Clinical Impression: Acute exacerbation of CHF (congestive heart failure), Uncontrolled hypertension Disposition: ADMITTED IP TO THIS HOSP Is patient prescribed a controlled substance at d/c from ED?: No Time of Disposition: 16:12
--- NOTE | 2022-01-12 14:01 | XR ---
EXAMINATION TYPE: XR chest 2V DATE OF EXAM: 01/12/2022 COMPARISON: 06/17/2020 HISTORY: Shortness of breath TECHNIQUE: Frontal and lateral views of the chest are obtained. FINDINGS: Scattered senescent parenchymal changes noted. Hyperinflation compatible with COPD. No evidence for infiltrate. No evidence for atelectasis. There is pulmonary venous congestion without overt failure. Cardiomegaly persists. Mediastinal structures are stable and grossly unremarkable. No evidence for hilar prominence. Degenerative changes dorsal spine. IMPRESSION: 1. There is pulmonary venous congestion without overt failure. Cardiomegaly persists.
[2022-01-12 14:23] LABS: INR 0.9 (<1.2); Partial Thromboplastin Time 22.5 sec (22.0-30.0); Prothrombin Time 10.1 sec (9.0-12.0)
[2022-01-12 14:26] LABS: ALT 37 U/L (4-34); AST 36 U/L (14-36); African American GFR (CKD) >90 (>60 ml/min/1.73 sqM); Albumin 4.3 g/dL (3.5-5.0); Alkaline Phosphatase 67 U/L (38-126); Anion Gap 6 mmol/L; Blood Urea Nitrogen 20 mg/dL (7-17); Calcium 9.9 mg/dL (8.4-10.2); Carbon Dioxide 25 mmol/L (22-30); Chloride 107 mmol/L (98-107); Glucose 104 mg/dL (74-99); Magnesium 2.1 mg/dL (1.6-2.3); Non-African American GFR(CKD) >90 (>60 ml/min/1.73 sqM); Potassium 4.2 mmol/L (3.5-5.1); Sodium 138 mmol/L (137-145); Total Bilirubin 0.7 mg/dL (0.2-1.3)
[2022-01-12 14:49] LABS: Basophils % (A) 0 %; Eosinophils # (A) 0.3 k/uL (0-0.7); Eosinophils % (A) 4 %; HCT 44.3 % (34.0-46.0); HGB 14.3 gm/dL (11.4-16.0); Lymphocytes # (A) 1.9 k/uL (1.0-4.8); Lymphocytes % (A) 24 %; MCH 30.3 pg (25.0-35.0); MCHC 32.3 g/dL (31.0-37.0); MCV 93.8 fL (80.0-100.0); Mean Platelet Volume 7.7; Monocytes # (A) 0.5 k/uL (0-1.0); Monocytes % (A) 6 %; Neutrophils # (A) 5.1 k/uL (1.3-7.7); Neutrophils % (A) 64 %; Platelet Count 285 k/uL (150-450); RBC 4.73 m/uL (3.80-5.40); RDW 14.6 % (11.5-15.5); WBC 7.9 k/uL (3.8-10.6)
[2022-01-12] MEDS ORDERED: FUROSEMIDE 10 MG/ML 4 ML VIAL IV STA (15:47)
[2022-01-12] MEDS ORDERED: ACETAMINOPHEN TAB 500 MG TAB PO STA (16:02)
[2022-01-12] MEDS ORDERED: NALOXONE 0.4 MG/ML 1 ML VIAL IV PRN (16:13)
[2022-01-12] MEDS ORDERED: ACETAMINOPHEN TAB 325 MG TAB PO PRN (16:13)
[2022-01-12] MEDS: ENOXAPARIN 40 MG/0.4 ML SYRINGE SQ SCH (16:53)
[2022-01-12] MEDS ORDERED: ONDANSETRON 4 MG/2 ML VIAL IVP PRN (17:26)
[2022-01-12] MEDS ORDERED: amLODIPine 5 MG TAB PO PRN (17:29)
[2022-01-12] MEDS ORDERED: ALBUTEROL NEBULIZED 2.5 MG/3 ML INHALATION PRN (17:29)
[2022-01-12] MEDS ORDERED: ALPRAZolam 0.25 MG TAB PO PRN (17:29)
[2022-01-12 18:34] LABS: Appearance,Urine Clear (Clear); Bilirubin,Urine Negative (Negative); Blood,Urine Negative (Negative); Color,Urine Colorless; Glucose,Urine (UA) Negative (Negative); Ketones,Urine Negative (Negative); Leukocyte Esterase,Urine Negative (Negative); Nitrite,Urine Negative (Negative); PH, Urine 6.5 (5.0-8.0); Protein,Urine Negative (Negative); Specific Gravity,Urine 1.005 (1.001-1.035); Urobilinogen,Urine <2.0 mg/dL (<2.0)
[2022-01-12] MEDS: HYDROcodone/APAP 5-325MG 1 EACH TAB PO PRN (19:05)
[2022-01-12] MEDS: amLODIPine 5 MG TAB PO SCH (19:05)
[2022-01-12] MEDS: SYMBICORT 160-4.5 MCG INHALER INHALATION SCH (19:17)
[2022-01-12 20:07] VITALS: RESP 18
[2022-01-12] MEDS: METOPROLOL TARTRATE 50 MG TAB PO SCH (20:37)
[2022-01-12] MEDS: lisinopriL 10 MG TAB PO SCH (20:37)
[2022-01-12] MEDS ORDERED: MONTELUKAST 10 MG TAB PO SCH (21:00)
[2022-01-13] MEDS: HYDROcodone/APAP 5-325MG 1 EACH TAB PO PRN (06:36)
[2022-01-13] MEDS: SYMBICORT 160-4.5 MCG INHALER INHALATION SCH (07:25)
--- NOTE | 2022-01-13 07:28 | P.HPIM ---
History of Present Illness Patient is seen and examined by me on room 14 in the emergency room on 01/12/2022 as below This is a pleasant 61 years old female with past medical history of Asthma, Hypertension, Mitral Valve Prolapse status post mitral valve surgery early in 2019, Osteoarthritis , Sleep Apnea/CPAP/BIPAP, "AAA, 4 cm", recent dx. sarcoidosis diagnosed by and following up with Dr. Rodríguez Presents because of exertional dyspnea with orthopedic symptoms like paroxysmal nocturnal coughing since Saturday 3 days ago Associated with rectal chest pressure about 8/10 on the left side radiating to the left arm of one-day duration Patient denies nausea vomiting or diarrhea, no abdominal pain, no dysuria or change in urgency. No headache or dizziness or numbness or weakness Patient follow-up with Dr. Rodríguez was recently diagnosed with sarcoidosis She denies smoking, alcohol or illicit drugs Patient is hemodynamically stable. Labs including CBC, INR, BMP and liver enzymes are unremarkable D-dimer is -0.36 Troponins are negative 3 with less than 0.012. ProBNP is 1520 Urine analysis is not suspicious of infection Coronavirus not detected Chest x-ray: There is pulmonary venous congestion without overt failure. Cardiomegaly persist EKG showing normal sinus rhythm at 67, T-wave inversion in V3 to V6, QTC 458 Review of Systems CONSTITUTIONAL: No fever, no malaise, no fatigue. HEENT: No recent visual problems or hearing problems. Denied any sore throat. CARDIOVASCULAR: No orthopnea, PND, no palpitations, no syncope. PULMONARY: No chest wall tenderness, no hemoptysis. GASTROINTESTINAL: No diarrhea, no nausea, no vomiting, no abdominal pain. Normoactive bowel sounds. NEUROLOGICAL: No headaches, no weakness, no numbness. HEMATOLOGICAL: Denies any bleeding or petechiae. GENITOURINARY: Denies any burning micturition, frequency, or urgency. MUSCULOSKELETAL/RHEUMATOLOGICAL: Denies any joint pain, swelling, or any muscle pain. ENDOCRINE: Denies any polyuria or polydipsia. Past Medical History Past Medical History: Asthma, Hypertension, Mitral Valve Prolapse (MVP), Osteoarthritis (OA), Sleep Apnea/CPAP/BIPAP Additional Past Medical History / Comment(s): "AAA, 4 cm", bronchitis, no cpap used, "something autoimmune",recent dx. sarcoidosis, mitral valve "severe leak" per pt., nodules/inflammation in lung in CT History of Any Multi-Drug Resistant Organisms: None Reported Past Surgical History: Adenoidectomy, Bariatric Surgery, Orthopedic Surgery, Tonsillectomy Additional Past Surgical History / Comment(s): lap band, rt eye sx-had a blocked blood vessel, sinus sx, hallie knee replacement, recent lung biopsy, MIRLANDE Past Anesthesia/Blood Transfusion Reactions: No Reported Reaction Additional Past Anesthesia/Blood Transfusion Reaction / Comment(s): Diff IV starts Past Psychological History: No Psychological Hx Reported Smoking Status: Never smoker Past Alcohol Use History: None Reported Past Drug Use History: None Reported - Past Family History Sister(s) Family Medical History: Cancer Additional Family Medical History / Comment(s): BREAST CANCER, HX OF BRACHIAL BLOOD CLOTS WITH FILTERS INSERTED. Mother Family Medical History: Cancer Additional Family Medical History / Comment(s): BREAST CANCER. Father Family Medical History: Congestive Heart Failure (CHF), Myocardial Infarction (ND) Additional Family Medical History / Comment(s): ND Brother(s) Family Medical History: Coronary Artery Disease (CAD) Additional Family Medical History / Comment(s): Medications and Allergies Home Medications Medication Instructions Recorded Confirmed Type ALPRAZolam [Xanax] 0.25 mg PO DAILY PRN 12/29/18 01/12/22 History Budesonide-Formot 160-4.5 Mcg 2 puff INHALATION RT-BID 12/29/18 01/12/22 History [Symbicort 160-4.5 Mcg Inhaler] FLUoxetine HCL [PROzac] 20 mg PO DAILY 12/29/18 01/12/22 History Montelukast Sodium [Singulair] 10 mg PO HS 12/29/18 01/12/22 History Furosemide [Lasix] 20 mg PO MOWEFR PRN 06/06/20 01/12/22 History Acetaminophen-Codeine 300-30mg 1 tab PO DAILY PRN 01/12/22 01/12/22 History [Tylenol w/codeine #3] Albuterol Sulfate [Proventil Hfa] 2 puff INHALATION RT-Q6H PRN 01/12/22 01/12/22 History Aspirin 325 mg PO DAILY 01/12/22 01/12/22 History Metoprolol Tartrate [Lopressor] 50 mg PO BID 01/12/22 01/12/22 History Pantoprazole [Protonix] 40 mg PO DAILY 01/12/22 01/12/22 History amLODIPine [Norvasc] 5 mg PO DAILY PRN 01/12/22 01/12/22 History lisinopriL 10 mg PO BID 01/12/22 01/12/22 History Allergies Allergy/AdvReac Type Severity Reaction Status Date / Time No Known Allergies Allergy Verified 01/12/22 16:22 Physical Exam Vitals: Vital Signs Temp Pulse Pulse Resp BP BP Pulse Ox 01/13/22 04:00 97.5 F L 58 L 18 148/89 97 01/13/22 02:00 59 L 18 01/13/22 00:00 97.6 F 59 L 18 127/76 95 01/12/22 20:00 61 18 01/12/22 19:58 97.3 F L 61 18 165/99 95 01/12/22 16:48 63 16 173/96 97 01/12/22 13:45 18 01/12/22 13:00 98.2 F 68 18 211/112 98 Intake and Output 01/12/22 01/13/22 01/13/22 22:59 06:59 14:59 Intake Total 10 Output Total 1000 600 Balance -990 -600 Intake: IV 10 0.9 10 Output: Urine 1000 600 Other: Voiding Method Toilet Toilet # Voids 1 Weight 113.398 kg 116.2 kg GENERAL: The patient is alert and oriented x3, not in any acute distress. Well developed, well nourished. HEENT: Pupils are round and equally reacting to light. EOMI. No scleral icterus. No conjunctival pallor. Normocephalic, atraumatic. No pharyngeal erythema. No thyromegaly. CARDIOVASCULAR: S1 and S2 present. No murmurs, rubs, or gallops. PULMONARY: Chest is clear to auscultation, no wheezing or crackles. ABDOMEN: Soft, nontender, nondistended, normoactive bowel sounds. No palpable organomegaly. MUSCULOSKELETAL: No joint swelling or deformity. EXTREMITIES: No cyanosis, clubbing, or pedal edema. NEUROLOGICAL: Gross neurological examination did not reveal any focal deficits. SKIN: No rashes. No petechiae Results CBC & Chem 7: 01/12/22 13:37 01/12/22 13:37 Labs: Abnormal Lab Results - Last 24 Hours (Table) 01/12/22 Range/Units 13:37 BUN 20 H (7-17) mg/dL Glucose 104 H (74-99) mg/dL ALT 37 H (4-34) U/L Thrombosis Risk Factor Assmnt - Choose All That Apply Any of the Below Risk Factors Present?: Yes Each Factor Represents 1 point: Age 41-60 years, Swollen legs (current) Other Risk Factors: No Other congenital or acquired thrombophilia - If yes, enter type in comment: No Thrombosis Risk Factor Assessment Total Risk Factor Score: 2 Thrombosis Risk Factor Assessment Level: Low Risk Assessment and Plan Assessment: Acute CHF exacerbation, unknown ejection fraction Mild left-sided chest pressure, rule out cardiac and pulmonary causes History of mitral valve surgery in 2021 Hypertension History of asthma Sleep apnea History of aortic aneurysm History of sarcoidosis Plan: This is a pleasant 61 years old female who presents with CHF and chest pressure Continue with IV Lasix Monitor electrolytes and input and output and creatinine level Cardiology and pulmonary consult Labs and medication were reviewed.. Continue same treatment. Continue with symptomatic treatment. Resume home medication. Monitor lytes and vitals. DVT and GI prophylaxis. Further recommendations depends on the clinical course of the patient DVT prophylaxis: Subcutaneous Lovenox GI Prophylaxis: Ppi
[2022-01-13] MEDS ORDERED: PANTOPRAZOLE 40 MG TABLET PO SCH (07:30)
[2022-01-13 07:49] VITALS: BP 125/78; PULSE 67; TEMP 98.2
[2022-01-13] MEDS: lisinopriL 10 MG TAB PO SCH (07:57)
[2022-01-13] MEDS: METOPROLOL TARTRATE 50 MG TAB PO SCH (07:57)
[2022-01-13] MEDS: ENOXAPARIN 40 MG/0.4 ML SYRINGE SQ SCH (07:57)
[2022-01-13] MEDS: amLODIPine 5 MG TAB PO SCH (07:58)
[2022-01-13] MEDS ORDERED: ASPIRIN 325 MG TAB PO SCH (09:00)
[2022-01-13] MEDS ORDERED: FUROSEMIDE 10 MG/ML 4 ML VIAL IV SCH ×2 (09:00)
[2022-01-13] MEDS ORDERED: FLUoxetine HCL 20 MG CAP PO SCH (09:00)
[2022-01-13 09:11] LABS: Basophils % (A) 1 %; Eosinophils # (A) 0.3 k/uL (0-0.7); Eosinophils % (A) 4 %; HCT 46.6 % (34.0-46.0); HGB 14.6 gm/dL (11.4-16.0); Lymphocytes # (A) 2.2 k/uL (1.0-4.8); Lymphocytes % (A) 29 %; MCH 30.3 pg (25.0-35.0); MCHC 31.4 g/dL (31.0-37.0); MCV 96.3 fL (80.0-100.0); Mean Platelet Volume 7.4; Monocytes # (A) 0.4 k/uL (0-1.0); Monocytes % (A) 6 %; Neutrophils # (A) 4.5 k/uL (1.3-7.7); Neutrophils % (A) 60 %; Platelet Count 295 k/uL (150-450); RBC 4.84 m/uL (3.80-5.40); RDW 14.6 % (11.5-15.5); WBC 7.5 k/uL (3.8-10.6)
[2022-01-13 09:31] LABS: ALT 33 U/L (4-34); AST 30 U/L (14-36); African American GFR (CKD) >90 (>60 ml/min/1.73 sqM); Albumin 4.4 g/dL (3.5-5.0); Alkaline Phosphatase 64 U/L (38-126); Anion Gap 9 mmol/L; Blood Urea Nitrogen 21 mg/dL (7-17); Calcium 9.2 mg/dL (8.4-10.2); Carbon Dioxide 28 mmol/L (22-30); Chloride 103 mmol/L (98-107); Glucose 179 mg/dL (74-99); Non-African American GFR(CKD) 86 (>60 ml/min/1.73 sqM); Potassium 3.6 mmol/L (3.5-5.1); Sodium 140 mmol/L (137-145); Total Bilirubin 0.6 mg/dL (0.2-1.3); Total Protein 7.2 g/dL (6.3-8.2)
--- NOTE | 2022-01-13 09:53 | ECHOF ---
Referral Reason:Congestive heart failure MEASUREMENTS -------- HEIGHT: 170.2 cm WEIGHT: 116.1 kg BP: 148/89 RVIDd: 2.8 cm (< 3.3) IVSd: 1.3 cm (0.6 - 1.1) LVIDd: 4.8 cm (3.9 - 5.3) LVPWd: 1.6 cm (0.6 - 1.1) IVSs: 1.7 cm LVIDs: 2.8 cm LVPWs: 2.1 cm LAESV Index (A-L): 38.96 ml/m Ao Diam: 2.9 cm (2.0 - 3.7) AV Cusp: 1.9 cm (1.5 - 2.6) LA Diam: 4.8 cm (2.7 - 3.8) MV EXCURSION: 18.450 mm (> 18.000) MV EF SLOPE: 38 mm/s (70 - 150) EPSS: 0.5 cm MV E Rajesh: 1.78 m/s MV DecT: 457 ms MV A Rajesh: 1.04 m/s MV E/A Ratio: 1.71 RAP: 5.00 mmHg RVSP: 47.18 mmHg FINDINGS -------- Sinus rhythm. This was a technically adequate study. The left ventricular size is normal. There is mild concentric left ventricular hypertrophy. Overa ll left ventricular systolic function is low-normal with, an EF between 50 - 55 %. Septal wall annmarie on is delayed and consistent with prior cardiac surgery. The right ventricle is normal in size. LA is moderately dilated 34-39 ml/m2 The right atrial size is normal. Interatrial and interventricular septum intact. There is no evidence of aortic regurgitation. There is no evidence of aortic stenosis. No mitral regurgitation. Mild to m oderate mitral stenosis , with a MVA of 1.7cm (by PHT) MV Repa ir. Moderate tricuspid regurgitation present. There is moderate pulmonary hypertension. The right bette tricular systolic pressure, as measured by Doppler, is 47.18mmHg. There is no pulmonic regurgitation present. The aortic root size is normal. Normal inferior vena cava with normal inspiratory collapse consistent with estimated right atrial pre ssure of 5 mmHg. Echo free space represents a pericardial fat pad. There is no pericardial effusion. CONCLUSIONS -------- 1. The left ventricular size is normal. 2. There is mild concentric left ventricular hypertrophy. 3. Overall left ventricular systolic function is low-normal with, an EF between 50 - 55 %. 4. Septal wall motion is delayed and consistent with prior cardiac surgery. 5. LA is moderately dilated 34-39 ml/m2 6. Moderate mitral stenosis. 7. , with a MVA of 1.7cm (by PHT) 8. MV Repair. 9. Mild to moderate tricuspid regurgitation present. 10. There is moderate pulmonary hypertension. 11. The right ventricular systolic pressure, as measured by Doppler, is 47.18mmHg. GROCERY TEAM MEMBER: Socorro Gay RDCS
--- NOTE | 2022-01-13 15:01 | CONS ---
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 Kirby. At that time she did not have any significant obstructive CAD. Her ejection fraction apparently was normal. Following the surgery she has done well. She apparently takes Lasix 20 mg every other day or so. She came into the hospital mainly with complaints of increasing shortness of breath. She complained having felt puffy all over and she was feeling more short of breath than usual. She had some mild lower extremity edema. However, she received some IV Lasix, feels better, and at the time of my evaluation she was asymptomatic. PAST MEDICAL HISTORY: 1. Bronchial asthma. 2. Hypertension. 3. Mitral valve prolapse with severe regurgitation, status post mitral valve repair in May 2020. 4. She is status post bariatric surgery. 5. Tonsillectomy. 6. Orthopedic surgery. MEDICATIONS: Medications include: 1. Symbicort. 2. Singulair. 3. Lasix 20 mg every other day as needed. 4. Aspirin 325 mg daily. 5. Metoprolol mg b.i.d. 6. Protonix. 7. Amlodipine 5 mg daily. 8. Lisinopril 10 mg b.i.d. The patient apparently checked her blood pressure and found that the pressure was also quite elevated. Her main complaint was shortness of breath and elevated blood pressure, and after arrival she received amlodipine. She feels better. She is asymptomatic. She received also Lasix intravenously. Her BNP was modestly elevated at 1520. Troponins were normal. PHYSICAL EXAMINATION: On examination, blood pressure is 128/70, pulse is 64 per minute. There is no JVD or carotid bruit. S1-S2 heard normally. There is a soft systolic murmur at the apex and left sternal border. Lungs reveal decent air entry. Abdomen is soft, nontender. Lower extremities reveal normal pulses. No edema. Central system is normal. EKG revealed a sinus mechanism with a right bundle branch block pattern and repolarization abnormality. LABORATORY DATA: Troponins were unremarkable. BNP was mildly elevated. Echocardiogram revealed that mitral valve repair was stable. There is actually mild to moderate mitral stenosis but no regurgitation, and mild pulmonary hypertension was noted. Systolic function was in the low-normal range. IMPRESSION: 1. Mild exacerbation of congestive heart failure which seems to have resolved. 2. Status post mitral valve repair for severe mitral regurgitation and mitral valve prolapse. 3. History of hypertension. 4. Accelerated hypertension, which has resolved. RECOMMENDATIONS: I am recommending that she can be discharged today. Echo findings were reviewed with the patient. I am recommending that she should take 5 mg of amlodipine at bedtime and take 20 mg Lasix on a daily basis and see Dr. Lord in 2 weeks. To call for any questions. MMODL / IJN: [id number] /
== END 2022-01-13 11:54 | disposition home or self-care (01) | DRG 293 ==
LOC: EC 12:58 → 3SCARD 16:14
PROVIDERS: ADMIT Internal Medicine; ATTEND Internal Medicine
DX: I11.0 Hypertensive heart disease with heart failure (principal); I50.9 Heart failure, unspecified; D86.9 Sarcoidosis, unspecified; Z20.822 Contact with and (suspected) exposure to COVID-19; I25.9 Chronic ischemic heart disease, unspecified; J40 Bronchitis, not specified as acute or chronic; G47.30 Sleep apnea, unspecified; I45.10 Unspecified right bundle-branch block; R00.0 Tachycardia, unspecified; M19.90 Unspecified osteoarthritis, unspecified site; I27.20 Pulmonary hypertension, unspecified; I07.1 Rheumatic tricuspid insufficiency; J45.909 Unspecified asthma, uncomplicated; Z79.51 Long term (current) use of inhaled steroids; Z79.82 Long term (current) use of aspirin; Z79.899 Other long term (current) drug therapy; Z80.3 Family history of malignant neoplasm of breast; Z82.49 Family history of ischemic heart disease and other diseases of the circulatory system; Z86.79 Personal history of other diseases of the circulatory system; Z96.653 Presence of artificial knee joint, bilateral; Z98.84 Bariatric surgery status
CPT/HCPCS: 36415; 71046; 80053; 81003; 83735; 83880; 84484; 85025; 85379; 85610; 85730; 87635; 93005; 93306; 94640; 99285

== ENCOUNTER → 2022-02-05 | Outpatient (CLI) | payer MEDICAID ==
--- NOTE | 2022-02-05 09:10 | XR ---
EXAMINATION TYPE: XR Hip Complete RT DATE OF EXAM: 02/05/2022 COMPARISON: NONE HISTORY: Pain TECHNIQUE: 2 views submitted FINDINGS: There is no evidence of erosive change or acute fracture. Mild concentric narrowing of the hip joint. Hypertrophic change of the acetabulum. IMPRESSION: 1. Mild arthropathy. If symptoms persist consider MRI.
--- NOTE | 2022-02-05 09:11 | XR ---
EXAM TYPE: LUMBAR SPINE X RAY SERIES COMPARISON: NONE HISTORY: Pain TECHNIQUE: 3 views are submitted. FINDINGS: Alignment is anatomic. The pedicles are intact. The transverse processes are intact. There is no s pondylolisthesis. Lap band surgery noted. There is hypertrophic and degenerative changes at all leve ls most marked at L5-S1. Severe facet arthropathy L4-5 and L5-S1. Vascular calcifications noted. Mild diffuse osteopenia. Spina bifida occulta lumbosacral junction. IMPRESSION: 1. Multilevel degenerative disc disease and facet arthropathy most marked at L5-S1..
== END ==
LOC: RADXRWHC 08:47
PROVIDERS: ATTEND Family Medicine
DX: M25.551 Pain in right hip (principal); M54.50 Low back pain, unspecified
CPT/HCPCS: 72100; 73502

== ENCOUNTER 2022-04-12 11:12 | Emergency (ER) | payer MEDICAID ==
--- NOTE | 2022-04-12 16:53 | XR ---
2 view chest x-ray HISTORY: Covid symptoms for 2 days 2 views of the chest Correlation to chest x-ray dated 01/12/2022 Patient is post median sternotomy and left atrial appendage clip placement. There is no evident airsp aileen disease, pneumothorax, or pleural effusion. Cardiac mediastinal silhouette is within normal limit s. Patient is status post left hand. Bones show stable appearance. IMPRESSION: No acute cardiopulmonary disease. Postop change.
[2022-04-12 20:37] VITALS: PULSE 64; TEMP 98
[2022-04-12] MEDS ORDERED: predniSONE 20 MG TAB PO STA (20:59)
[2022-04-12] MEDS ORDERED: BEBTELOVIMAB (EUA) 175 MG/2 ML VIAL IV ONE (21:00)
--- NOTE | 2022-04-12 21:00 | ED ---
General Adult HPI - General Chief complaint: Upper Respiratory Infection Stated complaint: Covid+/SOB/Infusion Time Seen by Provider: 04/12/22 19:58 Source: patient, RN notes reviewed, old records reviewed Mode of arrival: ambulatory Limitations: no limitations - History of Present Illness Initial comments: Patient is a 61-year-old female with past medical history remarkable for sarcoidosis, asthma, hypertension who presents emergency department over concern for COVID-19 diagnosis. Symptoms began yesterday. Was having mild upper respiratory symptoms including cough. States she had it somewhat exertional dyspnea as well. Today feels like is mostly upper respiratory symptoms as well as joint pain. SHe was instructed to come to the emergency department for testing, and monoclonal antibody therapy. There is a delay in evaluation of the patient, as she has presented during a down time as well as a large volume of patients in the emergency department.Symptoms started yesterday. - Related Data Home Medications Medication Instructions Recorded Confirmed ALPRAZolam [Xanax] 0.25 mg PO DAILY PRN 12/29/18 01/12/22 Budesonide-Formot 160-4.5 Mcg 2 puff INHALATION RT-BID 12/29/18 01/12/22 [Symbicort 160-4.5 Mcg Inhaler] FLUoxetine HCL [PROzac] 20 mg PO DAILY 12/29/18 01/12/22 Montelukast Sodium [Singulair] 10 mg PO HS 12/29/18 01/12/22 Furosemide [Lasix] 20 mg PO MOWEFR PRN 06/06/20 01/12/22 Acetaminophen-Codeine 300-30mg 1 tab PO DAILY PRN 01/12/22 01/12/22 [Tylenol w/codeine #3] Albuterol Sulfate [Proventil Hfa] 2 puff INHALATION RT-Q6H PRN 01/12/22 01/12/22 Aspirin 325 mg PO DAILY 01/12/22 01/12/22 Metoprolol Tartrate [Lopressor] 50 mg PO BID 01/12/22 01/12/22 Pantoprazole [Protonix] 40 mg PO DAILY 01/12/22 01/12/22 lisinopriL 10 mg PO BID 01/12/22 01/12/22 Previous Rx's Medication Instructions Recorded amLODIPine [Norvasc] 5 mg PO DAILY tab 01/13/22 predniSONE [Deltasone] 40 mg PO DAILY 4 Days #8 tab 04/12/22 Allergies Allergy/AdvReac Type Severity Reaction Status Date / Time No Known Allergies Allergy Verified 01/12/22 16:22 Review of Systems ROS Statement: Those systems with pertinent positive or pertinent negative responses have been documented in the HPI. Review of Systems: CONST: Denies fever EYES: Denies blurry vision ENT: Endorses nasal congestion C/V: Denies Chest pain RESP: Denies shortness of breath GI: Denies abdominal pain : Denies dysuria SKIN: Denies rash. MSK: Denies joint pain. NEURO: Denies headache ROS Other: All systems not noted in ROS Statement are negative. Past Medical History Past Medical History: Asthma, Hypertension, Mitral Valve Prolapse (MVP), Osteoarthritis (OA), Sleep Apnea/CPAP/BIPAP Additional Past Medical History / Comment(s): "AAA, 4 cm", bronchitis, no cpap used, "something autoimmune",recent dx. sarcoidosis, mitral valve "severe leak" per pt., nodules/inflammation in lung in CT History of Any Multi-Drug Resistant Organisms: None Reported Past Surgical History: Adenoidectomy, Bariatric Surgery, Orthopedic Surgery, Tonsillectomy Additional Past Surgical History / Comment(s): lap band, rt eye sx-had a blocked blood vessel, sinus sx, halile knee replacement, recent lung biopsy, MIRLANDE Past Anesthesia/Blood Transfusion Reactions: No Reported Reaction Additional Past Anesthesia/Blood Transfusion Reaction / Comment(s): Diff IV starts Past Psychological History: No Psychological Hx Reported Smoking Status: Never smoker Past Alcohol Use History: None Reported Past Drug Use History: None Reported - Past Family History Sister(s) Family Medical History: Cancer Additional Family Medical History / Comment(s): BREAST CANCER, HX OF BRACHIAL BLOOD CLOTS WITH FILTERS INSERTED. Mother Family Medical History: Cancer Additional Family Medical History / Comment(s): BREAST CANCER. Father Family Medical History: Congestive Heart Failure (CHF), Myocardial Infarction (MA) Additional Family Medical History / Comment(s): MA Brother(s) Family Medical History: Coronary Artery Disease (CAD) Additional Family Medical History / Comment(s): General Exam - General Exam Comments Initial Comments: General: Appears in no acute distress. HEAD: Normal with no signs of head trauma. EYES: PERRLA, EOMI, conjunctiva normal, no discharge. ENT: Hearing grossly intact, normal oropharynx. RESPIRATORY: Clear breath sounds bilaterally. No wheezes, rales, or rhonchi. No hypoxia. No increased work of breathing. C/V: Regular rate and rhythm. S1 and S2 auscultated, no edema, peripheral pulses 2+ and intact throughout ABD: Abd is soft, nontender, nondistended EXT: Normal range of motion, no obvious deformity SKIN: No rashes or lesions observed on exposed skin. NEURO: Alert and oriented 4. Limitations: no limitations Course Vital Signs 04/12/22 20:34 Temperature 98 F Pulse Rate 64 Respiratory 16 Rate Blood Pressure 170/82 O2 Sat by Pulse 97 Oximetry Medical Decision Making - Medical Decision Making Based on the patient's presentation and physical exam, I'm concerned for COVID- 19 infection. Patient already received testing as well as a chest x-ray. Covid swab was positive. Chest x-ray showed no acute cardiopulmonary process. Patient has normal vital signs is in no respiratory distress. I discussed with her obtaining monoclonal antibody therapy which she consented to. Due to her history, I will also provide her with a short course of by mouth steroids for home. She was in agreement this plan. Patient will be observed for ALLERGIC reaction. Discussed quarantine. Discussed pulse oximeter. Patient tolerated therapy well. I will provide the patient with a prescription for prednisone 40 mg daily for 5 days. I instructed the patient to follow up with their PCP in the next 3 days. I explained that the patient should return to the emergency department if they experience any worsening symptoms. Strict return precautions were discussed with the patient. The patient expressed understanding of these instructions. I an swered all questions that the patient had. The patient was discharged home in good condition with their prescriptions and follow up information. - Lab Data Lab Results 04/12/22 Range/Units 11:37 Coronavirus (PCR) Detected A (Not Detectd) Disposition Clinical Impression: COVID-19 virus infection Disposition: HOME SELF-CARE Condition: Good Instructions (If sedation given, give patient instructions): COVID-19 (Coronavirus Disease 2019) (ED) Prescriptions: predniSONE [Deltasone] 40 mg PO DAILY 4 Days #8 tab Is patient prescribed a controlled substance at d/c from ED?: No Referrals: Omer Katz DO [Primary Care Provider] - 1-2 days Time of Disposition: 20:50
[2022-04-12 21:44] VITALS: BP 174/95; RESP 18
[2022-04-12] MEDS ORDERED: ACETAMINOPHEN TAB 500 MG TAB PO STA (21:45)
== END 2022-04-12 22:38 | disposition home or self-care (01) ==
LOC: EC 11:12
DX: U07.1 COVID-19 (principal); I10 Essential (primary) hypertension; J45.909 Unspecified asthma, uncomplicated; M19.90 Unspecified osteoarthritis, unspecified site; Z79.51 Long term (current) use of inhaled steroids; Z79.899 Other long term (current) drug therapy
CPT/HCPCS: 87635; 71046; 99285; J7512; Q0222

== ENCOUNTER → 2022-07-03 | Outpatient (CLI) | payer MEDICAID ==
[2022-07-03 10:40] LABS: HCT 44.7 % (37.2-46.3); HGB 14.2 g/dL (12.0-15.0); MCH 30.1 pg (27.0-32.0); MCHC 31.8 g/dL (32.0-37.0); MCV 94.7 fL (80.0-97.0); Mean Platelet Volume 10.9 fL (9.5-12.2); NRBC Per 100 WBC 0 /100 WBCS (0.0-0.0); Platelet Count 307 X 10*3/uL (140-440); RBC 4.72 X 10*6/uL (4.10-5.20); RDW 14.4 % (11.5-14.5); WBC 11.42 X 10*3/uL (4.50-10.00)
[2022-07-03 11:11] LABS: ALT 32 U/L (8-44); AST 32 U/L (13-35); African American GFR (CKD) 92.3 (60.0-200.0); Albumin 4.5 g/dL (3.8-4.9); Albumin/Globulin Ratio 1.75 (1.60-3.17); Alkaline Phosphatase 73 U/L (41-126); BUN/Creat Ratio 27.99 Ratio (12.00-20.00); Blood Urea Nitrogen 22.5 mg/dL (9.0-27.0); Calcium 9.5 mg/dL (8.7-10.3); Carbon Dioxide 24.7 mmol/L (20.0-27.5); Chloride 104 mmol/L (96-109); Chol/HDL Ratio 3.77 Ratio; Globulin 2.5 g/dL (1.6-3.3); Glucose 124 mg/dL (70-110); LDL Cholesterol,Calculated 106.4 mg/dL (0.0-131.0); Non-African American GFR(CKD) 79.7 (60.0-200.0); Potassium 4.5 mmol/L (3.5-5.5); Sodium 142 mmol/L (135-145)
[2022-07-03 12:19] LABS: Appearance,Urine Cloudy (Clear); Bilirubin,Urine Negative (Negative); Blood,Urine Negative (Negative); Color,Urine Yellow (Yellow); Ketones,Urine Negative (Negative); Nitrite,Urine Negative (Negative); PH, Urine 5.5 (5.0-8.0); Specific Gravity,Urine 1.031 (1.001-1.030); Urobilinogen,Urine 0.2 (0.2,1.0)
[2022-07-03 12:47] LABS: Bacteria,Urine None Seen /HPF (None Seen); Calcium Oxalate Crystals,Urine Present /LPF (None Seen)
== END | disposition home or self-care (01) ==
LOC: LABWHC1 07:23
PROVIDERS: ATTEND Family Medicine
DX: Z00.00 Encounter for general adult medical examination without abnormal findings (principal); E66.9 Obesity, unspecified; R73.03 Prediabetes
CPT/HCPCS: 36415; 80053; 80061; 81001; 82306; 83036; 84443; 85027

== ENCOUNTER → 2022-10-29 | Outpatient (CLI) | payer MEDICAID ==
[2022-10-29 23:35] LABS: African American GFR (CKD) 94.9 (60.0-200.0); Albumin 4.3 g/dL (3.8-4.9); Albumin/Globulin Ratio 2.43 (1.60-3.17); Anion Gap 11.8 mmol/L (10.00-18.00); BUN/Creat Ratio 31.17 Ratio (12.00-20.00); Blood Urea Nitrogen 24.5 mg/dL (9.0-27.0); C Reactive Protein, High Sens 5.29 mg/L (0.000-3.000); Calcium 9.4 mg/dL (8.7-10.3); Globulin 1.8 g/dL (1.6-3.3); Non-African American GFR(CKD) 81.9 (60.0-200.0); Potassium 4.4 mmol/L (3.5-5.5); Total Bilirubin 0.4 mg/dL (0.30-1.20)
== END | disposition home or self-care (01) ==
LOC: LABWHC1 16:29
PROVIDERS: ATTEND Internal Medicine Critical Care Medicine
DX: D86.85 Sarcoid myocarditis (principal)
CPT/HCPCS: 36415; 80053; 82164; 85652; 86141

== ENCOUNTER 2022-11-17 17:37 | Emergency (ER) | payer MEDICAID ==
[2022-11-17 17:47] VITALS: TEMP 100.6
[2022-11-17] MEDS ORDERED: ACETAMINOPHEN TAB 325 MG TAB PO STA (18:05)
[2022-11-17] MEDS ORDERED: IPRATROPIUM-ALBUTEROL 3 ML NEB INHALATION STA (18:05)
[2022-11-17] MEDS ORDERED: ONDANSETRON 4 MG/2 ML VIAL IVP STA (18:05)
[2022-11-17] MEDS ORDERED: ALPRAZolam 0.25 MG TAB PO STA (18:43)
[2022-11-17 19:09] LABS: Basophils % (A) 0 %; Eosinophils # (A) 0.2 k/uL (0-0.7); Eosinophils % (A) 2 %; HCT 43.6 % (34.0-46.0); HGB 15.1 gm/dL (11.4-16.0); Lymphocytes # (A) 0.8 k/uL (1.0-4.8); Lymphocytes % (A) 8 %; MCH 31.6 pg (25.0-35.0); MCHC 34.6 g/dL (31.0-37.0); MCV 91.3 fL (80.0-100.0); Mean Platelet Volume 8.3; Monocytes # (A) 0.5 k/uL (0-1.0); Monocytes % (A) 5 %; Neutrophils # (A) 8.4 k/uL (1.3-7.7); Neutrophils % (A) 84 %; Platelet Count 239 k/uL (150-450); RBC 4.77 m/uL (3.80-5.40); RDW 14.1 % (11.5-15.5); WBC 10.1 k/uL (3.8-10.6)
[2022-11-17 19:24] LABS: INR 0.9 (<1.2); Partial Thromboplastin Time 22.9 sec (22.0-30.0)
[2022-11-17 19:30] LABS: ALT 45 U/L (4-34); AST 41 U/L (14-36); African American GFR (CKD) >90 (>60 ml/min/1.73 sqM); Albumin 4.5 g/dL (3.5-5.0); Alkaline Phosphatase 77 U/L (38-126); Anion Gap 10 mmol/L; Blood Urea Nitrogen 17 mg/dL (7-17); Calcium 9.2 mg/dL (8.4-10.2); Carbon Dioxide 25 mmol/L (22-30); Chloride 102 mmol/L (98-107); Glucose 97 mg/dL (74-99); Magnesium 1.8 mg/dL (1.6-2.3); Non-African American GFR(CKD) >90 (>60 ml/min/1.73 sqM); Sodium 137 mmol/L (137-145); Total Bilirubin 0.6 mg/dL (0.2-1.3); Total Protein 7.1 g/dL (6.3-8.2)
[2022-11-17 19:47] VITALS: BP 144/69; PULSE 62; RESP 22
--- NOTE | 2022-11-17 19:47 | ED ---
General Adult HPI - General Chief complaint: Shortness of Breath Stated complaint: SOB, dizziness, chest pain Time Seen by Provider: 11/17/22 17:49 Source: patient, RN notes reviewed Mode of arrival: ambulatory Limitations: no limitations - History of Present Illness Initial comments: 62-year-old female presents to the emergency Department with complaints of fever, shortness of breath, and dizziness. States she is currently on prednisone as prescribed by her land agent for a flare-up of sarcoidosis. 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 Reports fever this afternoon. Has had a strong cough with some shortness of breath. Has had some wheezing while working today. Complains of feeling achy and fatigued. Has chest discomfort associated with cough. Has not taken anything, aside from prednisone, to treat her symptoms. Denies chest pain, palpitations, abdominal pain, vomiting, diarrhea, and dysuria. - Related Data Home Medications Medication Instructions Recorded Confirmed ALPRAZolam [Xanax] 0.25 mg PO TID PRN 12/29/18 11/17/22 Budesonide-Formot 160-4.5 Mcg 2 puff INHALATION RT-BID 12/29/18 11/17/22 [Symbicort 160-4.5 Mcg Inhaler] FLUoxetine HCL [PROzac] 20 mg PO DAILY 12/29/18 11/17/22 Montelukast Sodium [Singulair] 10 mg PO HS 12/29/18 11/17/22 Furosemide [Lasix] 20 mg PO DAILY PRN 06/06/20 11/17/22 Acetaminophen-Codeine 300-30mg 1 tab PO Q6H PRN 01/12/22 11/17/22 [Tylenol w/codeine #3] Albuterol Sulfate [Proventil Hfa] 2 puff INHALATION RT-Q6H PRN 01/12/22 11/17/22 Aspirin 325 mg PO DAILY 01/12/22 11/17/22 Metoprolol Tartrate [Lopressor] 50 mg PO BID 01/12/22 11/17/22 Pantoprazole [Protonix] 40 mg PO DAILY 01/12/22 11/17/22 lisinopriL [Prinivil] 10 mg PO BID 01/12/22 11/17/22 predniSONE 10 mg PO DAILY 11/17/22 11/17/22 Previous Rx's Medication Instructions Recorded amLODIPine [Norvasc] 5 mg PO DAILY tab 01/13/22 Oseltamivir [Tamiflu] 75 mg PO Q12HR #10 cap 11/17/22 Allergies Allergy/AdvReac Type Severity Reaction Status Date / Time No Known Allergies Allergy Verified 11/17/22 17:47 Review of Systems ROS Statement: Those systems with pertinent positive or pertinent negative responses have been documented in the HPI. ROS Other: All systems not noted in ROS Statement are negative. Past Medical History Past Medical History: Asthma, Hypertension, Mitral Valve Prolapse (MVP), Osteoarthritis (OA), Sleep Apnea/CPAP/BIPAP Additional Past Medical History / Comment(s): "AAA, 4 cm", bronchitis, no cpap used, "something autoimmune",recent dx. sarcoidosis, mitral valve "severe leak" per pt., nodules/inflammation in lung in CT History of Any Multi-Drug Resistant Organisms: None Reported Past Surgical History: Adenoidectomy, Bariatric Surgery, Orthopedic Surgery, Tonsillectomy Additional Past Surgical History / Comment(s): lap band, rt eye sx-had a blocked blood vessel, sinus sx, hallie knee replacement, recent lung biopsy, MIRLANDE Past Anesthesia/Blood Transfusion Reactions: No Reported Reaction Additional Past Anesthesia/Blood Transfusion Reaction / Comment(s): Diff IV starts Past Psychological History: No Psychological Hx Reported Smoking Status: Never smoker Past Alcohol Use History: None Reported Past Drug Use History: None Reported - Past Family History Sister(s) Family Medical History: Cancer Additional Family Medical History / Comment(s): BREAST CANCER, HX OF BRACHIAL BLOOD CLOTS WITH FILTERS INSERTED. Mother Family Medical History: Cancer Additional Family Medical History / Comment(s): BREAST CANCER. Father Family Medical History: Congestive Heart Failure (CHF), Myocardial Infarction (AK) Additional Family Medical History / Comment(s): [place] Brother(s) Family Medical History: Coronary Artery Disease (CAD) Additional Family Medical History / Comment(s): General Exam Limitations: no limitations General appearance: alert, in no apparent distress Eye exam: Present: normal appearance. Absent: scleral icterus, conjunctival injection ENT exam: Present: normal oropharynx, mucous membranes moist Respiratory exam: Present: wheezes (faint expiratory wheezes left lower lobe), other (congested cough). Absent: chest wall tenderness, accessory muscle use Cardiovascular Exam: Present: regular rate, normal rhythm, normal heart sounds GI/Abdominal exam: Present: soft, normal bowel sounds. Absent: distended, t enderness, guarding, rebound, rigid Extremities exam: Present: normal capillary refill, other (bilateral lower extremity edema baseline per patient) Neurological exam: Present: alert, oriented X3, normal gait Psychiatric exam: Present: normal affect, normal mood Skin exam: Present: other (mild facial flushing; repeat T=99.8 oral) Course Vital Signs 11/17/22 11/17/22 11/17/22 17:42 17:59 19:07 Temperature 100.6 F H Pulse Rate 67 74 76 Respiratory 16 20 Rate Blood Pressure 184/97 O2 Sat by Pulse 97 98 Oximetry 11/17/22 11/17/22 19:17 19:46 Temperature Pulse Rate 80 62 Respiratory 22 Rate Blood Pressure 144/69 O2 Sat by Pulse 95 Oximetry - Reevaluation(s) Reevaluation #1: 11/17/2022 20:00 Upon reassessment, patient reports feeling significantly improved. Vital signs are stable. Lungs sounds are clear to auscultation. There is no evidence of increased work of breathing. Patient denies chest pain/tightness/palpitations. She will be discharged home with a work note and symptomatic management instructions. Strict return parameters were discussed in detail. Patient verbalizes understanding and agrees with this plan. Medical Decision Making - Medical Decision Making This is a 62-year-old female with a past medical history of hypertension, asthma, and sarcoidosis who presents to the emergency department for evaluation of fever, cough, dizziness. Upon exam, patient is febrile and initially appears to be feeling poorly, but in no acute distress. She does have faint scattered wheezing throughout the lung santos. She was given DuoNeb and Solu-Medrol with improvement. Tylenol was given for fever. Zofran for nausea. Chest x-ray was obtained and was unremarkable. EKG was obtained and was unchanged from previous. Laboratory studies show no leukocytosis. Troponin is negative. BNP is elevated. She reports a history of CHF and endorsed mild exacerbation, but is taking her Lasix. Cepheid is positive for influenza a. Patient is given a dose of Tamiflu and prescription was sent to the pharmacy. Zofran starter pack was given for nausea. She was provided with a note for work and encouraged to follow up with her PCP for a recheck. Return parameters were discussed in detail. Patient verbalizes understanding and agrees with this plan. Attending: Luc Was pt. sent in by a medical professional or institution? @Advised by the housekeeping staff, nurse, to be evaluated in the ER Did you speak to anyone other than the patient for history? @No Did you review nursing and triage notes? @Yes, I agree. Were old charts reviewed? @Previous EKGs and old hospital admissions were reviewed Differential Diagnosis? @Exacerbation of sarcoidosis, CHF, asthma, influenza, Covid, RSV EKG interpreted by me (3pts min.)? @EKG was interpreted by me. EKG as obtained was poor quality due to movement shortness of breath. EKG shows PVCs and right bundle branch block. Compared with previous EKGs showing no acute changes. X-rays interpreted by me (1pt min.)? @Chest x-ray as interpreted by me show no focal area of infiltrate. CT interpreted by me (1pt min.)? @Not applicable U/S interpreted by me (1pt. min.)? @Not applicable What testing was considered but not performed? (CT, X-rays, U/S, labs)? Why? @None What meds were considered but not given? Why? @None Did you discuss the management of the patient with other professionals? @No Did you reconcile home meds? @No Was smoking cessation discussed for >3mins.? @No Was critical care preformed (if so, how long)? @No Were there social determinants of health that impacted care today? How? (Homelessness, low income, unemployed, alcoholism, drug addiction, transportation, low edu. Level, literacy, decrease access to med. care, intermediate, rehab)? @No Was there de-escalation of care discussed even if they declined? (Discuss DNR or withdrawal of care, Hospice)? @No What co-morbidities impacted this encounter? (DM, HTN, Smoking, COPD, CAD, Cancer, CVA, Hep., AIDS, mental health diagnosis, sleep apnea, morbid obesity)? @asthma, CHF, sarcoidosis Was patient admitted / discharged? @Discharged Undiagnosed new problem with uncertain prognosis? @None Drug Therapy requiring intensive monitoring for toxicity (Heparin, Nitro, Insulin, Cardizem)? @None Were any procedures done? @None Diagnosis/symptom? @Influenza a Acute, or Chronic, or Acute on Chronic? @Acute Uncomplicated (without systemic symptoms) or Complicated (systemic symptoms)? @Uncomplicated Side effects of treatment? @Tamiflu can have GI side effects which was discussed with patient. Exacerbation, Progression, or Severe Exacerbation] @Not applicable Poses a threat to life or bodily function? @Not at this time - Lab Data Result diagrams: 11/17/22 18:47 11/17/22 18:47 Lab Results 11/17/22 11/17/22 11/17/22 Range/Units 17:52 18:47 18:47 WBC 10.1 (3.8-10.6) k/uL RBC 4.77 (3.80-5.40) m/uL Hgb 15.1 (11.4-16.0) gm/dL Hct 43.6 (34.0-46.0) % MCV 91.3 (80.0-100.0) fL MCH 31.6 (25.0-35.0) pg MCHC 34.6 (31.0-37.0) g/dL RDW 14.1 (11.5-15.5) % Plt Count 239 (150-450) k/uL MPV 8.3 Neutrophils % 84 % Lymphocytes % 8 % Monocytes % 5 % Eosinophils % 2 % Basophils % 0 % Neutrophils # 8.4 H (1.3-7.7) k/uL Lymphocytes # 0.8 L (1.0-4.8) k/uL Monocytes # 0.5 (0-1.0) k/uL Eosinophils # 0.2 (0-0.7) k/uL Basophils # 0.0 (0-0.2) k/uL PT 10.0 (9.0-12.0) sec INR 0.9 (<1.2) APTT 22.9 (22.0-30.0) sec Sodium (137-145) mmol/L Potassium (3.5-5.1) mmol/L Chloride (98-107) mmol/L Carbon Dioxide (22-30) mmol/L Anion Gap mmol/L BUN (7-17) mg/dL Creatinine (0.52-1.04) mg/dL Est GFR (CKD-EPI)AfAm (>60 ml/min/1.73 sqM) Est GFR (CKD-EPI)NonAf (>60 ml/min/1.73 sqM) Glucose (74-99) mg/dL Plasma Lactic Acid Justin (0.7-2.0) mmol/L Calcium (8.4-10.2) mg/dL Magnesium (1.6-2.3) mg/dL Total Bilirubin (0.2-1.3) mg/dL AST (14-36) U/L ALT (4-34) U/L Alkaline Phosphatase (38-126) U/L Troponin I (0.000-0.034) ng/mL NT-Pro-B Natriuret Pep pg/mL Total Protein (6.3-8.2) g/dL Albumin (3.5-5.0) g/dL Influenza Type A (PCR) Detected A (Not Detectd) Influenza Type B (PCR) Not Detected (Not Detectd) RSV (PCR) Not Detected (Not Detectd) SARS-CoV-2 (PCR) Not Detected (Not Detectd) 11/17/22 11/17/22 11/17/22 Range/Units 18:47 18:47 18:47 WBC (3.8-10.6) k/uL RBC (3.80-5.40) m/uL Hgb (11.4-16.0) gm/dL Hct (34.0-46.0) % MCV (80.0-100.0) fL MCH (25.0-35.0) pg MCHC (31.0-37.0) g/dL RDW (11.5-15.5) % Plt Count (150-450) k/uL MPV Neutrophils % % Lymphocytes % % Monocytes % % Eosinophils % % Basophils % % Neutrophils # (1.3-7.7) k/uL Lymphocytes # (1.0-4.8) k/uL Monocytes # (0-1.0) k/uL Eosinophils # (0-0.7) k/uL Basophils # (0-0.2) k/uL PT (9.0-12.0) sec INR (<1.2) APTT (22.0-30.0) sec Sodium 137 (137-145) mmol/L Potassium 4.0 (3.5-5.1) mmol/L Chloride 102 (98-107) mmol/L Carbon Dioxide 25 (22-30) mmol/L Anion Gap 10 mmol/L BUN 17 (7-17) mg/dL Creatinine 0.55 (0.52-1.04) mg/dL Est GFR (CKD-EPI)AfAm >90 (>60 ml/min/1.73 sqM) Est GFR (CKD-EPI)NonAf >90 (>60 ml/min/1.73 sqM) Glucose 97 (74-99) mg/dL Plasma Lactic Acid Justin 1.6 (0.7-2.0) mmol/L Calcium 9.2 (8.4-10.2) mg/dL Magnesium 1.8 (1.6-2.3) mg/dL Total Bilirubin 0.6 (0.2-1.3) mg/dL AST 41 H (14-36) U/L ALT 45 H (4-34) U/L Alkaline Phosphatase 77 (38-126) U/L Troponin I <0.012 (0.000-0.034) ng/mL NT-Pro-B Natriuret Pep pg/mL Total Protein 7.1 (6.3-8.2) g/dL Albumin 4.5 (3.5-5.0) g/dL Influenza Type A (PCR) (Not Detectd) Influenza Type B (PCR) (Not Detectd) RSV (PCR) (Not Detectd) SARS-CoV-2 (PCR) (Not Detectd) 11/17/22 Range/Units 18:47 WBC (3.8-10.6) k/uL RBC (3.80-5.40) m/uL Hgb (11.4-16.0) gm/dL Hct (34.0-46.0) % MCV (80.0-100.0) fL MCH (25.0-35.0) pg MCHC (31.0-37.0) g/dL RDW (11.5-15.5) % Plt Count (150-450) k/uL MPV Neutrophils % % Lymphocytes % % Monocytes % % Eosinophils % % Basophils % % Neutrophils # (1.3-7.7) k/uL Lymphocytes # (1.0-4.8) k/uL Monocytes # (0-1.0) k/uL Eosinophils # (0-0.7) k/uL Basophils # (0-0.2) k/uL PT (9.0-12.0) sec INR (<1.2) APTT (22.0-30.0) sec Sodium (137-145) mmol/L Potassium (3.5-5.1) mmol/L Chloride (98-107) mmol/L Carbon Dioxide (22-30) mmol/L Anion Gap mmol/L BUN (7-17) mg/dL Creatinine (0.52-1.04) mg/dL Est GFR (CKD-EPI)AfAm (>60 ml/min/1.73 sqM) Est GFR (CKD-EPI)NonAf (>60 ml/min/1.73 sqM) Glucose (74-99) mg/dL Plasma Lactic Acid Justin (0.7-2.0) mmol/L Calcium (8.4-10.2) mg/dL Magnesium (1.6-2.3) mg/dL Total Bilirubin (0.2-1.3) mg/dL AST (14-36) U/L ALT (4-34) U/L Alkaline Phosphatase (38-126) U/L Troponin I (0.000-0.034) ng/mL NT-Pro-B Natriuret Pep 1930 pg/mL Total Protein (6.3-8.2) g/dL Albumin (3.5-5.0) g/dL Influenza Type A (PCR) (Not Detectd) Influenza Type B (PCR) (Not Detectd) RSV (PCR) (Not Detectd) SARS-CoV-2 (PCR) (Not Detectd) - EKG Data EKG shows normal: sinus rhythm Rate: tachycardia EKG Comments: EKG obtained at 1925 shows sinus tachycardia with frequent PVCs, possible left atrial enlargement, and right bundle branch block. Ventricular rate 101, MT interval 150, QRS duration 132, QT/QTC 386/500. Interpretation abnormal ECG. There are multiple PVCs. [place] [address] which also show evidence of left atrial enlargement and right bundle branch block - Radiology Data Radiology results: report reviewed, image reviewed Interpreted by me: Chest x-ray as interpreted by me shows no focal area of consolidation or infiltrate. Two-view chest x-ray was obtained. Report was reviewed in its entirety. Impression per Dr. Jhoan is no active cardiopulmonary disease. No change. Disposition Clinical Impression: Influenza A Disposition: HOME SELF-CARE Condition: Stable Instructions (If sedation given, give patient instructions): Influenza (ED) Additional Instructions: Tamiflu is antiviral prescribed for influenza. Zofran starter pack for nausea. Treat fever and body aches by alternating Tylenol and Motrin. AST 41, ALT 45 Work note is provided. Follow-up with your PCP for a recheck next week. Return to the emergency department with any new, worsening, or concerning symptoms. Prescriptions: Oseltamivir [Tamiflu] 75 mg PO Q12HR #10 cap Is patient prescribed a controlled substance at d/c from ED?: No Referrals: Omer Katz DO [Primary Care Provider] - 1-2 days Time of Disposition: 20:47
--- NOTE | 2022-11-17 20:20 | XR ---
EXAMINATION TYPE: XR chest 2V DATE OF EXAM: 11/17/2022 COMPARISON: 04/12/2022 HISTORY: Cough TECHNIQUE: FINDINGS: Heart is normal. Lungs are clear of infiltrate. No heart failure. There are sternal wires. No pleural effusion. Bony thorax is intact IMPRESSION: No active cardiopulmonary disease. No change.
[2022-11-17] MEDS ORDERED: OSELTAMIVIR 75 MG CAP PO STA (20:44)
[2022-11-17] MEDS ORDERED: ONDANSETRON 4 MG ODT STARTER PACK 2 TAB BTL PO STA (20:44)
== END 2022-11-17 21:24 | disposition home or self-care (01) ==
LOC: EC 17:37
DX: J10.1 Influenza due to other identified influenza virus with other respiratory manifestations (principal); J45.909 Unspecified asthma, uncomplicated; I10 Essential (primary) hypertension; Z20.822 Contact with and (suspected) exposure to COVID-19; M19.90 Unspecified osteoarthritis, unspecified site; G47.30 Sleep apnea, unspecified; Z79.82 Long term (current) use of aspirin; Z79.899 Other long term (current) drug therapy
CPT/HCPCS: 36415; 94640; 93005; 83880; 80053; 83605; 83735; 84484; 85025; 85610; 85730; 87636; 71046; 99285; 96374; J2405; S0119

== ENCOUNTER 2023-03-31 15:54 | Observation (INO) | payer MEDICAID ==
[2023-03-31] MEDS ORDERED: VANCOMYCIN IV PER PHARMACY 1 EACH MISC MISCELLANE PRN (16:12)
--- NOTE | 2023-03-31 16:17 | ED ---
General Adult HPI - General Chief complaint: Extremity Problem,Nontraumatic Stated complaint: R LOW LEG CULLULITIS Time Seen by Provider: 03/31/23 16:04 Source: patient, RN notes reviewed Mode of arrival: ambulatory Limitations: no limitations - History of Present Illness Initial comments: Patient is a pleasant 62-year-old female presenting to the emergency department with concern for infection of her right lower leg. Patient questions if it started with a spider bite. Patient has been on Bactrim for 5 days however symptoms seemed to worsen. Patient has had fevers at home up to 100.8. Patient did take Tylenol and Motrin. Area affected is right lower leg anteriorly. - Related Data Home Medications Medication Instructions Recorded Confirmed ALPRAZolam [Xanax] 0.25 mg PO TID PRN 12/29/18 11/17/22 Budesonide-Formot 160-4.5 Mcg 2 puff INHALATION RT-BID 12/29/18 11/17/22 [Symbicort 160-4.5 Mcg Inhaler] FLUoxetine HCL [PROzac] 20 mg PO DAILY 12/29/18 11/17/22 Montelukast Sodium [Singulair] 10 mg PO HS 12/29/18 11/17/22 Furosemide [Lasix] 20 mg PO DAILY PRN 06/06/20 11/17/22 Acetaminophen-Codeine 300-30mg 1 tab PO Q6H PRN 01/12/22 11/17/22 [Tylenol w/codeine #3] Albuterol Sulfate [Proventil Hfa] 2 puff INHALATION RT-Q6H PRN 01/12/22 11/17/22 Aspirin 325 mg PO DAILY 01/12/22 11/17/22 Metoprolol Tartrate [Lopressor] 50 mg PO BID 01/12/22 11/17/22 Pantoprazole [Protonix] 40 mg PO DAILY 01/12/22 11/17/22 lisinopriL [Prinivil] 10 mg PO BID 01/12/22 11/17/22 predniSONE 10 mg PO DAILY 11/17/22 11/17/22 Previous Rx's Medication Instructions Recorded amLODIPine [Norvasc] 5 mg PO DAILY tab 01/13/22 Oseltamivir [Tamiflu] 75 mg PO Q12HR #10 cap 11/17/22 Allergies Allergy/AdvReac Type Severity Reaction Status Date / Time No Known Allergies Allergy Verified 11/17/22 17:47 Review of Systems ROS Statement: Those systems with pertinent positive or pertinent negative responses have been documented in the HPI. ROS Other: All systems not noted in ROS Statement are negative. Constitutional: Reports: fever Eyes: Denies: eye pain ENT: Denies: ear pain Respiratory: Denies: cough Cardiovascular: Denies: chest pain Endocrine: Denies: fatigue Gastrointestinal: Denies: abdominal pain Genitourinary: Denies: dysuria Musculoskeletal: Denies: back pain Skin: Reports: as per HPI, rash Past Medical History Past Medical History: Asthma, Hypertension, Mitral Valve Prolapse (MVP), Osteoarthritis (OA), Sleep Apnea/CPAP/BIPAP Additional Past Medical History / Comment(s): "AAA, 4 cm", bronchitis, no cpap used, "something autoimmune",recent dx. sarcoidosis, mitral valve "severe leak" per pt., nodules/inflammation in lung in CT History of Any Multi-Drug Resistant Organisms: None Reported Past Surgical History: Adenoidectomy, Bariatric Surgery, Orthopedic Surgery, Tonsillectomy Additional Past Surgical History / Comment(s): lap band, rt eye sx-had a blocked blood vessel, sinus sx, hallie knee replacement, recent lung biopsy, MIRLANDE Past Anesthesia/Blood Transfusion Reactions: No Reported Reaction Additional Past Anesthesia/Blood Transfusion Reaction / Comment(s): Diff IV starts Past Psychological History: No Psychological Hx Reported Smoking Status: Never smoker Past Alcohol Use History: None Reported Past Drug Use History: None Reported - Past Family History Sister(s) Family Medical History: Cancer Additional Family Medical History / Comment(s): BREAST CANCER, HX OF BRACHIAL BLOOD CLOTS WITH FILTERS INSERTED. Mother Family Medical History: Cancer Additional Family Medical History / Comment(s): BREAST CANCER. Father Family Medical History: Congestive Heart Failure (CHF), Myocardial Infarction (ME) Additional Family Medical History / Comment(s): ME Brother(s) Family Medical History: Coronary Artery Disease (CAD) Additional Family Medical History / Comment(s): General Exam Limitations: no limitations General appearance: alert, in no apparent distress Head exam: Present: normocephalic Eye exam: Present: normal appearance Neck exam: Present: normal inspection Respiratory exam: Present: normal lung sounds bilaterally Cardiovascular Exam: Present: regular rate, normal rhythm Expanded Peripheral pulses: 2+: Posterior Tibialis (R), Posterior Tibialis (L), Dorsalis Pedis (R), Dorsalis Pedis (L) GI/Abdominal exam: Present: soft. Absent: tenderness Extremities exam: Present: other (Right lower leg erythema from the ankle to the mid calf anteriorly and medially. There is some tenderness and warmth.). Absent: calf tenderness Neurological exam: Present: alert Psychiatric exam: Present: normal affect, normal mood Skin exam: Present: erythema Course Vital Signs 03/31/23 15:59 Temperature 98.1 F Pulse Rate 65 Respiratory 16 Rate Blood Pressure 152/74 O2 Sat by Pulse 95 Oximetry Medical Decision Making - Medical Decision Making Was pt. sent in by a medical professional or institution (, [facility], [employer] INST[employer]ER, urgent care, hospital, or [facility]...) When possible be specific @ -No Did you speak to anyone other than the patient for history (EMS, parent, family, police, friend...)? What history was obtained from this source @ -No Did you review nursing and triage notes (agree or disagree)? Why? @ -I reviewed and agree with nursing and triage notes Were old charts reviewed (outside hosp., previous admission, EMS record, old EKG, old radiological studies, urgent care reports/EKG's, [facility] records)? Report findings @ -No old charts were reviewed Differential Diagnosis (chest pain, altered mental status, abdominal pain women, abdominal pain men, vaginal bleeding, weakness, fever, dyspnea, syncope, headache, dizziness, GI bleed, back pain, seizure, CVA, palpatations, mental health)? @ -not applicable EKG interpreted by me (3pts min.). @ -As above X-rays interpreted by me (1pt min.). @ -X-ray shows no osseous abnormality. There is soft tissue swelling CT interpreted by me (1pt min.). @ -None done U/S interpreted by me (1pt. min.). @ -None done What testing was considered but not performed or refused? (CT, X-rays, U/S, labs)? Why? @ -None What meds were considered but not given or refused? Why? @ -None Did you discuss the management of the patient with other professionals (professionals i.e. Dr., PA, WE[employer]ER STRIP INSTALLER, lab, RT, psych nurse, social work manager, patrol police sergeant, teacher, legal compliance officer, pillowcase sewer)? Give summary @ -Patient does request Dr. Valdes for admission. Case was discussed with practitioner Anahy Zeng, who will admit Was smoking cessation discussed for >3mins.? @ -No Was critical care preformed (if so, how long)? @ -No Were there social determinants of health that impacted care today? How? (Homelessness, low income, unemployed, alcoholism, drug addiction, transportation, low edu. Level, literacy, decrease access to med. care, nursing home, rehab)? @ -No Was there de-escalation of care discussed even if they declined (Discuss DNR or withdrawal of care, Hospice)? DNR status @ -No What co-morbidities impacted this encounter? (DM, HTN, Smoking, COPD, CAD, Cancer, CVA, ARF, Chemo, Hep., AIDS, mental health diagnosis, sleep apnea, morbid obesity)? @ -None Was patient admitted / discharged? Hospital course, mention meds given and route, prescriptions, significant lab abnormalities, going to OR and other pertinent info. @ -Patient failed outpatient antibiotics and had fever this morning. Patient will be admitted for IV antibiotics. Undiagnosed new problem with uncertain prognosis? @ -No Drug Therapy requiring intensive monitoring for toxicity (Heparin, Nitro, Insulin, Cardizem)? @ -No Were any procedures done? @ -No Diagnosis/symptom? @ -Cellulitis Acute, or Chronic, or Acute on Chronic? @ -Acute Uncomplicated (without systemic symptoms) or Complicated (systemic symptoms)? @ -default Side effects of treatment? @ -No Exacerbation, Progression, or Severe Exacerbation? @ -No Poses a threat to life or bodily function? How? (Chest pain, [place], ME, pneumonia, PE, COPD, DKA, ARF, appy, cholecystitis, CVA, Diverticulitis, Homicidal, Suicidal, threat to staff... and all critical care pts) @ -No - Lab Data Result diagrams: 03/31/23 16:57 Lab Results 03/31/23 03/31/23 Range/Units 16:57 16:57 WBC 7.4 (3.8-10.6) k/uL RBC 4.65 (3.80-5.40) m/uL Hgb 14.0 (11.4-16.0) gm/dL Hct 42.6 (34.0-46.0) % MCV 91.5 (80.0-100.0) fL MCH 30.1 (25.0-35.0) pg MCHC 32.9 (31.0-37.0) g/dL RDW 13.8 (11.5-15.5) % Plt Count 333 (150-450) k/uL MPV 8.0 Neutrophils % 64 % Lymphocytes % 23 % Monocytes % 6 % Eosinophils % 5 % Basophils % 0 % Neutrophils # 4.7 (1.3-7.7) k/uL Lymphocytes # 1.7 (1.0-4.8) k/uL Monocytes # 0.5 (0-1.0) k/uL Eosinophils # 0.4 (0-0.7) k/uL Basophils # 0.0 (0-0.2) k/uL PT 9.7 (9.0-12.0) sec INR 0.9 (<1.2) APTT 23.8 (22.0-30.0) sec Disposition Clinical Impression: Cellulitis Disposition: ADMITTED IP TO THIS HOSP Is patient prescribed a controlled substance at d/c from ED?: No Referrals: Omer Katz DO [Primary Care Provider] - 1-2 days Time of Disposition: 17:43
[2023-03-31] MEDS ORDERED: VANCOMYCIN 1,750 MG in SODIUM CHLORIDE 0.9% 500 ML 500 ML IVPB STA (16:25)
--- NOTE | 2023-03-31 16:56 | XR ---
EXAMINATION TYPE: XR tibia fibula RT DATE OF EXAM: 03/31/2023 COMPARISON: 10/02/2016 HISTORY: Infection, pain and swelling TECHNIQUE: 2 view right tibia and fibula. FINDINGS: Tibial and femoral knee components are present. No acute fracture or dislocation is evident . No significant joint effusion is evident. Calcaneal heel spurs are present. Diffuse soft tissue swe lling may be present. Correlate for cellulitis. IMPRESSION: 1. No acute osseous abnormality right tibia and fibula. 2. Mild soft tissue swelling. Consider cellulitis
[2023-03-31 17:27] LABS: Basophils % (A) 0 %; Eosinophils # (A) 0.4 k/uL (0-0.7); Eosinophils % (A) 5 %; HCT 42.6 % (34.0-46.0); Lymphocytes # (A) 1.7 k/uL (1.0-4.8); Lymphocytes % (A) 23 %; MCH 30.1 pg (25.0-35.0); MCHC 32.9 g/dL (31.0-37.0); MCV 91.5 fL (80.0-100.0); Monocytes # (A) 0.5 k/uL (0-1.0); Monocytes % (A) 6 %; Neutrophils # (A) 4.7 k/uL (1.3-7.7); Neutrophils % (A) 64 %; Platelet Count 333 k/uL (150-450); RBC 4.65 m/uL (3.80-5.40); RDW 13.8 % (11.5-15.5); WBC 7.4 k/uL (3.8-10.6)
[2023-03-31 17:37] LABS: INR 0.9 (<1.2); Partial Thromboplastin Time 23.8 sec (22.0-30.0); Prothrombin Time 9.7 sec (9.0-12.0)
[2023-03-31] MEDS ORDERED: ACETAMINOPHEN TAB 325 MG TAB PO PRN (17:43)
[2023-03-31] MEDS ORDERED: NALOXONE 0.4 MG/ML 1 ML VIAL IV PRN (17:43)
[2023-03-31] MEDS ORDERED: IBUPROFEN 400 MG TAB PO PRN (17:43)
[2023-03-31 17:50] LABS: Albumin 4.2 g/dL (3.5-5.0); Calcium 9.5 mg/dL (8.4-10.2); Total Bilirubin 0.6 mg/dL (0.2-1.3)
[2023-03-31] MEDS: SODIUM CHLORIDE 0.9% 1,000 ML IV SCH (17:55)
[2023-03-31 18:19] LABS: Potassium 4.5 mmol/L (3.5-5.1)
[2023-03-31] MEDS ORDERED: ALBUTEROL HFA INHALER INHALATION PRN (19:46)
[2023-03-31] MEDS: SYMBICORT 160-4.5 MCG INHALER INHALATION SCH (20:04)
[2023-03-31] MEDS: lisinopriL 20 MG TAB PO SCH (21:05)
[2023-03-31] MEDS: FLUoxetine HCL 20 MG CAP PO SCH (21:05)
[2023-03-31] MEDS: Acetaminophen-Codeine 300-30mg TAB PO PRN (21:05)
[2023-03-31] MEDS: METOPROLOL TARTRATE 50 MG TAB PO SCH (21:05)
[2023-04-01] MEDS ORDERED: VANCOMYCIN 1,750 MG in SODIUM CHLORIDE 0.9% 500 ML 500 ML IVPB SCH (05:00)
[2023-04-01] MEDS: SODIUM CHLORIDE 0.9% 1,000 ML IV SCH (07:56)
[2023-04-01] MEDS: METOPROLOL TARTRATE 50 MG TAB PO SCH ×2 (07:57→21:28)
[2023-04-01] MEDS: lisinopriL 20 MG TAB PO SCH ×2 (07:57→21:28)
[2023-04-01] MEDS: PANTOPRAZOLE 40 MG TABLET PO SCH (07:57)
[2023-04-01] MEDS ORDERED: FUROSEMIDE 20 MG TAB PO PRN (09:00)
[2023-04-01] MEDS ORDERED: KETOROLAC 15 MG/ML 1 ML VIAL IVP STA (09:46)
[2023-04-01 11:08] LABS: Basophils # (A) 0.03 X 10*3/uL (0.00-0.10); Basophils % (A) 0.6 %; Eosinophils # (A) 0.25 X 10*3/uL (0.04-0.35); Eosinophils % (A) 4.7 %; HCT 40.3 % (37.2-46.3); HGB 12.5 g/dL (12.0-15.0); Immature Grans, Automated 0.2 %; MCH 29.9 pg (27.0-32.0); MCV 96.4 fL (80.0-97.0); Mean Platelet Volume 10.5 fL (9.5-12.2); Monocytes # (A) 0.57 X 10*3/uL (0.20-1.00); Monocytes % (A) 10.7 %; NRBC Per 100 WBC 0 /100 WBCS (0.0-0.0); Neutrophils # (A) 2.88 X 10*3/uL (1.80-7.70); Neutrophils % (A) 53.8 %; Platelet Count 283 X 10*3/uL (140-440); RBC 4.18 X 10*6/uL (4.10-5.20); RDW 13.6 % (11.5-14.5); WBC 5.34 X 10*3/uL (4.50-10.00)
[2023-04-01] MEDS: ALPRAZolam 0.25 MG TAB PO PRN ×2 (11:55→21:28)
--- NOTE | 2023-04-01 11:55 | P.HPIM ---
History of Present Illness H&P Date: 04/01/23 This is a 62-year-old female who presented to the emergency department with concerns of right lower extremity cellulitis that had been ongoing for a week. Patient follows with Dr. Katz in the outpatient setting and was recently started on Bactrim and has taken 5 days of it showing no significant improvement also having some worsening redness that is traveling up the right lower extremity. Patient does have a wound on the backside of her leg that she was not aware of with no obvious drainage and there is a scabbing noted. Patient also reports she uses Lasix and that has not helped with the swelling as well. Labs reveal normal white blood count of 7.4, hemoglobin is stable, BMP within normal limits and vital signs are stable. Patient was admitted with concerns for right lower extremity cellulitis started on vancomycin and also infectious disease on consult. Review Of Systems: Constitutional: No fever, no chills, no night sweats. No weight change. No weakness, fatigue or lethargy. No daytime sleepiness. EENT: No headache. No blurred vision or double vision, no loss of vision. No loss of Hearing, no ringing in the ears, no dizziness. No nasal drainage or congestion. No epistaxis. No sore throat. Lungs: No shortness of breath, cough, no sputum production. No wheezing. Cardiovascular: No chest pain, no lower extremity edema. No palpitations. No paroxysmal nocturnal dyspnea. No orthopnea. No lightheadedness or dizziness. No syncopal episodes. Abdominal: No abdominal pain. No nausea, vomiting. No diarrhea. No constipation. No bloody or tarry stools.. No loss of appetite. Genitourinary: No dysuria, increased frequency, urgency. No urinary retention. Musculoskeletal: No myalgias. No muscle weakness, no gait dysfunction, no frequent falls. No back pain. No neck pain. Integumentary: Right lower extremity wounds with some scabbing noted, no lesio ns. No rash or pruritus. No unusual bruising. No change in hair or nails. Right lower extremity redness and swelling noted Neurologic: No aphasia. No facial droop. No change in mentation. No head injury. No headache. No paralysis. No paresthesia. Psychiatric: No depression. No anxiety. No mood swings. Endocrine: No abnormal blood sugars. No weight change. No excessive sweating or thirst. No cold intolerance. PHYSICAL EXAMINATION: GENERAL: The patient is alert and oriented x4, Well developed, well nourished. Obese. HEENT: Pupils are round and equally reacting to light. EOMI. no scleral icterus. No conjunctival pallor. Normocephalic, atraumatic. No pharyngeal erythema. No thyromegaly. CARDIOVASCULAR: S1 and S2 muffled PULMONARY: diminished breath sounds bilaterally with no wheezing or rhonchi noted. ABDOMEN: soft. Nontender on exam. obese. non-distended, normoactive bowel sounds. No palpable organomegaly. MUSCULOSKELETAL: No joint swelling or deformity. EXTREMITIES: No cyanosis, clubbing, or pedal edema. Right lower extremity your edema and swelling noted NEUROLOGICAL: Gross neurological examination did not reveal any focal deficits. Diffuse weakness SKIN: No rashes. Right lower extremity wound just above the ankle on the backside of the calf with scabbing noted Assessment: Right lower extremity cellulitis with failure of outpatient treatment History of asthma, not an exacerbation Hypertension Mitral valve prolapse Sleep apnea Sarcoidosis history Osteoarthritis Obesity with a BMI of 39.2 GI prophylaxis DVT prophylaxis Full code Plan: Recommend to continue with current medications and management and was started on vancomycin in the emergency department. Infectious disease placed on consult which is currently pending Patient with right lower extremity redness and swelling that has gotten worse and with failure of outpatient treatment as patient was on Bactrim for 5 days by primary care provider. Patient instructed to follow-up in the ER for further evaluation Patient is having some pain and will use Toradol Recommend local wound care and elevating lower extremities while at rest Will discuss further with infectious disease about discharge planning The impression and plan of care has been dictated by Anahy Zeng, nurse practitioner as directed. Dr. Marii MD I have performed a history and examination and MDM of this patient, discussed the same with the dictator, and agree with the dictator's assessment and plan as written ,documented as a scribe. Based on total visit time, I have performed more than 50% of the visit. Any additional findings or plans will be noted. Past Medical History Past Medical History: Asthma, Hypertension, Mitral Valve Prolapse (MVP), Osteoarthritis (OA), Sleep Apnea/CPAP/BIPAP Additional Past Medical History / Comment(s): "AAA, 4 cm", bronchitis, no cpap used, "something autoimmune",recent dx. sarcoidosis, mitral valve "severe leak" per pt., nodules/inflammation in lung in CT History of Any Multi-Drug Resistant Organisms: None Reported Past Surgical History: Adenoidectomy, Bariatric Surgery, Orthopedic Surgery, Tonsillectomy Additional Past Surgical History / Comment(s): lap band, rt eye sx-had a blocked blood vessel, sinus sx, hallie knee replacement, recent lung biopsy, MIRLANDE, mitral valve repair may 2021 Past Anesthesia/Blood Transfusion Reactions: No Reported Reaction Additional Past Anesthesia/Blood Transfusion Reaction / Comment(s): Diff IV starts Past Psychological History: No Psychological Hx Reported 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 Mother Family Medical History: Cancer Additional Family Medical History / Comment(s): BREAST CANCER. Father Family Medical History: Congestive Heart Failure (CHF), Myocardial Infarction ([place]) Additional Family Medical History / Comment(s): [place] Brother(s) Family Medical History: Coronary Artery Disease (CAD) Additional Family Medical History / Comment(s): Medications and Allergies Home Medications Medication Instructions Recorded Confirmed Type RX: ALPRAZolam [Xanax] 0.25 mg PO TID PRN 12/29/18 03/31/23 History RX: Budesonide-Formot 160-4.5 Mcg 2 puff INHALATION RT-HS 12/29/18 03/31/23 History [Symbicort 160-4.5 Mcg Inhaler] RX: FLUoxetine HCL [PROzac] 20 mg PO HS 12/29/18 03/31/23 History RX: Montelukast Sodium [Singulair] 10 mg PO HS 12/29/18 03/31/23 History RX: Furosemide [Lasix] 20 mg PO MOWEFR PRN 06/06/20 03/31/23 History RX: Acetaminophen-Codeine 300-30mg 1 tab PO Q6H PRN 01/12/22 03/31/23 History [Tylenol w/codeine #3] RX: Metoprolol Tartrate [Lopressor] 50 mg PO BID-W/MEALS 01/12/22 03/31/23 History RX: Pantoprazole [Protonix] 40 mg PO DAILY 01/12/22 03/31/23 History RX: predniSONE 2.5 mg PO DIRECTED 11/17/22 03/31/23 History Albuterol Inhaler [Ventolin Hfa 2 puff INHALATION RT-QID PRN 03/31/23 03/31/23 History Inhaler] Multivitamins, Thera [Multivitamin 1 tab PO DAILY 03/31/23 03/31/23 History (formulary)] lisinopriL [Zestril] 20 mg PO BID 03/31/23 03/31/23 History Allergies Allergy/AdvReac Type Severity Reaction Status Date / Time No Known Allergies Allergy Verified 03/31/23 18:25 Physical Exam Vitals: Vital Signs Temp Pulse Pulse Resp BP BP Pulse Ox 04/01/23 09:31 120/78 04/01/23 07:56 98 F 89 18 162/107 99 04/01/23 02:00 97.5 F L 56 L 16 120/62 96 03/31/23 20:44 97.6 F 61 18 145/81 99 03/31/23 19:22 57 L 18 152/88 98 03/31/23 18:00 97.8 F 60 16 181/95 98 03/31/23 15:59 98.1 F 65 16 152/74 95 Intake and Output 03/31/23 04/01/23 04/01/23 22:59 06:59 14:59 Intake Total 950 120 Balance 950 120 Intake: Intake, IV Titration 950 Amount Sodium Chloride 0.9% 1, 450 000 ml @ 75 mls/hr IV . [id number] [facility] Rx#:[id number] Vancomycin 1,750 mg In 500 Sodium Chloride 0.9% 500 ml 500 ml @ 167 mls/hr IVPB Q12H [facility] Rx#: [id number] Oral 120 Other: Voiding Method Toilet # Voids 1 Weight 113.398 kg Results CBC & Chem 7: 04/01/23 06:11 03/31/23 16:57 Labs: Abnormal Lab Results - Last 24 Hours (Table) 03/31/23 Range/Units 16:57 BUN 22 H (7-17) mg/dL AST 43 H (14-36) U/L Thrombosis Risk Factor Assmnt - DVT/VTE Prophylaxis DVT/VTE Prophylaxis: Pharmacologic Prophylaxis ordered - Choose All That Apply Any of the Below Risk Factors Present?: Yes Each Factor Represents 1 point: Obesity (BMI >25), Swollen legs (current) Other Risk Factors: Yes Each Risk Factor Represents 2 Points: Age 61-74 years Other congenital or acquired thrombophilia - If yes, enter type in comment: No Thrombosis Risk Factor Assessment Total Risk Factor Score: 4 Thrombosis Risk Factor Assessment Level: Moderate Risk Assessment and Plan Time with Patient: Greater than 30
[2023-04-01] MEDS: KETOROLAC 15 MG/ML 1 ML VIAL IVP PRN (18:13)
[2023-04-01] MEDS: SYMBICORT 160-4.5 MCG INHALER INHALATION SCH (18:28)
[2023-04-01] MEDS: FLUoxetine HCL 20 MG CAP PO SCH (21:28)
[2023-04-01] MEDS: Acetaminophen-Codeine 300-30mg TAB PO PRN (21:29)
--- NOTE | 2023-04-01 22:15 | P.CONS ---
History of Present Illness - Reason for Consult Consult date: 04/01/23 Cellulitis Requesting physician: Eduardo Saavedra - Chief Complaint R leg swelling and redness x few days - History of Present Illness Patient is a 62-year-old female with a past medical history significant for hypertension mitral valve prolapse sleep apnea and asthma started having increasing swelling and redness of the right lower extremity that has been going on for about a week patient denies any history of any trauma and apparently has been evaluated by her primary care physician the patient was started on Bactrim which the patient has taken for about 5 days did not have any improvement the patient noticed to have increasing swelling redness of the right lower extremity for the patient presented to hospital patient denies high-grade fever has been complaining of pain more of a dull aching 4-5 out of 10 and no radiation with associated swelling and redness did not have any open wound or any drainage patient on presentation to the hospital was afebrile and no fever has been recorded subsequently patient did have a normal white count kidney function was normal liver enzymes AST mildly elevated patient did have x-ray of the tibia-fibula did not show any bony changes she was started on vancomycin has been admitted to the hospital infectious disease was consulted for further management of antibiotic therapy Review of Systems Positive point has been mentioned in HPI rest of the systems are negative Past Medical History Past Medical History: Asthma, Hypertension, Mitral Valve Prolapse (MVP), Osteoarthritis (OA), Sleep Apnea/CPAP/BIPAP Additional Past Medical History / Comment(s): "AAA, 4 cm", bronchitis, no cpap used, "something autoimmune",recent dx. sarcoidosis, mitral valve "severe leak" per pt., nodules/inflammation in lung in CT History of Any Multi-Drug Resistant Organisms: None Reported Past Surgical History: Adenoidectomy, Bariatric Surgery, Orthopedic Surgery, Tonsillectomy Additional Past Surgical History / Comment(s): lap band, rt eye sx-had a blocked blood vessel, sinus sx, hallie knee replacement, recent lung biopsy, MIRLANDE, mitral valve repair may 2021 Past Anesthesia/Blood Transfusion Reactions: No Reported Reaction Additional Past Anesthesia/Blood Transfusion Reaction / Comm: Diff IV starts Past Psychological History: No Psychological Hx Reported 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 Mother Family Medical History: Cancer Additional Family Medical History / Comment(s): BREAST CANCER. Father Family Medical History: Congestive Heart Failure (CHF), Myocardial Infarction ([place]) Additional Family Medical History / Comment(s): [place] Brother(s) Family Medical History: Coronary Artery Disease (CAD) Additional Family Medical History / Comment(s): Medications and Allergies Home Medications Medication Instructions Recorded Confirmed Type ALPRAZolam [Xanax] 0.25 mg PO TID PRN 12/29/18 03/31/23 History Budesonide-Formot 160-4.5 Mcg 2 puff INHALATION RT-HS 12/29/18 03/31/23 History [Symbicort 160-4.5 Mcg Inhaler] FLUoxetine HCL [PROzac] 20 mg PO HS 12/29/18 03/31/23 History Montelukast Sodium [Singulair] 10 mg PO HS 12/29/18 03/31/23 History Furosemide [Lasix] 20 mg PO MOWEFR PRN 06/06/20 03/31/23 History Acetaminophen-Codeine 300-30mg 1 tab PO Q6H PRN 01/12/22 03/31/23 History [Tylenol w/codeine #3] Metoprolol Tartrate [Lopressor] 50 mg PO BID-W/MEALS 01/12/22 03/31/23 History Pantoprazole [Protonix] 40 mg PO DAILY 01/12/22 03/31/23 History predniSONE 2.5 mg PO DIRECTED 11/17/22 03/31/23 History Albuterol Inhaler [Ventolin Hfa 2 puff INHALATION RT-QID PRN 03/31/23 03/31/23 History Inhaler] Multivitamins, Thera [Multivitamin 1 tab PO DAILY 03/31/23 03/31/23 History (formulary)] lisinopriL [Zestril] 20 mg PO BID 03/31/23 03/31/23 History Acetaminophen Tab [Tylenol] 650 mg PO Q6HR PRN tab 04/02/23 Rx Cephalexin [Keflex] 500 mg PO Q6HR 10 Days #40 cap 04/02/23 Rx Allergies Allergy/AdvReac Type Severity Reaction Status Date / Time No Known Allergies Allergy Verified 03/31/23 18:25 Physical Exam Vitals: Vital Signs Temp Pulse Pulse Resp BP BP Pulse Ox 04/01/23 09:31 120/78 04/01/23 07:56 98 F 89 18 162/107 99 04/01/23 02:00 97.5 F L 56 L 16 120/62 96 03/31/23 20:44 97.6 F 61 18 145/81 99 03/31/23 19:22 57 L 18 152/88 98 03/31/23 18:00 97.8 F 60 16 181/95 98 03/31/23 15:59 98.1 F 65 16 152/74 95 Intake and Output 03/31/23 04/01/23 04/01/23 22:59 06:59 14:59 Intake Total 950 120 Balance 950 120 Intake: Intake, IV Titration 950 Amount Sodium Chloride 0.9% 1, 450 000 ml @ 75 mls/hr IV . [id number] [facility] Rx#:[id number] Vancomycin 1,750 mg In 500 Sodium Chloride 0.9% 500 ml 500 ml @ 167 mls/hr IVPB Q12H [facility] Rx#: [id number] Oral 120 Other: Voiding Method Toilet # Voids 1 Weight 113.398 kg GENERAL DESCRIPTION: Middle-aged female lying in bed, no distress. No tachypnea or accessory muscle of respiration use. HEENT: Shows Pallor , no scleral icterus. Oral mucous membrane is dry. NECK: Trachea central, no thyromegaly. LUNGS: Unlabored breathing. Clear to auscultation anteriorly. No wheeze or crackle. HEART: S1, S2, regular rate and rhythm. ABDOMEN: Soft, no tenderness , guarding or rigidity EXTREMITIES: R leg swelling , redness and warm to touch SKIN: No rash, no masses palpable. NEUROLOGICAL: The patient is awake, alert, oriented x3, mood and affect normal. Results CBC & Chem 7: 04/02/23 05:22 04/02/23 05:22 Labs: Abnormal Lab Results - Last 24 Hours (Table) 03/31/23 Range/Units 16:57 BUN 22 H (7-17) mg/dL AST 43 H (14-36) U/L Assessment and Plan (1) Cellulitis of right leg without foot Status: Acute Code(s): L03.115 - CELLULITIS OF RIGHT LOWER LIMB SNOMED Code(s): 728151911 Plan: 1patient presented to the hospital with increasing swelling redness prior to her extremity with a diagnosis of cellulitis failing outpatient oral Bactrim DS therapy more likely related to the burden of disease and a question of possible Bactrim resistant pathogen patient did have diffuse swelling redness possible streptococcal disease 2marked the left redness and apply Abelino wrap to the left from distal bilateral below the knee. 3discontinue vancomycin 4start the patient cefazolin 2 g every 8 hours We will follow on clinical condition and cultures to further adjust medication if needed Thank you for this consultation we will follow the patient along with you Time with Patient: Greater than 30
[2023-04-02 07:40] VITALS: RESP 18; TEMP 97.9
[2023-04-02] MEDS: PANTOPRAZOLE 40 MG TABLET PO SCH (08:12)
[2023-04-02] MEDS: lisinopriL 20 MG TAB PO SCH (08:12)
[2023-04-02] MEDS: METOPROLOL TARTRATE 50 MG TAB PO SCH (08:12)
[2023-04-02] MEDS: KETOROLAC 15 MG/ML 1 ML VIAL IVP PRN (08:33)
[2023-04-02 11:22] VITALS: BP 148/85; PULSE 63
--- NOTE | 2023-04-02 11:55 | US ---
EXAMINATION TYPE: US venous doppler duplex LE RT DATE OF EXAM: 04/02/2023 11:48 AM COMPARISON: NONE CLINICAL INDICATION: Female, 62 years old with history of swelling and pain of right lower extremity; edema SIDE PERFORMED: Right TECHNIQUE: The lower extremity deep venous system is examined utilizing real time linear array sonog jignesh with graded compression, doppler sonography and color-flow sonography. VESSELS IMAGED: Common Femoral Vein Deep Femoral Vein Greater Saphenous Vein * Femoral Vein Popliteal Vein Small Saphenous Vein * Proximal Calf Veins (* superficial vessels) Right Leg: Negative for DVT IMPRESSION: No evidence for DVT within the right lower extremity imaged from the groin to the upper calf.
[2023-04-02 13:13] LABS: African American GFR (CKD) 108.4 (60.0-200.0); Anion Gap 15.5 mmol/L (10.00-18.00); BUN/Creat Ratio 25.57 Ratio (12.00-20.00); Blood Urea Nitrogen 17.9 mg/dL (9.0-27.0); C Reactive Protein 1.3 mg/dL (0.00-0.80); Calcium 8.8 mg/dL (8.7-10.3); Carbon Dioxide 17.5 mmol/L (20.0-27.5); Non-African American GFR(CKD) 93.5 (60.0-200.0); Potassium 4.5 mmol/L (3.5-5.5)
[2023-04-02 14:15] LABS: Basophils # (A) 0.05 X 10*3/uL (0.00-0.10); Basophils % (A) 0.8 %; Eosinophils # (A) 0.45 X 10*3/uL (0.04-0.35); Eosinophils % (A) 7.4 %; HCT 39.4 % (37.2-46.3); HGB 11.9 g/dL (12.0-15.0); Immature Grans, Automated 0.3 %; Lymphocytes # (A) 2.13 X 10*3/uL (0.90-5.00); Lymphocytes % (A) 34.8 %; MCH 30.1 pg (27.0-32.0); MCHC 30.2 g/dL (32.0-37.0); MCV 99.5 fL (80.0-97.0); Mean Platelet Volume 10.8 fL (9.5-12.2); Monocytes # (A) 0.68 X 10*3/uL (0.20-1.00); Monocytes % (A) 11.1 %; NRBC Per 100 WBC 0 /100 WBCS (0.0-0.0); Neutrophils # (A) 2.79 X 10*3/uL (1.80-7.70); Neutrophils % (A) 45.6 %; Platelet Count 284 X 10*3/uL (140-440); RBC 3.96 X 10*6/uL (4.10-5.20); RDW 13.8 % (11.5-14.5); WBC 6.12 X 10*3/uL (4.50-10.00)
--- NOTE | 2023-04-03 01:21 | P.DS ---
Providers Date of admission: 03/31/23 17:43 Expected date of discharge: 04/02/23 Attending physician: Danyel Valdes Consults: 03/31/23 17:43 Consult Physician Routine Consulting Provider: Gustavo Langston Consult Reason/Comments: cellulitis Do you want consulting provider notified?: Yes Primary care physician: Omer [facility] Course: Final diagnosis Right lower extremity cellulitis with failure of outpatient treatment Leg pain with swelling, DVT ruled out History of asthma, not an exacerbation Hypertension Mitral valve prolapse Sleep apnea Sarcoidosis history Osteoarthritis Obesity with a BMI of 39.2 GI prophylaxis DVT prophylaxis Full code Discharge disposition Patient is being discharged in a stable condition with guarded prognosis to home. Patient will follow-up with Dr. Katz in the outpatient setting upon discharge. Patient is to continue with Keflex every 6 hours for the next 10 days and close outpatient follow-up with infectious disease as scheduled. Total time taken is greater than 35 minutes. Hospital course This is a 62-year-old female who was recently admitted with right lower extremity swelling and concerns for cellulitis with redness and failure of outpatient treatment. Patient was started on Bactrim and received 5 days with no improvement actually worsening of the redness. Patient did have increased pain and swelling of the right lower extremity venous Doppler was done which was negative for DVT. Patient was followed by infectious disease and showed clinical improvement on IV cefazolin will continue oral Keflex 500 mg every 6 hours for the next 10 days to complete course. Recommend Abelino wrapping and elevated while at rest and close outpatient follow-up. Patient has been cleared by consultations. Please refer to other consultation notes for further HPI. Currently no reports of chest pain, shortness of breath, or palpitations. Patient is afebrile. No reports of nausea or vomiting and patient is tolerating diet. Patient will be discharged home today. Physical exam: Gen: This is a 62-year-old female who is awake, alert and oriented 3, well- developed, well-nourished, obese HEENT: Head is atraumatic, normocephalic. Pupils equal, round. Sclerae is anicteric. NECK: Supple. No JVD. No lymphadenopathy. No thyromegaly. LUNGS: Clear to auscultation. No wheezes or rhonchi. No intercostal retractions. HEART: Regular rate and rhythm. No murmur. ABDOMEN: Soft. Bowel sounds are present. No masses. No tenderness. EXTREMITIES: No pedal edema. No calf tenderness. Right lower extremity redness and swelling significantly improved NEUROLOGICAL: Patient is awake, alert and oriented x3. Cranial nerves 2 through 12 are grossly intact. Please refer to medication reconciliation sheet for a list of medications. The impression and plan of care has been dictated by Anahy Zeng, Nurse Practitioner as directed. Dr. Marii MD I have performed a history and examination and MDM of this patient, discussed the same with the dictator, and agree with the dictator's assessment and plan as written ,documented as a scribe. Based on total visit time, I have performed more than 50% of the visit. Patient Condition at Discharge: Stable Plan - Discharge Summary Discharge Rx Participant: Yes New Discharge Prescriptions: New Cephalexin [Keflex] 500 mg PO Q6HR 10 Days #40 cap Acetaminophen Tab [Tylenol] 650 mg PO Q6HR PRN tab PRN Reason: Mild Pain Or Fever > 100.5 Continue Budesonide-Formot 160-4.5 Mcg [Symbicort 160-4.5 Mcg Inhaler] 2 puff INHALATION RT-HS Montelukast Sodium [Singulair] 10 mg PO HS FLUoxetine HCL [PROzac] 20 mg PO HS ALPRAZolam [Xanax] 0.25 mg PO TID PRN PRN Reason: Anxiety Furosemide [Lasix] 20 mg PO MOWEFR PRN PRN Reason: Edema Acetaminophen-Codeine 300-30mg [Tylenol w/codeine #3] 1 tab PO Q6H PRN PRN Reason: Pain Multivitamins, Thera [Multivitamin (formulary)] 1 tab PO DAILY Pantoprazole [Protonix] 40 mg PO DAILY Metoprolol Tartrate [Lopressor] 50 mg PO BID-W/MEALS predniSONE 2.5 mg PO DIRECTED Albuterol Inhaler [Ventolin Hfa Inhaler] 2 puff INHALATION RT-QID PRN PRN Reason: Shortness Of Breath lisinopriL [Zestril] 20 mg PO BID Discharge Medication List ALPRAZolam [Xanax] 0.25 mg PO TID PRN 12/29/18 [History] Budesonide-Formot 160-4.5 Mcg [Symbicort 160-4.5 Mcg Inhaler] 2 puff INHALATION RT-HS 12/29/18 [History] FLUoxetine HCL [PROzac] 20 mg PO HS 12/29/18 [History] Montelukast Sodium [Singulair] 10 mg PO HS 12/29/18 [History] Furosemide [Lasix] 20 mg PO MOWEFR PRN 06/06/20 [History] Acetaminophen-Codeine 300-30mg [Tylenol w/codeine #3] 1 tab PO Q6H PRN 01/12/22 [History] Metoprolol Tartrate [Lopressor] 50 mg PO BID-W/MEALS 01/12/22 [History] Pantoprazole [Protonix] 40 mg PO DAILY 01/12/22 [History] predniSONE 2.5 mg PO DIRECTED 11/17/22 [History] Albuterol Inhaler [Ventolin Hfa Inhaler] 2 puff INHALATION RT-QID PRN 03/31/23 [History] Multivitamins, Thera [Multivitamin (formulary)] 1 tab PO DAILY 03/31/23 [History] lisinopriL [Zestril] 20 mg PO BID 03/31/23 [History] Acetaminophen Tab [Tylenol] 650 mg PO Q6HR PRN tab 04/02/23 [Rx] Cephalexin [Keflex] 500 mg PO Q6HR 10 Days #40 cap 04/02/23 [Rx] Follow up Appointment(s)/Referral(s): Omer Katz DO [Primary Care Provider] - 1-2 days (The office said they would call you with an appointment time and date.) Gustavo Langston MD [STAFF PHYSICIAN] - 04/09/23 2:00 pm Patient Instructions/Handouts: Cephalexin (By mouth), Cellulitis (GEN) Activity/Diet/Wound Care/Special Instructions: Activity Limited until follow-up Follow-up with primary care provider discharge Continue taking antibiotics until complete Follow-up with infectious disease outpatient Discharge Disposition: HOME SELF-CARE
== END 2023-04-02 15:13 | disposition home or self-care (01) ==
LOC: EC 15:54 → 6NMEDSUR 17:43 → 5NMEDONC 19:38
PROVIDERS: ADMIT Hospitalist; ATTEND Hospitalist
DX: L03.115 Cellulitis of right lower limb (principal); J45.909 Unspecified asthma, uncomplicated; I10 Essential (primary) hypertension; I34.1 Nonrheumatic mitral (valve) prolapse; I71.40 Abdominal aortic aneurysm, without rupture, unspecified; G47.30 Sleep apnea, unspecified; D86.9 Sarcoidosis, unspecified; M19.90 Unspecified osteoarthritis, unspecified site; D89.89 Other specified disorders involving the immune mechanism, not elsewhere classified; E66.9 Obesity, unspecified; Z68.39 Body mass index [BMI] 39.0-39.9, adult; Z98.84 Bariatric surgery status; Z96.653 Presence of artificial knee joint, bilateral; Z98.890 Other specified postprocedural states; Z82.49 Family history of ischemic heart disease and other diseases of the circulatory system; Z80.3 Family history of malignant neoplasm of breast; Z79.51 Long term (current) use of inhaled steroids; Z79.899 Other long term (current) drug therapy
CPT/HCPCS: 96376 ×2; 96366 ×2; 96367; 96375; 96365; 99284; 36415; 94640; 80053; 80048; 83605; 85025 ×3; 85610; 85730; 86140; 87040; 73590; 93971; G0378 ×4; J3370 ×2; J0690 ×2; J1885 ×2

== ENCOUNTER → 2023-11-15 | Outpatient (CLI) | payer MEDICAID ==
--- NOTE | 2023-11-15 13:25 | MM ---
Reason for Exam: Screening (asymptomatic). Last mammogram was performed 1 year(s) and 10 month(s) ago. Patient History: Menarche at age 10. First Full-Term at age 20. Postmenopausal. Hormonal Contraceptives for 4 years from age 18 until age 22. Sister had breast cancer, age 50. Mother had breast cancer, age 75. Risk Values: Josey 5 year model risk: 7.9%. NCI Lifetime model risk: 31.2%. Prior Study Comparison: 08/13/2018 Bilateral Screening Mammogram, [facility]. 10/19/2019 Bilateral Diagnostic Mammogram, [facility]. 01/03/2022 Bilateral Diagnostic Mammogram, [facility]. Tissue Density: The breast tissue is almost entirely fat. Findings: Analyzed By CAD. There is no suspicious group of microcalcifications or new suspicious mass. Benign-appearing calcifications bilaterally. Overall Assessment: Benign, BI-RAD 2 Management: Screening Mammogram of both breasts in [address] [facility] will attempt to contact patient to return for supplemental views and ultrasound if indicated. Patient should continue monthly self-breast exams. A clinical breast exam by your physician is recommended on an annual basis. This exam should not preclude additional follow-up of suspicious palpable abnormalities. Note on Josey scores and lifetime risk: 1. A Josey score greater than 3% is considered moderate risk. If this is the case, consider specialist referral to assess eligibility for a risk reducing agent. 2. If overall lifetime risk for the development of breast cancer is 20% or higher, the patient may qualify for future screening with alternating mammogram and breast MRI. Electronically signed and approved by: Crow Barger DO
--- NOTE | 2023-11-17 21:00 | BD ---
EXAMINATION TYPE: Axial Bone Density DATE OF EXAM: 11/15/2023 CLINICAL HISTORY: 63 years old Female. ICD-10 CODE: M85.88 OTHER DISORDER OF BONE DENSITY Height: 64.5" Weight: 262.8lbs FRAX RISK QUESTIONS: Alcohol (3 or more units per day): No Family History (Parent hip fracture): No Glucocorticoids (More than 3mos): No (Ex: prednisone, prednisolone, methylprednisolone, dexamethasone, and hydrocortisone). History of Fracture in Adulthood: No Secondary Osteoporosis: 1. Type 1 Diabetes: No 2. Hyperthyroidism: No 3. Menopause before 45: No 4. Malnutrition: No 5. Chronic liver disease: No Rheumatoid Arthritis: No Current Tobacco Use: No RISK FACTORS HISTORY OF: Hip Fracture (Right/Left): No Spine Fracture: No History of Wrist Fracture: No Surgery to Spine/Hip(right/left)/Wrist (right/left): No Family History of Osteoporosis: Yes, Mother Active: Yes Diet low in dairy products/other sources of calcium: No Postmenopausal woman: Yes Lost more than 2 inches in height since high school: No Frequent falls: No Poor Health: No Hyperparathyroidism: No Adrenal Insufficiency: No MEDICATIONS: Prednisone or other steroids: No Thyroid Medications: No Osteoporosis Medications: No Additional Medications: heart meds, protonix, xanax as needed, occasional vitamin D Additional History: Hx of open heart sx, lumbar spine bone density from 2012 would not successfully c ompare EXAM MEASUREMENTS: Bone mineral densitometry was performed using the [employer]. Bone mineral density as measured about the Lumbar spine is: ----- L1-L4(G/cm2): 1.062 T Score Values are as follows: ----- L1: -1.1 ----- L2: -1.6 ----- L3: -0.7 ----- L4: -0.7 ----- L1-L4: -1.0 Z Score Values are as follows: ----- L1: -0.9 ----- L2: -1.4 ----- L3: -0.5 ----- L4: -0.5 ----- L1-L4: -0.8 Unable to compare to study from 06/25/2013 Bone mineral density about the R hip (g/cm2): 1.034 Bone mineral density about the L hip (g/cm2): 0.943 T Score values are as follows: -----R Neck: -0.3 -----L Neck: -0.8 -----R Total: 0.2 -----L Total: -0.5 Z Score values are as follows: -----R Neck: 0.3 -----L Neck: -0.3 -----R Total: 0.4 -----L Total: -0.3 Bone mineral density has: decreased -10.4% since study of: 06/25/2013 FRAX%s: The graph provided illustrates a 6.3% chance for a major osteoporotic fx and a 0.3% chance fo r the hips probability for fx in 10 years time. IMPRESSION: Osteopenia (T Score between -2.5 and -1). There is slightly increased risk of fracture and the patient may be considered for treatment. Re-Screen 2-5 years. NOTE: T-SCORE=SD OF THE YOUNG ADULT MEAN.
== END | disposition home or self-care (01) ==
LOC: RADMAMWWP 09:18
PROVIDERS: ATTEND Obstetrics & Gynecology
DX: Z12.31 Encounter for screening mammogram for malignant neoplasm of breast (principal); M85.88 Other specified disorders of bone density and structure, other site; Z78.0 Asymptomatic menopausal state; Z80.3 Family history of malignant neoplasm of breast
CPT/HCPCS: 77063; 77067; 77080

== ENCOUNTER → 2023-11-25 | Outpatient (CLI) | payer MEDICAID ==
--- NOTE | 2023-11-30 20:30 | CT ---
EXAMINATION TYPE: CT chest w con CT DLP: 714.8 mGycm, Automated exposure control for dose reduction was used. DATE OF EXAM: 11/25/2023 3:45 PM COMPARISON: 2V chest x-ray 11/17/2022 . CLINICAL INDICATION:Female, 63 years old with history of D86.85 SARCOID; PHH, Increased SOB, hx of sa rcoidosis TECHNIQUE: Multiple axial images were obtained through the chest. Sagittal and coronal reformats were created for review. Contrast used:100 mL of Isovue 300 with IV Contrast (None if empty) Oral contrast used: (None if empty) FINDINGS: LUNGS/ PLEURA: A 3.8 mm nodule towards the left lung apex image 13 series 4, may be at least partiall y calcified and judged likely benign. Otherwise no sizable nodules of concern. No evidence of airspac e consolidation, pleural effusion, or pneumothorax. Mild dependent opacities in the lung bases likely subsegmental atelectasis and/or scarring. No definite parenchymal changes are seen to suggest sarcoi d related change. AIRWAY: Central airways are patent. LOWER NECK: No significant findings. Visualized thyroid is unremarkable. MEDIASTINUM: No gross evidence of adenopathy. HEART: Mild to moderate cardiomegaly. No significant coronary arterial calcifications are seen. Linea r radiodensities seen along the anterolateral left atrium, could reflect left atrial appendage occlus ion device. Curvilinear increased density may reflect mitral valve prosthesis and/or calcification. C orrelate with surgical history. No appreciable pericardial effusion. VASCULATURE: Mild atherosclerotic calcifications of the aorta, mostly in the descending and upper ab dominal segments. Ascending aorta is 4.3 CM, tapers along the arch, and descending is 2.5 CM. Aorta is considered fusiform ectatic in its ascending portion. The 3 branch vessels from the arch show no s ignificant narrowing or atherosclerotic disease. Pulmonary trunk measures 3.4 CM. The pulmonary trunk is enlarged (>3cm), this can be seen with pulmon graeme hypertension Grossly preserved enhancement of the pulmonary arteries, in the limits of non-CTA ex am. SOFT TISSUES/LYMPH NODES: Unremarkable soft tissues. No axillary adenopathy. UPPER ABDOMEN: A lap band type device about the proximal stomach. The stomach above this appears some what dilated up to 3.6 cm. GE junction and distal esophagus are nondistended and actually show some e vidence of wall thickening. Mild/moderate atherosclerotic calcification of the upper abdominal aorta. Origins of the celiac and superior mesenteric arteries are patent. There is mild stenosis of the pro ximal right renal artery, and while only partially seen estimated mild to moderate stenosis of the pr oximal left renal artery. MUSCULOSKELETAL: Status post sternotomy transfixed with wires however with a persistent sternal defec t. Mild degenerative changes of the spine with mild apex right scoliosis. No clearly acute bony abnor malities. IMPRESSION: 1. No acute chest abnormality. 2. Mild to moderate cardiomegaly with postoperative changes including probable left atrial appendage occlusion device and prosthetic mitral valve. Correlate with history. 3. No evidence of CHF 4. Ascending aortic fusiform ectasia, approaches 4.3 cm. 5. Mild scarring and/or subsegmental atelectasis in the bilateral lungs, no definite parenchymal lopez nges to specifically attribute to sarcoidosis. 6. Nonenlarged mediastinal nodes, without evidence of mediastinal, hilar or axillary lymphadenopathy . 7. Enlarged pulmonary trunk, can be seen with pulmonary hypertension. 8. Lap band in place, with findings in the proximal stomach and distal esophagus as above. Please co rrelate clinically regarding the need for additional workup.
== END | disposition home or self-care (01) ==
LOC: RADCTMAIN 13:58
PROVIDERS: ATTEND Internal Medicine Critical Care Medicine
DX: D86.85 Sarcoid myocarditis (principal); I51.7 Cardiomegaly; I27.20 Pulmonary hypertension, unspecified; J98.4 Other disorders of lung; Z46.51 Encounter for fitting and adjustment of gastric lap band; Z98.890 Other specified postprocedural states
CPT/HCPCS: 71260; Q9967

== ENCOUNTER 2023-12-03 02:51 | Emergency (ER) | payer MEDICAID ==
[2023-12-03] MEDS ORDERED: SODIUM CHLORIDE 0.9% 1,000 ML IV STA (03:08)
[2023-12-03] MEDS ORDERED: PANTOPRAZOLE 40 MG/10 ML VIAL IVP STA (03:08)
[2023-12-03] MEDS ORDERED: ONDANSETRON 4 MG/2 ML VIAL IVP STA (03:08)
[2023-12-03] MEDS ORDERED: MORPHINE SULFATE 4 MG/ML SYRINGE IVP STA (03:09)
[2023-12-03 03:25] LABS: Appearance,Urine Clear (Clear); Bilirubin,Urine Negative (Negative); Blood,Urine Negative (Negative); Color,Urine Colorless; Glucose,Urine (UA) Negative (Negative); Ketones,Urine Negative (Negative); Leukocyte Esterase,Urine Trace (Negative); Nitrite,Urine Negative (Negative); Protein,Urine Negative (Negative); RBC,Urine <1 /hpf (0-5); Specific Gravity,Urine 1.007 (1.001-1.035); Squamous Epithelial Cell,Urine 1 /hpf (0-4); Urobilinogen,Urine <2.0 mg/dL (<2.0); WBC,Urine 4 /hpf (0-5)
--- NOTE | 2023-12-03 04:02 | ED ---
General Adult HPI - General Chief complaint: Abdominal Pain Stated complaint: ABD PAIN, URINATING BLOOD Time Seen by Provider: 12/03/23 03:02 Source: patient, RN notes reviewed, old records reviewed Mode of arrival: wheelchair Limitations: no limitations - History of Present Illness Initial comments: Patient is a 63-year-old female presents with Department complaining of abdominal pain. Has been ongoing for the last 2 days. It is worsened over the last day or so. States it is a sharp, achy pain that radiates from her right lower back around towards her groin. States she believe she sees blood in her urine as well. Endorses nausea but no vomiting. Denies any change in bowel habits. Does have a history of sarcoidosis, AAA, mitral valve prolapse, asthma, hypertension. Also has a history of a lap band procedure for her stomach. Presents for further evaluation at this time. - Related Data Home Medications Medication Instructions Recorded Confirmed ALPRAZolam [Xanax] 0.25 mg PO TID PRN 12/29/18 03/31/23 Budesonide-Formot 160-4.5 Mcg 2 puff INHALATION RT-HS 12/29/18 03/31/23 [Symbicort 160-4.5 Mcg Inhaler] FLUoxetine HCL [PROzac] 20 mg PO HS 12/29/18 03/31/23 Montelukast Sodium [Singulair] 10 mg PO HS 12/29/18 03/31/23 Furosemide [Lasix] 20 mg PO MOWEFR PRN 06/06/20 03/31/23 Acetaminophen-Codeine 300-30mg 1 tab PO Q6H PRN 01/12/22 03/31/23 [Tylenol w/codeine #3] Metoprolol Tartrate [Lopressor] 50 mg PO BID-W/MEALS 01/12/22 03/31/23 Pantoprazole [Protonix] 40 mg PO DAILY 01/12/22 03/31/23 predniSONE 2.5 mg PO DIRECTED 11/17/22 03/31/23 Albuterol Inhaler [Ventolin Hfa 2 puff INHALATION RT-QID PRN 03/31/23 03/31/23 Inhaler] Multivitamins, Thera [Multivitamin 1 tab PO DAILY 03/31/23 03/31/23 (formulary)] lisinopriL [Zestril] 20 mg PO BID 03/31/23 03/31/23 Previous Rx's Medication Instructions Recorded Acetaminophen Tab [Tylenol] 650 mg PO Q6HR PRN tab 04/02/23 Cephalexin [Keflex] 500 mg PO Q6HR 10 Days #40 cap 04/02/23 Ketorolac [Toradol] 10 mg PO Q6HR PRN 5 Days #20 tab 12/03/23 Lidocaine 5% Patch [Lidoderm 5% 1 patch TOPICAL DAILY PRN 14 Days 12/03/23 Patch] #14 patch Allergies Allergy/AdvReac Type Severity Reaction Status Date / Time No Known Allergies Allergy Verified 03/31/23 18:25 Review of Systems ROS Statement: Those systems with pertinent positive or pertinent negative responses have been documented in the HPI. Review of Systems: CONST: Denies fever EYES: Denies blurry vision ENT: Denies nasal congestion C/V: Denies Chest pain RESP: Denies shortness of breath GI: Endorses abdominal pain : Denies dysuria SKIN: Denies rash. MSK: Denies joint pain. NEURO: Denies headache ROS Other: All systems not noted in ROS Statement are negative. Past Medical History Past Medical History: Asthma, Hypertension, Mitral Valve Prolapse (MVP), Osteoarthritis (OA), Sleep Apnea/CPAP/BIPAP Additional Past Medical History / Comment(s): "AAA, 4 cm", bronchitis, no cpap used, "something autoimmune",recent dx. sarcoidosis, mitral valve "severe leak" per pt., nodules/inflammation in lung in CT History of Any Multi-Drug Resistant Organisms: None Reported Past Surgical History: Adenoidectomy, Bariatric Surgery, Orthopedic Surgery, Tonsillectomy Additional Past Surgical History / Comment(s): lap band, rt eye sx-had a blocked blood vessel, sinus sx, hallie knee replacement, recent lung biopsy, MIRLANDE, mitral valve repair may 2021 Past Anesthesia/Blood Transfusion Reactions: No Reported Reaction Additional Past Anesthesia/Blood Transfusion Reaction / Comment(s): Diff IV starts Past Psychological History: No Psychological Hx Reported Smoking Status: Never smoker Past Alcohol Use History: None Reported Past Drug Use History: None Reported - Past Family History Sister(s) Family Medical History: Cancer Additional Family Medical History / Comment(s): BREAST CANCER, HX OF BRACHIAL BLOOD CLOTS WITH FILTERS INSERTED. Mother Family Medical History: Cancer Additional Family Medical History / Comment(s): BREAST CANCER. Father Family Medical History: Congestive Heart Failure (CHF), Myocardial Infarction ([place]) Additional Family Medical History / Comment(s): [place] Brother(s) Family Medical History: Coronary Artery Disease (CAD) Additional Family Medical History / Comment(s): General Exam - General Exam Comments Initial Comments: General: Appears in mild to moderate distress secondary to abdominal pain. HEAD: Normal with no signs of head trauma. EYES: PERRLA, EOMI, conjunctiva normal, no discharge. ENT: Hearing grossly intact, normal oropharynx. RESPIRATORY: Clear breath sounds bilaterally. No wheezes, rales, or rhonchi. C/V: Regular rate and rhythm. S1 and S2 auscultated, no edema, peripheral pulses 2+ and intact throughout ABD: Abdomen is soft, nondistended. Tender palpation in the right lower quadrant, right flank with radiation to the suprapubic region. Mild CVA tenderness to percussion on the right. No guarding. No rebound tenderness. No peritoneal signs. EXT: Normal range of motion, no obvious deformity SKIN: No rashes or lesions observed on exposed skin. NEURO: Alert and oriented x 4. Limitations: no limitations Course Vital Signs 12/03/23 12/03/23 12/03/23 02:53 04:00 06:10 Temperature 97.5 F L 98.0 F Pulse Rate 73 72 88 Respiratory 24 20 18 Rate Blood Pressure 199/100 155/73 159/85 O2 Sat by Pulse 98 100 100 Oximetry Medical Decision Making - Medical Decision Making Was pt. sent in by a medical professional or institution (, PA, BING[employer] F[employer]ATER, urgent care, hospital, or jail...) When possible be specific @ -No Did you speak to anyone other than the patient for history (EMS, parent, family, police, friend...)? What history was obtained from this source @ -No Did you review nursing and triage notes (agree or disagree)? Why? @ -I reviewed and agree with nursing and triage notes Were old charts reviewed (outside hosp., previous admission, EMS record, old EKG, old radiological studies, urgent care reports/EKG's, jail records)? Report findings @ -Old charts were reviewed Differential Diagnosis (chest pain, altered mental status, abdominal pain women, abdominal pain men, vaginal bleeding, weakness, fever, dyspnea, syncope, headache, dizziness, GI bleed, back pain, seizure, CVA, palpatations, mental health, musculoskeletal)? @ -Differential Abdominal Pain Women: Appendicitis, Cholecystitis, diverticulosis, ischemic bowel, pancreatitis, hepatitis, UTI, gastroenteritis, AAA, incarcerated hernia, bowel obstruction, constipation, inflammatory bowel, hepatitis, peptic ulcer disease, splenic infarction, perforated viscus, vulvitis, ovarian torsion, PID, kidney stone, placenta abruption, this is not meant to be an all-inclusive list EKG interpreted by me (3pts min.). @ -As above X-rays interpreted by me (1pt min.). @ -Chest x-ray reveals no obvious acute cardiopulmonary process. CT interpreted by me (1pt min.). @ -CTA reveals no obvious acute abdominal process. U/S interpreted by me (1pt. min.). @ -None done What testing was considered but not performed or refused? (CT, X-rays, U/S, labs)? Why? @ -None What meds were considered but not given or refused? Why? @ -None Did you discuss the management of the patient with other professionals (professionals i.e. , PA, BING[employer] F[employer]ATER, lab, RT, psych nurse, high school social studies teacher, medical manager, teacher, loss prevention officer, case mgr)? Give summary @ -No Was smoking cessation discussed for >3mins.? @ -No Was critical care preformed (if so, how long)? @ -No Were there social determinants of health that impacted care today? How? (Homelessness, low income, unemployed, alcoholism, drug addiction, transportation, low edu. Level, literacy, decrease access to med. care, skilled nursing, rehab)? @ -No Was there de-escalation of care discussed even if they declined (Discuss DNR or withdrawal of care, Hospice)? DNR status @ -No What co-morbidities impacted this encounter? (DM, HTN, Smoking, COPD, CAD, Cancer, CVA, ARF, Chemo, Hep., AIDS, mental health diagnosis, sleep apnea, morbid obesity)? @ -None Was patient admitted / discharged? Hospital course, mention meds given and route, prescriptions, significant lab abnormalities, going to OR and other pertinent info. @ -Based on the patient's presentation and physical exam, we will obtain abdominal workup for the patient. Patient was in agreement with this plan. Vital signs remarkable for mild hypertension likely secondary to pain.. Urinalysis returned prior to the rest for labs and showed no hematuria. We will therefore obtain a CT angiogram of the abdomen and pelvis she does have a history of AAA. Patient was in agreement this plan. She'll be sent likely to with IV fluids, morphine, Zofran, Protonix. EKG shows no signs of acute ischemia.Patient's imaging is unremarkable. Patient's laboratory studies are within acceptable limits. I did the patient. She is feeling somewhat improved. Discussed her workup and management shows no obvious findings. She expressed understanding. She'll be discharged home at this time as she does have multiple doctors appointments this week. She is close follow-up. She was in agreement this plan. She'll be given prescription for Toradol as well as lidocaine patches. Patient was in agreement this plan.Diagnosis is abdominal pain of unknown etiology, however I cannot definitively rule out acute process such as muscle strain or nerve irritation. I will provide the patient with a prescription for lidocaine patch, Toradol. I instructed the patient to follow up with their PCP in the next 1-3 days. I explained that the patient should return to the emergency department if they experience any worsening symptoms. Strict return precautions were discussed with the patient. The patient expressed understanding of these instructions. I answered all questions that the patient had. The patient was discharged home in good condition with their prescriptions and follow up information. Undiagnosed new problem with uncertain prognosis? @ -No Drug Therapy requiring intensive monitoring for toxicity (Heparin, Nitro, Insulin, Cardizem)? @ -No Were any procedures done? @ -No Diagnosis/symptom? @ -Abdominal pain of unknown etiology Acute, or Chronic, or Acute on Chronic? @ -Acute Uncomplicated (without systemic symptoms) or Complicated (systemic symptoms)? @ -Complicated Side effects of treatment? @ -none Exacerbation, Progression, or Severe Exacerbation] @ -no Poses a threat to life or bodily function? @ -Unlikely - Lab Data Result diagrams: 12/03/23 04:02 12/03/23 04:02 Lab Results 12/03/23 12/03/23 12/03/23 Range/Units 03:07 04:02 04:02 WBC 7.1 (3.8-10.6) k/uL RBC 4.72 (3.80-5.40) m/uL Hgb 14.6 (11.4-16.0) gm/dL Hct 44.3 (34.0-46.0) % MCV 93.9 (80.0-100.0) fL MCH 30.9 (25.0-35.0) pg MCHC 32.9 (31.0-37.0) g/dL RDW 14.6 (11.5-15.5) % Plt Count 220 (150-450) k/uL MPV 8.7 Neutrophils % 56 % Lymphocytes % 32 % Monocytes % 7 % Eosinophils % 4 % Basophils % 1 % Neutrophils # 3.9 (1.3-7.7) k/uL Lymphocytes # 2.3 (1.0-4.8) k/uL Monocytes # 0.5 (0-1.0) k/uL Eosinophils # 0.3 (0-0.7) k/uL Basophils # 0.0 (0-0.2) k/uL PT (10.0-12.5) sec INR (<1.2) APTT (22.0-30.0) sec Sodium 139 (137-145) mmol/L Potassium 4.2 (3.5-5.1) mmol/L Chloride 105 (98-107) mmol/L Carbon Dioxide 25 (22-30) mmol/L Anion Gap 9 mmol/L BUN 20 H (7-17) mg/dL Creatinine 0.53 (0.52-1.04) mg/dL Est GFR (CKD-EPI)AfAm >90 (>60 ml/min/1.73 sqM) Est GFR (CKD-EPI)NonAf >90 (>60 ml/min/1.73 sqM) Glucose 100 H (74-99) mg/dL Plasma Lactic Acid Justin (0.7-2.0) mmol/L Calcium 8.9 (8.4-10.2) mg/dL Total Bilirubin 0.8 (0.2-1.3) mg/dL AST 32 (14-36) U/L ALT 34 (4-34) U/L Alkaline Phosphatase 58 (38-126) U/L Total Protein 6.7 (6.3-8.2) g/dL Albumin 4.3 (3.5-5.0) g/dL Amylase 62 (30-110) U/L Lipase 204 (23-300) U/L Urine Color Colorless Urine Appearance Clear (Clear) Urine pH 7.0 (5.0-8.0) Ur Specific [place] 1.007 (1.001-1.035) Urine Protein Negative (Negative) Urine Glucose (UA) Negative (Negative) Urine Ketones Negative (Negative) Urine Blood Negative (Negative) Urine Nitrite Negative (Negative) Urine Bilirubin Negative (Negative) Urine Urobilinogen <2.0 (<2.0) mg/dL Ur Leukocyte Esterase Trace H (Negative) Urine RBC <1 (0-5) /hpf Urine WBC 4 (0-5) /hpf Ur Squamous Epith Cells 1 (0-4) /hpf 12/03/23 12/03/23 Range/Units 04:02 04:02 WBC (3.8-10.6) k/uL RBC (3.80-5.40) m/uL Hgb (11.4-16.0) gm/dL Hct (34.0-46.0) % MCV (80.0-100.0) fL MCH (25.0-35.0) pg MCHC (31.0-37.0) g/dL RDW (11.5-15.5) % Plt Count (150-450) k/uL MPV Neutrophils % % Lymphocytes % % Monocytes % % Eosinophils % % Basophils % % Neutrophils # (1.3-7.7) k/uL Lymphocytes # (1.0-4.8) k/uL Monocytes # (0-1.0) k/uL Eosinophils # (0-0.7) k/uL Basophils # (0-0.2) k/uL PT 9.8 L (10.0-12.5) sec INR 0.9 (<1.2) APTT 22.1 (22.0-30.0) sec Sodium (137-145) mmol/L Potassium (3.5-5.1) mmol/L Chloride (98-107) mmol/L Carbon Dioxide (22-30) mmol/L Anion Gap mmol/L BUN (7-17) mg/dL Creatinine (0.52-1.04) mg/dL Est GFR (CKD-EPI)AfAm (>60 ml/min/1.73 sqM) Est GFR (CKD-EPI)NonAf (>60 ml/min/1.73 sqM) Glucose (74-99) mg/dL Plasma Lactic Acid Justin 1.2 (0.7-2.0) mmol/L Calcium (8.4-10.2) mg/dL Total Bilirubin (0.2-1.3) mg/dL AST (14-36) U/L ALT (4-34) U/L Alkaline Phosphatase (38-126) U/L Total Protein (6.3-8.2) g/dL Albumin (3.5-5.0) g/dL Amylase (30-110) U/L Lipase (23-300) U/L Urine Color Urine Appearance (Clear) Urine pH (5.0-8.0) Ur Specific [place] (1.001-1.035) Urine Protein (Negative) Urine Glucose (UA) (Negative) Urine Ketones (Negative) Urine Blood (Negative) Urine Nitrite (Negative) Urine Bilirubin (Negative) Urine Urobilinogen (<2.0) mg/dL Ur Leukocyte Esterase (Negative) Urine RBC (0-5) /hpf Urine WBC (0-5) /hpf Ur Squamous Epith Cells (0-4) /hpf - EKG Data -: EKG Interpreted by Me EKG Comments: 12-lead Electrocardiogram Interpretation Note EKG was reviewed and interpreted by myself. 12-lead ECG performed at 0328 is interpreted by me as revealing normal sinus rhythm at a rate of 71 beats per minute. Bastian is normal. TX interval is 172 ms, QRS duration is 143 ms, QTc is 431 ms. Right bundle-branch block present. T-wave inversions in the precordial leads. PVCs present.. There were no ST or T wave abnormalities to suggest myocardial ischemia or injury. R wave progression across the precordium was satisfactory. By my interpretation this EKG is non-diagnostic for acute ischemia. Appears similar to prior EKGs. Disposition Clinical Impression: Abdominal pain of unknown etiology Disposition: HOME SELF-CARE Condition: Good Instructions (If sedation given, give patient instructions): Abdominal Pain (ED) Prescriptions: Lidocaine 5% Patch [Lidoderm 5% Patch] 1 patch TOPICAL DAILY PRN 14 Days #14 patch PRN Reason: Pain Ketorolac [Toradol] 10 mg PO Q6HR PRN 5 Days #20 tab PRN Reason: Pain Is patient prescribed a controlled substance at d/c from ED?: No Referrals: Omer Katz DO [Primary Care Provider] - 1-2 days Time of Disposition: 05:31
[2023-12-03 04:24] LABS: Basophils % (A) 1 %; Eosinophils # (A) 0.3 k/uL (0-0.7); Eosinophils % (A) 4 %; HCT 44.3 % (34.0-46.0); HGB 14.6 gm/dL (11.4-16.0); Lymphocytes # (A) 2.3 k/uL (1.0-4.8); Lymphocytes % (A) 32 %; MCH 30.9 pg (25.0-35.0); MCHC 32.9 g/dL (31.0-37.0); MCV 93.9 fL (80.0-100.0); Mean Platelet Volume 8.7; Monocytes # (A) 0.5 k/uL (0-1.0); Monocytes % (A) 7 %; Neutrophils # (A) 3.9 k/uL (1.3-7.7); Neutrophils % (A) 56 %; Platelet Count 220 k/uL (150-450); RBC 4.72 m/uL (3.80-5.40); RDW 14.6 % (11.5-15.5); WBC 7.1 k/uL (3.8-10.6)
[2023-12-03 04:34] LABS: ALT 34 U/L (4-34); African American GFR (CKD) >90 (>60 ml/min/1.73 sqM); Albumin 4.3 g/dL (3.5-5.0); Amylase 62 U/L (30-110); Anion Gap 9 mmol/L; Blood Urea Nitrogen 20 mg/dL (7-17); Calcium 8.9 mg/dL (8.4-10.2); Carbon Dioxide 25 mmol/L (22-30); Chloride 105 mmol/L (98-107); Glucose 100 mg/dL (74-99); Lipase 204 U/L (23-300); Non-African American GFR(CKD) >90 (>60 ml/min/1.73 sqM); Sodium 139 mmol/L (137-145); Total Bilirubin 0.8 mg/dL (0.2-1.3); Total Protein 6.7 g/dL (6.3-8.2)
[2023-12-03 04:47] LABS: AST 32 U/L (14-36); Alkaline Phosphatase 58 U/L (38-126); Potassium 4.2 mmol/L (3.5-5.1)
--- NOTE | 2023-12-03 04:47 | XR ---
EXAMINATION TYPE: XR chest 1V portable DATE OF EXAM: 12/03/2023 COMPARISON: Chest CT 8 days earlier HISTORY: Abdominal pain TECHNIQUE: Single frontal view of the chest is obtained. FINDINGS: Overlying sternal wires along with mild cardiomegaly is redemonstrated. There is left atri al appendage clip again seen. Lungs remain clear. No free air is present. Osseous structures are inta ct. Overlying bra strap is seen. IMPRESSION: Cardiomegaly without acute pulmonary process.
[2023-12-03 04:50] LABS: INR 0.9 (<1.2); Partial Thromboplastin Time 22.1 sec (22.0-30.0); Prothrombin Time 9.8 sec (10.0-12.5)
--- NOTE | 2023-12-03 05:02 | CT ---
EXAMINATION TYPE: CT angio thor/abd pel aorta DATE OF EXAM: 12/03/2023 COMPARISON: Prior CT May 27, 2020 HISTORY: abd pain. RLQ abd pain radiates to her back and groin. urinating blood. HX of AAA and heart valve repair and bariatric surgery. CT DLP: 3282.1 mGycm. Automated Exposure Control for Dose Reduction was Utilized. CONTRAST: CTA scan of the thorax, abdomen and pelvis is performed without and with IV Contrast, patient injecte d with 100 mL of Isovue 370. Three-D reconstructed images are created and workstation and reviewed. FINDINGS: Vascular: Noncontrast images show no suspicious hyperdense material to suggest intramural hematoma. E nlarged pulmonary arteries are present. Normal 3 vessel origin from the arch without significant sten osis. Patent celiac artery and SMA without significant stenosis. Focal calcified plaque at origin of the bilateral renal arteries. No significant stenosis. Patent EARNESTINE. Patent iliac into femoral artery b ranch vessels bilaterally. No AAA. No linear hypodensity to suggest dissection. LUNGS: The lungs are grossly clear, there is no concerning parenchymal mass or nodule identified. T here is no pleural effusion or pneumothorax seen. The tracheobronchial tree is patent. MEDIASTINUM: Left atrial appendage clip is seen. Mild cardiomegaly is present. Calcification at level of the mitral valve is noted. No pericardial effusion. Prominent but subcentimeter mediastinal lymp h nodes. Post-CABG changes with sternal wires and mediastinal clips is present. LIVER/GB: No significant abnormality is appreciated. PANCREAS: No significant abnormality is seen. SPLEEN: No significant abnormality is seen. ADRENALS: No significant abnormality is seen. KIDNEYS: No significant abnormality is seen. BOWEL: Appendix within normal limits from base of cecum. No abnormal small or large bowel dilatation. LAP-BAND device in the epigastric region is redemonstrated. Position is grossly stable. A few distal colonic diverticula. No CT evidence for acute diverticulitis. GENITAL ORGANS: No gross abnormality seen. LYMPH NODES: No greater than 1cm abdominal or pelvic lymph nodes are appreciated. OSSEOUS STRUCTURES: No significant abnormality is seen. OTHER: No significant additional abnormality is seen. IMPRESSION: No aortic dissection. No suspicious acute findings seen to account for patient's symptom s
[2023-12-03] MEDS ORDERED: KETOROLAC 15 MG/ML 1 ML VIAL IVP STA (05:45)
[2023-12-03] MEDS ORDERED: LIDOCAINE 4% PATCH TOPICAL STA (05:45)
[2023-12-03 06:17] VITALS: BP 159/85; PULSE 88; RESP 18; TEMP 98
== END 2023-12-03 06:12 | disposition home or self-care (01) ==
LOC: EC 02:51
DX: R10.9 Unspecified abdominal pain (principal); I45.10 Unspecified right bundle-branch block; I51.7 Cardiomegaly; J45.909 Unspecified asthma, uncomplicated; I10 Essential (primary) hypertension; G47.30 Sleep apnea, unspecified; M19.90 Unspecified osteoarthritis, unspecified site; Z79.1 Long term (current) use of non-steroidal anti-inflammatories (NSAID); Z79.899 Other long term (current) drug therapy; Z79.51 Long term (current) use of inhaled steroids
CPT/HCPCS: 36415; 93005; 80053; 82150; 83605; 83690; 85025; 85610; 85730; 81001; 71045; 71275; 74174; 99285; 96374; 96375 ×3; J2270; J2405; J1885; C9113; Q9967

== ENCOUNTER → 2023-12-18 | Outpatient (CLI) | payer MEDICAID ==
--- NOTE | 2023-12-19 12:08 | US ---
EXAMINATION TYPE: US groin RT DATE OF EXAM: 12/18/2023 COMPARISON: NONE CLINICAL INDICATION: Female, 63 years old with history of R10.30 LOWER ABDOMINAL PAIN, UNSPECIFIED; P ain right groin for 1 month TECHNIQUE: Multiple sonographic images at the patient's right groin area of concern. FINDINGS: Bioinformatician notes: Scanned within patients area of concern, right groin, prominent but cynthia ign-appearing lymph node visualized = 1.7 x 0.7 x 1.4cm. No other distinct abnormality by ultrasound at this time IMPRESSION: A prominent benign-appearing lymph node at the right groin area of concern. No other specific abnorma lity identified during scanning by the main entree cook and cashier.
== END | disposition home or self-care (01) ==
LOC: RADUSWWP 15:59
PROVIDERS: ATTEND Family Medicine
DX: R10.30 Lower abdominal pain, unspecified (principal); R59.0 Localized enlarged lymph nodes

== ENCOUNTER → 2024-02-25 | Day surgery (SDC) | payer MEDICAID ==
[2024-02-20 15:41] VITALS: BMI 39.1
[~2024-02-25] MED LIST changes: -ALBUMIN HUMAN 25% 50 ML IV ONE; -ALBUMIN HUMAN 5% 500 ML IVPB ONE; -ASPIRIN 325 MG TAB PO ONE; -ATORVASTATIN 10 MG TAB PO ONE; -CALCIUM CHLORIDE 100 MG/ML 10 ML SYRINGE IV ONE; -CHLORHEXIDINE GLUCONATE 15 ML CUP MUCOUS MEM ONE; -CLEVIDIPINE BUTYRATE 25 MG in EMPTY BAG 1 BAG IV ONE; -DEXTROSE 5% IN WATER 1,000 ML with POTASSIUM CHLORIDE 110 MEQ, MAGNESIUM SULFATE 16 MEQ... IV ONE; -DEXTROSE 5% IN WATER 1,000 ML with POTASSIUM CHLORIDE 25 MEQ, SODIUM CHLORIDE 2.5MEQ/ML... IRRIGATION ONE; -HEPARIN SODIUM 1,000 UN/ML (10ML VL) IV ONE; -HEPARIN SODIUM,PORCINE 5,000 UNIT in SODIUM CHLORIDE 0.9% 500 ML 500 ML IV ONE; -INSULIN REGULAR 100 UNIT in SODIUM CHLORIDE 0.9% 100 ML IV ONE; -LACTATED RINGERS 1,000 ML IV ONE; +LIDOCAINE 1% INJ 10MG/ML (20 ML MDV) ONE; -MAGNESIUM SULFATE MG 500 MG/ML IV ONE; -MANNITOL 25% 12.5 GM/50 ML VIAL IV ONE; -METOPROLOL TARTRATE 12.5 MG TAB PO ONE; +MIDAZOLAM 2 MG/2 ML VIAL ONE; -NITROGLYCERIN-D5W PMX 25 MG/250 ML BTL IV ONE; -NOREPINEPHRINE 4 MG in SODIUM CHLORIDE 0.9% 250 ML IV ONE; -PHENYLEPHRINE 10 MG/ML VIAL IV ONE; -PHENYLEPHRINE 40 MG in SODIUM CHLORIDE 0.9% 250 ML IV ONE; +PROPOFOL 10 MG/ML 20 ML VIAL IV ONE; -PROTAMINE SULFATE 10 MG/ML 25 ML VIAL IV ONE; -PROTAMINE SULFATE 250 MG in EMPTY BAG 1 BAG IV ONE; -SODIUM BICARB 8.4% 50 ML SYR (1 MEQ/ML) IV ONE; -SODIUM CHLORIDE 0.9% 1,000 ML IV ONE; -TRANEXAMIC ACID 2,000 MG in SODIUM CHLORIDE 0.9% 80 ML IV ONE; -ceFAZolin 2,000 MG in SODIUM CHLORIDE 0.9% 30 ML IVPB ONE; +fentaNYL (PF) 50 MCG/ML 2 ML AMP ONE; -propofoL 1,000 MG/100 ML VIAL IV ONE
[2024-02-25] MEDS: LACTATED RINGERS 1,000 ML IV SCH (07:15)
[2024-02-25 07:43] VITALS: TEMP 96.9
--- NOTE | 2024-02-25 08:13 | P.PCN ---
Date of Procedure: 02/25/24 Procedure(s) Performed: Brief history: Patient is a pleasant 63-year-old white female scheduled for an elective upper endoscopy as well as colonoscopy as a part of evaluation of GERD and screening for colon cancer Procedure performed: Esophagogastroduodenoscopy with biopsy Colonoscopy Preoperative diagnosis: GERD Screening for colon cancer Anesthesia: MAC Procedure: After informed consent was obtained from the patient was brought into the endoscopy unit and IV sedation was administered by anesthesia under continuous monitoring. Initially upper endoscopy was done. The Olympus GF 160 video endoscope was inserted inserted into the mouth and esophagus intubated without any difficulty and was gradually advanced into the stomach and duodenum and carefully examined. The bulb and second part of the duodenum appeared normal. The scope was then withdrawn into the stomach adequately insufflated with air and upon careful examination the antrum and mild diffuse gastritis and biopsies were done from this area. Mucosa of the body, cardia and fundus appeared normal. The scope was then withdrawn into the esophagus.there was evidence of gastric lap band surgery identified. The GE junction was located at 40 cm to the incisors. It appeared regular with no erythema erosions or ulcerations. Rest of the esophagus appeared normal. Patient tolerated the procedure well. At this time the patient continued to remain sedation. Initial digital rectal examination was normal. Olympus CF 160 video colonoscope was then inserted into the rectum and gradually advanced to the cecum without any difficulty. Careful examination was performed as the scope was gradually being withdrawn. The prep was excellent. The cecum, ascending colon, transverse colon, descending colon, sigmoid colon and rectum appeared normal. scattered sigmoid diverticulosis. Retroflexion was performed in the rectum and no lesions were noted. Patient tolerated the procedure well. Impression: 1.Upper endoscopy revealedmild antral gastritis and evidence of previous left and surgery. 2.Colonoscopy revealed scattered sigmoid diverticula but no evidence of colorectal neoplasia. Recommendations: Findings of this examination were discussed with the patient as well as her family. She was advised to follow with the biopsy results. Continue with pantoprazole 40 mg daily and follow antrum reflux measures. Recommend repeat screening colonoscopy in 10 years.
[2024-02-25 08:26] VITALS: RESP 16
[2024-02-25 09:06] VITALS: BP 132/79; PULSE 62
== END ==
LOC: ORWHC2ENDO 06:21
PROVIDERS: ATTEND Internal Medicine Gastroenterology
DX: Z12.11 Encounter for screening for malignant neoplasm of colon (principal); K29.50 Unspecified chronic gastritis without bleeding; K57.30 Diverticulosis of large intestine without perforation or abscess without bleeding; K21.9 Gastro-esophageal reflux disease without esophagitis; I10 Essential (primary) hypertension; J44.9 Chronic obstructive pulmonary disease, unspecified; D86.9 Sarcoidosis, unspecified; I34.1 Nonrheumatic mitral (valve) prolapse; I71.40 Abdominal aortic aneurysm, without rupture, unspecified; I27.20 Pulmonary hypertension, unspecified; Z79.51 Long term (current) use of inhaled steroids; Z79.899 Other long term (current) drug therapy; Z98.890 Other specified postprocedural states
CPT/HCPCS: 88305; 45378; 43239; J2250; J2001; J3010; J2704

== ENCOUNTER → 2024-04-22 | Outpatient (CLI) | payer MEDICAID ==
--- NOTE | 2024-04-22 14:09 | US ---
EXAMINATION TYPE: US groin RT DATE OF EXAM: 04/22/2024 COMPARISON: NONE CLINICAL INDICATION: Female, 63 years old with history of I89.0 LYMPHEDEMA, NOT ELSEWHERE CLASSIFIED; ongoing pain in right groin, no palpable, no injury, gained 60lbs in 4 months due to steroids, had U S in November 2023 for same issue TECHNIQUE: Soft tissue right groin FINDINGS: Normal appearing soft tissue right groin with no abnormality no organizing fluid collectio n or mass. IMPRESSION: No evidence for organizing collection or mass. No enlarged lymph nodes identified.
== END | disposition home or self-care (01) ==
LOC: RADUSWWP 12:29
PROVIDERS: ATTEND Family Medicine
DX: I89.0 Lymphedema, not elsewhere classified (principal)

== ENCOUNTER 2024-04-25 19:10 | Inpatient (IN) | payer MEDICAID ==
--- NOTE | 2024-04-25 19:53 | ED ---
General Adult HPI - General Source: patient <Benedict Shepherd - Last Filed: 04/25/24 20:49> <Suzanna Maciel - Last Filed: 04/26/24 22:37> - General Chief complaint: Shortness of Breath Stated complaint: SOB, Chest Pain, CHF Time Seen by Provider: 04/25/24 19:34 - History of Present Illness Initial comments: Dictation was produced using [employer] dictation software. please excuse any grammatical, word or spelling errors. Chief Complaint: 63-year-old female with past medical history of sarcoidosis presents to the ER for dyspnea and chest pain History of Present Illness: Patient 63-year-old female presents to the emergency department for dyspnea. Patient is history of sarcoidosis. 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 Patient was taking Lasix. She did notice swelling in her legs worse than usual however she does have chronic lower extremity swelling. Today her symptoms began at 4 AM. She was able to work however started to feel like she was getting significantly worse. Her symptoms that include pressure in her left anterior chest. Patient has no history of CABG. She has history of heart surgery for mitral valve repair denies any fevers. Patient has been coughing and wheezing. Patient symptoms of sarcoidosis typically well-controlled with home steroids and home inhalers however today felt like it was out of control. The ROS documented in this emergency department record has been reviewed and confirmed by me. Those systems with pertinent positive or negative responses have been documented in the HPI. All other systems are other negative and/or noncontributory. (Benedict Shepherd) - Related Data Home Medications Medication Instructions Recorded Confirmed Budesonide-Formot 160-4.5 Mcg 2 puff INHALATION RT-BID 12/29/18 04/25/24 [Symbicort 160-4.5 Mcg Inhaler] Montelukast Sodium [Singulair] 10 mg PO HS 12/29/18 04/25/24 Furosemide [Lasix] 20 mg PO MOWEFR 06/06/20 04/25/24 Metoprolol Tartrate [Lopressor] 50 mg PO BID 01/12/22 04/25/24 Albuterol Inhaler [Ventolin Hfa 2 puff INHALATION RT-QID PRN 03/31/23 04/25/24 Inhaler] lisinopriL [Zestril] 20 mg PO BID 03/31/23 04/25/24 ALPRAZolam [Xanax] 0.25 mg PO TID PRN 04/25/24 04/25/24 HYDROcodone/APAP 5-325MG [[place] 1 tab PO Q8H PRN 04/25/24 04/25/24 5-325] Ipratropium-Albuterol Nebulize 3 ml INHALATION RT-QID PRN 04/25/24 04/25/24 [Duoneb 0.5 mg-3 mg/3 ml Soln] predniSONE 2.5 mg PO DAILY 04/25/24 04/25/24 Allergies Allergy/AdvReac Type Severity Reaction Status Date / Time No Known Allergies Allergy Verified 04/25/24 20:33 Review of Systems ROS Other: All systems not noted in ROS Statement are negative. <Benedict Shepherd - Last Filed: 04/25/24 20:49> ROS Other: All systems not noted in ROS Statement are negative. <Suzanna Maciel - Last Filed: 04/26/24 22:37> ROS Statement: Those systems with pertinent positive or pertinent negative responses have been documented in the HPI. Past Medical History Past Medical History: COPD, Hypertension, Mitral Valve Prolapse (MVP), Osteoarthritis (OA), Sleep Apnea/CPAP/BIPAP Additional Past Medical History / Comment(s): AAA, hx bronchitis, sleep apnea- no machine., sarcoidosis, hx mitral valve repair. , pt has lap band with fluid History of Any Multi-Drug Resistant Organisms: None Reported Past Surgical History: Adenoidectomy, Bariatric Surgery, Joint Replacement, Orthopedic Surgery, Tonsillectomy Additional Past Surgical History / Comment(s): lap band, rt eye sx for blocked blood vessel, sinus sx, hallie knee replacement, lung biopsy, MIRLANDE, mitral valve repair may 2021 Past Anesthesia/Blood Transfusion Reactions: No Reported Reaction Additional Past Anesthesia/Blood Transfusion Reaction / Comment(s): Diff IV starts- usually needs midline iv. states difficulty putting her out - even with bronchosopy and EGD. anesthesiologist told her to have anesthesia read M[facility] anesthesia notes. Past Psychological History: No Psychological Hx Reported Smoking Status: Never smoker - Past Family History Father Family Medical History: Congestive Heart Failure (CHF), Myocardial Infarction (RI) Additional Family Medical History / Comment(s): RI Mother Family Medical History: Cancer, CVA/TIA Additional Family Medical History / Comment(s): breast cancer. stroke Sister(s) Family Medical History: Cancer, Deep Vein Thrombosis (DVT), Mitral Valve Prolapse (MVP) Additional Family Medical History / Comment(s): breast cancer, blood clots left arm. sister prior to heart valve replacement Brother(s) Family Medical History: Coronary Artery Disease (CAD) Additional Family Medical History / Comment(s): <Benedict Shepherd - Last Filed: 04/25/24 20:49> General Exam <Benedict Shepherd - Last Filed: 04/25/24 20:49> - General Exam Comments Initial Comments: PHYSICAL EXAM: General Impression: Alert and oriented x3, dyspneic HEENT: Normocephalic atraumatic, extra-ocular movements intact, pupils equal and reactive to light bilaterally, mucous membranes moist. Cardiovascular: Heart regular rate and rhythm Chest: Increased work of breathing, diffuse wheezing Abdomen: abdomen soft, non-tender, non-distended, no organomegaly Musculoskeletal: Pulses present and equal in all extremities, no peripheral edema Motor: no focal deficits noted Neurological: CN II-XII grossly intact, no focal motor or sensory deficits noted Skin: Intact with no visualized rashes Psych: Normal affect and mood (Benedict Shepherd) Course Vital Signs 04/25/24 04/25/24 04/25/24 19:23 19:57 21:00 Temperature 98.3 F Pulse Rate 56 L 105 H Respiratory 21 22 Rate Blood Pressure 191/115 O2 Sat by Pulse 99 Oximetry 04/25/24 04/25/24 04/25/24 21:12 21:57 23:21 Temperature Pulse Rate 97 96 90 Respiratory 20 18 Rate Blood Pressure 184/117 139/60 O2 Sat by Pulse 97 93 L Oximetry EKG Findings - EKG Comments: EKG Findings:: My EKG interpretation: Ventricular rate 94, sinus rhythm,. 183, cures 147, QTc 418. No AL prolongation, no QTC prolongation, no ST or T-wave changes noted. EKG compared to December 03, 2023 showing no changes. Overall, this EKG is unremarkable <Sebas Shepherdssalma delia Bauer - Last Filed: 04/25/24 20:49> Medical Decision Making <Benedict Shepherd - Last Filed: 04/25/24 20:49> - Lab Data Result diagrams: 04/26/24 04:02 04/26/24 04:02 <Suzanna Maciel - Last Filed: 04/26/24 22:37> - Medical Decision Making M was pt. sent in by a medical professional or institution (, PA, TAXI DANCER, urgent care, hospital, or shelter...) When possible be specific @ -No Did you speak to anyone other than the patient for history (EMS, parent, family, police, friend...)? What history was obtained from this source @ -No Did you review nursing and triage notes (agree or disagree)? Why? @ -I reviewed and agree with nursing and triage notes Were old charts reviewed (outside hosp., previous admission, EMS record, old EKG, old radiological studies, urgent care reports/EKG's, shelter records)? Report findings @ -No old charts were reviewed Differential Diagnosis (chest pain, altered mental status, abdominal pain women, abdominal pain men, vaginal bleeding, musculoskeletal, weakness, fever, dyspnea, syncope, headache, dizziness, GI bleed, back pain, seizure, CVA, palpatations, mental health)? @ -Differential Dyspnea: Coronary syndrome, arrhythmia, tamponade, asthma, COPD, pulmonary embolism, pneumonia, pneumothorax, pulmonary effusion, anaphylaxis, diabetic ketoacidosis, flailed chest, pulmonary contusion, diaphragmatic rupture, anemia, neuromuscular, this is not meant to be an all-inclusive list. EKG interpreted by me (3pts min.). @ -See above X-rays interpreted by me (1pt min.). @ -Pending CT interpreted by me (1pt min.). @ -None done U/S interpreted by me (1pt. min.). @ -None done What testing was considered but not performed or refused? (CT, X-rays, U/S, labs)? Why? @ -None What meds were considered but not given or refused? Why? @ -None Did you discuss the management of the patient with other professionals (professionals i.e. Dr., PA, TAX[employer] DANCER, lab, RT, psych nurse, social service director, microsoft access developer, teacher, staff nuclear weapons officer, case management social worker)? Give summary @ -No Was smoking cessation discussed for >3mins.? @ -No Was critical care preformed (if so, how long)? @ -No Were there social determinants of health that impacted care today? How? (Homelessness, low income, unemployed, alcoholism, drug addiction, trans portation, low edu. Level, literacy, decrease access to med. care, nursing home, rehab)? @ -No Was there de-escalation of care discussed even if they declined (Discuss DNR or withdrawal of care, Hospice)? DNR status @ -No What co-morbidities impacted this encounter? (DM, HTN, Smoking, COPD, CAD, Cancer, CVA, ARF, Chemo, Hep., AIDS, mental health diagnosis, sleep apnea, morbid obesity)? @ -Sarcoidosis Was patient admitted / discharged? Hospital course, mention meds given and route, prescriptions, significant lab abnormalities, going to OR and other pertinent info. @ -3-year-old female presents to the emergency department for dyspnea. Patient dyspneic at the bedside with diffuse wheezing. Ultrasound did not show any curly B-lines. Vital signs upon arrival shows hypertension 191/115. Patient given breathing treatment. Right upper extremity IV placed with ultrasound guidance. Patient given Decadron. Pending labs and imaging. Patient care signed out to Dr. Maciel at 9:00 PM Undiagnosed new problem with uncertain prognosis? @ -No Drug Therapy requiring intensive monitoring for toxicity (Heparin, Nitro, Insulin, Cardizem)? @ -No Were any procedures done? @ -No Diagnosis/symptom? Acute, or Chronic, or Acute on Chronic? Uncomplicated (without systemic symptoms) or Complicated (systemic symptoms)? @ -Dyspnea Side effects of treatment? @ -No Exacerbation, Progression, or Severe Exacerbation? @ -No Poses a threat to life or bodily function? How? (Chest pain, USA, RI, pneumonia, PE, COPD, DKA, ARF, appy, cholecystitis, CVA, Diverticulitis, Homicidal, Suicidal, threat to staff... and all critical care pts) @ -yes (Benedict Shepherd) Was patient admitted / discharged? Hospital course, mention meds given and route, prescriptions, significant lab abnormalities, going to OR and other pertinent info. @ -Patient signed out to me pending laboratory studies. Patient refused x-ray as this was done previously in the day. Chest x-ray did demonstrate pulmonary edema. Lasix, steroids and breathing treatments are ordered. Recommended admi ssion. Patient was agreeable to this. Spoke with Angle from [facility] Undiagnosed new problem with uncertain prognosis? @ -No Drug Therapy requiring intensive monitoring for toxicity (Heparin, Nitro, I nsulin, Cardizem)? @ -No Were any procedures done? @ -No Diagnosis/symptom? @ -Acute respiratory insufficiency, acute CHF exacerbation, sarcoidosis Acute, or Chronic, or Acute on Chronic? @ -Acute Uncomplicated (without systemic symptoms) or Complicated (systemic symptoms)? @ -Complicated Side effects of treatment? @ -No Exacerbation, Progression, or Severe Exacerbation? @ -No Poses a threat to life or bodily function? How? (Chest pain, USA, RI, pneumonia, PE, COPD, DKA, ARF, appy, cholecystitis, CVA, Diverticulitis, Homicidal, Suicidal, threat to staff... and all critical care pts) @ -Yes as patient is having chest pain (Suzanna Maciel) - Lab Data Lab Results 04/25/24 04/25/24 04/25/24 Range/Units 20:33 20:33 20:33 WBC 8.9 (3.8-10.6) k/uL RBC 4.87 (3.80-5.40) m/uL Hgb 14.9 (11.4-16.0) gm/dL Hct 46.5 H (34.0-46.0) % MCV 95.5 (80.0-100.0) fL MCH 30.6 (25.0-35.0) pg MCHC 32.1 (31.0-37.0) g/dL RDW 13.8 (11.5-15.5) % Plt Count 222 (150-450) k/uL MPV 8.8 Neutrophils % 69 % Lymphocytes % 20 % Monocytes % 8 % Eosinophils % 1 % Basophils % 1 % Neutrophils # 6.2 (1.3-7.7) k/uL Lymphocytes # 1.8 (1.0-4.8) k/uL Monocytes # 0.7 (0-1.0) k/uL Eosinophils # 0.1 (0-0.7) k/uL Basophils # 0.1 (0-0.2) k/uL PT 10.7 (10.0-12.5) sec INR 1.0 (<1.2) APTT 23.4 (22.0-30.0) sec Sodium 139 (137-145) mmol/L Potassium 3.4 L (3.5-5.1) mmol/L Chloride 102 (98-107) mmol/L Carbon Dioxide 28 (22-30) mmol/L Anion Gap 9 mmol/L BUN 18 H (7-17) mg/dL Creatinine 0.65 (0.52-1.04) mg/dL Est GFR (CKD-EPI)AfAm >90 (>60 ml/min/1.73 sqM) Est GFR (CKD-EPI)NonAf >90 (>60 ml/min/1.73 sqM) Glucose 86 (74-99) mg/dL Calcium 9.1 (8.4-10.2) mg/dL Total Bilirubin 0.7 (0.2-1.3) mg/dL AST 45 H (14-36) U/L ALT 47 H (4-34) U/L Alkaline Phosphatase 81 (38-126) U/L Troponin I (0.000-0.034) ng/mL NT-Pro-B Natriuret Pep 1810 pg/mL Total Protein 7.0 (6.3-8.2) g/dL Albumin 4.8 (3.5-5.0) g/dL /07/11 Range/Units 20:33 WBC (3.8-10.6) k/uL RBC (3.80-5.40) m/uL Hgb (11.4-16.0) gm/dL Hct (34.0-46.0) % MCV (80.0-100.0) fL MCH (25.0-35.0) pg MCHC (31.0-37.0) g/dL RDW (11.5-15.5) % Plt Count (150-450) k/uL MPV Neutrophils % % Lymphocytes % % Monocytes % % Eosinophils % % Basophils % % Neutrophils # (1.3-7.7) k/uL Lymphocytes # (1.0-4.8) k/uL Monocytes # (0-1.0) k/uL Eosinophils # (0-0.7) k/uL Basophils # (0-0.2) k/uL PT (10.0-12.5) sec INR (<1.2) APTT (22.0-30.0) sec Sodium (137-145) mmol/L Potassium (3.5-5.1) mmol/L Chloride (98-107) mmol/L Carbon Dioxide (22-30) mmol/L Anion Gap mmol/L BUN (7-17) mg/dL Creatinine (0.52-1.04) mg/dL Est GFR (CKD-EPI)AfAm (>60 ml/min/1.73 sqM) Est GFR (CKD-EPI)NonAf (>60 ml/min/1.73 sqM) Glucose (74-99) mg/dL Calcium (8.4-10.2) mg/dL Total Bilirubin (0.2-1.3) mg/dL AST (14-36) U/L ALT (4-34) U/L Alkaline Phosphatase (38-126) U/L Troponin I <0.012 (0.000-0.034) ng/mL NT-Pro-B Natriuret Pep pg/mL Total Protein (6.3-8.2) g/dL Albumin (3.5-5.0) g/dL Disposition <Benedict Shepherd - Last Filed: 04/25/24 20:49> Is patient prescribed a controlled substance at d/c from ED?: No Time of Disposition: 22:26 Decision to Admit Reason: Admit from EC Decision Date: 04/25/24 Decision Time: 22:26 <Suzanna Maciel - Last Filed: 04/26/24 22:37> Clinical Impression: Acute exacerbation of CHF (congestive heart failure), Sarcoid, Uncontrolled hypertension Disposition: ADMITTED IP TO THIS [facility] Condition: Stable
[2024-04-25] MEDS: DEXAMETHASONE SOD PHOSPHATE 10 MG/ML 1 ML VIAL IV STA (20:33)
[2024-04-25 20:56] LABS: Basophils # (A) 0.1 k/uL (0-0.2); Basophils % (A) 1 %; Eosinophils # (A) 0.1 k/uL (0-0.7); Eosinophils % (A) 1 %; HCT 46.5 % (34.0-46.0); HGB 14.9 gm/dL (11.4-16.0); Lymphocytes # (A) 1.8 k/uL (1.0-4.8); Lymphocytes % (A) 20 %; MCH 30.6 pg (25.0-35.0); MCHC 32.1 g/dL (31.0-37.0); MCV 95.5 fL (80.0-100.0); Mean Platelet Volume 8.8; Monocytes # (A) 0.7 k/uL (0-1.0); Monocytes % (A) 8 %; Neutrophils # (A) 6.2 k/uL (1.3-7.7); Neutrophils % (A) 69 %; Platelet Count 222 k/uL (150-450); RBC 4.87 m/uL (3.80-5.40); RDW 13.8 % (11.5-15.5); WBC 8.9 k/uL (3.8-10.6)
[2024-04-25] MEDS: IPRATROPIUM-ALBUTEROL 3 ML NEB INHALATION STA (20:58)
[2024-04-25 21:09] LABS: ALT 47 U/L (4-34); AST 45 U/L (14-36); African American GFR (CKD) >90 (>60 ml/min/1.73 sqM); Albumin 4.8 g/dL (3.5-5.0); Alkaline Phosphatase 81 U/L (38-126); Anion Gap 9 mmol/L; Blood Urea Nitrogen 18 mg/dL (7-17); Calcium 9.1 mg/dL (8.4-10.2); Carbon Dioxide 28 mmol/L (22-30); Chloride 102 mmol/L (98-107); Glucose 86 mg/dL (74-99); Non-African American GFR(CKD) >90 (>60 ml/min/1.73 sqM); Potassium 3.4 mmol/L (3.5-5.1); Sodium 139 mmol/L (137-145); Total Bilirubin 0.7 mg/dL (0.2-1.3)
[2024-04-25 21:18] LABS: NT-Pro-B-Type Natriuretic Pept 1810 pg/mL
[2024-04-25 21:47] LABS: Partial Thromboplastin Time 23.4 sec (22.0-30.0); Prothrombin Time 10.7 sec (10.0-12.5)
[2024-04-25] MEDS: MORPHINE SULFATE 4 MG/ML SYRINGE IVP STA (21:52)
[2024-04-25] MEDS ORDERED: NALOXONE 0.4 MG/ML 1 ML VIAL IV PRN (22:26)
[2024-04-25] MEDS: MONTELUKAST 10 MG TAB PO SCH (23:25)
[2024-04-25] MEDS: METOPROLOL TARTRATE 50 MG TAB PO SCH (23:25)
[2024-04-25] MEDS: lisinopriL 20 MG TAB PO SCH (23:26)
[2024-04-26] MEDS: IPRATROPIUM-ALBUTEROL 3 ML NEB INHALATION SCH ×2 (00:47→08:23)
[2024-04-26] MEDS: ALPRAZolam 0.25 MG TAB PO PRN (00:56)
[2024-04-26 04:30] LABS: Basophils % (A) 0 %; Eosinophils % (A) 1 %; HCT 43.2 % (34.0-46.0); HGB 13.8 gm/dL (11.4-16.0); Lymphocytes # (A) 0.4 k/uL (1.0-4.8); Lymphocytes % (A) 9 %; MCH 30.9 pg (25.0-35.0); MCV 96.4 fL (80.0-100.0); Mean Platelet Volume 8.5; Monocytes # (A) 0.1 k/uL (0-1.0); Monocytes % (A) 2 %; Neutrophils # (A) 4.6 k/uL (1.3-7.7); Neutrophils % (A) 88 %; Platelet Count 200 k/uL (150-450); RBC 4.48 m/uL (3.80-5.40); RDW 13.8 % (11.5-15.5); WBC 5.2 k/uL (3.8-10.6)
[2024-04-26 04:39] LABS: African American GFR (CKD) >90 (>60 ml/min/1.73 sqM); Anion Gap 9 mmol/L; Blood Urea Nitrogen 16 mg/dL (7-17); Calcium 8.9 mg/dL (8.4-10.2); Carbon Dioxide 24 mmol/L (22-30); Chloride 104 mmol/L (98-107); Glucose 228 mg/dL (74-99); Non-African American GFR(CKD) >90 (>60 ml/min/1.73 sqM); Potassium 4.1 mmol/L (3.5-5.1); Sodium 137 mmol/L (137-145)
[2024-04-26] MEDS: FUROSEMIDE 10 MG/ML 4 ML VIAL IV SCH (07:54)
[2024-04-26] MEDS: METOPROLOL TARTRATE 50 MG TAB PO STA (07:54)
[2024-04-26] MEDS: methylPREDNISolone SOD SUCCI 40 MG/ML 1 ML VIAL IV SCH (07:55)
[2024-04-26] MEDS: SYMBICORT 160-4.5 MCG INHALER INHALATION SCH (08:23)
[2024-04-26] MEDS: HYDROcodone/APAP 5-325MG 1 EACH TAB PO PRN (08:56)
--- NOTE | 2024-04-26 09:13 | P.CNPUL ---
History of Present Illness Consult date: 04/26/24 Requesting physician: Danyel Valdes Reason for consult: dyspnea, cough, chest pain, asthma Chief complaint: Progress of breath and chest pain. History of present illness: Pulmonary consult dated April 26, 2024. 63-year-old female, who works as a nurse at this hospital. She presented to the emergency department, on April 25, had a little bit after 7:00. The patient came with complaints of chest pain, and shortness of breath. She had a chest x-ray earlier in the day, which suggested possible fluid overload/CHF. She does have a history of an active sarcoidosis, asthma, and previous mitral valve repair, done by Dr. Kirby, a couple years back. The patient states that over the last day or so, she developed sudden shortness of breath. She has some chest discomfort as well. She was coughing, and coughing up yellow phlegm. No fever or chills. In addition, the patient developed significant and worsening lower extremity edema. She is seen today in room 474. She is laying flat in bed. No respiratory distress. She is on room air. No IV fluids. Her only other medical history is that of hypertension, and obesity. White count is 5.2, hemoglobin 13.8, hematocrit 43.2, and platelet count was normal. Coagulation studies were normal. Sodium 137, potassium 4.1, chlorides 104, CO2 24, BUN 16, creatinine 0.52. Glucose is 228. AST is 45. ALT is 47. Troponins were negative x 3. N-terminal proBNP was 1810. Review of Systems REVIEW OF SYSTEMS: CONSTITUTIONAL: [Negative.] NEUROLOGIC: [ Negative.] HEENT: [ Negative.] CARDIAC: Chest pain. Lower extremity edema. PULMONARY: Shortness of breath, cough, yellow phlegm production. GI: [Negative.] : [Negative.] RHEUMATOLOGIC: [ Negative.] IMMUNOLOGIC: [ Negative.] ENDOCRINE: [Negative. ] DERMATOLOGIC: [Negative.] Past Medical History Past Medical History: COPD, Hypertension, Mitral Valve Prolapse (MVP), Osteoarthritis (OA), Sleep Apnea/CPAP/BIPAP Additional Past Medical History / Comment(s): AAA, hx bronchitis, sleep apnea- no machine., sarcoidosis, hx mitral valve repair. , pt has lap band with fluid History of Any Multi-Drug Resistant Organisms: None Reported Past Surgical History: Adenoidectomy, Bariatric Surgery, Joint Replacement, Orthopedic Surgery, Tonsillectomy Additional Past Surgical History / Comment(s): lap band, rt eye sx for blocked blood vessel, sinus sx, hallie knee replacement, lung biopsy, MIRLANDE, mitral valve repair may 2021 Past Anesthesia/Blood Transfusion Reactions: No Reported Reaction Additional Past Anesthesia/Blood Transfusion Reaction / Comment(s): Diff IV starts- usually needs midline iv. states difficulty putting her out - even with bronchosopy and EGD. anesthesiologist told her to have anesthesia read [facility] anesthesia notes. Past Psychological History: No Psychological Hx Reported Additional Psychological History / Comment(s): . Smoking Status: Never smoker Past Alcohol Use History: None Reported Past Drug Use History: None Reported - Past Family History Father Family Medical History: Congestive Heart Failure (CHF), Myocardial Infarction ([place]) Additional Family Medical History / Comment(s): [place] Mother Family Medical History: Cancer, CVA/TIA Additional Family Medical History / Comment(s): breast cancer. stroke Sister(s) Family Medical History: Cancer, Deep Vein Thrombosis (DVT), Mitral Valve Prolapse (MVP) Additional Family Medical History / Comment(s): breast cancer, blood clots left arm. sister prior to heart valve replacement Brother(s) Family Medical History: Coronary Artery Disease (CAD) Additional Family Medical History / Comment(s): Medications and Allergies Home Medications Medication Instructions Recorded Confirmed Type Budesonide-Formot 160-4.5 Mcg 2 puff INHALATION RT-BID 12/29/18 04/25/24 History [Symbicort 160-4.5 Mcg Inhaler] Montelukast Sodium [Singulair] 10 mg PO HS 12/29/18 04/25/24 History Furosemide [Lasix] 20 mg PO MOWEFR 06/06/20 04/25/24 History Metoprolol Tartrate [Lopressor] 50 mg PO BID 01/12/22 04/25/24 History Albuterol Inhaler [Ventolin Hfa 2 puff INHALATION RT-QID PRN 03/31/23 04/25/24 History Inhaler] lisinopriL [Zestril] 20 mg PO BID 03/31/23 04/25/24 History ALPRAZolam [Xanax] 0.25 mg PO TID PRN 04/25/24 04/25/24 History HYDROcodone/APAP 5-325MG [[place] 1 tab PO Q8H PRN 04/25/24 04/25/24 History 5-325] Ipratropium-Albuterol Nebulize 3 ml INHALATION RT-QID PRN 04/25/24 04/25/24 History [Duoneb 0.5 mg-3 mg/3 ml Soln] predniSONE 2.5 mg PO DAILY 04/25/24 04/25/24 History Allergies Allergy/AdvReac Type Severity Reaction Status Date / Time No Known Allergies Allergy Verified 04/25/24 20:33 Physical Exam Osteopathic Statement: *. No significant issues noted on an osteopathic structural exam other than those noted in the History and Physical/Consult. Vitals: Vital Signs Temp Pulse Pulse Resp BP BP Pulse Ox 04/26/24 08:31 80 04/26/24 08:26 78 04/26/24 07:07 98.0 F 66 18 132/85 93 L 04/26/24 00:31 98.2 F 71 19 143/96 93 L 04/25/24 23:21 90 18 139/60 93 L 04/25/24 21:57 96 20 184/117 97 04/25/24 21:12 97 04/25/24 21:00 105 H 04/25/24 19:57 22 04/25/24 19:23 98.3 F 56 L 21 191/115 99 Intake and Output 04/25/24 04/26/24 04/26/24 22:59 06:59 14:59 Other: # Voids 1 # Bowel Movements 1 Weight 113.398 kg 113.398 kg No acute distress, oriented 3. Currently on room air. No respiratory distress. Frequent wet cough. HEENT examination is grossly unremarkable. Mucous membranes are moist. No oral lesions. Neck supple. Full range of motion. No adenopathy thyromegaly or neck vein distention. Cardiovascular examination reveals regular rhythm rate. S1-S2 normal. No S3 or S4. No discernible murmur noted. Heart rate 80 bpm. Lungs reveal bibasilar crackles. Scattered rhonchi. Minimal expiratory wheeze s. Adventitious lung sounds are more prominent on forced maneuver. Room air saturation 93%. Abdomen soft with bowel sounds. No masses or tenderness. Extremities are intact. No cyanosis or clubbing. 1+ edema. Skin is without rash or lesion. Neurologic examination is brief but nonfocal. Results - Laboratory Findings CBC and BMP: 04/26/24 04:02 04/26/24 04:02 PT/INR, D-dimer PT 10.7 sec (10.0-12.5) 04/25/24 20:33 INR 1.0 (<1.2) 04/25/24 20:33 Abnormal lab findings: Abnormal Labs 04/25/24 04/25/24 04/26/24 20:33 20:33 04:02 Hct 46.5 H Lymphocytes # 0.4 L Potassium 3.4 L BUN 18 H Glucose AST 45 H ALT 47 H 04/26/24 04:02 Hct Lymphocytes # Potassium BUN Glucose 228 H AST ALT - Diagnostic Findings Chest x-ray: image reviewed Assessment and Plan Assessment: Acute shortness of breath, likely multifactorial, in part related to mild fluid overload/CHF, as well as probable upper respiratory tract infection/bronchitis, and asthma exacerbation. History of chronic bronchial asthma. Prior history of mitral valve repair, for mitral valve regurgitation. History of inactive/quiescent sarcoidosis. Obesity. Hypertension. Plan: Plan dated April 26, 2024. The patient is seen today in room 474. She is on room air. Saturations are 93%. She is not receiving any IV fluids. She was doing well, up until about a day or so prior to admission. She developed shortness of breath, chest pain, cough, phlegm production, and worsening lower extremity edema. The patient's chest x-ray suggested CHF. Her N-terminal proBNP was modestly elevated. She was having a wet productive cough, with yellow phlegm. Her asthma was a bit more active. She is currently on Symbicort, DuoNeb, Solu-Medrol, and Singulair. A procalcitonin level was ordered. We will continue to follow make recommendations along the way. Cardiology has yet to see her. They likely will order an echocardiogram. Time with Patient: Greater than 30
--- NOTE | 2024-04-26 15:08 | P.CRDCN ---
History of Present Illness Consult date: 04/26/24 Chief complaint: Shortness of breath and bilateral lower extremities edema History of present illness: Pleasant 63-year-old female patient with a past medical history significant for overweight as well as hypertension and history of pulmonary sarcoidosis as well as valvular heart disease status post mitral valve repair using a ring in 2019. The patient presented to the hospital complaining of progressive exertional dyspnea and progressive bilateral lower extremities edema and weight gain over the last several weeks. No symptoms of chest pain or chest discomfort or dizziness or lightheadedness or any feeling of heart racing or fluttering or any presyncope or syncope. She stated that she was diagnosed with congestive heart failure after her open heart surgery and she was receiving Lasix at 20 mg p.o. daily as an outpatient and has been compliant with it but she is not quite sure if she was compliant with low-sodium diet. She stated that she gained about 5 pounds within the last several weeks. No fever and no chills and no cough or sputum production. She underwent further investigation after she was admitted including EKG which showed sinus mechanism with RBBB and PVCs. The chest x-ray showed finding consistent with pulmonary vascular congestions and heart failure. The NT proBNP came in to be elevated. She was started on Lasix IV with improvement in her symptoms after that. She still have at least moderate bilateral lower extremities pitting edema. She was not hypoxic when she was seen and evaluated earlier today. The physical examination is remarkable for the stable vital signs with regular rate and rhythm and systolic murmur appears to be very soft and clear breathing sounds bilaterally and she has at least moderate bilateral lower extremities edema. Assessment Heart failure with evidence of right and left failure of unknown etiology History of valvular heart disease status post mitral valve repair in 2020 Multiple comorbid conditions including overweight and hypertension and dyslipidemia and pulmonary sarcoidosis Plan Continue the current dose of Lasix IV Monitor the kidney function and electrolytes She was advised to be compliant with her medications and follow low-sodium diet as an outpatient Follow-up on the echocardiogram which was ordered earlier today Follow-up with the patient Past Medical History Past Medical History: COPD, Hypertension, Mitral Valve Prolapse (MVP), Osteoarthritis (OA), Sleep Apnea/CPAP/BIPAP Additional Past Medical History / Comment(s): AAA, hx bronchitis, sleep apnea- no machine., sarcoidosis, hx mitral valve repair. , pt has lap band with fluid History of Any Multi-Drug Resistant Organisms: None Reported Past Surgical History: Adenoidectomy, Bariatric Surgery, Joint Replacement, Orthopedic Surgery, Tonsillectomy Additional Past Surgical History / Comment(s): lap band, rt eye sx for blocked blood vessel, sinus sx, hallie knee replacement, lung biopsy, [facility], mitral valve repair may 2021 Past Anesthesia/Blood Transfusion Reactions: No Reported Reaction Additional Past Anesthesia/Blood Transfusion Reaction / Comment(s): Diff IV starts- usually needs midline iv. states difficulty putting her out - even with bronchosopy and EGD. anesthesiologist told her to have anesthesia read [facility] anesthesia notes. Past Psychological History: No Psychological Hx Reported Additional Psychological History / Comment(s): . Smoking Status: Never smoker Past Alcohol Use History: None Reported Past Drug Use History: None Reported - Past Family History Father Family Medical History: Congestive Heart Failure (CHF), Myocardial Infarction ([place]) Additional Family Medical History / Comment(s): [place] Mother Family Medical History: Cancer, CVA/TIA Additional Family Medical History / Comment(s): breast cancer. stroke Sister(s) Family Medical History: Cancer, Deep Vein Thrombosis (DVT), Mitral Valve Prolapse (MVP) Additional Family Medical History / Comment(s): breast cancer, blood clots left arm. sister prior to heart valve replacement Brother(s) Family Medical History: Coronary Artery Disease (CAD) Additional Family Medical History / Comment(s): Medications and Allergies Home Medications Medication Instructions Recorded Confirmed Type Budesonide-Formot 160-4.5 Mcg 2 puff INHALATION RT-BID 12/29/18 04/25/24 History [Symbicort 160-4.5 Mcg Inhaler] Montelukast Sodium [Singulair] 10 mg PO HS 12/29/18 04/25/24 History Furosemide [Lasix] 20 mg PO MOWEFR 06/06/20 04/25/24 History Metoprolol Tartrate [Lopressor] 50 mg PO BID 01/12/22 04/25/24 History Albuterol Inhaler [Ventolin Hfa 2 puff INHALATION RT-QID PRN 03/31/23 04/25/24 History Inhaler] lisinopriL [Zestril] 20 mg PO BID 03/31/23 04/25/24 History ALPRAZolam [Xanax] 0.25 mg PO TID PRN 04/25/24 04/25/24 History HYDROcodone/APAP 5-325MG [[place] 1 tab PO Q8H PRN 04/25/24 04/25/24 History 5-325] Ipratropium-Albuterol Nebulize 3 ml INHALATION RT-QID PRN 04/25/24 04/25/24 History [Duoneb 0.5 mg-3 mg/3 ml Soln] predniSONE 2.5 mg PO DAILY 04/25/24 04/25/24 History Allergies Allergy/AdvReac Type Severity Reaction Status Date / Time No Known Allergies Allergy Verified 04/25/24 20:33 Physical Exam Vitals: Vital Signs Temp Pulse Pulse Resp BP BP Pulse Ox 04/26/24 13:14 97.7 F 64 17 135/85 93 L 04/26/24 11:44 68 04/26/24 11:33 62 04/26/24 09:56 98 F 59 L 19 125/82 94 L 04/26/24 08:31 80 04/26/24 08:26 78 04/26/24 07:07 98.0 F 66 18 132/85 93 L 04/26/24 00:31 98.2 F 71 19 143/96 93 L 04/25/24 23:21 90 18 139/60 93 L 04/25/24 21:57 96 20 184/117 97 04/25/24 21:12 97 04/25/24 21:00 105 H 04/25/24 19:57 22 04/25/24 19:23 98.3 F 56 L 21 191/115 99 Intake and Output 04/26/24 04/26/24 04/26/24 06:59 14:59 22:59 Other: # Voids 1 # Bowel Movements 1 Weight 113.398 kg Results 04/26/24 04:02 04/26/24 04:02 Cardiac Enzymes 04/25/24 04/25/24 04/25/24 Range/Units 20:33 20:33 23:05 AST 45 H (14-36) U/L Troponin I <0.012 <0.012 (0.000-0.034) ng/mL 04/26/24 Range/Units 04:02 AST (14-36) U/L Troponin I <0.012 (0.000-0.034) ng/mL Coagulation 04/25/24 Range/Units 20:33 PT 10.7 (10.0-12.5) sec APTT 23.4 (22.0-30.0) sec CBC 04/25/24 04/26/24 Range/Units 20:33 04:02 WBC 8.9 5.2 (3.8-10.6) k/uL RBC 4.87 4.48 (3.80-5.40) m/uL Hgb 14.9 13.8 (11.4-16.0) gm/dL Hct 46.5 H 43.2 (34.0-46.0) % Plt Count 222 200 (150-450) k/uL Comprehensive Metabolic Panel 04/25/24 04/26/24 Range/Units 20:33 04:02 Sodium 139 137 (137-145) mmol/L Potassium 3.4 L 4.1 (3.5-5.1) mmol/L Chloride 102 104 (98-107) mmol/L Carbon Dioxide 28 24 (22-30) mmol/L BUN 18 H 16 (7-17) mg/dL Creatinine 0.65 0.52 (0.52-1.04) mg/dL Glucose 86 228 H (74-99) mg/dL Calcium 9.1 8.9 (8.4-10.2) mg/dL AST 45 H (14-36) U/L ALT 47 H (4-34) U/L Alkaline Phosphatase 81 (38-126) U/L Total Protein 7.0 (6.3-8.2) g/dL Albumin 4.8 (3.5-5.0) g/dL Current Medications Generic Name Dose Route Start Last Admin Trade Name Freq PRN Reason Stop Dose Admin Hydrocodone Bitart/Acetaminophen 1 each 04/25/24 22:30 04/26/24 08:56 Hydrocodone/Apap 5-325mg 1 Each Tab PO 1 each Q8H PRN Administration Pain Albuterol/Ipratropium 3 ml 04/26/24 08:00 04/26/24 11:29 Ipratropium-Albuterol 3 Ml Neb INHALATION 3 ml RT-QID RAMBO Administration Alprazolam 0.25 mg 04/25/24 22:30 04/26/24 00:56 Alprazolam 0.25 Mg Tab PO 0.25 mg TID PRN Administration Anxiety Budesonide/Formoterol Fumarate 2 puff 04/26/24 08:00 04/26/24 08:23 Symbicort 160-4.5 Mcg Inhaler INHALATION 2 puff RT-BID RAMBO Administration Furosemide 40 mg 04/26/24 09:00 04/26/24 14:44 Furosemide 10 Mg/Ml 4 Ml Vial IV 40 mg BID RAMBO Administration Lisinopril 20 mg 04/25/24 22:45 04/26/24 07:54 Lisinopril 20 Mg Tab PO 20 mg BID RAMBO Administration Methylprednisolone Sodium Succinate 40 mg 04/26/24 08:00 04/26/24 14:44 Methylprednisolone Sod Succi 40 Mg/Ml 1 Ml Vial IV 40 mg Q8HR RAMBO Administration Metoprolol Tartrate 50 mg 04/25/24 22:45 04/25/24 23:25 Metoprolol Tartrate 50 Mg Tab PO 50 mg BID RAMBO Administration Montelukast Sodium 10 mg 04/25/24 22:45 04/25/24 23:25 Montelukast 10 Mg Tab PO 10 mg HS RAMBO Administration Naloxone HCl 0.2 mg 04/25/24 22:26 Naloxone 0.4 Mg/Ml 1 Ml Vial IV Q2M PRN Opioid Reversal Intake and Output 04/26/24 04/26/24 04/26/24 06:59 14:59 22:59 Other: # Voids 1 # Bowel Movements 1 Weight 113.398 kg 04/26/24 04:02 04/26/24 04:02
--- NOTE | 2024-04-26 15:25 | P.HPIM ---
History of Present Illness H&P Date: 04/26/24 Chief Complaint: Chest pain/shortness of breath 63-year-old female presents to the emergency department for dyspnea. Patient is history of sarcoidosis. 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 Patient was taking Lasix. She did notice swelling in her legs worse than usual however she does have chronic lower extremity swelling. Today her symptoms began at 4 AM. She was able to work however started to feel like she was getting significantly worse. Her symptoms that include pressure in her left anterior chest. Patient has no history of CABG. She has history of heart surgery for mitral valve rep air denies any fevers. Patient has been coughing and wheezing. Patient symptoms of sarcoidosis typically well-controlled with home steroids and home inhalers however today felt like it was out of control. Review of Systems REVIEW OF SYSTEMS: CONSTITUTIONAL: No fever, no malaise, no fatigue. HEENT: No recent visual problems or hearing problems. Denied any sore throat. CARDIOVASCULAR: No chest pain, orthopnea, PND, no palpitations, no syncope. PULMONARY:-- shortness of breath, no cough, no hemoptysis. GASTROINTESTINAL: No diarrhea, no nausea, no vomiting, no abdominal pain. NEUROLOGICAL: No headaches, no weakness, no numbness. HEMATOLOGICAL: Denies any bleeding or petechiae. GENITOURINARY: Denies any burning micturition, frequency, or urgency. MUSCULOSKELETAL/RHEUMATOLOGICAL: Denies any joint pain, swelling, or any muscle pain. ENDOCRINE: Denies any polyuria or polydipsia. The rest of the 14-point review of systems is negative. Past Medical History Past Medical History: COPD, Hypertension, Mitral Valve Prolapse (MVP), Osteoarthritis (OA), Sleep Apnea/CPAP/BIPAP Additional Past Medical History / Comment(s): AAA, hx bronchitis, sleep apnea- no machine., sarcoidosis, hx mitral valve repair. , pt has lap band with fluid History of Any Multi-Drug Resistant Organisms: None Reported Past Surgical History: Adenoidectomy, Bariatric Surgery, Joint Replacement, Orthopedic Surgery, Tonsillectomy Additional Past Surgical History / Comment(s): lap band, rt eye sx for blocked blood vessel, sinus sx, hallie knee replacement, lung biopsy, [facility], mitral valve repair may 2021 Past Anesthesia/Blood Transfusion Reactions: No Reported Reaction Additional Past Anesthesia/Blood Transfusion Reaction / Comment(s): Diff IV starts- usually needs midline iv. states difficulty putting her out - even with bronchosopy and EGD. anesthesiologist told her to have anesthesia read [facility] anesthesia notes. Past Psychological History: No Psychological Hx Reported Additional Psychological History / Comment(s): . Smoking Status: Never smoker Past Alcohol Use History: None Reported Past Drug Use History: None Reported - Past Family History Father Family Medical History: Congestive Heart Failure (CHF), Myocardial Infarction ([place]) Additional Family Medical History / Comment(s): [place] Mother Family Medical History: Cancer, CVA/TIA Additional Family Medical History / Comment(s): breast cancer. stroke Sister(s) Family Medical History: Cancer, Deep Vein Thrombosis (DVT), Mitral Valve Prolapse (MVP) Additional Family Medical History / Comment(s): breast cancer, blood clots left arm. sister prior to heart valve replacement Brother(s) Family Medical History: Coronary Artery Disease (CAD) Additional Family Medical History / Comment(s): Medications and Allergies Home Medications Medication Instructions Recorded Confirmed Type Budesonide-Formot 160-4.5 Mcg 2 puff INHALATION RT-BID 12/29/18 04/25/24 History [Symbicort 160-4.5 Mcg Inhaler] Montelukast Sodium [Singulair] 10 mg PO HS 12/29/18 04/25/24 History Furosemide [Lasix] 20 mg PO MOWEFR 06/06/20 04/25/24 History Metoprolol Tartrate [Lopressor] 50 mg PO BID 01/12/22 04/25/24 History Albuterol Inhaler [Ventolin Hfa 2 puff INHALATION RT-QID PRN 03/31/23 04/25/24 History Inhaler] lisinopriL [Zestril] 20 mg PO BID 03/31/23 04/25/24 History ALPRAZolam [Xanax] 0.25 mg PO TID PRN 04/25/24 04/25/24 History HYDROcodone/APAP 5-325MG [[place] 1 tab PO Q8H PRN 04/25/24 04/25/24 History 5-325] Ipratropium-Albuterol Nebulize 3 ml INHALATION RT-QID PRN 04/25/24 04/25/24 History [Duoneb 0.5 mg-3 mg/3 ml Soln] predniSONE 2.5 mg PO DAILY 04/25/24 04/25/24 History Allergies Allergy/AdvReac Type Severity Reaction Status Date / Time No Known Allergies Allergy Verified 04/25/24 20:33 Physical Exam Vitals: Vital Signs Temp Pulse Pulse Resp BP BP Pulse Ox 04/26/24 11:33 62 04/26/24 09:56 98 F 59 L 19 125/82 94 L 04/26/24 08:31 80 04/26/24 08:26 78 04/26/24 07:07 98.0 F 66 18 132/85 93 L 04/26/24 00:31 98.2 F 71 19 143/96 93 L 04/25/24 23:21 90 18 139/60 93 L 04/25/24 21:57 96 20 184/117 97 04/25/24 21:12 97 04/25/24 21:00 105 H 04/25/24 19:57 22 04/25/24 19:23 98.3 F 56 L 21 191/115 99 Intake and Output 04/25/24 04/26/24 04/26/24 22:59 06:59 14:59 Other: # Voids 1 # Bowel Movements 1 Weight 113.398 kg 113.398 kg General Impression: Alert and oriented x3, dyspneic HEENT: Normocephalic atraumatic, extra-ocular movements intact, pupils equal and reactive to light bilaterally, mucous membranes moist. Cardiovascular: Heart regular rate and rhythm Chest: Increased work of breathing, diffuse wheezing Abdomen: abdomen soft, non-tender, non-distended, no organomegaly Musculoskeletal: Pulses present and equal in all extremities, no peripheral edema Motor: no focal deficits noted Neurological: CN II-XII grossly intact, no focal motor or sensory deficits noted Skin: Intact with no visualized rashes Psych: Normal affect and mood Results CBC & Chem 7: 04/26/24 04:02 04/26/24 04:02 Labs: Abnormal Lab Results - Last 24 Hours (Table) 04/25/24 04/25/24 04/26/24 Range/Units 20:33 20:33 04:02 Hct 46.5 H (34.0-46.0) % Lymphocytes # 0.4 L (1.0-4.8) k/uL Potassium 3.4 L (3.5-5.1) mmol/L BUN 18 H (7-17) mg/dL Glucose (74-99) mg/dL AST 45 H (14-36) U/L ALT 47 H (4-34) U/L 04/26/24 Range/Units 04:02 Hct (34.0-46.0) % Lymphocytes # (1.0-4.8) k/uL Potassium (3.5-5.1) mmol/L BUN (7-17) mg/dL Glucose 228 H (74-99) mg/dL AST (14-36) U/L ALT (4-34) U/L Thrombosis Risk Factor Assmnt - Choose All That Apply Each Factor Represents 1 point: Abnormal pulmonary function (COPD), Obesity (BMI >25), Swollen legs (current), Varicose veins Other Risk Factors: Yes Each Risk Factor Represents 2 Points: Age 61-74 years Other congenital or acquired thrombophilia - If yes, enter type in comment: No Thrombosis Risk Factor Assessment Total Risk Factor Score: 6 Thrombosis Risk Factor Assessment Level: High Risk Assessment and Plan Assessment: 1. Acute exacerbation CHF -- Has been placed on Lasix 40 mg IV every 12 hours; will monitor strict BRUNO's, daily weights, low-salt and fluid restricted diet -- 2D echo for left ventricular function -Cardiology is consulted 2. Acute exacerbation asthma; patient remains on IV Solu-Medrol; continue with bronchodilator nebulizer treatments and Symbicort inhaler; Singulair 10 mg daily -- Pulmonary consult in place 3. Possible upper respiratory infection/bronchitis; patient has been evaluated by pulmonary service and antibiotic therapy is placed on hold; patient remains on bronchodilators and IV Solu-Medrol 4. History of mitral valve regurgitation with mitral valve repair 5. History of inactive sarcoidosis; continue with bronchodilator inhaler therapy 6. Hypertension; metoprolol 50 mg twice daily; lisinopril 20 mg twice daily DVT prophylaxis; SCDs/heparin
[2024-04-26 20:35] LABS: Glucose,Whole Blood 189 mg/dL (70-110)
[2024-04-27 07:45] LABS: Glucose,Whole Blood 149 mg/dL (70-110)
[2024-04-27 09:19] LABS: BUN/Creat Ratio 32.38 Ratio (12.00-20.00); Blood Urea Nitrogen 25.9 mg/dL (9.0-27.0); Calcium 9.9 mg/dL (8.7-10.3); Carbon Dioxide 23.1 mmol/L (21.6-31.8); Chloride 101 mmol/L (96-109); Glucose 163 mg/dL (70-110); Potassium 3.9 mmol/L (3.5-5.5); Sodium 143 mmol/L (135-145)
[2024-04-27] MEDS: DAPAGLIFLOZIN PROPANEDIOL 10 MG TABLET PO SCH (09:34)
[2024-04-27] MEDS: SPIRONOLACTONE 25 MG TAB PO SCH (09:34)
[2024-04-27 09:47] LABS: Basophils # (A) 0.02 X 10*3/uL (0.00-0.10); Basophils % (A) 0.2 %; Eosinophils # (A) 0 X 10*3/uL (0.04-0.35); Eosinophils % (A) 0 %; HCT 47.1 % (37.2-46.3); HGB 15.1 g/dL (12.0-15.0); Lymphocytes # (A) 0.96 X 10*3/uL (0.90-5.00); Lymphocytes % (A) 9.1 %; MCH 30.6 pg (27.0-32.0); MCHC 32.1 g/dL (32.0-37.0); MCV 95.3 FL (80.0-97.0); Mean Platelet Volume 11.4 FL (9.5-12.2); Monocytes # (A) 0.32 X 10*3/uL (0.20-1.00); NRBC Per 100 WBC 0 X 10*3/uL (0.00-0.01); Neutrophils # (A) 9.19 X 10*3/uL (1.80-7.70); Neutrophils % (A) 87.2 %; Platelet Count 284 X 10*3/uL (140-440); RBC 4.94 X 10*6/uL (4.10-5.20); WBC 10.54 X 10*3/uL (4.50-10.00)
--- NOTE | 2024-04-27 12:13 | P.PN ---
Subjective Progress Note Date: 04/27/24 Chief complaint: Shortness of breath and bilateral lower extremities edema History of present illness: Pleasant 63-year-old female patient with a past medical history significant for overweight as well as hypertension and history of pulmonary sarcoidosis as well as valvular heart disease status post mitral valve repair using a ring in 2019. The patient presented to the hospital complaining of progressive exertional dyspnea and progressive bilateral lower extremities edema and weight gain over the last several weeks. No symptoms of chest pain or chest discomfort or dizziness or lightheadedness or any feeling of heart racing or fluttering or any presyncope or syncope. She stated that she was diagnosed with congestive heart failure after her open heart surgery and she was receiving Lasix at 20 mg p.o. daily as an outpatient and has been compliant with it but she is not quite sure if she was compliant with low-sodium diet. She stated that she gained about 5 pounds within the last several weeks. No fever and no chills and no cough or sputum production. She underwent further investigation after she was admitted including EKG which showed sinus mechanism with RBBB and PVCs. The chest x-ray showed finding consistent with pulmonary vascular congestions and heart failure. The NT proBNP came in to be elevated. She was started on Lasix IV with improvement in her symptoms after that. She still have at least moderate bilateral lower extremities pitting edema. She was not hypoxic when she was seen and evaluated earlier today. The physical examination is remarkable for the stable vital signs with regular rate and rhythm and systolic murmur appears to be very soft and clear breathing sounds bilaterally and she has at least moderate bilateral lower extremities edema. 04/27 Patient is seen today in follow-up on the [facility] floor. She has been maintained on IV Lasix 40 mg twice daily. Shortness of breath seems to be stable at this time. Blood pressure is running between 125/82-159/90. She states that her blood pressure at home prior to this admission had been running in the normal range. Heart rate is in the 60s and 70s, pulse ox 94% on room air. Repeat blood work reveals hemoglobin 15.1. Creatinine 0.8. Echocardio gram is pending. Physical Examination Gen: This is a 63-year-old female in no acute distress LUNGS: Clear to auscultation. No wheezes or rhonchi. No intercostal retractions. HEART: Regular rate and rhythm. Systolic murmur. EXTREMITIES: 2+ lower extremity edema. No calf tenderness. NEUROLOGICAL: Patient is awake, alert and oriented. Assessment Heart failure with evidence of right and left failure of unknown etiology History of valvular heart disease status post mitral valve repair in 2019 Multiple comorbid conditions including overweight and hypertension and dyslipidemia and pulmonary sarcoidosis Plan Transition IV Lasix to oral 40 mg twice daily Start patient on Farxiga 10 mg daily and Aldactone 25 mg daily Monitor BRUNO, daily weights, electrolytes and renal function Continue other cardiac medications including Lopressor 50 mg twice daily, lisinopril 20 mg twice daily Follow-up on the echocardiogram Follow-up with the patient Nurse practitioner note has been reviewed, I agree with documented findings and plan of care. Patient was seen and examined. Objective - Vital Signs Vital signs: Vital Signs Temp 97.5 F L 04/27/24 08:00 Pulse 80 04/27/24 11:46 Resp 19 04/27/24 08:00 BP 159/90 04/27/24 08:00 Pulse Ox 94 L 04/27/24 08:00 FiO2 Intake & Output 04/26/24 04/27/24 04/27/24 18:59 06:59 18:59 Intake Total 540 120 Balance 540 120 Weight 117.3 kg Intake: Oral 540 120 Other: Voiding Method Toilet Toilet # Voids 3 3 - Labs CBC & Chem 7: 04/27/24 05:31 04/27/24 05:31 Labs: Abnormal Lab Results - Last 24 Hours (Table) 04/26/24 04/26/24 04/27/24 Range/Units 04:02 20:31 05:31 WBC 10.54 H (4.50-10.00) X 10*3/uL Hgb 15.1 H (12.0-15.0) g/dL Hct 47.1 H (37.2-46.3) % Immature Gran # 0.05 H (0.00-0.04) X 10*3/uL Neutrophils # 9.19 H (1.80-7.70) X 10*3/uL Eosinophils # 0 L (0.04-0.35) X 10*3/uL Anion Gap (4.00-12.00) mmol/L BUN/Creatinine Ratio (12.00-20.00) Ratio Glucose (70-110) mg/dL POC Glucose (mg/dL) 189 H (70-110) mg/dL Hemoglobin A1c 6.1 H (<=6.0) % 04/27/24 04/27/24 Range/Units 05:31 07:30 WBC (4.50-10.00) X 10*3/uL Hgb (12.0-15.0) g/dL Hct (37.2-46.3) % Immature Gran # (0.00-0.04) X 10*3/uL Neutrophils # (1.80-7.70) X 10*3/uL Eosinophils # (0.04-0.35) X 10*3/uL Anion Gap 18.90 H (4.00-12.00) mmol/L BUN/Creatinine Ratio 32.38 H (12.00-20.00) Ratio Glucose 163 H (70-110) mg/dL POC Glucose (mg/dL) 149 H (70-110) mg/dL Hemoglobin A1c (<=6.0) %
[2024-04-27 12:40] LABS: Glucose,Whole Blood 137 mg/dL (70-110)
--- NOTE | 2024-04-27 15:16 | CA ---
Transthoracic Echo Report Name: Yoli Bermudez Age: 63 Gender: F : 1960 Exam Date: 04/27/2024 10:35 Exam Location: [facility] Ht (in): 66 Wt (lb): 250 Ordering Physician: Ko Elam MD ([id number]) Attending/Referring Phys: Purchasing Director Socorro Gay RDCS Procedure CPT: Indications: chf sob Cardiac Hx: Technical Quality: Fair Contrast 1: Definity Total Dose (mL): 2 Contrast 2: Total Dose (mL): MEASUREMENTS (Male / Female) Normal Values 2D ECHO LV Diastolic Diameter PLAX 4.8 cm 4.2 - 5.9 / 3.9 - 5.3 cm LV Systolic Diameter PLAX 3.0 cm IVS Diastolic Thickness 1.2 cm 0.6 - 1.0 / 0.6 - 0.9 cm LVPW Diastolic Thickness 1.3 cm 0.6 - 1.0 / 0.6 - 0.9 cm LV Relative Wall Thickness 0.5 RV Internal Dim ED PLAX 3.5 cm LA Volume 93.2 cm??? 18 - 58 / 22 - 52 cm??? LA Volume Index 39.6 cm???/m??? 16 - 28 cm???/m??? M-MODE Aortic Root Diameter MM 3.2 cm LA Systolic Diameter MM 4.8 cm LA Ao Ratio MM 1.5 AV Cusp Separation MM 1.9 cm DOPPLER AV Peak Velocity 175.2 cm/s AV Peak Gradient 12.3 mmHg AV Mean Velocity 115.4 cm/s AV Mean Gradient 6.1 mmHg AV Velocity Time Integral 37.8 cm LVOT Peak Velocity 140.4 cm/s LVOT Peak Gradient 7.9 mmHg LVOT Velocity Time Integral 32.3 cm MV Peak Velocity 255.1 cm/s MV Peak Gradient 26.0 mmHg MV Mean Velocity 166.7 cm/s MV Mean Gradient 12.2 mmHg MV Velocity Time Integral 78.1 cm MV Area PHT 2.5 cm??? Mitral E Point Velocity 205.8 cm/s Mitral A Point Velocity 160.1 cm/s Mitral E to A Ratio 1.3 MV Deceleration Time 299.1 ms MV E' Velocity 3.4 cm/s Mitral E to MV E' Ratio 59.7 TR Peak Velocity 304.1 cm/s TR Peak Gradient 37.0 mmHg Right Ventricular Systolic Press 40.9 mmHg FINDINGS Left Ventricle Mildly increased left ventricular wall thickness. Left ventricular cavity size normal. Normal left ventricular systolic function with no obvious regional wall motion abnormalities. Left ventricular ejection fraction is estimated at 55-60 %. Abnormal (paradoxical) septal motion consistent with postoperative state. Grade 1 diastolic dysfunction. Right Ventricle Mild right ventricular dilatation. Mild pulmonary hypertension. Right Atrium Mild right atrial dilatation. Left Atrium Moderately increased left atrial volume. Mildly increased left atrial area. Mitral Valve Structurally normal mitral valve. Mitral valve thickened. Moderate mitral annular calcification. Mild mitral regurgitation. An annuloplasty ring noted in the mitral position. Mv peak gradient is 26 mmHg, mean PG 12. Area 2.5 cm2 Aortic Valve Trileaflet aortic valve. No aortic stenosis. No aortic regurgitation. Aortic valve sclerosis. Tricuspid Valve Structurally normal tricuspid valve. Mild tricuspid regurgitation. Pulmonic Valve Structurally normal pulmonic valve. Trace pulmonic regurgitation. Pericardium No pericardial effusion. Aorta Normal size aortic root and proximal ascending aorta. CONCLUSIONS Preserved LV size systolic function Mitral annuloplasty ring elevated transmitral pressures Mean gradient 12 mmHg Previewed by: Dr. Stephane Tapai MD (Electronically Signed) Final Date: 27 April 2024 15:15
[2024-04-27] MEDS: FUROSEMIDE 40 MG TAB PO SCH (15:35)
[2024-04-27] MEDS: ENOXAPARIN 40 MG/0.4 ML SYRINGE SQ SCH (15:35)
[2024-04-27] MEDS: LORATADINE 10 MG TAB PO SCH (15:36)
[2024-04-27] MEDS: ASPIRIN 81 MG PO SCH (15:36)
[2024-04-27] MEDS: PANTOPRAZOLE 40 MG/10 ML VIAL IVP SCH (15:39)
[2024-04-27 17:11] LABS: Glucose,Whole Blood 218 mg/dL (70-110)
--- NOTE | 2024-04-27 20:03 | P.PN ---
Subjective Progress Note Date: 04/27/24 63-year-old female, who works as a nurse at this hospital. She presented to the emergency department, on April 25, had a little bit after 7:00. The patient came with complaints of chest pain, and shortness of breath. She had a chest x-ray earlier in the day, which suggested possible fluid overload/CHF. She does have a history of an active sarcoidosis, asthma, and previous mitral valve repair, done by Dr. Kirby, a couple years back. The patient states that over the last day or so, she developed sudden shortness of breath. She has some chest discomfort as well. She was coughing, and coughing up yellow phlegm. No fever or chills. In addition, the patient developed significant and worsening lower extremity edema. She is seen today in room 474. She is laying flat in bed. No respiratory distress. She is on room air. No IV fluids. Her only other medical history is that of hypertension, and obesity. White count is 5.2, hemoglobin 13.8, hematocrit 43.2, and platelet count was normal. Coagulation studies were normal. Sodium 137, potassium 4.1, chlorides 104, CO2 24, BUN 16, creatinine 0.52. Glucose is 228. AST is 45. ALT is 47. Troponins were negative x 3. N-terminal proBNP was 1810. On today's evaluation on 04/27/2024, Yoli is feeling better. She is less short of breath. As mentioned earlier, she has history of asthma and previous history of sarcoidosis that has been essentially inactive and stable. The patient also has undergone a previous mitral valve repair. The patient's proBNP level was mildly elevated. Chest x-ray shows increased pulm vascular markings and congestion. The patient is currently on oral Lasix. The patient is also on IV Solu-Medrol and bronchodilators [id number].No new complaints otherwise for now. She clearly feels that she is doing better and she is currently on room air oxygen with a pulse ox of 94%. Her sodium level is at 143, potassium is 3.9, BUN is 25 with a creatinine of 0.8, CRP is at 2.7, the white cell count is at 10.5 with a hemoglobin 15.1 and a platelet count of 284. Sedimentation rate was at 32. Procalcitonin level that was done at time of admission was 0.08. No other significant events overnight. Objective - Vital Signs Vital signs: Vital Signs Temp 97.6 F 04/27/24 12:46 Pulse 84 04/27/24 15:38 Resp 19 04/27/24 12:46 BP 146/91 04/27/24 13:19 Pulse Ox 94 L 04/27/24 12:46 FiO2 Intake & Output 04/27/24 04/27/24 04/28/24 06:59 18:59 06:59 Intake Total 780 Balance 780 Weight 117.3 kg Intake: Oral 780 Other: Voiding Method Toilet Toilet # Voids 3 3 - Exam No acute distress, oriented 3. Currently on room air. No respiratory distress. Frequent wet cough. The patient is currently on room air oxygen. HEENT examination is grossly unremarkable. Mucous membranes are moist. No oral lesions. Neck supple. Full range of motion. No adenopathy thyromegaly or neck vein distention. Cardiovascular examination reveals regular rhythm rate. S1-S2 normal. No S3 or S4. No discernible murmur noted. Lungs reveal bibasilar crackles. Scattered rhonchi. Minimal expiratory wheezes. Adventitious lung sounds are more prominent on forced maneuver. Room air saturation 93%. Abdomen soft with bowel sounds. No masses or tenderness. Extremities are intact. No cyanosis or clubbing. 1+ edema. Skin is without rash or lesion. Neurologic examination is brief but nonfocal. - Labs CBC & Chem 7: 04/27/24 05:31 04/27/24 05:31 Labs: Abnormal Lab Results - Last 24 Hours (Table) 04/26/24 04/26/24 04/27/24 Range/Units 04:02 20:31 05:31 WBC 10.54 H (4.50-10.00) X 10*3/uL Hgb 15.1 H (12.0-15.0) g/dL Hct 47.1 H (37.2-46.3) % Immature Gran # 0.05 H (0.00-0.04) X 10*3/uL Neutrophils # 9.19 H (1.80-7.70) X 10*3/uL Eosinophils # 0 L (0.04-0.35) X 10*3/uL ESR (0-30) mm/Hr Anion Gap (4.00-12.00) mmol/L BUN/Creatinine Ratio (12.00-20.00) Ratio Glucose (70-110) mg/dL POC Glucose (mg/dL) 189 H (70-110) mg/dL Hemoglobin A1c 6.1 H (<=6.0) % C-Reactive Protein (0.00-0.80) mg/dL 04/27/24 04/27/24 04/27/24 Range/Units 05:31 05:31 05:31 WBC (4.50-10.00) X 10*3/uL Hgb (12.0-15.0) g/dL Hct (37.2-46.3) % Immature Gran # (0.00-0.04) X 10*3/uL Neutrophils # (1.80-7.70) X 10*3/uL Eosinophils # (0.04-0.35) X 10*3/uL ESR 32 H (0-30) mm/Hr Anion Gap 18.90 H (4.00-12.00) mmol/L BUN/Creatinine Ratio 32.38 H (12.00-20.00) Ratio Glucose 163 H (70-110) mg/dL POC Glucose (mg/dL) (70-110) mg/dL Hemoglobin A1c (<=6.0) % C-Reactive Protein 2.70 H (0.00-0.80) mg/dL 04/27/24 04/27/24 04/27/24 Range/Units 07:30 12:34 17:09 WBC (4.50-10.00) X 10*3/uL Hgb (12.0-15.0) g/dL Hct (37.2-46.3) % Immature Gran # (0.00-0.04) X 10*3/uL Neutrophils # (1.80-7.70) X 10*3/uL Eosinophils # (0.04-0.35) X 10*3/uL ESR (0-30) mm/Hr Anion Gap (4.00-12.00) mmol/L BUN/Creatinine Ratio (12.00-20.00) Ratio Glucose (70-110) mg/dL POC Glucose (mg/dL) 149 H 137 H 218 H (70-110) mg/dL Hemoglobin A1c (<=6.0) % C-Reactive Protein (0.00-0.80) mg/dL Assessment and Plan Plan: Acute shortness of breath, likely multifactorial, in part related to mild fluid overload/CHF, as well as probable upper respiratory tract infection/bronchitis, and asthma exacerbation. Clinically improving as the patient is being treated with bronchodilators and steroids. There may be potentially a mild component of CHF in addition. History of chronic bronchial asthma. Prior history of mitral valve repair, for mitral valve regurgitation.Echocardiogram was also completed and the patient was found to have a normal ejection fraction at 55 to 60%. The patient had grade 1 diastolic heart failure. Mitral valvular annuloplasty ring was noted and there is mode rate mitral annular calcification, mild mitral regurgitation, the ring was noted in the peak gradient was 26 with a mean gradient of 12 with a valve area of 2.5 cm. History of inactive/quiescent sarcoidosis. Obesity. Hypertension. Plan: Echo was noted Patient currently is doing well change she is currently on room air oxygen Procalcitonin level has been low Maintained on Symbicort and Singulair Maintained on DuoNeb updrafts Maintained on IV Solu-Medrol Maintained on Lasix orally. Cardiology is to see the patient Will continue to follow She is currently on room air oxygen
[2024-04-27 20:13] LABS: Glucose,Whole Blood 171 mg/dL (70-110)
[2024-04-27 21:13] VITALS: RESP 16
[2024-04-28] MEDS ORDERED: guaiFENesin SYRUP 100MG/5ML 200 MG/10 ML CUP PO PRN (05:59)
--- NOTE | 2024-04-28 05:59 | P.PN ---
Subjective Progress Note Date: 04/27/24 63-year-old female presents to the emergency department for dyspnea. Patient is history of sarcoidosis. 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 Patient was taking Lasix. She did notice swelling in her legs worse than usual however she does have chronic lower extremity swelling. Today her symptoms began at 4 AM. She was able to work however started to feel like she was getting significantly worse. Her symptoms that include pressure in her left anterior chest. Patient has no history of CABG. She has history of heart surgery for mitral valve repair denies any fevers. Patient has been coughing and wheezing. Patient sym ptoms of sarcoidosis typically well-controlled with home steroids and home inhalers however today felt like it was out of control. 04/27/2024 Patient is seen in follow-up this morning continues to be short of breath currently receiving a breathing treatment with cardiology and pulmonary following closely. Patient continues to elicit shortness of breath with minimal exertion and continued lower extremity swelling. He was continued on IV diuresis and being transition to oral. Repeat chest x-ray ordered and pending for a.m. per pulmonary. Will continue other current medications. Review of systems: Constitutional: No reports of fatigue, fever, or chills Cardiovascular: No reports of chest pain or palpitations Respiratory: reports of continued shortness of breath and occasional cough GI: No reports of nausea, vomiting, or diarrhea : No reports of dysuria or retention Neurovascular: No reports of weakness or numbness reports lower extremity swelling and pain All medications have been reviewed Physical exam: Gen: This is a 63-year-old female who is awake, alert and oriented x 3, well- developed, well-nourished, morbidly obese HEENT: Head is atraumatic, normocephalic. Pupils equal, round. Sclerae is anicteric. NECK: Supple. No JVD. No lymphadenopathy. No thyromegaly. LUNGS: Diminished breath sounds bilaterally otherwise clear to auscultation. Faint expiratory wheezes and coarse rhonchi. Dyspneic on exam with minimal conversation no intercostal retractions. HEART: S1, S2 are muffled ABDOMEN: Soft. Obese bowel sounds are present. No masses. No tenderness. EXTREMITIES: No pedal edema. No calf tenderness. Bilateral lower extremity swelling with minimal redness, 1+ pitting edema NEUROLOGICAL: Patient is awake, alert and oriented x3. Cranial nerves 2 through 12 are grossly intact. Assessment: -Shortness of breath with acute hypoxic respiratory failure secondary to acute exacerbation CHF -Acute exacerbation asthma -Possible upper respiratory infection/bronchitis, procalcitonin not elevated -history of mitral valve regurgitation with mitral valve repair -History of inactive sarcoidosis -Hypertension -Morbid obesity with a BMI of 41.6 -GI prophylaxis -DVT prophylaxis; SCDs/heparin -Full code Plan: Patient was maintained on IV Lasix with cardiology following being transition to oral Lasix Continue with breathing inhalational treatments with pulmonary following recommending repeat chest x-ray in a.m. Continue with current medications including Farxiga being added recommend monitoring overnight Encouraged the patient to elevate lower extremities and possibly Abelino wraps for bilateral lower extremities from the toes up to the knees Encouraged to increase activity as tolerated Will follow-up on repeat labs Patient continued significant shortness of breath and difficulty breathing, patient will require more than 2 night hospitalization to manage her symptoms. Patient is extremely dyspneic on room air during conversation having to take multiple resting. To continue speaking. Will continue current regimen discussed with consultations regarding possible discharge planning in the next 24 to 48 hours Due to multiple complex medical issues, overall prognosis is guarded The impression and plan of care has been dictated by Anahy Zeng, Nurse Practitioner as directed. Dr. Benton MD I have performed a history and examination and MDM of this patient, discussed the same with the dictator, and agree with the dictator's assessment and plan as written ,documented as a scribe. Based on total visit time, I have performed more than 50% of the visit. Objective - Vital Signs Vital signs: Vital Signs Temp 97.6 F 04/27/24 12:46 Pulse 65 04/27/24 12:46 Resp 19 04/27/24 12:46 BP 146/91 04/27/24 13:19 Pulse Ox 94 L 04/27/24 12:46 FiO2 Intake & Output 04/26/24 04/27/24 04/27/24 18:59 06:59 18:59 Intake Total 540 120 Balance 540 120 Weight 117.3 kg Intake: Oral 540 120 Other: Voiding Method Toilet Toilet # Voids 3 3 - Labs CBC & Chem 7: 04/27/24 05:31 04/27/24 05:31 Labs: Abnormal Lab Results - Last 24 Hours (Table) 04/26/24 04/26/24 04/27/24 Range/Units 04:02 20:31 05:31 WBC 10.54 H (4.50-10.00) X 10*3/uL Hgb 15.1 H (12.0-15.0) g/dL Hct 47.1 H (37.2-46.3) % Immature Gran # 0.05 H (0.00-0.04) X 10*3/uL Neutrophils # 9.19 H (1.80-7.70) X 10*3/uL Eosinophils # 0 L (0.04-0.35) X 10*3/uL Anion Gap (4.00-12.00) mmol/L BUN/Creatinine Ratio (12.00-20.00) Ratio Glucose (70-110) mg/dL POC Glucose (mg/dL) 189 H (70-110) mg/dL Hemoglobin A1c 6.1 H (<=6.0) % 04/27/24 04/27/24 04/27/24 Range/Units 05:31 07:30 12:34 WBC (4.50-10.00) X 10*3/uL Hgb (12.0-15.0) g/dL Hct (37.2-46.3) % Immature Gran # (0.00-0.04) X 10*3/uL Neutrophils # (1.80-7.70) X 10*3/uL Eosinophils # (0.04-0.35) X 10*3/uL Anion Gap 18.90 H (4.00-12.00) mmol/L BUN/Creatinine Ratio 32.38 H (12.00-20.00) Ratio Glucose 163 H (70-110) mg/dL POC Glucose (mg/dL) 149 H 137 H (70-110) mg/dL Hemoglobin A1c (<=6.0) %
[2024-04-28 07:40] LABS: Glucose,Whole Blood 138 mg/dL (70-110)
[2024-04-28 07:50] LABS: African American GFR (CKD) >90 (>60 ml/min/1.73 sqM); Anion Gap 6 mmol/L; Blood Urea Nitrogen 37 mg/dL (7-17); Calcium 9.2 mg/dL (8.4-10.2); Carbon Dioxide 29 mmol/L (22-30); Chloride 104 mmol/L (98-107); Glucose 149 mg/dL (74-99); Non-African American GFR(CKD) >90 (>60 ml/min/1.73 sqM); Potassium 3.8 mmol/L (3.5-5.1); Sodium 139 mmol/L (137-145)
[2024-04-28] MEDS: SPIRONOLACTONE 25 MG TAB PO STA (08:57)
[2024-04-28] MEDS: METOPROLOL TARTRATE 50 MG TAB PO STA (09:02)
[2024-04-28 12:23] LABS: Glucose,Whole Blood 125 mg/dL (70-110)
--- NOTE | 2024-04-28 12:28 | P.PN ---
Subjective Progress Note Date: 04/28/24 Chief complaint: Shortness of breath and bilateral lower extremities edema History of present illness: Pleasant 63-year-old female patient with a past medical history significant for overweight as well as hypertension and history of pulmonary sarcoidosis as well as valvular heart disease status post mitral valve repair using a ring in 2019. The patient presented to the hospital complaining of progressive exertional dyspnea and progressive bilateral lower extremities edema and weight gain over the last several weeks. No symptoms of chest pain or chest discomfort or dizziness or lightheadedness or any feeling of heart racing or fluttering or any presyncope or syncope. She stated that she was diagnosed with congestive heart failure after her open heart surgery and she was receiving Lasix at 20 mg p.o. daily as an outpatient and has been compliant with it but she is not quite sure if she was compliant with low-sodium diet. She stated that she gained about 5 pounds within the last several weeks. No fever and no chills and no cough or sputum production. She underwent further investigation after she was admitted including EKG which showed sinus mechanism with RBBB and PVCs. The chest x-ray showed finding consistent with pulmonary vascular congestions and heart failure. The NT proBNP came in to be elevated. She was started on Lasix IV with improvement in her symptoms after that. She still have at least moderate bilateral lower extremities pitting edema. She was not hypoxic when she was seen and evaluated earlier today. The physical examination is remarkable for the stable vital signs with regular rate and rhythm and systolic murmur appears to be very soft and clear breathing sounds bilaterally and she has at least moderate bilateral lower extremities edema. 04/27 Patient is seen today in follow-up on the [facility] floor. She has been maintained on IV Lasix 40 mg twice daily. Shortness of breath seems to be stable at this time. Blood pressure is running between 125/82-159/90. She states that her blood pressure at home prior to this admission had been running in the normal range. Heart rate is in the 60s and 70s, pulse ox 94% on room air. Repeat blood work reveals hemoglobin 15.1. Creatinine 0.8. Echocardio gram is pending. 04/28 Echocardiogram reveals EF of 55 to 60%. Mitral annuloplasty ring elevated tr ansmitral pressures. Mean gradient 12 mmHg. Results reviewed with the patient. Blood pressure readings remain elevated 168/84-194/98, heart rate in the 70s to 90s, pulse ox 95% on room air. Repeat blood work reveals potassium 3.8, creatinine 0.68, BUN 37. Yesterday, IV Lasix was transitioned to oral and patient was started on Farxiga and Aldactone. Physical Examination Gen: This is a 63-year-old female in no acute distress LUNGS: Clear to auscultation. No wheezes or rhonchi. No intercostal retractions. HEART: Regular rate and rhythm. Systolic murmur. EXTREMITIES: 1+ lower extremity edema. No calf tenderness. NEUROLOGICAL: Patient is awake, alert and oriented. Assessment Heart failure with evidence of right and left failure of unknown etiology History of valvular heart disease status post mitral valve repair in 2019 Multiple comorbid conditions including overweight and hypertension and dyslipidemia and pulmonary sarcoidosis Plan Continue patient on Lasix 40 mg oral twice daily, Farxiga 10 mg daily and Aldactone increased to 50 mg daily Monitor BRUNO, daily weights, electrolytes and renal function Continue Lopressor increased to 100 mg twice daily, continue lisinopril 20 mg twice daily Continue current medication regime. If blood pressures fairly well-controlled by this afternoon, patient is cleared by cardiology for discharge and may follow-up in the office in 1 to 2 weeks. Nurse practitioner note has been reviewed, I agree with documented findings and plan of care. Patient was seen and examined. Objective - Vital Signs Vital signs: Vital Signs Temp 97.6 F 04/28/24 07:34 Pulse 80 04/28/24 07:57 Resp 16 04/28/24 07:34 BP 194/98 04/28/24 07:34 Pulse Ox 95 04/28/24 07:34 FiO2 Intake & Output 04/27/24 04/28/24 04/28/24 18:59 06:59 18:59 Intake Total 780 Balance 780 Weight 117.3 kg 116.8 kg Intake: Oral 780 Other: Voiding Method Toilet Toilet Toilet # Voids 3 3 - Labs CBC & Chem 7: 04/27/24 05:31 04/28/24 06:56 Labs: Abnormal Lab Results - Last 24 Hours (Table) 04/27/24 04/27/24 04/27/24 Range/Units 05:31 05:31 05:31 WBC 10.54 H (4.50-10.00) X 10*3/uL Hgb 15.1 H (12.0-15.0) g/dL Hct 47.1 H (37.2-46.3) % Immature Gran # 0.05 H (0.00-0.04) X 10*3/uL Neutrophils # 9.19 H (1.80-7.70) X 10*3/uL Eosinophils # 0 L (0.04-0.35) X 10*3/uL ESR 32 H (0-30) mm/Hr Anion Gap 18.90 H (4.00-12.00) mmol/L BUN (7-17) mg/dL BUN/Creatinine Ratio 32.38 H (12.00-20.00) Ratio Glucose 163 H (70-110) mg/dL POC Glucose (mg/dL) (70-110) mg/dL C-Reactive Protein (0.00-0.80) mg/dL 04/27/24 04/27/24 04/27/24 Range/Units 05:31 12:34 17:09 WBC (4.50-10.00) X 10*3/uL Hgb (12.0-15.0) g/dL Hct (37.2-46.3) % Immature Gran # (0.00-0.04) X 10*3/uL Neutrophils # (1.80-7.70) X 10*3/uL Eosinophils # (0.04-0.35) X 10*3/uL ESR (0-30) mm/Hr Anion Gap (4.00-12.00) mmol/L BUN (7-17) mg/dL BUN/Creatinine Ratio (12.00-20.00) Ratio Glucose (70-110) mg/dL POC Glucose (mg/dL) 137 H 218 H (70-110) mg/dL C-Reactive Protein 2.70 H (0.00-0.80) mg/dL 04/27/24 04/28/24 04/28/24 Range/Units 20:12 06:56 07:38 WBC (4.50-10.00) X 10*3/uL Hgb (12.0-15.0) g/dL Hct (37.2-46.3) % Immature Gran # (0.00-0.04) X 10*3/uL Neutrophils # (1.80-7.70) X 10*3/uL Eosinophils # (0.04-0.35) X 10*3/uL ESR (0-30) mm/Hr Anion Gap (4.00-12.00) mmol/L BUN 37 H (7-17) mg/dL BUN/Creatinine Ratio (12.00-20.00) Ratio Glucose 149 H (70-110) mg/dL POC Glucose (mg/dL) 171 H 138 H (70-110) mg/dL C-Reactive Protein (0.00-0.80) mg/dL
--- NOTE | 2024-04-28 13:02 | XR ---
EXAMINATION TYPE: XR chest 2V DATE OF EXAM: 04/28/2024 COMPARISON: 04/25/2024 TECHNIQUE: PA and lateral views submitted. HISTORY: Shortness of breath FINDINGS: The lungs are clear and there is no pneumothorax, pleural effusion, or focal pneumonia. Heart size normal and no overt failure. Osseous structures demonstrate hypertrophic and degenerative changes of the spine. Post median sternotomy. Question cardiac valve surgery with atrial appendage. Surgical lopez nges in the upper abdomen. Findings suggest prior lap band surgery. Mild coarsening of the interstiti um. Diffuse osteopenia. Arthropathy of the shoulders. IMPRESSION: 1. Correlate for mild venous congestion..
[2024-04-28 13:07] VITALS: TEMP 98.1
--- NOTE | 2024-04-28 14:35 | P.PN ---
Subjective Progress Note Date: 04/28/24 63-year-old female, who works as a nurse at this hospital. She presented to the emergency department, on April 25, had a little bit after 7:00. The patient came with complaints of chest pain, and shortness of breath. She had a chest x-ray earlier in the day, which suggested possible fluid overload/CHF. She does have a history of an active sarcoidosis, asthma, and previous mitral valve repair, done by Dr. Kirby, a couple years back. The patient states that over the last day or so, she developed sudden shortness of breath. She has some chest discomfort as well. She was coughing, and coughing up yellow phlegm. No fever or chills. In addition, the patient developed significant and worsening lower extremity edema. She is seen today in room 474. She is laying flat in bed. No respiratory distress. She is on room air. No IV fluids. Her only other medical history is that of hypertension, and obesity. White count is 5.2, hemoglobin 13.8, hematocrit 43.2, and platelet count was normal. Coagulation studies were normal. Sodium 137, potassium 4.1, chlorides 104, CO2 24, BUN 16, creatinine 0.52. Glucose is 228. AST is 45. ALT is 47. Troponins were negative x 3. N-terminal proBNP was 1810. On today's evaluation on 04/27/2024, Yoli is feeling better. She is less short of breath. As mentioned earlier, she has history of asthma and previous history of sarcoidosis that has been essentially inactive and stable. The patient also has undergone a previous mitral valve repair. The patient's proBNP level was mildly elevated. Chest x-ray shows increased pulm vascular markings and congestion. The patient is currently on oral Lasix. The patient is also on IV Solu-Medrol and bronchodilators [id number].No new complaints otherwise for now. She clearly feels that she is doing better and she is currently on room air oxygen with a pulse ox of 94%. Her sodium level is at 143, potassium is 3.9, BUN is 25 with a creatinine of 0.8, CRP is at 2.7, the white cell count is at 10.5 with a hemoglobin 15.1 and a platelet count of 284. Sedimentation rate was at 32. Procalcitonin level that was done at time of admission was 0.08. No other significant events overnight. On 04/28/2024, the patient is feeling great and she is back to her normal. She is on room air oxygen. She remains on DuoNeb updrafts. She remains on Lasix 40 mg twice a day. She is also on IV Solu-Medrol which I am going to taper down and put her on a prednisone taper. She remains on Aldactone. Electrolytes are all within normal limits. BUN is at 37 with a creatinine of 0.6. Echocardiogram from yesterday was noted. She has a preserved LV function. Chest x-ray was essentially clear without any evidence of pneumothorax or pleural effusion or focal pulmonary consolidation or airspace disease. There is diffuse osteopenia and arthropathy of the shoulders with mild coarsening of the interstitium. Otherwise, no other significant abnormalities noted. The lateral view shows no significant effusions. The patient has been maintained on Symbicort on outpatient basis in addition to Ventolin rescue inhaler as needed. She is also on Singulair. She does take Aldactone 50 mg p.o. daily and Lasix 40 mg p.o. twice a day on outpatient basis. Objective - Vital Signs Vital signs: Vital Signs Temp 97.6 F 04/28/24 07:34 Pulse 53 L 04/28/24 11:23 Resp 16 04/28/24 07:34 BP 194/98 04/28/24 07:34 Pulse Ox 95 04/28/24 07:34 FiO2 Intake & Output 04/27/24 04/28/24 04/28/24 18:59 06:59 18:59 Intake Total 780 Balance 780 Weight 117.3 kg 116.8 kg Intake: Oral 780 Other: Voiding Method Toilet Toilet Toilet # Voids 3 3 - Exam No acute distress, oriented 3. Currently on room air. No respiratory distress. Frequent wet cough. The patient is currently on room air oxygen. HEENT examination is grossly unremarkable. Mucous membranes are moist. No oral lesions. Neck supple. Full range of motion. No adenopathy thyromegaly or neck vein distention. Cardiovascular examination reveals regular rhythm rate. S1-S2 normal. No S3 or S4. No discernible murmur noted. Lungs reveal bibasilar crackles. Scattered rhonchi. Minimal expiratory wheezes. Adventitious lung sounds are more prominent on forced maneuver. Room air saturation 93%. Abdomen soft with bowel sounds. No masses or tenderness. Extremities are intact. No cyanosis or clubbing. 1+ edema. Skin is without rash or lesion. Neurologic examination is brief but nonfocal. - Labs CBC & Chem 7: 04/27/24 05:31 04/28/24 06:56 Labs: Abnormal Lab Results - Last 24 Hours (Table) 04/27/24 04/27/24 04/27/24 Range/Units 05:31 05:31 12:34 ESR 32 H (0-30) mm/Hr BUN (7-17) mg/dL Glucose (74-99) mg/dL POC Glucose (mg/dL) 137 H (70-110) mg/dL C-Reactive Protein 2.70 H (0.00-0.80) mg/dL 04/27/24 04/27/24 04/28/24 Range/Units 17:09 20:12 06:56 ESR (0-30) mm/Hr BUN 37 H (7-17) mg/dL Glucose 149 H (74-99) mg/dL POC Glucose (mg/dL) 218 H 171 H (70-110) mg/dL C-Reactive Protein (0.00-0.80) mg/dL 04/28/24 Range/Units 07:38 ESR (0-30) mm/Hr BUN (7-17) mg/dL Glucose (74-99) mg/dL POC Glucose (mg/dL) 138 H (70-110) mg/dL C-Reactive Protein (0.00-0.80) mg/dL Assessment and Plan Plan: Acute shortness of breath, likely multifactorial, in part related to mild fluid overload/CHF, as well as probable upper respiratory tract infection/bronchitis, and asthma exacerbation. Clinically improving as the patient is being treated with bronchodilators and steroids. There may be potentially a mild component of CHF in addition. History of chronic bronchial asthma. Prior history of mitral valve repair, for mitral valve regurgitation.Echocardiogram was also completed and the patient was found to have a normal ejection fraction at 55 to 60%. The patient had grade 1 diastolic heart failure. Mitral valvular annuloplasty ring was noted and there is moderate mitral annular calcification, mild mitral regurgitation, the ring was noted in the peak gradient was 26 with a mean gradient of 12 with a valve area of 2.5 cm. History of inactive/quiescent sarcoidosis. Obesity. Hypertension. Plan: Echo was noted Clinically improved and the patient's respiratory status is back to his baseline. Repeat chest x-ray shows no evidence of pneumonia. No evidence of any significant heart failure. Echocardiogram was noted. Oxygenation is stable Procalcitonin level has been low Maintained on Symbicort and Singulair Maintained on DuoNeb updrafts Stop the IV Solu-Medrol give the patient prednisone burst taper over the next 16 days starting with 40 mg to be tapered by 10 mg every 4 days Maintained on Lasix orally. 40 mg p.o. twice a day in combination with Aldactone Cardiology is to see the patient Will continue to follow She is currently on room air oxygen Possible discharge today or within next 24 hours.
[2024-04-28] MEDS ORDERED: predniSONE 20 MG TAB PO SCH (14:45)
[2024-04-28 14:48] VITALS: BP 138/85; PULSE 74
[2024-04-28] MEDS ORDERED: METOPROLOL TARTRATE 50 MG TAB PO SCH (21:00)
[2024-04-29] MEDS ORDERED: SPIRONOLACTONE 25 MG TAB PO SCH (09:00)
== END 2024-04-28 16:07 | disposition home or self-care (01) | DRG 291 ==
LOC: EC 19:10 → 5NMEDONC 22:28 → OBSVTOIN 22:29 → 4SSUR 22:56 → 5NMEDONC 04-26 09:46
PROVIDERS: ADMIT Hospitalist; ATTEND Hospitalist
DX: I11.0 Hypertensive heart disease with heart failure (principal); I50.33 Acute on chronic diastolic (congestive) heart failure; J96.01 Acute respiratory failure with hypoxia; Z68.41 Body mass index [BMI] 40.0-44.9, adult; J45.901 Unspecified asthma with (acute) exacerbation; J44.9 Chronic obstructive pulmonary disease, unspecified; D86.0 Sarcoidosis of lung; E66.01 Morbid (severe) obesity due to excess calories; I49.3 Ventricular premature depolarization; G47.30 Sleep apnea, unspecified; E78.5 Hyperlipidemia, unspecified; I34.0 Nonrheumatic mitral (valve) insufficiency; I45.10 Unspecified right bundle-branch block; J40 Bronchitis, not specified as acute or chronic; M85.80 Other specified disorders of bone density and structure, unspecified site; Z79.51 Long term (current) use of inhaled steroids; Z79.899 Other long term (current) drug therapy; Z96.653 Presence of artificial knee joint, bilateral; Z79.52 Long term (current) use of systemic steroids; Z98.84 Bariatric surgery status
CPT/HCPCS: 36415; 71046; 80048; 80053; 83036; 83880; 84145; 84484; 85025; 85610; 85652; 85730; 86140; 93005; 93306; 94640; 96374; 96375; 99285

== ENCOUNTER → 2024-04-25 | Outpatient (CLI) | payer MEDICAID ==
--- NOTE | 2024-04-25 09:36 | XR ---
EXAMINATION TYPE: XR chest 2V DATE OF EXAM: 04/25/2024 9:22 AM CLINICAL INDICATION:Female, 63 years old with history of R06.02 SHORTNESS OF BREATH; PHH COMPARISON: Chest radiographs from 12/03/2023 TECHNIQUE: XR chest 2V Frontal and lateral views of the chest. FINDINGS: Lungs/Pleura: There is no evidence of pleural effusion, focal consolidation, or pneumothorax. Pulmonary vascularity: Pulmonary vascular congestion. Heart/mediastinum: Cardiomediastinal silhouette is prominent in size. Atherosclerotic calcifications are seen in the aorta. Left atrial appendage occlusion device is present. Musculoskeletal: No acute osseous pathology. Midline sternotomy wires are noted. IMPRESSION: Cardiomegaly and mild pulmonary vascular congestion. Correlate with BNP for congestive heart failure.
== END | disposition home or self-care (01) ==
LOC: RADXRMAIN 09:00
PROVIDERS: ATTEND Internal Medicine Critical Care Medicine
DX: I51.7 Cardiomegaly (principal); R09.89 Other specified symptoms and signs involving the circulatory and respiratory systems; R06.02 Shortness of breath; I50.9 Heart failure, unspecified
CPT/HCPCS: 71046

== ENCOUNTER → 2024-07-06 | Outpatient (CLI) | payer MEDICAID ==
--- NOTE | 2024-07-31 08:16 | CT ---
Site ID synapse default Yoli Zhang A ID [id number] 1960 Age/Gender: 63Y, F Order # N/A Procedure CT L-Ext w/o Contrast LT Date 07/06/2024 3:04:00 PM EXAMINATION TYPE: CT lower extremity LT wo con CT DLP: 589.30 mGycm, Automated exposure control for dose reduction was used. DATE OF EXAM: 07/08/2024 3:39 PM COMPARISON: None, please note PACS Production downtime occurred during the radiologist interpretation of these images with limited priors/reports. CLINICAL INDICATION: Female, 63 year old with history of knee buckling, previous total knee arthropla sty. TECHNIQUE: Axial images were obtained of the left knee without the use of IV contrast. Additional co yusra and sagittal reformatted images and soft tissue and bone window were obtained for review. FINDINGS: Postsurgical changes from total left knee arthroplasty. Hardware appears intact with approp riate alignment. No surrounding lucency to suggest loosening. Streak artifact from prosthesis limits evaluation. No acute fracture or dislocation. There is some sclerosis identified within the posterior aspect of the proximal tibia. No osseous erosion. Small knee joint effusion. No soft tissue edema id entified. Popliteal fossa cyst partially visualized cyst measuring up to 4.1 cm. Evaluation is limite d due to streak artifact. No significant soft tissue swelling or joint effusion is identified. No foc al muscular atrophy or edema is identified. IMPRESSION: 1. Postsurgical changes from left knee total arthroplasty. Hardware appears intact with appropriate alignment. This creates streak artifact which limits evaluation. 2. Small left knee joint effusion. 3. Partially visualized popliteal fossa cyst. 4. Nonspecific sclerosis involving the posterior aspect of the proximal tibia. No osseous erosions.
--- NOTE | 2024-08-06 08:44 | US ---
Patient: Yoli Bermudez Ordering Physician: Unknown, Unknown ID: [id number] Phone, Pager: Phone: N/A Pager: N/A : 1960 Age/Gender: 63Y, F Primary Location: N/A Procedure: LLEV Study Date: 07/06 2:41:00 PM EXAMINATION TYPE: US venous doppler duplex LE LT DATE OF EXAM: 07/07/2024 9:42 AM COMPARISON: NONE CLINICAL INDICATION: Unknown, old with history of ; SIDE PERFORMED: TECHNIQUE: The lower extremity deep venous system is examined utilizing real time linear array sonog jignesh with graded compression, doppler sonography and color-flow sonography. VESSELS IMAGED: Common Femoral Vein Deep Femoral Vein Greater Saphenous Vein * Femoral Vein Popliteal Vein Small Saphenous Vein * Proximal Calf Veins (* superficial vessels) Left Leg: No evidence for DVT. Complex Lopez's cyst measuring 5.7 x 2.5 cm. IMPRESSION: Grayscale, color doppler, spectral doppler imaging performed of the deep veins of the lo wer extremities. There is normal flow, compressibility, vascular waveforms.
== END | disposition home or self-care (01) ==
LOC: RADCTMAIN 14:00
PROVIDERS: ATTEND Family Medicine
DX: M25.362 Other instability, left knee (principal); Z96.652 Presence of left artificial knee joint; M25.462 Effusion, left knee; M71.22 Synovial cyst of popliteal space [Baker], left knee

== ENCOUNTER → 2024-10-28 | Outpatient (CLI) | payer MEDICAID ==
--- NOTE | 2024-10-29 16:21 | US ---
EXAMINATION TYPE: US arterial LE single level DATE OF EXAM: 10/28/2024 8:35 AM COMPARISONS: None. CLINICAL INDICATION: Female, 63 years old with history of M79.605 PAIN IN LEFT LEG; pain when walking and resting. Left foot numbness. TECHNIQUE: Systolic pressures were taken of the upper and lower extremity arteries with ankle-brachia l indices and toe brachial indices calculated bilaterally. History of: Smoker: No Hypertension: Yes Diabetic: No Hyperlipidemia: No TIA/CVA: No Previous Vascular Surgery: No CAD: No UT: No Vascular Ulcers: No Claudication: No Gangrene: No FINDINGS: Doppler Waveforms: Right: Left: Pulse Volume Recording: Pressure Gradients: Brachial Artery systolic pressure: Right: XX Left: XX Posterior Tibial artery systolic pressure: Right: XX Left: XX Dorsalis Pedis artery systolic pressure: Right: XX Left: XX Toe artery systolic pressure: Right: XX Left: XX Ankle-Brachial Indices: Right: 1.05 Left: 1.21 (Vessel hardening > 1.4; Normal 0.9 - 1.4, Moderate 0.7 - 0.9, Severe 0.5-0.7) Toe Brachial Indices: Right: 1.05 Left: 1.13 (Normal > 0.6; Mild 0.35 - 0.59, Moderate 0.12 - 0.34, Severe <0.12) IMPRESSION: No suspicious stenosis based on ratios [facility], , 10/29/2024 4:19 PM
== END | disposition home or self-care (01) ==
LOC: RADUSWWP 08:09
PROVIDERS: ATTEND Family Medicine
DX: I10 Essential (primary) hypertension (principal); M79.605 Pain in left leg
CPT/HCPCS: 93922

== ENCOUNTER → 2024-11-27 | Outpatient (CLI) | payer MEDICAID ==
[2024-11-27 15:18] LABS: BUN/Creat Ratio 37.86 Ratio (12.00-20.00); Blood Urea Nitrogen 26.5 mg/dL (9.0-27.0); Calcium 9.6 mg/dL (8.7-10.3); Carbon Dioxide 24.4 mmol/L (21.6-31.8); Chloride 109 mmol/L (96-109); Glucose 97 mg/dL (70-110); Potassium 4.9 mmol/L (3.5-5.5); Sodium 146 mmol/L (135-145)
[2024-11-27 21:43] LABS: Basophils # (A) 0.04 X 10*3/uL (0.00-0.10); Basophils % (A) 0.6 %; Eosinophils # (A) 0.25 X 10*3/uL (0.04-0.35); Eosinophils % (A) 3.7 %; HCT 42.7 % (37.2-46.3); HGB 13.4 g/dL (12.0-15.0); Lymphocytes # (A) 1.81 X 10*3/uL (0.90-5.00); Lymphocytes % (A) 27.1 %; MCH 30.2 pg (27.0-32.0); MCHC 31.4 g/dL (32.0-37.0); MCV 96.4 FL (80.0-97.0); Mean Platelet Volume 11.9 FL (9.5-12.2); Monocytes # (A) 0.61 X 10*3/uL (0.20-1.00); Monocytes % (A) 9.1 %; NRBC Per 100 WBC 0 X 10*3/uL (0.00-0.01); Neutrophils # (A) 3.97 X 10*3/uL (1.80-7.70); Neutrophils % (A) 59.4 %; Platelet Count 242 X 10*3/uL (140-440); RBC 4.43 X 10*6/uL (4.10-5.20); RDW 14.1 % (11.5-14.5); WBC 6.69 X 10*3/uL (4.50-10.00)
[2024-11-27 22:24] LABS: Erythrocyte Sedimentation Rate 10 mm/Hr (0-30)
== END | disposition home or self-care (01) ==
LOC: LABWHC1 11:17
PROVIDERS: ATTEND Family Medicine
DX: I87.2 Venous insufficiency (chronic) (peripheral) (principal); T84.039A Mechanical loosening of unspecified internal prosthetic joint, initial encounter
CPT/HCPCS: 36415; 80048; 85025; 85652; 86140

== ENCOUNTER → 2024-12-14 | Outpatient (CLI) | payer MEDICAID ==
--- NOTE | 2024-12-14 10:14 | MM ---
Reason for Exam: Screening (asymptomatic). Last mammogram was performed 1 year(s) and 1 month(s) ago. Patient History: Menarche at age 10. First Full-Term at age 20. Postmenopausal. Hormonal Contraceptives for 4 years from age 18 until age 22. Sister had breast cancer, age 50. Mother had breast cancer, age 75. Risk Values: Josey 5 year model risk: 8.2%. NCI Lifetime model risk: 30.4%. Prior Study Comparison: 10/19/2019 Bilateral Diagnostic Mammogram, [facility]. 01/03/2022 Bilateral Diagnostic Mammogram, [facility]. 11/15/2023 Bilateral MG 3D screening mammo w/cad, [facility]. Tissue Density: The breasts are almost entirely fatty. Findings: Analyzed By CAD. Right breast: There is no suspicious group of microcalcifications or new suspicious mass. Benign-appearing calcifications right breast. Left breast: There is no suspicious group of microcalcifications or new suspicious mass. Benign-appearing calcifications left breast. Overall Assessment: Benign, BI-RAD 2 Management: Screening Mammogram of both breasts in [address] [facility] will attempt to contact patient to return for supplemental views and ultrasound if indicated. Patient should continue monthly self-breast exams. A clinical breast exam by your physician is recommended on an annual basis. This exam should not preclude additional follow-up of suspicious palpable abnormalities. Note on Josey scores and lifetime risk: 1. A Josey score greater than 3% is considered moderate risk. If this is the case, consider specialist referral to assess eligibility for a risk reducing agent. 2. If overall lifetime risk for the development of breast cancer is 20% or higher, the patient may qualify for future screening with alternating mammogram and breast MRI. [facility], , 12/14/2024 10:11 AM. Electronically signed and approved by: Crow Barger DO
== END | disposition home or self-care (01) ==
LOC: RADMAMWWP 09:36
PROVIDERS: ATTEND Obstetrics & Gynecology Obstetrics
DX: Z12.31 Encounter for screening mammogram for malignant neoplasm of breast (principal); R92.313 Mammographic fatty tissue density, bilateral breasts; Z78.0 Asymptomatic menopausal state; Z80.3 Family history of malignant neoplasm of breast; R92.1 Mammographic calcification found on diagnostic imaging of breast
CPT/HCPCS: 77063; 77067

== ENCOUNTER → 2024-12-14 | Outpatient (CLI) | payer MEDICAID ==
--- NOTE | 2024-12-14 14:36 | NM ---
INDICATION: Patient age:Female; 64 years old; Reason for study: ATTN: LEFT KNEE LOOSENING; Z96.652 PRESENCE OF LEF; [facility]. COMPARISON: CT left knee 07/06/2024. PROCEDURE: A 3 phase bone scan limited to kidneys was obtained following the IV administration of 24. 3 mCi of [id number]. FINDINGS: There are photopenic defects within both knees related to arthroplasty changes. There is pe riarticular left knee radiotracer activity on immediate imaging. Angiographic blood pool images show hyperemia within the proximal left tibia medially. Delayed images demonstrate increased bone marrow activity at the tibial plateau. IMPRESSION: Increased radiotracer activity along the left tibial plateau raises raises possibility of hardware lo osening and/or infection. [facility], , 12/14/2024 2:34 PM
== END | disposition home or self-care (01) ==
LOC: RADNMMAIN 09:27
PROVIDERS: ATTEND Orthopaedic Surgery
DX: Z96.652 Presence of left artificial knee joint (principal)
CPT/HCPCS: 78315; A9503

== ENCOUNTER 2025-01-18 06:36 | Day surgery (SDC) | payer MEDICAID ==
[2025-01-13 15:59] VITALS: BMI 39.1
[~2025-01-18 06:36] MED LIST changes: -LIDOCAINE 1% INJ 10MG/ML (20 ML MDV) ONE; -MIDAZOLAM 2 MG/2 ML VIAL ONE; -PROPOFOL 10 MG/ML 20 ML VIAL IV ONE; +TRANEXAMIC 1,000 MG/100ML-NACL 1,000 MG in SALINE 1 100ML.BAG IVPB PRN; -fentaNYL (PF) 50 MCG/ML 2 ML AMP ONE
[2025-01-18 07:45] LABS: Glucose,Whole Blood 118 mg/dL (70-110)
[2025-01-18] MEDS: LACTATED RINGERS 1,000 ML IV SCH (08:06)
[2025-01-18] MEDS: LACTATED RINGERS 1,000 ML IV ONE ×3 (08:06→11:49)
[2025-01-18] MEDS: MELOXICAM 7.5 MG TAB PO PRN (08:08)
[2025-01-18] MEDS: ACETAMINOPHEN TAB 500 MG TAB PO PRN (08:08)
[2025-01-18] MEDS: GABAPENTIN 300 MG CAP PO PRN (08:09)
[2025-01-18] MEDS: DEXAMETHASONE SOD PHOSPHATE 4 MG/ML 1 ML VIAL IV ONE (08:13)
[2025-01-18] MEDS: ONDANSETRON 4 MG/2 ML VIAL IVP ONE (08:13)
[2025-01-18] MEDS: HYDROCORTISONE SUCCINATE 100 MG/2 ML VIAL IV STA (08:15)
[2025-01-18] MEDS: fentaNYL (PF) 50 MCG/ML 2 ML AMP IVP PRN (08:36)
[2025-01-18] MEDS: MIDAZOLAM 2 MG/2 ML VIAL IV ONE (08:36)
[2025-01-18] MEDS ORDERED: HYDROmorphone 0.5 MG/0.5 ML SYRINGE IVP PRN (09:07)
[2025-01-18] MEDS ORDERED: NA PHOS,M-B/NA PHOS,DI-BA 133 ML ENEMA RECTAL PRN (09:07)
[2025-01-18] MEDS ORDERED: MAGNESIUM HYDROXIDE 2,400 MG/30 ML CUP PO PRN (09:07)
[2025-01-18] MEDS ORDERED: bisacodyL 10 MG SUPP RECTAL PRN (09:07)
[2025-01-18] MEDS ORDERED: HYDROmorphone 1 MG/ML 1 ML SYRINGE IVP PRN (09:07)
[2025-01-18] MEDS ORDERED: NALOXONE 0.4 MG/ML 1 ML VIAL IV PRN (09:07)
[2025-01-18] MEDS ORDERED: ONDANSETRON 4 MG/2 ML VIAL IVP PRN ×2 (09:07→22:01)
[2025-01-18] MEDS ORDERED: HYDROcodone/APAP 7.5-325MG 1 EACH TAB PO PRN (09:10)
[2025-01-18] MEDS ORDERED: TRANEXAMIC 1,000 MG/100ML-NACL PREMIX BAG ONE (09:28)
[2025-01-18] MEDS ORDERED: GLYCOPYRROLATE 0.2 MG/ML 2 ML VIAL ONE (09:28)
[2025-01-18] MEDS ORDERED: MIDAZOLAM 2 MG/2 ML VIAL ONE (09:28)
[2025-01-18] MEDS ORDERED: SODIUM CHLORIDE 0.9% (PF) 10 ML VIAL ONE (09:28)
[2025-01-18] MEDS ORDERED: fentaNYL (PF) 50 MCG/ML 2 ML AMP ONE (09:28)
[2025-01-18] MEDS ORDERED: ROPIVACAINE 5 MG/ML 30 ML VIAL ONE (09:28)
[2025-01-18] MEDS ORDERED: diphenhydrAMINE 50 MG/ML 1 ML VIAL ONE (09:28)
[2025-01-18] MEDS ORDERED: PHENYLEPHRINE-0.9% NACL SYG 1,000 MCG/10 ML SYRINGE ONE (09:28)
[2025-01-18] MEDS ORDERED: PROPOFOL 10 MG/ML 20 ML VIAL IV ONE (09:28)
[2025-01-18] MEDS ORDERED: KETAMINE HCL IN 0.9 % NACL 50 MG/5 ML SYRINGE ONE (09:28)
[2025-01-18] MEDS: ceFAZolin 1,000 MG in SODIUM CHLORIDE 0.9% 1,000 ML IRRIGATION ONE (09:35)
--- NOTE | 2025-01-18 10:06 | P.ANPRN ---
Procedure Note - Anesthesia - Nerve Block Performed Left Adductor Canal Single Time Out Performed: Yes (0835) Date of Procedure: 01/18/25 Procedure Start Time: 08:36 Procedure Stop Time: 08:41 Location of Patient: PreOp Indication: Acute Post-Operative Pain, Requested by Surgeon Specifically requested for management of pain by DrAlissa: Rosalino Orozco Sedation Type: Sedate with meaningful contact maintained Preparation: Sterile Prep Position: Supine Catheter Depth at Skin (cm): 10 Catheter: Indwelling Needle Types: Pajunk Needle Gauge: 18 Ultrasound used to visualize needle placement: Yes Ultrasound used to observe medication spread: Yes Injectate: 0.5% Ropivacaine (see comment for volume) (15cc+10cc nacl pf) Blood Aspirated: No Pain Paresthesia on Injection Noted: No Resistance on Injection: Normal Image Stored and Saved: Yes Events: Uneventful and Well Tolerated
--- NOTE | 2025-01-18 10:07 | P.ANPRN ---
Procedure Note - Anesthesia - Nerve Block Performed Left iPack Single Time Out Performed: Yes (0835) Date of Procedure: 01/18/25 Procedure Start Time: 08:42 Procedure Stop Time: 08:46 Location of Patient: PreOp Indication: Acute Post-Operative Pain, Requested by Surgeon Specifically requested for management of pain by DrAlissa: Rosalino Orozco Sedation Type: Sedate with meaningful contact maintained Preparation: Sterile Prep Position: Supine Catheter: None Needle Types: Pajunk Needle Gauge: 21 Ultrasound used to visualize needle placement: Yes Ultrasound used to observe medication spread: Yes Injectate: 0.5% Ropivacaine (see comment for volume) (15cc+10cc nacl pf) Blood Aspirated: No Pain Paresthesia on Injection Noted: No Resistance on Injection: Normal Image Stored and Saved: Yes Events: Uneventful and Well Tolerated
--- NOTE | 2025-01-18 11:32 | P.OP ---
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 Polyethylene wear left total knee Procedure(s) Performed: Revision left total knee arthroplasty Implants: [employer] Oxinium constrained femoral component size 4 left [employer] Legion press-fit stem, straight 15 mm x 160 mm Jj [employer] Nephew legion revision tibial baseplate size 3 left [employer] Legion press-fit stem, straight 11 mm x 160 mm J[employer]hew Stacy II constrained articular insert size 3-4, 15 mm All components were cemented using antibiotic Simplex P bone cement with tobramycin The articulation is Oxinium on polyethylene. Anesthesia: spinal Surgeon: Rosalino Orozco Surveillance Inspector #1: Tonya Kerns Estimated Blood Loss (ml): 50 Pathology: none sent Condition: stable Disposition: PACU Indications for Procedure: The patient's had a total knee arthroplasty performed on 06/23/2007. She has progressive pain and her workup is indicated a loose tibial component. Conservative management has failed. The operation of revision knee replacement has been discussed at length in the office, as well as potential risks and complications. These are inclusive of, but not limited to: Infection, bleeding, scarring, discomfort, stiffness, blood vessel and nerve damage, need for further surgery, failure to relieve symptoms, persistence, recurrence, or worsening of problems, loosening, dislocation, wear, blood clot, pulmonary embolism, , gait dysfunction, stiffness, and other risks as discussed in the office. Patient elects to proceed and the consent form has been signed. Operative Findings: The operative findings are consistent with a loose tibial component of left total knee arthroplasty and significant polyethylene wear. Description of Procedure: Patient was seen in the preoperative area consent was reviewed and operative site was marked with a skin marker. An adductor canal pain catheter was placed by anesthesia in the preoperative area. Patient was then brought to the operating room and given preoperative antibiotics intravenously. A general anesthetic was administered by the anesthesia department. A tourniquet was placed on the upper thigh and the lower extremity was prepped and draped in usual sterile fashion. A gram of transexamic acid was given. A universal timeout was then performed which confirmed the patient's name, surgical site, ALLERGIES, and consent. The lower extremity was then exsanguinated and tourniquet was inflated to 300 mmHg. A standard and anterior midline approach to the knee was performed. The skin and subcutaneous tissue was dissected down to the patellar tendon, with the prior scar being excised. A medial parapatellar arthrotomy was then performed. A moderate amount of clear fluid was encountered. The knee was then extended, the patellar was everted, and the knee was again flexed. there was found to be significant polyethylene wear of the medial side of the tibial insert. The tibial component was found to be grossly loose as well. Attention was first directed to the femur. A small oscillating saw was used to disrupt the cement implant interface. the femoral component was then removed with an osteotome without difficulty. There was minimal bone loss. Attention was then directed to the tibia. Tibial component was found to be grossly loose and removed without difficulty with an osteotome. There is also minimal bone loss around the tibia. Attention was redirected to the femur. Sequential reaming of the femoral canal was performed until good cortical fit. The distal cutting guide was then placed over the reamer the distal femur cut was performed. Next the 4-in-1 cutting block was placed over the reamer and the appropriate cuts were performed. The cutting block and reamer were then removed and the femoral trial was placed. The bone was then removed for the box. Femoral trial was then removed. Attention was then redirected to the tibia. Sequential reaming of the tibial canal was performed until good cortical fit. The intramedullary proximal tibial cutting guide was then placed over the reamer, the proximal tibia was cut. The tibia was sized. The proximal tibia was then prepared. Trials were then placed with the appropriate-sized constrained liner. The knee was able to fully extend and flex to 115 and was stable throughout all range of motion. Trials were then removed. The cut surfaces of bone were then irrigated with pulsatile lavage. The knee was also irrigated with Irrisept solution. The components were then opened, the cement was mixed, and the components were then cemented in place. The cement was allowed to harden with the knee in full extension. After the cemented hardened. The tourniquet was released, and hemostasis was obtained. A second gram of transexamic acid was given. The knee was again irrigated. The knee was again taken through range of motion and found to be stable throughout all range of motion of 0-115. The fascia was then closed with #2 strata fix suture. The subcutaneous tissue was closed with 3-0 Vicryl and 3-0 monocryl. Exofin glue was used for the skin and placed with the knee in flexion. The patient was placed in a sterile silver dressing. Patient was then transferred to recovery room in stable condition. The educational program assistant AIRAM Reynoso was required due the complexity surgery and the need for a skilled surgical scrub technician. She assisted in positioning, draping, retraction, and closure of the wound.and closure of the wound.
[2025-01-18] MEDS: ROPIVACAINE 1,100 MG, SODIUM CHLORIDE 0.9% 500 ML 330 ML, EMPTY PAIN BALL 1 EACH MISCELLANE PRN (12:28)
--- NOTE | 2025-01-18 12:36 | XR ---
EXAMINATION TYPE: XR knee limited LT DATE OF EXAM: 01/18/2025 CLINICAL HISTORY: Postoperative evaluation Two views of the left knee are submitted. Identified are changes of total knee arthroplasty with fem oral and tibial components appearing well seated. Postsurgical soft tissue changes are noted. Align ment is anatomic. [facility], , 01/18/2025 12:34 PM
[2025-01-18] MEDS: HYDROmorphone 0.5 MG/0.5 ML SYRINGE IVP PRN ×2 (13:43→18:32)
[2025-01-18] MEDS: droPERidol 2.5 MG/ML VIAL IVP ONE (14:48)
[2025-01-18] MEDS: HYDROcodone/APAP 7.5-325MG 1 EACH TAB PO PRN (16:35)
[2025-01-18] MEDS: SODIUM CHLORIDE 0.9% 1,000 ML IV SCH (17:03)
[2025-01-18] MEDS: ceFAZolin 3 GM in SODIUM CHLORIDE 0.9% 100 ML IVPB SCH (18:32)
[2025-01-18] MEDS: ASPIRIN 325 MG TAB PO SCH (21:46)
[2025-01-18] MEDS: SENNOSIDES-DOCUSATE SODIUM 1 EACH TAB PO SCH (21:46)
[2025-01-18] MEDS ORDERED: LORATADINE 10 MG TAB PO PRN (21:59)
[2025-01-18] MEDS ORDERED: ALBUTEROL NEBULIZED 2.5 MG/3 ML INHALATION PRN (21:59)
[2025-01-18] MEDS ORDERED: ALPRAZolam 0.25 MG TAB PO PRN (21:59)
[2025-01-18] MEDS: SYMBICORT 160-4.5 MCG INHALER INHALATION SCH (22:06)
[2025-01-19 01:26] VITALS: TEMP 97.8
[2025-01-19] MEDS: hydrOXYzine pamoate 25 MG CAP PO PRN (05:26)
[2025-01-19 07:54] VITALS: BP 132/83; PULSE 89; RESP 20
[2025-01-19] MEDS: MULTIVITAMINS, THERA 1 EACH TAB PO SCH (08:10)
[2025-01-19] MEDS: METOPROLOL TARTRATE 50 MG TAB PO SCH (08:10)
--- NOTE | 2025-01-19 08:17 | P.PN ---
Progress Note - Text Progress Note Date: 01/19/25 (241) Anesthesiology Postop day 1 status post total knee arthroplasty with adductor canal catheter. Patient doing well. VAS 7 out of 10. Gross strength intact in lower extremity. Afebrile. Denies alterations in sensorium. Catheter site intact. Heart regular rate Lungs nonlabored Abdomen nondistended Assessment: Postop day 1 status post total knee arthroplasty with adductor canal catheter Plan: 1.All questions answered. Maintain catheter 2 more days with patient removal at home. Instructions to be given at discharge. 2.This note was dictated using [employer] software. Please be advised there is a potential for misspellings or errors in digital media manager.
--- NOTE | 2025-01-19 08:51 | P.DS ---
Providers Date of admission: 01/18/25 06:36 Expected date of discharge: 01/19/25 Attending physician: Rosalino Orozco Consults: 01/18/25 09:07 Consult Physician Routine Consulting Provider: Danyel Valdes Consult Reason/Comments: medical management Do you want consulting provider notified?: Yes Primary care physician: Omer Katz - Discharge Diagnosis(es) (1) Status post revision of total replacement of left knee Current Visit: Yes Status: Acute Hospital Course: This is a 64-year-old female who has a history of left total knee arthroplasty. Patient developed increasing pain in the left knee and was found to have evidence for loosening of the tibial component. The patient presented for miguel crews as an outpatient. After discussion and consideration patient elects to proceed with revision left total knee arthroplasty. The patient is seen preoperatively by Dr. Orozco and medically cleared for surgery by their primary care physician. Patient is admitted to [facility] on 01/18/2025 for total knee arthroplasty. The procedure is performed without complication or sequelae. The patient is doing well postoperatively. Labs and vital signs are stable on day of discharge. On day of discharge patient's knee incision is healing well. There is minimal erythema. There is no drainage noted at this time. There is minimal soft tissue swelling to the knee. Patient has full foot and ankle motion without difficulty or pain. Calf is soft and nontender to palpation. Neurovascular status to the left lower extremity is intact. Patient is discharged home in good condition. Please see med rec for accurate list of home medications. Plan - Discharge Summary Discharge Rx Participant: Yes New Discharge Prescriptions: New hydrOXYzine pamoate [Vistaril] 25 mg PO Q6H PRN #30 capsule PRN Reason: Pain Ketorolac [Toradol] 10 mg PO Q6HR #12 tab Aspirin 325 mg PO BID #60 tab HYDROcodone/APAP 7.5-325MG [[place] 7.5-325] 1 - 2 tab PO Q6H PRN #32 tab PRN Reason: Pain Sennosides [Senokot] 2 tab PO DAILY PRN #60 tablet PRN Reason: Constipation No Action Budesonide-Formot 160-4.5 Mcg [Symbicort 160-4.5 Mcg Inhaler] 2 puff INHALATION RT-BID Montelukast Sodium [Singulair] 10 mg PO HS Aspirin 81 mg PO DAILY #30 tab Multivitamins, Thera [Multivitamin (formulary)] 1 tab PO DAILY Metoprolol Tartrate [Lopressor] 50 mg PO BID Albuterol Inhaler [Ventolin Hfa Inhaler] 2 puff INHALATION RT-QID PRN PRN Reason: Shortness Of Breath lisinopriL [Zestril] 20 mg PO BID HYDROcodone/APAP 5-325MG [[place] 5-325] 0.5 tab PO Q8H PRN PRN Reason: Pain ALPRAZolam [Xanax] 0.25 mg PO TID PRN PRN Reason: Anxiety Loratadine [Claritin] 10 mg PO DAILY PRN PRN Reason: Allergy Symptoms predniSONE 2.5 mg PO DAILY Discharge Medication List Budesonide-Formot 160-4.5 Mcg [Symbicort 160-4.5 Mcg Inhaler] 2 puff INHALATION RT-BID 12/29/18 [History] Montelukast Sodium [Singulair] 10 mg PO HS 12/29/18 [History] Metoprolol Tartrate [Lopressor] 50 mg PO BID 01/12/22 [History] Albuterol Inhaler [Ventolin Hfa Inhaler] 2 puff INHALATION RT-QID PRN 03/31/23 [History] lisinopriL [Zestril] 20 mg PO BID 03/31/23 [History] ALPRAZolam [Xanax] 0.25 mg PO TID PRN 04/25/24 [History] HYDROcodone/APAP 5-325MG [[place] 5-325] 0.5 tab PO Q8H PRN 04/25/24 [History] Aspirin 81 mg PO DAILY #30 tab 04/28/24 [Rx] Loratadine [Claritin] 10 mg PO DAILY PRN 01/13/25 [History] Multivitamins, Thera [Multivitamin (formulary)] 1 tab PO DAILY 01/13/25 [History] predniSONE 2.5 mg PO DAILY 01/15/25 [History] Aspirin 325 mg PO BID #60 tab 01/18/25 [Rx] HYDROcodone/APAP 7.5-325MG [[place] 7.5-325] 1 - 2 tab PO Q6H PRN #32 tab 01/18/25 [Rx] Sennosides [Senokot] 2 tab PO DAILY PRN #60 tablet 01/18/25 [Rx] hydrOXYzine pamoate [Vistaril] 25 mg PO Q6H PRN #30 capsule 01/18/25 [Rx] Ketorolac [Toradol] 10 mg PO Q6HR #12 tab 01/19/25 [Rx] Follow up Appointment(s)/Referral(s): Rosalino Orozco DO [Doctor of Osteopathic Medicine] - 2 Weeks Activity/Diet/Wound Care/Special Instructions: Weightbearing as tolerated with a walker. Leave dressing intact. Dressing may be removed by home care nurse or by patient in 7 days. Then change dressing twice daily until follow up. May shower with initial dressing intact and after removal. If dressing become saturated, please remove. Recommend use of compression stockings daily until follow up to help prevent swelling and blood clots. May remove at night before sleeping. Please take aspirin 325mg twice daily for 30 days to prevent blood clots. Please follow up with [facility] and call with any questions or concerns, . Discharge Disposition: HOME WITH HOME HEALTH SERVICES
[2025-01-19] MEDS: ETODOLAC 400 MG TAB PO SCH (09:24)
[2025-01-19 10:50] LABS: Basophils # (A) 0.03 X 10*3/uL (0.00-0.10); Basophils % (A) 0.3 %; Eosinophils # (A) 0.01 X 10*3/uL (0.04-0.35); Eosinophils % (A) 0.1 %; HCT 37.7 % (37.2-46.3); HGB 11.7 g/dL (12.0-15.0); Lymphocytes % (A) 12.4 %; MCH 30.5 pg (27.0-32.0); MCV 98.2 FL (80.0-97.0); Mean Platelet Volume 11.3 FL (9.5-12.2); Monocytes # (A) 1.06 X 10*3/uL (0.20-1.00); Monocytes % (A) 10.9 %; NRBC Per 100 WBC 0 X 10*3/uL (0.00-0.01); Neutrophils # (A) 7.38 X 10*3/uL (1.80-7.70); Platelet Count 254 X 10*3/uL (140-440); RBC 3.84 X 10*6/uL (4.10-5.20); RDW 13.8 % (11.5-14.5); WBC 9.71 X 10*3/uL (4.50-10.00)
[2025-01-19 11:27] LABS: BUN/Creat Ratio 25.43 Ratio (12.00-20.00); Blood Urea Nitrogen 17.8 mg/dL (9.0-27.0); Carbon Dioxide 22.6 mmol/L (21.6-31.8); Chloride 102 mmol/L (96-109); Glucose 153 mg/dL (70-110); Magnesium 1.8 mg/dL (1.5-2.4); Potassium 4.4 mmol/L (3.5-5.5); Sodium 139 mmol/L (135-145)
--- NOTE | 2025-01-19 13:55 | P.CONS ---
History of Present Illness - Reason for Consult Consult date: 01/19/25 Medical management, status post left knee revision arthroplasty - History of Present Illness This is a pleasant 64-year-old female who was admitted under orthopedic services and is status post left total knee arthroplasty. Patient had been having increasing pain and difficulty with ambulation having some ongoing swelling and was noted to have loosening of the tibial component and follows with Dr. Clark outpatient and elected to undergo total arthroplasty. Patient follows with Dr. Katz in the outpatient setting with a past medical history of COPD, hypertension, mitral valve prolapse, osteoarthritis, sleep apnea, morbid obesity. 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 Patient is doing relatively well and has worked with physical therapy and plans on going home today. Labs reviewed including basic metabolic panel and within normal limits and creatinine 0.7, sodium 139, potassium 4.4, magnesium 1.8. Patient's white blood count is within normal limits at 9.71 and hemoglobin is 11.7. Home medications reviewed and resumed as appropriate other than lisinopril as we were awaiting basic metabolic panel to ensure kidney functions were adequate. Patient is currently normotensive and has been instructed to resume lisinopril at home. REVIEW OF SYSTEMS: CONSTITUTIONAL: No fever, no malaise, no fatigue. HEENT: No recent visual problems or hearing problems. Denied any sore throat. CARDIOVASCULAR: No chest pain, orthopnea, PND, no palpitations, no syncope. PULMONARY: No shortness of breath, no cough, no hemoptysis. GASTROINTESTINAL: No diarrhea, no nausea, no vomiting, no abdominal pain. NEUROLOGICAL: No headaches, no weakness, no numbness. HEMATOLOGICAL: Denies any bleeding or petechiae. GENITOURINARY: Denies any burning micturition, frequency, or urgency. MUSCULOSKELETAL/RHEUMATOLOGICAL: Patient reports significant left knee tenderness and some swelling of the lower extremity ENDOCRINE: Denies any polyuria or polydipsia. The rest of the 14-point review of systems is negative. PHYSICAL EXAMINATION: GENERAL: The patient is alert and oriented x3, not in any acute distress. Well developed, elderly appearing, morbidly obese HEENT: Pupils are round and equally reacting to light. EOMI. No scleral icterus. No conjunctival pallor. Normocephalic, atraumatic. No pharyngeal erythema. No thyromegaly. CARDIOVASCULAR: S1 and S2 muffled PULMONARY: Diminished breath sounds bilaterally otherwise chest is clear to auscultation, no wheezing or crackles. ABDOMEN: Soft, obese. Nontender, nondistended, normoactive bowel sounds. No palpable organomegaly. MUSCULOSKELETAL: No joint swelling or deformity. EXTREMITIES: No cyanosis, clubbing, or pedal edema. Left knee surgical dressing is dry and intact with ice pack noted and there is some lower extremity swelling and patient has chronic sarcoidosis with issues of the lower extremity swelling NEUROLOGICAL: Gross neurological examination did not reveal any focal deficits. Diffusely weak SKIN: No rashes. 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 Patient reports she worked with physical therapy and did well and will be going home and has support in the home Patient also noted to have some redness and swelling although infiltrated at the left antecubital site status post IV placement. Patient has been instructed to elevate and continue to monitor the area and continue with ice packs with bacitracin to the site. Patient is being started on prophylactic doxycycline per orthopedics and will be continued in the outpatient setting Home medications reviewed and resumed as appropriate Patient has been instructed to resume other blood pressure medications once returning home Encouraged incentive spirometer use at least 10 times every hour while awake and continuing to take home and use. We will continue to follow with orthopedics during hospitalization. Thank you kindly for this consultation. Patient did undergo surgical clearance with cardiology as well as primary care provider outpatient. The impression and plan of care has been dictated by Anahy Zeng, Nurse Practitioner as directed. Dr. Marii MD I have performed a history and examination and MDM of this patient, discussed the same with the dictator, and agree with the dictator's assessment and plan as written ,documented as a scribe. Based on total visit time, I have performed more than 50% of the visit. Past Medical History Past Medical History: COPD, Hypertension, Mitral Valve Prolapse (MVP), Osteoarthritis (OA), Sleep Apnea/CPAP/BIPAP Additional Past Medical History / Comment(s): L knee pain- previous TKA screws coming out, AAA, hx bronchitis, sleep apnea- no machine, sarcoidosis- skin/lung/heart History of Any Multi-Drug Resistant Organisms: None Reported Past Surgical History: Adenoidectomy, Bariatric Surgery, Joint Replacement, Orthopedic Surgery, Tonsillectomy Additional Past Surgical History / Comment(s): lap band, R eye sx for blocked blood vessel, sinus sx, B/L knee replacement, lung biopsy, [facility], mitral valve repair may 2021 Past Anesthesia/Blood Transfusion Reactions: Previous Problems w/ Anesthesia Additional Past Anesthesia/Blood Transfusion Reaction / Comm: Difficult IV starts- usually needs midline or central line. Hx of waking up during multiple surgeries - including bronchosopy and EGD. Anesthesiologist told her to have anesthesia read past [facility] anesthesia notes for anesthesia recommendations. Smoking Status: Never smoker - Past Family History Sister(s) Family Medical History: Cancer Additional Family Medical History / Comment(s): BREAST CANCER, HX OF BRACHIAL BLOOD CLOTS WITH FILTERS INSERTED. Mother Family Medical History: Cancer Additional Family Medical History / Comment(s): BREAST CANCER. Father Family Medical History: Congestive Heart Failure (CHF), Myocardial Infarction (MT) Additional Family Medical History / Comment(s): MT Brother(s) Family Medical History: Coronary Artery Disease (CAD) Additional Family Medical History / Comment(s): Medications and Allergies Home Medications Medication Instructions Recorded Confirmed Type Budesonide-Formot 160-4.5 Mcg 2 puff INHALATION RT-BID 12/29/18 01/18/25 History [Symbicort 160-4.5 Mcg Inhaler] Montelukast Sodium [Singulair] 10 mg PO HS 12/29/18 01/18/25 History Metoprolol Tartrate [Lopressor] 50 mg PO BID 01/12/22 01/18/25 History Albuterol Inhaler [Ventolin Hfa 2 puff INHALATION RT-QID PRN 03/31/23 01/18/25 History Inhaler] lisinopriL [Zestril] 20 mg PO BID 03/31/23 01/18/25 History ALPRAZolam [Xanax] 0.25 mg PO TID PRN 04/25/24 01/18/25 History HYDROcodone/APAP 5-325MG [[place] 0.5 tab PO Q8H PRN 04/25/24 01/18/25 History 5-325] Loratadine [Claritin] 10 mg PO DAILY PRN 01/13/25 01/18/25 History Multivitamins, Thera [Multivitamin 1 tab PO DAILY 01/13/25 01/18/25 History (formulary)] predniSONE 2.5 mg PO DAILY 01/15/25 01/18/25 History Aspirin 325 mg PO BID #60 tab 01/18/25 Rx HYDROcodone/APAP 7.5-325MG [[place] 1 - 2 tab PO Q6H PRN #32 tab 01/18/25 Rx 7.5-325] Sennosides [Senokot] 2 tab PO DAILY PRN #60 tablet 01/18/25 Rx hydrOXYzine pamoate [Vistaril] 25 mg PO Q6H PRN #30 capsule 01/18/25 Rx Doxycycline Monohydrate 100 mg PO BID 7 Days #14 cap 01/19/25 Rx Ketorolac [Toradol] 10 mg PO Q6HR #12 tab 01/19/25 Rx Allergies Allergy/AdvReac Type Severity Reaction Status Date / Time No Known Allergies Allergy Verified 01/18/25 07:16 Physical Exam Vitals: Vital Signs Temp Pulse Pulse Resp BP Pulse Ox 01/19/25 07:07 97.8 F 89 20 132/83 97 01/19/25 00:50 97.8 F 86 18 129/79 93 L 01/18/25 19:30 98 F 98 18 114/76 94 L 01/18/25 15:53 97.9 F 83 19 149/98 94 L 01/18/25 15:00 79 16 145/74 97 01/18/25 14:30 81 17 146/75 98 01/18/25 14:00 74 16 153/79 99 01/18/25 13:45 79 17 149/82 99 01/18/25 13:30 75 16 160/78 100 01/18/25 13:15 81 17 153/77 93 L 01/18/25 13:00 74 16 151/72 95 01/18/25 12:46 72 16 153/72 97 01/18/25 12:30 75 17 161/75 100 01/18/25 12:15 88 16 163/99 100 01/18/25 12:00 96.8 F L 77 14 157/74 99 Intake and Output 01/18/25 01/19/25 01/19/25 22:59 06:59 14:59 Intake Total 450 Output Total 200 Balance 450 -200 Intake: IV 450 Output: Urine 200 Other: # Voids 1 Weight 122.2 kg Results CBC & Chem 7: 01/19/25 05:52 01/19/25 05:52
[2025-01-19] MEDS ORDERED: MONTELUKAST 10 MG TAB PO SCH (21:00)
== END 2025-01-19 14:49 | disposition home health service (06) ==
LOC: UNDOADMIN 06:36 → 2ORMAIN 06:36 → OR 06:36 → EDSTATUS 07:00 → 4SSUR 15:28 → 2ORMAIN 15:28 → UNDODISIN 01-19 14:49 → OR 01-19 14:49
PROVIDERS: ATTEND Orthopaedic Surgery
DX: T84.033A Mechanical loosening of internal left knee prosthetic joint, initial encounter (principal); I27.20 Pulmonary hypertension, unspecified; I10 Essential (primary) hypertension; I71.9 Aortic aneurysm of unspecified site, without rupture; E78.5 Hyperlipidemia, unspecified; I05.9 Rheumatic mitral valve disease, unspecified; J45.909 Unspecified asthma, uncomplicated; G47.33 Obstructive sleep apnea (adult) (pediatric); D86.85 Sarcoid myocarditis; Z95.2 Presence of prosthetic heart valve; Z96.652 Presence of left artificial knee joint; Z79.82 Long term (current) use of aspirin; Z79.51 Long term (current) use of inhaled steroids; Z79.890 Hormone replacement therapy
CPT/HCPCS: 27487; 94640; 97161; 64999; 64448; 80048; 83735; 85025; 73560; C1776; C1713; C1751; J2250; J1200; J1100; J1720; J0690 ×2; J2405; J3010; J2795; J2704; J1171; J2371; J1596; J1790

== ENCOUNTER 2025-01-21 18:50 | Observation (INO) | payer MEDICAID ==
--- NOTE | 2025-01-21 19:16 | ED ---
Lower Extremity Injury HPI - General Source: patient, RN notes reviewed Mode of arrival: wheelchair Limitations: no limitations <Chelsea Clark - Last Filed: 01/22/25 02:27> <Ramon Mahoney - Last Filed: 01/25/25 05:48> - General Chief Complaint: Extremity Injury, Lower Stated Complaint: post op knee pain Time Seen by Provider: 01/21/25 19:15 - History of Present Illness Initial Comments: 64-year-old female presented to the ER for evaluation of left knee pain. Patient underwent total knee arthroplasty with Dr. Orozco on 01/18/25. Patient was discharged the following day with a prescription of [place] 7.5 and Vistaril. Patient also had pain pump in place. Patient reports her pain pump ran out last night around midnight. She states she had noted increasing warmth to left lower extremity and pain over the past 24 hours. She states pain is not controlled with prescribed medications which prompted ER visit. Patient denies any injuries or traumas. Denies any fevers, chills or purulent drainage from wound. No other complaints at this time. (Chelsea Clark) - Related Data Home Medications Medication Instructions Recorded Confirmed Budesonide-Formot 160-4.5 Mcg 2 puff INHALATION RT-HS 12/29/18 01/22/25 [Symbicort 160-4.5 Mcg Inhaler] Montelukast Sodium [Singulair] 10 mg PO HS 12/29/18 01/22/25 Metoprolol Tartrate [Lopressor] 50 mg PO BID 01/12/22 01/22/25 Albuterol Inhaler [Ventolin Hfa 2 puff INHALATION RT-QID PRN 03/31/23 01/22/25 Inhaler] lisinopriL [Zestril] 20 mg PO BID 03/31/23 01/22/25 ALPRAZolam [Xanax] 0.25 mg PO TID PRN 04/25/24 01/22/25 Loratadine [Claritin] 10 mg PO DAILY PRN 01/13/25 01/22/25 Multivitamins, Thera [Multivitamin 1 tab PO DAILY 01/13/25 01/22/25 (formulary)] predniSONE 2.5 mg PO DAILY 01/15/25 01/22/25 Aspirin EC [Ecotrin] 325 mg PO BID 01/22/25 01/22/25 Furosemide [Lasix] 20 mg PO MOWEFR 01/22/25 01/22/25 Pantoprazole [Protonix] 40 mg PO DAILY 01/22/25 01/22/25 Spironolactone [Aldactone] 25 mg PO DAILY PRN 01/22/25 01/22/25 Previous Rx's Medication Instructions Recorded HYDROcodone/APAP 7.5-325MG [[place] 1 - 2 tab PO Q6H PRN #32 tab 01/18/25 7.5-325] Sennosides [Senokot] 2 tab PO DAILY PRN #60 tablet 01/18/25 hydrOXYzine pamoate [Vistaril] 25 mg PO Q6H PRN #30 capsule 01/18/25 Doxycycline Monohydrate 100 mg PO BID 7 Days #14 cap 01/19/25 Allergies Allergy/AdvReac Type Severity Reaction Status Date / Time No Known Allergies Allergy Verified 01/22/25 09:11 Review of Systems ROS Other: All systems not noted in ROS Statement are negative. <Chelsea Clark - Last Filed: 01/22/25 02:27> ROS Other: All systems not noted in ROS Statement are negative. <Ramon Mahoney - Last Filed: 01/25/25 05:48> ROS Statement: Those systems with pertinent positive or pertinent negative responses have been documented in the HPI. Past Medical History Past Medical History: COPD, Hypertension, Mitral Valve Prolapse (MVP), Osteoarthritis (OA), Sleep Apnea/CPAP/BIPAP Additional Past Medical History / Comment(s): L knee pain- previous TKA screws coming out, AAA, hx bronchitis, sleep apnea- no machine, sarcoidosis- skin/lung/heart History of Any Multi-Drug Resistant Organisms: None Reported Past Surgical History: Adenoidectomy, Bariatric Surgery, Joint Replacement, Orthopedic Surgery, Tonsillectomy Additional Past Surgical History / Comment(s): lap band, R eye sx for blocked blood vessel, sinus sx, B/L knee replacement, lung biopsy, M[facility]LANDE, mitral valve repair may 2021 Past Anesthesia/Blood Transfusion Reactions: Previous Problems w/ Anesthesia Additional Past Anesthesia/Blood Transfusion Reaction / Comment(s): Difficult IV starts- usually needs midline or central line. Hx of waking up during multiple surgeries - including bronchosopy and EGD. Anesthesiologist told her to have anesthesia read past M[facility]LANDE anesthesia notes for anesthesia recommendations. Past Psychological History: No Psychological Hx Reported Smoking Status: Never smoker - Past Family History Sister(s) Family Medical History: Cancer Additional Family Medical History / Comment(s): BREAST CANCER, HX OF BRACHIAL BLOOD CLOTS WITH FILTERS INSERTED. Mother Family Medical History: Cancer Additional Family Medical History / Comment(s): BREAST CANCER. Father Family Medical History: Congestive Heart Failure (CHF), Myocardial Infarction ([place]) Additional Family Medical History / Comment(s): [place] Brother(s) Family Medical History: Coronary Artery Disease (CAD) Additional Family Medical History / Comment(s): <Chelsea Clark - Last Filed: 01/22/25 02:27> General Exam Limitations: no limitations General appearance: alert, in no apparent distress Respiratory exam: Present: normal lung sounds bilaterally. Absent: respiratory distress, wheezes, rales, rhonchi, stridor Cardiovascular Exam: Present: regular rate, normal rhythm, normal heart sounds. Absent: systolic murmur, diastolic murmur, rubs, gallop, clicks Extremities exam: Present: other (Vertical surgical incision noted to left knee. Incision is intact with no dehiscence, purulent drainage, surrounding erythema. Bruising noted. Knee is warm and edematous to touch.) Neurological exam: Present: alert, oriented X3, CN II-XII intact Skin exam: Present: warm, dry, intact, normal color. Absent: rash <Chelsea Clark - Last Filed: 01/22/25 02:27> Course <Chelsea Clark - Last Filed: 01/22/25 02:27> Vital Signs 01/21/25 01/21/25 01/22/25 18:55 22:50 00:31 Temperature 97.7 F 99.0 F 98.4 F Pulse Rate 100 110 H 101 H Respiratory 20 19 19 Rate Blood Pressure 169/85 153/76 132/70 O2 Sat by Pulse 97 97 97 Oximetry - Reevaluation(s) Reevaluation #1: 01/22/25 00:08 Case discussed with Orthopedics, Dr. Crespo, who accepts admission. (Chelsea Clark) Medical Decision Making - Lab Data Result diagrams: 01/21/25 19:48 01/21/25 19:48 - Radiology Data Radiology results: report reviewed, image reviewed <AmberChelsea - Last Filed: 01/22/25 02:27> - Lab Data Result diagrams: 01/21/25 19:48 01/21/25 19:48 <Ramon Mahoney - Last Filed: 01/25/25 05:48> - Medical Decision Making Was pt. sent in by a medical professional or institution (, PA, HOME DELIVERY DRIVER, urgent care, hospital, or senior care...) When possible be specific @ -No Did you speak to anyone other than the patient for history (EMS, parent, family, police, friend...)? What history was obtained from this source @ -Patient's friend, at bedside, aiding in HPI and past medical history. Did you review nursing and triage notes (agree or disagree)? Why? @ -I reviewed and agree with nursing and triage notes Were old charts reviewed (outside hosp., previous admission, EMS record, old EKG, old radiological studies, urgent care reports/EKG's, senior care records)? Report findings @ -Yes, I reviewed operative notes from 01 18 25. Patient underwent left knee arthroscopy with Dr. Orozco and was discharged on 01/19/25 with prescripation of [place] 7.5 and Vistaril. Patient also had pain pump in place. Differential Diagnosis (chest pain, altered mental status, abdominal pain women, abdominal pain men, vaginal bleeding, weakness, fever, dyspnea, syncope, headache, dizziness, GI bleed, back pain, seizure, CVA, palpatations, mental health, musculoskeletal)? @ -Differential Musculoskeletal: Muscular strain, contusion, ligament sprain, fracture, arthritis, septic arthritis, bursitis, cellulitis, muscle spasm, nerve compression, DVT, arterial occlusion, herpes zoster, electrolyte abnormality, tumor.... This is not meant to be in all inclusive list EKG interpreted by me (3pts min.). @ -None done X-rays interpreted by me (1pt min.). @ -Left knee x-ray interpreted me negative for acute fractures or dislocations. CT interpreted by me (1pt min.). @ -None done U/S interpreted by me (1pt. min.). @ -Ultrasound venous Doppler left lower extremity showed no acute evidence of DVT. What testing was considered but not performed or refused? (CT, X-rays, U/S, labs)? Why? @ -None What meds were considered but not given or refused? Why? @ -None Did you discuss the management of the patient with other professionals (professionals i.e. , PA, HOME DELIVERY DRIVER, lab, RT, psych nurse, social scientist, recreational assistant, teacher, defence force senior officer, case checker)? Give summary @ -Case discussed with human resources consultant orthopedics, Dr. Crespo, who accepts observation admission. Was smoking cessation discussed for >3mins.? @ -No Was critical care preformed (if so, how long)? @ -No Were there social determinants of health that impacted care today? How? (Homelessness, low income, unemployed, alcoholism, drug addiction, transportation, low edu. Level, literacy, decrease access to med. care, [place] [facility], rehab)? @ -No Was there de-escalation of care discussed even if they declined (Discuss DNR or withdrawal of care, Hospice)? DNR status @ -No What co-morbidities impacted this encounter? (DM, HTN, Smoking, COPD, CAD, Cancer, CVA, ARF, Chemo, Hep., AIDS, mental health diagnosis, sleep apnea, morbid obesity)? @ -Status post left total knee arthroplasty, COPD, hypertension, MVP, sleep apnea Was patient admitted / discharged? Hospital course, mention meds given and route, prescriptions, significant lab abnormalities, going to OR and other pertinent info. @ -Admitted. 64 year old female presenting to the ER for evaluation of left knee osborne. Patient underwent left knee arthroplasty with Dr. Orozco on 01/18/25. Upon rooming, history and physical exam completed. Vitals within acceptable limits. Patient had no signs of acute distress but is anxious and appears in pain. Left lower extremity is neurovascularly intact. There is a vertical incision over anterior aspect of left knee. No wound dehiscence, surrounding erythema, purulent drainage or warmth. Given concern of worsening postoperative pain, laboratory studies obtained to rule out infection showing a WBC of 9.3. Lactic 1.9. CRP 19.9 possibly elevated from recent surgical intervention. X- ray negative for acute fractures or dislocations. Left lower extremity ultrasound negative for acute evidence of DVT. Patient received symptomatic treatment in the ER with IV fluids, Zofran, Dilaudid and Vistaril. Upon reevaluation, patient reporting continued pain and admission was considered at that time. Admission discussed with on-call orthopedics, who accepts observation admission. Patient agreeable. Patient admitted in stable condition. Case discussed with ED attending, Dr. Mahoney, who also evaluated patient. Undiagnosed new problem with uncertain prognosis? @ -No Drug Therapy requiring intensive monitoring for toxicity (Heparin, Nitro, Insulin, Cardizem)? @ -No Were any procedures done? @ -No Diagnosis/symptom? @ -Knee pain status post left knee arthroplasty Acute, or Chronic, or Acute on Chronic? @ -Acute Uncomplicated (without systemic symptoms) or Complicated (systemic symptoms)? @ -Complicated Side effects of treatment? @ -No Exacerbation, Progression, or Severe Exacerbation? @ -No Poses a threat to life or bodily function? How? (Chest pain, [place], [place], pneumonia, PE, COPD, DKA, ARF, appy, cholecystitis, CVA, Diverticulitis, Homicidal, Suicidal, threat to staff... and all critical care pts) @ -Low at this time (Chelsea Clark) - Lab Data Lab Results 01/21/25 01/21/25 01/21/25 Range/Units 19:48 19:48 19:48 WBC 9.3 (3.8-10.6) k/uL RBC 4.11 (3.80-5.40) m/uL Hgb 12.4 (11.4-16.0) gm/dL Hct 39.0 (34.0-46.0) % MCV 95.0 (80.0-100.0) fL MCH 30.3 (25.0-35.0) pg MCHC 31.9 (31.0-37.0) g/dL RDW 14.1 (11.5-15.5) % Plt Count 265 (150-450) k/uL MPV 8.4 Neutrophils % 71 % Lymphocytes % 16 % Monocytes % 7 % Eosinophils % 4 % Basophils % 0 % Neutrophils # 6.6 (1.3-7.7) k/uL Lymphocytes # 1.5 (1.0-4.8) k/uL Monocytes # 0.7 (0-1.0) k/uL Eosinophils # 0.4 (0-0.7) k/uL Basophils # 0.0 (0-0.2) k/uL ESR 55 H (0-30) mm/Hr Sodium 137 (137-145) mmol/L Potassium 4.1 (3.5-5.1) mmol/L Chloride 102 (98-107) mmol/L Carbon Dioxide 23 (22-30) mmol/L Anion Gap 12 mmol/L BUN 17 (7-17) mg/dL Creatinine 0.45 L (0.52-1.04) mg/dL Est GFR (CKD-EPI)AfAm >90 (>60 ml/min/1.73 sqM) Est GFR (CKD-EPI)NonAf >90 (>60 ml/min/1.73 sqM) Glucose 88 (74-99) mg/dL Plasma Lactic Acid Justin 1.9 (0.7-2.0) mmol/L Calcium 9.4 (8.4-10.2) mg/dL Total Bilirubin 1.1 (0.2-1.3) mg/dL AST 28 (14-36) U/L ALT 19 (4-34) U/L Alkaline Phosphatase 63 (38-126) U/L C-Reactive Protein 19.9 H (<1.0) mg/dL Total Protein 6.3 (6.3-8.2) g/dL Albumin 4.0 (3.5-5.0) g/dL Disposition Time of Disposition: 22:28 <Chelsea Clark - Last Filed: 01/22/25 02:27> <Ramon Mahoney - Last Filed: 01/25/25 05:48> Clinical Impression: Knee pain, S/P total knee arthroplasty Disposition: ADMITTED IP TO THIS [facility] Condition: Stable
[2025-01-21 20:21] LABS: Basophils % (A) 0 %; Eosinophils # (A) 0.4 k/uL (0-0.7); Eosinophils % (A) 4 %; HGB 12.4 gm/dL (11.4-16.0); Lymphocytes # (A) 1.5 k/uL (1.0-4.8); Lymphocytes % (A) 16 %; MCH 30.3 pg (25.0-35.0); MCHC 31.9 g/dL (31.0-37.0); Mean Platelet Volume 8.4; Monocytes # (A) 0.7 k/uL (0-1.0); Monocytes % (A) 7 %; Neutrophils # (A) 6.6 k/uL (1.3-7.7); Neutrophils % (A) 71 %; Platelet Count 265 k/uL (150-450); RBC 4.11 m/uL (3.80-5.40); RDW 14.1 % (11.5-15.5); WBC 9.3 k/uL (3.8-10.6)
[2025-01-21 20:35] LABS: ALT 19 U/L (4-34); AST 28 U/L (14-36); African American GFR (CKD) >90 (>60 ml/min/1.73 sqM); Alkaline Phosphatase 63 U/L (38-126); Anion Gap 12 mmol/L; Blood Urea Nitrogen 17 mg/dL (7-17); Calcium 9.4 mg/dL (8.4-10.2); Carbon Dioxide 23 mmol/L (22-30); Chloride 102 mmol/L (98-107); Glucose 88 mg/dL (74-99); Non-African American GFR(CKD) >90 (>60 ml/min/1.73 sqM); Potassium 4.1 mmol/L (3.5-5.1); Sodium 137 mmol/L (137-145); Total Bilirubin 1.1 mg/dL (0.2-1.3); Total Protein 6.3 g/dL (6.3-8.2)
[2025-01-21] MEDS: HYDROmorphone 1 MG/ML 1 ML SYRINGE IVP STA ×2 (20:45→23:02)
[2025-01-21] MEDS: ONDANSETRON 4 MG/2 ML VIAL IVP STA (20:46)
[2025-01-21] MEDS: SODIUM CHLORIDE 0.9% 500 ML 500 ML IV ONE (20:46)
[2025-01-21 21:02] LABS: C Reactive Protein 19.9 mg/dL (<1.0)
--- NOTE | 2025-01-21 21:07 | XR ---
EXAMINATION TYPE: XR knee complete LT DATE OF EXAM: 01/21/2025 9:02 PM COMPARISON: 01/18/2025 CLINICAL INDICATION: Female, 64 years old with history of pain s/p replacement, pain TECHNIQUE: Three views of the left knee are obtained. FINDINGS: There is no acute fracture/dislocation evident in left knee. Total knee arthroplasty odom es redemonstrated and appears stable relative to postoperative evaluation of 01/18/2025. The overlying soft tissue appears unremarkable. IMPRESSION: There is no acute fracture or dislocation in the left knee. [facility], , 01/21/2025 9:04 PM
--- NOTE | 2025-01-21 22:01 | US ---
EXAMINATION TYPE: US venous doppler duplex LE LT DATE OF EXAM: 01/21/2025 9:54 PM COMPARISON: 07/06/2024 CLINICAL INDICATION: Female, 64 years old with history of pain s/p replacement; patient states left k nee replacement surgery on saturday. pain and swelling, Pain TECHNIQUE: The lower extremity deep venous system is examined utilizing real time linear array sonog jignesh with graded compression, color doppler sonography, and spectral doppler. SIDE PERFORMED: Left FINDINGS: VESSELS IMAGED: Common Femoral Vein Deep Femoral Vein Greater Saphenous Vein * Femoral Vein Popliteal Vein Small Saphenous Vein * Proximal Calf Veins (* superficial vessels) *slightly limited due to patient body habitus Left Leg: Appears negative for dvt. Unable to visualize distal femoral vein in transverse for compre ssion, however color and spectral waveforms shown, Color Doppler imaging shows patency of the vessels . Spectral waveforms are within normal limits. IMPRESSION: No ultrasound evidence for deep venous thrombosis. [facility], , 01/21/2025 9:58 PM
[2025-01-21] MEDS: hydrOXYzine pamoate 25 MG CAP PO STA (23:07)
[2025-01-21] MEDS ORDERED: NALOXONE 0.4 MG/ML 1 ML VIAL IV PRN (23:37)
[2025-01-21] MEDS ORDERED: ACETAMINOPHEN TAB 325 MG TAB PO PRN (23:37)
[2025-01-22] MEDS: HYDROmorphone 1 MG/ML 1 ML SYRINGE IVP PRN (01:11)
[2025-01-22 03:57] LABS: Erythrocyte Sedimentation Rate 55 mm/Hr (0-30)
[2025-01-22] MEDS ORDERED: ALPRAZolam 0.25 MG TAB PO PRN (13:10)
[2025-01-22] MEDS ORDERED: LORATADINE 10 MG TAB PO PRN (13:10)
[2025-01-22] MEDS ORDERED: SPIRONOLACTONE 25 MG TAB PO PRN (13:10)
[2025-01-22] MEDS ORDERED: ALBUTEROL HFA INHALER INHALATION PRN (13:10)
[2025-01-22] MEDS: FUROSEMIDE 20 MG TAB PO SCH (13:28)
[2025-01-22] MEDS: lisinopriL 20 MG TAB PO SCH (13:28)
[2025-01-22] MEDS: hydrOXYzine pamoate 25 MG CAP PO SCH (13:29)
--- NOTE | 2025-01-22 13:37 | P.HPOR ---
History of Present Illness H&P Date: 01/22/25 This is a 64-year-old female who is status post revision left total knee arthroplasty on 01/18/[address] Rosalino Orozco. Patient states that she presented to the emergency room last night due to an increase in pain. Patient states that she was able to work with physical therapy a couple of days ago, but thinks that her nerve block wore off causing her increase in pain. Patient denies any injury. Patient denies any fever/chills, chest pain, shortness breath, abdominal pain, numbness, weakness or tingling.Patient's past medical history significant for COPD, hypertension, mitral valve prolapse, osteoarthritis, sarcoidosis and sleep apnea. Review of Systems See HPI. Past Medical History Past Medical History: COPD, Hypertension, Mitral Valve Prolapse (MVP), Osteoarthritis (OA), Sleep Apnea/CPAP/BIPAP Additional Past Medical History / Comment(s): L knee pain- previous TKA screws coming out, AAA, hx bronchitis, sleep apnea- no machine, sarcoidosis- skin/lung/heart History of Any Multi-Drug Resistant Organisms: None Reported Past Surgical History: Adenoidectomy, Bariatric Surgery, Joint Replacement, Orthopedic Surgery, Tonsillectomy Additional Past Surgical History / Comment(s): lap band, R eye sx for blocked blood vessel, sinus sx, B/L knee replacement, lung biopsy, MIRLANDE, mitral valve repair may 2021 Past Anesthesia/Blood Transfusion Reactions: Previous Problems w/ Anesthesia Additional Past Anesthesia/Blood Transfusion Reaction / Comment(s): Difficult IV starts- usually needs midline or central line. Hx of waking up during multiple surgeries - including bronchosopy and EGD. Anesthesiologist told her to have anesthesia read past MIRLANDE anesthesia notes for anesthesia recommendations. Past Psychological History: No Psychological Hx Reported Smoking Status: Never smoker - Past Family History Sister(s) Family Medical History: Cancer Additional Family Medical History / Comment(s): BREAST CANCER, HX OF BRACHIAL BLOOD CLOTS WITH FILTERS INSERTED. Mother Family Medical History: Cancer Additional Family Medical History / Comment(s): BREAST CANCER. Father Family Medical History: Congestive Heart Failure (CHF), Myocardial Infarction ([place]) Additional Family Medical History / Comment(s): [place] Brother(s) Family Medical History: Coronary Artery Disease (CAD) Additional Family Medical History / Comment(s): Medications and Allergies Home Medications Medication Instructions Recorded Confirmed Type Budesonide-Formot 160-4.5 Mcg 2 puff INHALATION RT-HS 12/29/18 01/22/25 History [Symbicort 160-4.5 Mcg Inhaler] Montelukast Sodium [Singulair] 10 mg PO HS 12/29/18 01/22/25 History Metoprolol Tartrate [Lopressor] 50 mg PO BID 01/12/22 01/22/25 History Albuterol Inhaler [Ventolin Hfa 2 puff INHALATION RT-QID PRN 03/31/23 01/22/25 History Inhaler] lisinopriL [Zestril] 20 mg PO BID 03/31/23 01/22/25 History ALPRAZolam [Xanax] 0.25 mg PO TID PRN 04/25/24 01/22/25 History Loratadine [Claritin] 10 mg PO DAILY PRN 01/13/25 01/22/25 History Multivitamins, Thera [Multivitamin 1 tab PO DAILY 01/13/25 01/22/25 History (formulary)] predniSONE 2.5 mg PO DAILY 01/15/25 01/22/25 History HYDROcodone/APAP 7.5-325MG [[place] 1 - 2 tab PO Q6H PRN #32 tab 01/18/25 01/22/25 Rx 7.5-325] Sennosides [Senokot] 2 tab PO DAILY PRN #60 tablet 01/18/25 01/22/25 Rx hydrOXYzine pamoate [Vistaril] 25 mg PO Q6H PRN #30 capsule 01/18/25 01/22/25 Rx Doxycycline Monohydrate 100 mg PO BID 7 Days #14 cap 01/19/25 01/22/25 Rx Aspirin EC [Ecotrin] 325 mg PO BID 01/22/25 01/22/25 History Furosemide [Lasix] 20 mg PO MOWEFR 01/22/25 01/22/25 History Pantoprazole [Protonix] 40 mg PO DAILY 01/22/25 01/22/25 History Spironolactone [Aldactone] 25 mg PO DAILY PRN 01/22/25 01/22/25 History Allergies Allergy/AdvReac Type Severity Reaction Status Date / Time No Known Allergies Allergy Verified 01/22/25 09:11 Physical Examination Vital signs are stable. Patient is in no acute distress and is alert and oriented 3. Left lower extremity: There is skin irritation of the left upper thigh. No surrounding erythema, drainage or warmth. Patient has a clean dressing to the lower aspect of the left leg covering a chronic wound. Calf is soft and nontender to palpation. Surgical dressing is clean, dry, and intact. Patient has full foot and ankle motion without pain or difficulty. Sensation intact. Neurovascular status and circulatory status are intact. Exams of the right lower extremity, bilateral upper extremities, head and neck are within normal limits. Results X-rays of the left knee dated 01/21/2025 show the total knee arthroplasty in good position and alignment. Venous Doppler ultrasound of the left lower extremity is negative for DVT. - Labs Labs: Abnormal Lab Results - Last 24 Hours (Table) 01/21/25 01/21/25 Range/Units 19:48 19:48 ESR 55 H (0-30) mm/Hr Creatinine 0.45 L (0.52-1.04) mg/dL C-Reactive Protein 19.9 H (<1.0) mg/dL H & H 01/21/25 Range/Units 19:48 Hgb 12.4 (11.4-16.0) gm/dL Hct 39.0 (34.0-46.0) % Result Diagrams: 01/21/25 19:48 01/21/25 19:48 Assessment and Plan Assessment: Status post revision left total knee arthroplasty on 01/18/2025. (1) Knee pain Current Visit: Yes Status: Acute Code(s): M25.569 - PAIN IN UNSPECIFIED KNEE SNOMED Code(s): 0913355491 Plan: #1 Continue with routine postoperative care and pain control, leave dressing in place for 7 days. #2 Anticoagulation with aspirin. #3 Consult to physical therapy. #4 Appreciate input from internal medicine. #5 Anticipate discharge home with home care tomorrow.
[2025-01-22] MEDS: DOXYCYCLINE 100 MG TABLET PO SCH (13:46)
[2025-01-22] MEDS: HYDROcodone/APAP 7.5-325MG 1 EACH TAB PO PRN ×2 (16:35→22:05)
[2025-01-22] MEDS: ONDANSETRON 4 MG/2 ML VIAL IVP PRN (16:41)
[2025-01-22] MEDS: SENNOSIDES 8.6 MG TAB PO PRN (16:47)
[2025-01-22] MEDS: SYMBICORT 160-4.5 MCG INHALER INHALATION SCH (19:32)
[2025-01-22] MEDS: ASPIRIN 325 MG TAB PO SCH (20:43)
[2025-01-22] MEDS: METOPROLOL TARTRATE 50 MG TAB PO SCH (20:43)
[2025-01-22] MEDS: MONTELUKAST 10 MG TAB PO SCH (20:43)
--- NOTE | 2025-01-22 21:26 | P.CONS ---
History of Present Illness - Reason for Consult Consult date: 01/22/25 Medical management, recent left knee arthroplasty with uncontrolled pain - History of Present Illness This is a pleasant 64-year-old female who presented to the emergency department with increasing pain and a recent left total knee arthroplasty on 01/18/2025. Patient is admitted to orthopedics under observation for uncontrolled pain in the outpatient setting. Patient follows with Dr. Katz in the outpatient setting with a significant past medical history of COPD, hypertension, mitral valve pleural labs, osteoarthritis, sleep apnea, sarcoidosis. Patient had been using [place] with no relief and having increased pain came to the emergency department. Patient is admitted to orthopedics and medicine is on consult for management. REVIEW OF SYSTEMS: CONSTITUTIONAL: No fever, no malaise, reports of fatigue. HEENT: No recent visual problems or hearing problems. Denied any sore throat. CARDIOVASCULAR: No chest pain, orthopnea, PND, no palpitations, no syncope. PULMONARY: No shortness of breath, no cough, no hemoptysis. GASTROINTESTINAL: No diarrhea, no nausea, no vomiting, no abdominal pain. NEUROLOGICAL: No headaches, no weakness, no numbness. HEMATOLOGICAL: Denies any bleeding or petechiae. GENITOURINARY: Denies any burning micturition, frequency, or urgency. MUSCULOSKELETAL/RHEUMATOLOGICAL: Reports of significant left knee pain, continued ongoing swelling, and muscle weakness ENDOCRINE: Denies any polyuria or polydipsia. The rest of the 14-point review of systems is negative. PHYSICAL EXAMINATION: GENERAL: The patient is alert and oriented x3, mildly anxious. Well developed, well nourished. Obese HEENT: Pupils are round and equally reacting to light. EOMI. No scleral icterus. No conjunctival pallor. Normocephalic, atraumatic. No pharyngeal erythema. No thyromegaly. CARDIOVASCULAR: S1 and S2 muffled PULMONARY: Diminished breath sounds bilaterally otherwise chest is clear to auscultation, no wheezing or crackles. ABDOMEN: Soft, obese, nontender, nondistended, normoactive bowel sounds. No palpable organomegaly. MUSCULOSKELETAL: Left lower extremity swelling and surgical dressing noted to be dry and intact EXTREMITIES: No cyanosis, clubbing, or pedal edema. NEUROLOGICAL: Gross neurological examination did not reveal any focal deficits. Diffusely weak SKIN: No rashes. 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 Patient was working with physical therapy and thought to have been doing well although the last 2 days has been increasing in pain and feels her subcu pump from surgery has worn off and feeling increasing pain and weakness. Recommend to continue home care with physical therapy and nursing services. Recommend physical therapy evaluation during hospitalization. Patient may benefit from ECF for short term PT/OT therapy for continued strength and mobility. Patient does not want to go to rehab. Home medications reviewed and resumed as appropriate Thank you kindly for this consultation. We will continue to follow with orthopedics during hospitalization The impression and plan of care has been dictated by Anahy Zeng, Nurse Practitioner as directed. Dr. Marii MD I have performed a history and examination and MDM of this patient, discussed the same with the dictator, and agree with the dictator's assessment and plan as written ,documented as a scribe. Based on total visit time, I have performed more than 50% of the visit. Past Medical History Past Medical History: COPD, Hypertension, Mitral Valve Prolapse (MVP), Osteoarthritis (OA), Sleep Apnea/CPAP/BIPAP Additional Past Medical History / Comment(s): L knee pain- previous TKA screws coming out, AAA, hx bronchitis, sleep apnea- no machine, sarcoidosis- skin/lung/heart History of Any Multi-Drug Resistant Organisms: None Reported Past Surgical History: Adenoidectomy, Bariatric Surgery, Joint Replacement, Orthopedic Surgery, Tonsillectomy Additional Past Surgical History / Comment(s): lap band, R eye sx for blocked blood vessel, sinus sx, B/L knee replacement, lung biopsy, M[facility], mitral valve repair may 2021 Past Anesthesia/Blood Transfusion Reactions: Previous Problems w/ Anesthesia Additional Past Anesthesia/Blood Transfusion Reaction / Comm: Difficult IV starts- usually needs midline or central line. Hx of waking up during multiple surgeries - including bronchosopy and EGD. Anesthesiologist told her to have anesthesia read past [facility] anesthesia notes for anesthesia recommendations. Past Psychological History: No Psychological Hx Reported Smoking Status: Never smoker - Past Family History Sister(s) Family Medical History: Cancer Additional Family Medical History / Comment(s): BREAST CANCER, HX OF BRACHIAL BLOOD CLOTS WITH FILTERS INSERTED. Mother Family Medical History: Cancer Additional Family Medical History / Comment(s): BREAST CANCER. Father Family Medical History: Congestive Heart Failure (CHF), Myocardial Infarction ([place]) Additional Family Medical History / Comment(s): [place] Brother(s) Family Medical History: Coronary Artery Disease (CAD) Additional Family Medical History / Comment(s): Medications and Allergies Home Medications Medication Instructions Recorded Confirmed Type Budesonide-Formot 160-4.5 Mcg 2 puff INHALATION RT-HS 12/29/18 01/22/25 History [Symbicort 160-4.5 Mcg Inhaler] Montelukast Sodium [Singulair] 10 mg PO HS 12/29/18 01/22/25 History Metoprolol Tartrate [Lopressor] 50 mg PO BID 01/12/22 01/22/25 History Albuterol Inhaler [Ventolin Hfa 2 puff INHALATION RT-QID PRN 03/31/23 01/22/25 History Inhaler] lisinopriL [Zestril] 20 mg PO BID 03/31/23 01/22/25 History ALPRAZolam [Xanax] 0.25 mg PO TID PRN 04/25/24 01/22/25 History Loratadine [Claritin] 10 mg PO DAILY PRN 01/13/25 01/22/25 History Multivitamins, Thera [Multivitamin 1 tab PO DAILY 01/13/25 01/22/25 History (formulary)] predniSONE 2.5 mg PO DAILY 01/15/25 01/22/25 History HYDROcodone/APAP 7.5-325MG [[place] 1 - 2 tab PO Q6H PRN #32 tab 01/18/25 01/22/25 Rx 7.5-325] Sennosides [Senokot] 2 tab PO DAILY PRN #60 tablet 01/18/25 01/22/25 Rx hydrOXYzine pamoate [Vistaril] 25 mg PO Q6H PRN #30 capsule 01/18/25 01/22/25 Rx Doxycycline Monohydrate 100 mg PO BID 7 Days #14 cap 01/19/25 01/22/25 Rx Aspirin EC [Ecotrin] 325 mg PO BID 01/22/25 01/22/25 History Furosemide [Lasix] 20 mg PO MOWEFR 01/22/25 01/22/25 History Pantoprazole [Protonix] 40 mg PO DAILY 01/22/25 01/22/25 History Spironolactone [Aldactone] 25 mg PO DAILY PRN 01/22/25 01/22/25 History Allergies Allergy/AdvReac Type Severity Reaction Status Date / Time No Known Allergies Allergy Verified 01/22/25 09:11 Physical Exam Vitals: Vital Signs Temp Pulse Pulse Resp BP BP Pulse Ox 01/22/25 07:20 98.4 F 91 16 155/92 96 01/22/25 02:00 16 01/22/25 01:43 98.4 F 106 H 17 124/66 97 01/22/25 00:31 98.4 F 101 H 19 132/70 97 01/21/25 22:50 99.0 F 110 H 19 153/76 97 01/21/25 18:55 97.7 F 100 20 169/85 97 Intake and Output 01/21/25 01/22/25 01/22/25 22:59 06:59 14:59 Intake Total 480 Balance 480 Intake: Oral 480 Other: Voiding Method External Catheter Weight 113.398 kg 113.398 kg Results CBC & Chem 7: 01/21/25 19:48 01/21/25 19:48 Labs: Abnormal Lab Results - Last 24 Hours (Table) 01/21/25 01/21/25 Range/Units 19:48 19:48 ESR 55 H (0-30) mm/Hr Creatinine 0.45 L (0.52-1.04) mg/dL C-Reactive Protein 19.9 H (<1.0) mg/dL
[2025-01-23] MEDS: DULoxetine HCL 30 MG CAPSULE.DR PO SCH (08:14)
[2025-01-23] MEDS: PANTOPRAZOLE 40 MG TABLET PO SCH (08:14)
[2025-01-23] MEDS: predniSONE 2.5 MG TAB PO SCH (08:14)
[2025-01-23] MEDS ORDERED: polyethylene glycoL 3350 17 GM POWD.PACK PO PRN (11:06)
--- NOTE | 2025-01-23 11:16 | P.DS ---
Providers Date of admission: 01/21/25 23:46 Expected date of discharge: 01/23/25 Attending physician: Rosalino Orozco Consults: 01/22/25 12:30 Consult Physician Routine Consulting Provider: Danyel Valdes Consult Reason/Comments: Medical management Do you want consulting provider notified?: Yes Primary care physician: Omer Katz - Discharge Diagnosis(es) (1) Knee pain Current Visit: Yes Status: Acute Hospital Course: This is a 64-year-old female who underwent revision left total knee arthroplasty on 01/18/2025. Patient presented to the emergency room on 01/21/2025 due to an increase in pain and was admitted for pain management. X-rays showed the revision left total knee arthroplasty in good position and alignment. Venous Doppler ultrasound was negative for DVT. Patient is admitted to [facility] on 01/21/2025. Patient's pain has improved and she has been able to work with physical therapy. Labs and vital signs are stable on day of discharge. On day of discharge patient's knee incision is healing well. There is minimal erythema. There is no drainage noted at this time. There is mild-moderate soft tissue swelling to the knee. Patient has full foot and ankle motion without difficulty or pain. Calf is soft and nontender to palpation. Neurovascular status to the left lower extremity is intact. Patient is discharged home in good condition. Please see med rec for accurate list of home medications. Patient Condition at Discharge: Stable Plan - Discharge Summary New Discharge Prescriptions: No Action Budesonide-Formot 160-4.5 Mcg [Symbicort 160-4.5 Mcg Inhaler] 2 puff INHALATION RT-HS Montelukast Sodium [Singulair] 10 mg PO HS Multivitamins, Thera [Multivitamin (formulary)] 1 tab PO DAILY hydrOXYzine pamoate [Vistaril] 25 mg PO Q6H PRN #30 capsule PRN Reason: Pain Pantoprazole [Protonix] 40 mg PO DAILY Spironolactone [Aldactone] 25 mg PO DAILY PRN PRN Reason: Edema Metoprolol Tartrate [Lopressor] 50 mg PO BID Albuterol Inhaler [Ventolin Hfa Inhaler] 2 puff INHALATION RT-QID PRN PRN Reason: Shortness Of Breath lisinopriL [Zestril] 20 mg PO BID ALPRAZolam [Xanax] 0.25 mg PO TID PRN PRN Reason: Anxiety Loratadine [Claritin] 10 mg PO DAILY PRN PRN Reason: Allergy Symptoms predniSONE 2.5 mg PO DAILY HYDROcodone/APAP 7.5-325MG [[place] 7.5-325] 1 - 2 tab PO Q6H PRN #32 tab PRN Reason: Pain Sennosides [Senokot] 2 tab PO DAILY PRN #60 tablet PRN Reason: Constipation Doxycycline Monohydrate 100 mg PO BID 7 Days #14 cap Aspirin EC [Ecotrin] 325 mg PO BID Furosemide [Lasix] 20 mg PO MOWEFR Discharge Medication List Budesonide-Formot 160-4.5 Mcg [Symbicort 160-4.5 Mcg Inhaler] 2 puff INHALATION RT-HS 12/29/18 [History] Montelukast Sodium [Singulair] 10 mg PO HS 12/29/18 [History] Metoprolol Tartrate [Lopressor] 50 mg PO BID 01/12/22 [History] Albuterol Inhaler [Ventolin Hfa Inhaler] 2 puff INHALATION RT-QID PRN 03/31/23 [History] lisinopriL [Zestril] 20 mg PO BID 03/31/23 [History] ALPRAZolam [Xanax] 0.25 mg PO TID PRN 04/25/24 [History] Loratadine [Claritin] 10 mg PO DAILY PRN 01/13/25 [History] Multivitamins, Thera [Multivitamin (formulary)] 1 tab PO DAILY 01/13/25 [History] predniSONE 2.5 mg PO DAILY 01/15/25 [History] HYDROcodone/APAP 7.5-325MG [[place] 7.5-325] 1 - 2 tab PO Q6H PRN #32 tab 01/18/25 [Rx] Sennosides [Senokot] 2 tab PO DAILY PRN #60 tablet 01/18/25 [Rx] hydrOXYzine pamoate [Vistaril] 25 mg PO Q6H PRN #30 capsule 01/18/25 [Rx] Doxycycline Monohydrate 100 mg PO BID 7 Days #14 cap 01/19/25 [Rx] Aspirin EC [Ecotrin] 325 mg PO BID 01/22/25 [History] Furosemide [Lasix] 20 mg PO MOWEFR 01/22/25 [History] Pantoprazole [Protonix] 40 mg PO DAILY 01/22/25 [History] Spironolactone [Aldactone] 25 mg PO DAILY PRN 01/22/25 [History] Follow up Appointment(s)/Referral(s): Omer Katz DO [Primary Care Provider] - 1-2 days Rosalino Orozco DO [Doctor of Osteopathic Medicine] - 1-2 days Patient Instructions/Handouts: Knee Replacement (DC) Activity/Diet/Wound Care/Special Instructions: Take [place] as prescribed. Be sure you have regular bowel movements as pain medication may cause constipation. Follow-up closely with Dr. Orozco. Return to the ER for any new or worsening symptoms. Weightbearing as tolerated with a walker. Leave dressing intact. Dressing may be removed after 7 days. Then change dressing twice daily until follow up. May shower with initial dressing intact and after removal. If dressing become saturated, please remove. Recommend use of compression stockings daily until follow up to help prevent swelling and blood clots. May remove at night before sleeping. Please take aspirin 325mg twice daily for 30 days to prevent blood clots. Please follow up with [facility] and call with any questions or concerns, . Discharge Disposition: HOME WITH HOME HEALTH SERVICES
[2025-01-23] MEDS: DOCUSATE 100 MG CAP PO SCH (11:46)
[2025-01-23] MEDS: polyethylene glycoL 3350 17 GM POWD.PACK PO STA (11:47)
[2025-01-23 13:09] VITALS: BP 106/68; PULSE 68; RESP 14; TEMP 98.4
== END 2025-01-23 16:38 | disposition home health service (06) ==
LOC: EC 18:50 → 6NMEDSUR 23:46 → 5NMEDONC 01-22 00:20
PROVIDERS: ADMIT Orthopaedic Surgery; ATTEND Orthopaedic Surgery
DX: M25.562 Pain in left knee (principal); R22.42 Localized swelling, mass and lump, left lower limb; J44.9 Chronic obstructive pulmonary disease, unspecified; I10 Essential (primary) hypertension; G47.30 Sleep apnea, unspecified; D86.9 Sarcoidosis, unspecified; M19.90 Unspecified osteoarthritis, unspecified site; I34.1 Nonrheumatic mitral (valve) prolapse; E66.9 Obesity, unspecified; Z68.39 Body mass index [BMI] 39.0-39.9, adult; Z96.653 Presence of artificial knee joint, bilateral; Z79.51 Long term (current) use of inhaled steroids; Z79.82 Long term (current) use of aspirin; Z79.899 Other long term (current) drug therapy
CPT/HCPCS: 96376 ×3; 96374 ×2; 96375; 99284; 36415; 94640; 97116; 97161; 80053; 85652; 83605; 85025; 86140; 87040; 73562; 93971; G0378 ×3; J2405 ×3; J1171 ×2

== ENCOUNTER 2025-03-12 10:31 | Emergency (ER) | payer MEDICAID ==
--- NOTE | 2025-03-12 11:14 | ED ---
General Adult HPI - General Chief complaint: Upper Respiratory Infection Stated complaint: SOB Time Seen by Provider: 03/12/25 10:58 Source: patient, RN notes reviewed Mode of arrival: ambulatory Limitations: no limitations - History of Present Illness Initial comments: 64-year-old female presents to the emergency department for evaluation of shortness of breath. Patient states that she has had cough and congestion for the past 5 days. She notes that she had a fever yesterday. She states that yesterday she started to feel short of breath. She states that this is most with ambulation. Denies chest pain. She does report a history of sarcoidosis. She has been off steroids for 6 weeks following a total knee replacement. She states that she was finally feeling better after surgery and then started feeling ill. - Related Data Home Medications Medication Instructions Recorded Confirmed Budesonide-Formot 160-4.5 Mcg 2 puff INHALATION RT-HS 12/29/18 03/12/25 [Symbicort 160-4.5 Mcg Inhaler] Montelukast Sodium [Singulair] 10 mg PO HS 12/29/18 03/12/25 Metoprolol Tartrate [Lopressor] 50 mg PO BID 01/12/22 03/12/25 Albuterol Inhaler [Ventolin Hfa 2 puff INHALATION RT-QID PRN 03/31/23 03/12/25 Inhaler] lisinopriL [Zestril] 20 mg PO BID 03/31/23 03/12/25 ALPRAZolam [Xanax] 0.25 mg PO TID PRN 04/25/24 03/12/25 Loratadine [Claritin] 10 mg PO DAILY PRN 01/13/25 03/12/25 Furosemide [Lasix] 20 mg PO MOWEFR 01/22/25 03/12/25 Pantoprazole [Protonix] 40 mg PO BID 01/22/25 03/12/25 Spironolactone [Aldactone] 25 mg PO DAILY PRN 01/22/25 03/12/25 Amoxicillin 2,000 mg PO DIRECTED PRN 03/12/25 03/12/25 Gabapentin [Neurontin] 300 mg PO Q12H 03/12/25 03/12/25 HYDROcodone/APAP 7.5-325MG [[place] 1 tab PO Q6H PRN 03/12/25 03/12/25 7.5-325] Allergies Allergy/AdvReac Type Severity Reaction Status Date / Time No Known Allergies Allergy Verified 03/12/25 14:25 Review of Systems ROS Statement: Those systems with pertinent positive or pertinent negative responses have been documented in the HPI. ROS Other: All systems not noted in ROS Statement are negative. Past Medical History Past Medical History: COPD, Hypertension, Mitral Valve Prolapse (MVP), Osteoarthritis (OA), Sleep Apnea/CPAP/BIPAP Additional Past Medical History / Comment(s): L knee pain- previous TKA screws coming out, AAA, hx bronchitis, sleep apnea- no machine, sarcoidosis- skin/lung/heart History of Any Multi-Drug Resistant Organisms: None Reported Past Surgical History: Adenoidectomy, Bariatric Surgery, Joint Replacement, Orthopedic Surgery, Tonsillectomy Additional Past Surgical History / Comment(s): lap band, R eye sx for blocked blood vessel, sinus sx, B/L knee replacement, lung biopsy, [facility], mitral valve repair may 2021 Past Anesthesia/Blood Transfusion Reactions: Previous Problems w/ Anesthesia Additional Past Anesthesia/Blood Transfusion Reaction / Comment(s): Difficult IV starts- usually needs midline or central line. Hx of waking up during multiple surgeries - including bronchosopy and EGD. Anesthesiologist told her to have anesthesia read past [facility] anesthesia notes for anesthesia recommendations. Past Psychological History: No Psychological Hx Reported Smoking Status: Never smoker Past Alcohol Use History: None Reported Past Drug Use History: None Reported - Past Family History Sister(s) Family Medical History: Cancer Additional Family Medical History / Comment(s): BREAST CANCER, HX OF BRACHIAL B LOOD CLOTS WITH FILTERS INSERTED. Mother Family Medical History: Cancer Additional Family Medical History / Comment(s): BREAST CANCER. Father Family Medical History: Congestive Heart Failure (CHF), Myocardial Infarction (PR) Additional Family Medical History / Comment(s): PR Brother(s) Family Medical History: Coronary Artery Disease (CAD) Additional Family Medical History / Comment(s): General Exam Limitations: no limitations General appearance: alert, in no apparent distress Head exam: Present: atraumatic, normocephalic, normal inspection Eye exam: Present: normal appearance, PERRL, EOMI. Absent: scleral icterus, conjunctival injection, periorbital swelling ENT exam: Present: normal exam, mucous membranes moist Neck exam: Present: normal inspection. Absent: tenderness, meningismus, lymphadenopathy Respiratory exam: Present: normal lung sounds bilaterally, wheezes. Absent: respiratory distress, rales, rhonchi, stridor Cardiovascular Exam: Present: regular rate, normal rhythm, normal heart sounds. Absent: systolic murmur, diastolic murmur, rubs, gallop, clicks Extremities exam: Present: full ROM, normal capillary refill, pedal edema. Absent: tenderness, joint swelling, calf tenderness Back exam: Present: normal inspection Neurological exam: Present: alert, oriented X3 Psychiatric exam: Present: normal affect, normal mood Skin exam: Present: warm, dry, intact, normal color. Absent: rash Course Vital Signs 03/12/25 03/12/25 03/12/25 10:33 11:51 13:06 Temperature 97.5 F L Pulse Rate 72 82 Respiratory 18 20 20 Rate Blood Pressure 132/90 150/95 O2 Sat by Pulse 98 96 Oximetry 03/12/25 03/12/25 14:51 17:16 Temperature 97.8 F Pulse Rate 64 84 Respiratory 17 18 Rate Blood Pressure 171/102 204/120 O2 Sat by Pulse 97 98 Oximetry Medical Decision Making - Medical Decision Making Was pt. sent in by a medical professional or institution (, PA, CHILD DEVELOPMENT ASSOCIATE TEACHER, urgent care, hospital, or custodial...) When possible be specific @ -No Did you speak to anyone other than the patient for history (EMS, parent, family, police, friend...)? What history was obtained from this source @ -No Did you review nursing and triage notes (agree or disagree)? Why? @ -I reviewed and agree with nursing and triage notes Were old charts reviewed (outside hosp., previous admission, EMS record, old EKG, old radiological studies, urgent care reports/EKG's, custodial records)? Report findings @ -No old charts were reviewed Differential Diagnosis (chest pain, altered mental status, abdominal pain women, abdominal pain men, vaginal bleeding, weakness, fever, dyspnea, syncope, headache, dizziness, GI bleed, back pain, seizure, CVA, palpatations, mental health, musculoskeletal)? @ -Differential Dyspnea: Coronary syndrome, arrhythmia, tamponade, asthma, COPD, pulmonary embolism, pneumonia, pneumothorax, pulmonary effusion, anaphylaxis, diabetic ketoacidosis, flailed chest, pulmonary contusion, diaphragmatic rupture, anemia, neuromuscular, this is not meant to be an all-inclusive list. EKG interpreted by me (3pts min.). @ -EKG at 1137 shows sinus rhythm with frequent PVCs rate of 74, AL 179, QRS 133, QTQTc [id number] X-rays interpreted by me (1pt min.). @ -Chest x-ray reveals no acute process CT interpreted by me (1pt min.). @ -CTA of the chest shows no evidence of pulmonary embolism U/S interpreted by me (1pt. min.). @ -None done What testing was considered but not performed or refused? (CT, X-rays, U/S, labs)? Why? @ -None What meds were considered but not given or refused? Why? @ -None Did you discuss the management of the patient with other professionals (liza anthony i.e. , PA, CHILD DEVELOPMENT ASSOCIATE TEACHER, lab, RT, psych nurse, social media executive, chairman of the board, teacher, chief credit officer, case filler)? Give summary @ -No Was smoking cessation discussed for >3mins.? @ -No Was critical care preformed (if so, how long)? @ -No Were there social determinants of health that impacted care today? How? (Homelessness, low income, unemployed, alcoholism, drug addiction, transportation, low edu. Level, literacy, decrease access to med. care, detention, rehab)? @ -No Was there de-escalation of care discussed even if they declined (Discuss DNR or withdrawal of care, Hospice)? DNR status @ -No What co-morbidities impacted this encounter? (DM, HTN, Smoking, COPD, CAD, Cancer, CVA, ARF, Chemo, Hep., AIDS, mental health diagnosis, sleep apnea, morbid obesity)? @ -None Was patient admitted / discharged? Hospital course, mention meds given and route, prescriptions, significant lab abnormalities, going to OR and other pertinent info. @ -Discharge. Patient presented emergency department for shortness of breath.[place] studies obtained revealing no significant leukocytosis, patient has elevated D-dimer at 1.54. CMP is nonactionable, negative troponin patient negative for COVID, influenza, RSV. Chest x-ray reveals no acute process. CTA of the chest was obtained for the elevated D-dimer and the shortness of breath which was negative for PE. Patient was advised on findings. She would like to be discharged home. Patient is understanding agreeable discharge plan. Patient stable at time of discharge. Case discussed with Dr. Gilliland. Undiagnosed new problem with uncertain prognosis? @ -No Drug Therapy requiring intensive monitoring for toxicity (Heparin, Nitro, Insulin, Cardizem)? @ -No Were any procedures done? @ -No Diagnosis/symptom? @ -URI, dyspnea Acute, or Chronic, or Acute on Chronic? @ -Acute Uncomplicated (without systemic symptoms) or Complicated (systemic symptoms)? @ -Uncomplicated Side effects of treatment? @ -No Exacerbation, Progression, or Severe Exacerbation? @ -No Poses a threat to life or bodily function? How? (Chest pain, [place], PR, pneumonia, PE, COPD, DKA, ARF, appy, cholecystitis, CVA, Diverticulitis, Homicidal, Suicidal, threat to staff... and all critical care pts) @ -No - Lab Data Result diagrams: 03/12/25 11:20 03/12/25 11:20 Lab Results 03/12/25 03/12/25 03/12/25 Range/Units 11:20 11:20 11:20 WBC 6.22 (4.50-10.00) 10*3/uL RBC 4.25 (4.10-5.20) 10*6/uL Hgb 12.5 (12.0-15.0) g/dL Hct 38.9 (37.2-46.3) % MCV 91.5 (80.0-97.0) fL MCH 29.4 (27.0-32.0) pg MCHC 32.1 (32.0-37.0) g/dL Plt Count 261 (140-440) 10*3/uL MPV 10.3 (9.5-12.2) fL Immature Gran % (Auto) 0.3 % Neutrophils % 57.3 % Lymphocytes % 25.2 % Monocytes % 11.9 % Eosinophils % 4.8 % Basophils % 0.5 % Immature Gran # 0.02 (0.00-0.04) 10*3/uL Neutrophils # 3.56 (1.80-7.70) 10*3/uL Lymphocytes # 1.57 (0.90-5.00) 10*3/uL Monocytes # 0.74 (0.20-1.00) 10*3/uL Eosinophils # 0.30 (0.04-0.35) 10*3/uL Basophils # 0.03 (0.00-0.10) 10*3/uL PT 10.6 (10.0-12.5) sec INR 1.0 (<1.2) APTT 22.0 (22.0-30.0) sec D-Dimer (<0.60) mg/L FEU Sodium 141 (137-145) mmol/L Potassium 3.5 (3.5-5.1) mmol/L Chloride 101 (98-107) mmol/L Carbon Dioxide 27 (22-30) mmol/L Anion Gap 13 mmol/L BUN 23 H (7-17) mg/dL Creatinine 0.65 (0.52-1.04) mg/dL Est GFR (CKD-EPI)AfAm >90 (>60 ml/min/1.73 sqM) Est GFR (CKD-EPI)NonAf >90 (>60 ml/min/1.73 sqM) Glucose 102 H (74-99) mg/dL Calcium 9.7 (8.4-10.2) mg/dL Total Bilirubin 0.6 (0.2-1.3) mg/dL AST 38 H (14-36) U/L ALT 37 H (4-34) U/L Alkaline Phosphatase 74 (38-126) U/L Troponin I (0.000-0.034) ng/mL NT-Pro-B Natriuret Pep 2470 pg/mL Total Protein 6.9 (6.3-8.2) g/dL Albumin 4.5 (3.5-5.0) g/dL Influenza Type A (PCR) (Not Detectd) Influenza Type B (PCR) (Not Detectd) RSV (PCR) (Not Detectd) SARS-CoV-2 (PCR) (Not Detectd) 03/12/25 03/12/25 03/12/25 Range/Units 11:20 11:20 11:20 WBC (4.50-10.00) 10*3/uL RBC (4.10-5.20) 10*6/uL Hgb (12.0-15.0) g/dL Hct (37.2-46.3) % MCV (80.0-97.0) fL MCH (27.0-32.0) pg MCHC (32.0-37.0) g/dL Plt Count (140-440) 10*3/uL MPV (9.5-12.2) fL Immature Gran % (Auto) % Neutrophils % % Lymphocytes % % Monocytes % % Eosinophils % % Basophils % % Immature Gran # (0.00-0.04) 10*3/uL Neutrophils # (1.80-7.70) 10*3/uL Lymphocytes # (0.90-5.00) 10*3/uL Monocytes # (0.20-1.00) 10*3/uL Eosinophils # (0.04-0.35) 10*3/uL Basophils # (0.00-0.10) 10*3/uL PT (10.0-12.5) sec INR (<1.2) APTT (22.0-30.0) sec D-Dimer 1.54 H (<0.60) mg/L FEU Sodium (137-145) mmol/L Potassium (3.5-5.1) mmol/L Chloride (98-107) mmol/L Carbon Dioxide (22-30) mmol/L Anion Gap mmol/L BUN (7-17) mg/dL Creatinine (0.52-1.04) mg/dL Est GFR (CKD-EPI)AfAm (>60 ml/min/1.73 sqM) Est GFR (CKD-EPI)NonAf (>60 ml/min/1.73 sqM) Glucose (74-99) mg/dL Calcium (8.4-10.2) mg/dL Total Bilirubin (0.2-1.3) mg/dL AST (14-36) U/L ALT (4-34) U/L Alkaline Phosphatase (38-126) U/L Troponin I <0.012 (0.000-0.034) ng/mL NT-Pro-B Natriuret Pep pg/mL Total Protein (6.3-8.2) g/dL Albumin (3.5-5.0) g/dL Influenza Type A (PCR) Not Detected (Not Detectd) Influenza Type B (PCR) Not Detected (Not Detectd) RSV (PCR) Not Detected (Not Detectd) SARS-CoV-2 (PCR) Not Detected (Not Detectd) Disposition Clinical Impression: Viral infection, Shortness of breath Disposition: HOME SELF-CARE Condition: Stable Instructions (If sedation given, give patient instructions): Upper Respiratory Infection (ED) Additional Instructions: Please follow up with your doctor. Return to the emergency department for new or worsening symptoms. Is patient prescribed a controlled substance at d/c from ED?: No Referrals: Omer Katz DO [Primary Care Provider] - 1-2 days
[2025-03-12 12:15] LABS: Basophils # (A) 0.03 10*3/uL (0.00-0.10); Basophils % (A) 0.5 %; Eosinophils % (A) 4.8 %; HCT 38.9 % (37.2-46.3); HGB 12.5 g/dL (12.0-15.0); Lymphocytes # (A) 1.57 10*3/uL (0.90-5.00); Lymphocytes % (A) 25.2 %; MCH 29.4 pg (27.0-32.0); MCHC 32.1 g/dL (32.0-37.0); MCV 91.5 fL (80.0-97.0); Mean Platelet Volume 10.3 fL (9.5-12.2); Monocytes # (A) 0.74 10*3/uL (0.20-1.00); Monocytes % (A) 11.9 %; Neutrophils # (A) 3.56 10*3/uL (1.80-7.70); Neutrophils % (A) 57.3 %; Platelet Count 261 10*3/uL (140-440); RBC 4.25 10*6/uL (4.10-5.20); RDW 13.7 % (11.5-14.5); WBC 6.22 10*3/uL (4.50-10.00)
[2025-03-12 12:22] LABS: ALT 37 U/L (4-34); AST 38 U/L (14-36); African American GFR (CKD) >90 (>60 ml/min/1.73 sqM); Albumin 4.5 g/dL (3.5-5.0); Alkaline Phosphatase 74 U/L (38-126); Anion Gap 13 mmol/L; Blood Urea Nitrogen 23 mg/dL (7-17); Calcium 9.7 mg/dL (8.4-10.2); Carbon Dioxide 27 mmol/L (22-30); Chloride 101 mmol/L (98-107); Glucose 102 mg/dL (74-99); Non-African American GFR(CKD) >90 (>60 ml/min/1.73 sqM); Potassium 3.5 mmol/L (3.5-5.1); Sodium 141 mmol/L (137-145); Total Bilirubin 0.6 mg/dL (0.2-1.3); Total Protein 6.9 g/dL (6.3-8.2)
[2025-03-12 12:29] LABS: NT-Pro-B-Type Natriuretic Pept 2470 pg/mL
--- NOTE | 2025-03-12 12:30 | XR ---
EXAMINATION TYPE: XR chest 2V DATE OF EXAM: 03/12/2025 12:14 PM COMPARISON: 04/28/2024 CLINICAL INDICATION: Female, 64 years old with history of difficulty breathing, TECHNIQUE: XR chest 2V view(s) obtained. FINDINGS: The heart size is mildly prominent. Sternotomy wires are present The pulmonary vasculature is normal. The lungs are clear. IMPRESSION: 1. Mild cardiomegaly, stable [facility], Workstation: [facility], 03/12/2025 12:28 PM
[2025-03-12 12:34] LABS: Prothrombin Time 10.6 sec (10.0-12.5)
[2025-03-12 12:40] LABS: Influenza A Not Detected (Not Detectd); Influenza B Not Detected (Not Detectd); RSV Not Detected (Not Detectd)
[2025-03-12] MEDS: methylPREDNISolone SOD SUCCI 125 MG/2 ML VIAL IV STA (14:28)
[2025-03-12 14:54] VITALS: TEMP 97.8
--- NOTE | 2025-03-12 16:13 | CT ---
EXAMINATION TYPE: CT chest angio for PE DATE OF EXAM: 03/12/2025 3:59 PM COMPARISON: CT chest 11/25/2023.. CLINICAL INDICATION: Female, 64 years old with history of shortness of breath; SOB and elevated d-dim er TECHNIQUE/CONTRAST: CTA scan of the thorax is performed with IV Contrast, patient injected with 100ml mL of Isovue 370, M IP images are created and reviewed these are created on a separate workstation.. CT DLP: 584.4 mGycm, Automated exposure control for dose reduction was used. FINDINGS: Lungs/Pleura: No evidence of focal consolidation, pleural effusion or pneumothorax. Left upper lobe c alcified granuloma. Airway: Large airways are patent. Heart: Cardiomegaly is demonstrated. No significant coronary artery calcifications. Left atrial appen dage occlusion device. Mitral valve annular calcifications. Vasculature: There is no evidence for a filling defect within the pulmonary vasculature to suggest ac [place] pulmonary embolism. The pulmonary artery is of normal size. Mediastinum: Prominent lymph nodes in the mediastinum some of which are enlarged including AP window 12 mm in short axis. 18 mm in short axis subcarinal lymph node. Musculoskeletal: No acute osseous abnormalities Soft Tissues/lymph nodes: Unremarkable. Lower neck: No significant findings. Upper Abdomen: Gastric lap band has a flattened position within the body angle of 72 degrees. IMPRESSION: 1. No evidence of pulmonary embolism. No evidence for airspace disease. 2. Enlarged mediastinal lymph nodes of undetermined etiology. These are enlarged compared to 11/25/2023 . Given patient's history of sarcoidosis base could be compatible with sarcoid disease. 3. Gastric lap band in a flattened position compatible with slipped/migrated lap band. 4. Mild cardiomegaly. Follow up recommendations for incidental pulmonary nodules, if there are any, are per [employer]s [employer] [employer] or [employer]. https://radiopaedia.org/articles/igvrxdltxy-bxwnsem-rsxzxuzug-bregot-[email or web address]-[email or web address]?lang=us [facility], , 03/12/2025 4:10 PM
[2025-03-12 17:17] VITALS: BP 204/120; PULSE 84; RESP 18
== END 2025-03-12 17:21 | disposition home or self-care (01) ==
LOC: EC 10:31
DX: B34.9 Viral infection, unspecified (principal); J06.9 Acute upper respiratory infection, unspecified; R79.1 Abnormal coagulation profile
CPT/HCPCS: 36415; 93005; 85379; 83880; 80053; 84484; 85025; 85610; 85730; 87636; 71046; 71275; 99285; 96374; Q9967; J2919